=== PATIENT | female | born 1980 | race Caucasian/White ===

== ENCOUNTER 2019-02-24 10:38 | Emergency (ER) | payer BC ==
--- OUTSIDE RECORDS SUMMARY | 2019-02-24 11:05 | XMS REPORT | Clinical Summary ---
:1980 Author Organization [facility] Address [address] [place] [id number] Care Team Providers Name Role Phone Radha Montana MD Primary Care Provider Allergies No Known Allergies Medications Medication Sig Dispensed Refills Start Date End Date Status fluconazole (DIFLUCAN) Take by mouth 0 Active 100 MG tablet daily. Active Problems Problem Noted Date Irritable bowel syndrome with diarrhea 01/26/2017 Fecal incontinence 01/26/2017 Fecal urgency 01/26/2017 Family History Medical History Relation Name Comments Diabetes Father Hypertension Father Diabetes Mother Heart disease Mother Hypertension Mother Asthma Sister Heart disease Sister Relation Name Status Comments Father Mother Sister Social History Tobacco Use Types Packs/Day Years Used Date Never Smoker Alcohol Use Drinks/Week oz/Week Comments No Sex Assigned at Date Recorded Not on file Job Start Date Occupation Industry Not on file Not on file Not on file Travel History Travel Start Travel End No recent travel history available. 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
[2019-02-24 11:27] LABS: Absolute Lymphocytes (CBC) 2.2 K/uL (0.7-4.9); Basophils % 0.3 % (0-1.3); Hematocrit 40.4 % (36.0-45.0); Lymphocytes % 32.2 % (15.3-44.8); MPV 9.2 fL (7.6-11.3); RBC Red Blood Cell Count 4.77 M/uL (3.86-4.86)
[2019-02-24 11:36] LABS: Protime INR 1.03
[2019-02-24 11:49] LABS: ALT/SGPT 32 U/L (12-78); AST/SGOT 16 U/L (15-37); Albumin 3.7 g/dL (3.4-5.0); Alkaline Phosphatase 88 U/L (45-117); BUN Blood Urea Nitrogen 11 mg/dL (7-18); Bicarbonate 26 mmol/L (21-32); Bilirubin Direct < 0.1 mg/dL (0-0.2); Bilirubin Total 0.3 mg/dL (0.2-1.0); Glucose Level 77 mg/dL (74-106); Magnesium 2.3 mg/dL (1.8-2.4); NT PRO-BNP 174 pg/mL (<125); Potassium 3.8 mmol/L (3.5-5.1); Protein, Total 7.7 g/dL (6.4-8.2); Sodium Level 141 mmol/L (136-145); Troponin (Emerg Dept Use Only) < 0.02 ng/mL (0.0-0.045)
[2019-02-24] MEDS ORDERED: ASPIRIN 81 MG CHEWABLE TABLET ONE (11:50)
--- NOTE | 2019-02-24 12:51 | RAD REPORT ---
EXAM DESCRIPTION: Rita Single View02/24/2019 12:41 pm CLINICAL HISTORY: Chest pain COMPARISON: none FINDINGS: The lungs appear clear of acute infiltrate. The heart is normal size IMPRESSION: No acute abnormalities displayed
--- NOTE | 2019-02-24 13:11 | EDPHYS ---
Physician Documentation [facility] Name: Edwina Vasquez Age: 38 yrs Sex: Female : 1980 Arrival Date: 02/24/2019 Time: 10:40 Bed 4 Private MD: DURAN Physician Stefano Thurston HPI: 02/24 11:29 This 38 yrs old Female presents to ER via Ambulatory with complaints of Chest jesus Pain, Irregular Pulse. 11:29 The patient or guardian reports chest pain that is located primarily in the substernal jesus area, anterior chest wall, bilaterally. The pain does not radiate. Associated signs and symptoms: The patient has no apparent associated signs or symptoms. The chest pain is described as sharp. Modifying factors: The symptoms are alleviated by nothing. the symptoms are aggravated by nothing. Severity of pain: At its worst the pain was very mild in the emergency department the pain has resolved and did so just prior to arrival. The patient has experienced similar episodes in the past, a few times. 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 - Social history:: Smoking status: Patient/guardian denies using tobacco. - Ebola Screening: : Patient negative for fever greater than or equal to 101.5 degrees Fahrenheit, and additional compatible Ebola Virus Disease symptoms Patient denies exposure to infectious person Patient denies travel to an Ebola-affected area in the 21 days before illness onset No symptoms or risks identified at this time. - Family history:: not pertinent. ROS: 11:29 Constitutional: Negative for fever, chills, and weight loss, Eyes: Negative for injury, jesus pain, redness, and discharge, ENT: Negative for injury, pain, and discharge, Neck: Negative for injury, pain, and swelling, Respiratory: Negative for shortness of breath, cough, wheezing, and pleuritic chest pain, Abdomen/GI: Negative for abdominal pain, nausea, vomiting, diarrhea, and constipation, Back: Negative for injury and pain, : Negative for injury, bleeding, discharge, and swelling, MS/Extremity: Negative for injury and deformity, Skin: Negative for injury, rash, and discoloration, Neuro: Negative for headache, weakness, numbness, tingling, and seizure, Psych: Negative for depression, anxiety, suicide ideation, homicidal ideation, and hallucinations, Allergy/Immunology: Negative for hives, rash, and allergies, Endocrine: Negative for neck swelling, polydipsia, polyuria, polyphagia, and marked weight changes, Hematologic/Lymphatic: Negative for swollen nodes, abnormal bleeding, and unusual bruising. 11:29 Cardiovascular: Positive for chest pain, palpitations. Exam: 11:29 Constitutional: This is a well developed, well nourished patient who is awake, alert, jesus and in no acute distress. Head/Face: Normocephalic, atraumatic. Eyes: Pupils equal round and reactive to light, extra-ocular motions intact. Lids and lashes normal. Conjunctiva and sclera are non-icteric and not injected. Cornea within normal limits. Periorbital areas with no swelling, redness, or edema. ENT: Nares patent. No nasal discharge, no septal abnormalities noted. Tympanic membranes are normal and external auditory canals are clear. Oropharynx with no redness, swelling, or masses, exudates, or evidence of obstruction, uvula midline. Mucous membranes moist. Neck: Trachea midline, no thyromegaly or masses palpated, and no cervical lymphadenopathy. Supple, full range of motion without nuchal rigidity, or vertebral point tenderness. No Meningismus. Chest/axilla: Normal chest wall appearance and motion. Nontender with no deformity. No lesions are appreciated. Cardiovascular: Regular rate and rhythm with a normal S1 and S2. No gallops, murmurs, or rubs. Normal PMI, no JVD. No pulse deficits. Respiratory: Lungs have equal breath sounds bilaterally, clear to auscultation and percussion. No rales, rhonchi or wheezes noted. No increased work of breathing, no retractions or nasal flaring. Abdomen/GI: Soft, non-tender, with normal bowel sounds. No distension or tympany. No guarding or rebound. No evidence of tenderness throughout. Back: No spinal tenderness. No costovertebral tenderness. Full range of motion. Female : Normal external genitalia. Skin: Warm, dry with normal turgor. Normal color with no rashes, no lesions, and no evidence of cellulitis. MS/ Extremity: Pulses equal, no cyanosis. Neurovascular intact. Full, normal range of motion. Neuro: Awake and alert, GCS 15, oriented to person, place, time, and situation. Cranial nerves II-XII grossly intact. Motor strength 5/5 in all extremities. Sensory grossly intact. Cerebellar exam normal. Normal gait. Psych: Awake, alert, with orientation to person, place and time. Behavior, mood, and affect are within normal limits. Vital Signs: 10:50 Pulse 60; Resp 16 S; Pulse Ox 98% on R/A; Weight 113.4 kg; Height 5 ft. 3 in. (160.02 iw cm); Pain 7/10; 10:50 BP 126 / 80; jl7 12:20 BP 116 / 82; Pulse 57; Resp 14 S; Pulse Ox 98% on R/A; jl7 13:30 BP 112 / 58; Pulse 57; Resp 16 S; Pulse Ox 95% on R/A; jl7 10:50 Body Mass Index 44.29 (113.40 kg, 160.02 cm) iw MDM: 10:43 Patient medically screened. [facility] 11:31 Data reviewed: vital signs, nurses notes, lab test result(s), EKG, radiologic studies, jesus plain films. 02/24 11:11 Order name: Basic Metabolic Panel [facility] 02/24 11:11 Order name: CBC with Diff [facility] 02/24 11:11 Order name: LFT's [facility] 02/24 11:11 Order name: Magnesium [facility] 02/24 11:11 Order name: NT PRO-BNP [facility] 02/24 11:11 Order name: PT-INR [facility] 02/24 11:11 Order name: Troponin (emerg Dept Use Only) [facility] 02/24 11:29 Order name: D-Dimer [facility] 02/24 11:31 Order name: CBC with Automated Diff; Complete Time: 13:08 [facility] 02/24 11:42 Order name: Protime (+INR); Complete Time: 13:08 [facility] 02/24 11:49 Order name: D-Dimer; Complete Time: 13:08 [facility] 02/24 11:50 Order name: Basic Metabolic Panel; Complete Time: 13:08 [facility] 02/24 11:50 Order name: Liver (Hepatic) Function; Complete Time: 13:08 [facility] 02/24 11:50 Order name: Troponin (Emerg Dept Use Only); Complete Time: 13:08 [facility] 02/24 11:11 Order name: XRAY Chest (1 view) [facility] 02/24 11:11 Order name: EKG; Complete Time: 11:13 [facility] 02/24 11:11 Order name: Cardiac monitoring; Complete Time: 11: [facility] 02/24 11:11 Order name: EKG - Nurse/Tech; Complete Time: 11: [facility] 02/24 11:11 Order name: IV Saline Lock; Complete Time: 11: [facility] 02/24 11:11 Order name: Labs collected and sent; Complete Time: : [facility] 02/24 11:11 Order name: O2 Per Protocol; Complete Time: : [facility] 02/24 11:11 Order name: O2 Sat Monitoring; Complete Time: 11: [facility] 02/24 11:50 Order name: NT PRO-BNP; Complete Time: 13: [facility] 02/24 11:50 Order name: Magnesium; Complete Time: 13: [facility] 02/24 13:05 Order name: RAD; Complete Time: 13: [facility] 02/24 13:08 Order name: Troponin (emerg Dept Use Only): 115pm jesus Administered Medications: 12:18 Drug: Aspirin Chewable Tablet 162 mg Route: PO; [facility] 12:30 Follow up: Response: No adverse reaction [facility] Disposition: 02/24/19 13:11 Discharged to Home. Impression: Chest pain, unspecified, Palpitations. - Condition is Stable. - Discharge Instructions: Nonspecific Chest Pain, Palpitations, Nonspecific Chest Pain, [id number], Aspirin and Your Heart, Palpitations, [id number]. - Medication Reconciliation Form, Thank You Letter, Antibiotic Education, Prescription Opioid Use form. - Follow up: Private Physician; When: 2 - 3 days; Reason: Recheck today's complaints, Continuance of care, Re-evaluation by your physician. Follow up: Rizwan Keene MD; When: 2 - 3 days; Reason: Recheck today's complaints, Re-evaluation by your physician. - Problem is new. - Symptoms have improved. Signatures: Dispatcher [employer] Stefano Mullen MD MD cha Williams, Irene, RN Karie Nicholson RN RN jl7 Corrections: (The following items were deleted from the chart) 14:08 13:11 02/24/2019 13:11 Discharged to Home. Impression: Chest pain, unspecified; jl7 Palpitations. Condition is Stable. Forms are Medication Reconciliation Form, Thank You Letter, Antibiotic Education, Prescription Opioid Use. Follow up: Private Physician; When: 2 - 3 days; Reason: Recheck today's complaints, Continuance of care, Re-evaluation by your physician. Follow up: Rizwan Keene; When: 2 - 3 days; Reason: Recheck today's complaints, Re-evaluation by your physician. Problem is new. Symptoms have improved. jesus
--- NOTE | 2019-02-24 13:11 | ER ---
Nurse's Notes [facility] Name: Edwina Vasquez Age: 38 yrs Sex: Female : 1980 Arrival Date: 02/24/2019 Time: 10:40 Bed 4 Private MD: Diagnosis: Chest pain, unspecified;Palpitations Presentation: 02/24 10:48 Presenting complaint: Patient states: was sent from urgent care, c/o left sided chest iw pain, dry cough, SOB, palpitations, intermittent X 2 days. Transition of care: patient was not received from another setting of care. Onset of symptoms was February 22, 2019. Risk Assessment: Do you want to hurt yourself or someone else? Patient reports no desire to harm self or others. Initial Sepsis Screen: Does the patient meet any 2 criteria? No. Patient's initial sepsis screen is negative. Does the patient have a suspected source of infection? No. Patient's initial sepsis screen is negative. Care prior to arrival: None. 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 - Social history:: Smoking status: Patient/guardian denies using tobacco. - Ebola Screening: : Patient negative for fever greater than or equal to 101.5 degrees Fahrenheit, and additional compatible Ebola Virus Disease symptoms Patient denies exposure to infectious person Patient denies travel to an Ebola-affected area in the 21 days before illness onset No symptoms or risks identified at this time. - Family history:: not pertinent. Screenin:55 Abuse screen: Denies threats or abuse. Denies injuries from another. Nutritional jl7 screening: No deficits noted. Tuberculosis screening: No symptoms or risk factors identified. Fall Risk IV access (20 points). Total Souza Fall Scale indicates No Risk (0-24 pts). Assessment: 10:55 General: Appears in no apparent distress. uncomfortable, Behavior is calm, cooperative, jl7 appropriate for age. Pain: Complains of pain in anterior aspect of left upper chest Pain does not radiate. Pain currently is 7 out of 10 on a pain scale. Quality of pain is described as sharp, Pain began 2-3 days ago. Is intermittent. Neuro: Level of Consciousness is awake, alert, obeys commands, Oriented to person, place, time, situation. Cardiovascular: Heart tones S1 S2 present Patient's skin is warm and dry. Respiratory: Airway is patent Respiratory effort is even, unlabored, Respiratory pattern is regular, symmetrical, Breath sounds are clear bilaterally. Derm: Skin is pink, warm \T\ dry. 12:20 Reassessment: Patient appears in no apparent distress at this time. No changes from jl7 previously documented assessment. Patient and/or family updated on plan of care and expected duration. Pain level reassessed. Patient is alert, oriented x 3, equal unlabored respirations, skin warm/dry/pink. 13:28 Reassessment: D/C ON HOLD FOR F/U TROPONIN RESULTS. bp 13:30 Reassessment: Patient appears in no apparent distress at this time. No changes from jl7 previously documented assessment. Patient and/or family updated on plan of care and expected duration. Pain level reassessed. Patient is alert, oriented x 3, equal unlabored respirations, skin warm/dry/pink. Vital Signs: 10:50 Pulse 60; Resp 16 S; Pulse Ox 98% on R/A; Weight 113.4 kg; Height 5 ft. 3 in. (160.02 iw cm); Pain 7/10; 10:50 BP 126 / 80; jl7 12:20 BP 116 / 82; Pulse 57; Resp 14 S; Pulse Ox 98% on R/A; jl7 13:30 BP 112 / 58; Pulse 57; Resp 16 S; Pulse Ox 95% on R/A; jl7 10:50 Body Mass Index 44.29 (113.40 kg, 160.02 cm) iw ED Course: 10:40 Patient arrived in ED. as 10:42 Karie Singh RN is Primary Nurse. jl7 10:43 Stefano Thurston MD is Attending Physician. jesus 10:50 Triage completed. iw 10:55 Patient has correct armband on for positive identification. cardiac monitor on. Pulse jl7 ox on. NIBP on. 10:55 Initial lab(s) drawn, by me, sent to lab. Inserted saline lock: 20 gauge in right jl7 forearm, using aseptic technique. Blood collected. Patient maintains SpO2 saturation greater than 95% on room air. 12:20 Arm band placed on right wrist. [facility] 12:39 X-ray completed. Portable x-ray completed in exam room. Patient tolerated procedure jf well. 13:10 Rizwan Keene MD is Referral Physician. [facility] 14:08 No provider procedures requiring assistance completed. IV discontinued, intact, jl7 bleeding controlled, No redness/swelling at site. Pressure dressing applied. Administered Medications: 12:18 Drug: Aspirin Chewable Tablet 162 mg Route: PO; 7 12:30 Follow up: Response: No adverse reaction [facility] Outcome: 13:11 Discharge ordered by . [facility] 14:08 Discharged to home ambulatory. [facility] 14:08 Condition: stable 14:08 Discharge instructions given to patient, Instructed on discharge instructions, follow up and referral plans. Demonstrated understanding of instructions, follow-up care. 14:08 Patient left the ED. [facility] Signatures: Stefano Thurston MD MD cha Martinez, Amelia as Williams, Irene, NATHALY ANDERSEN Karie Singh RN RN 7 Massimo Singh, NATHALY RN Ryan Beaulieu
--- NOTE | 2019-02-24 13:31 | EKG ---
Test Date: 2019-02-24 Test Time: 10:46:33 X Ray Developer: DEE MEASUREMENT RESULTS: Intervals: Rate: 56 MN: 130 QRSD: 84 QT: 388 QTc: 374 [place]: P: 64 MN: 130 QRS: 59 T: 68 INTERPRETIVE STATEMENTS: Sinus bradycardia Low voltage QRS Borderline ECG No previous ECG available for comparison Electronically Signed On 02-24-19 13:30:05 CDT by Ronnie Logan
== END 2019-02-24 14:08 | disposition home or self-care (01) ==
LOC: ER 10:38
DX: R00.2 Palpitations (principal)
CPT/HCPCS: 36415; 71045; 80048; 80076; 83735; 83880; 84484; 85025; 85379; 85610; 93005; 99285

== ENCOUNTER 2019-08-05 11:42 | Emergency (ER) | payer BC ==
--- OUTSIDE RECORDS SUMMARY | 2019-08-05 11:44 | XMS REPORT | Summary of Care ---
:1980 Author Organization [facility] - [facility] Address [address] [place] [address] Care Team Providers Name Role Phone Pcp, Patient Does Not Have A Primary Care Provider Reason for Referral (Routine) Status Reason Specialty Diagnoses / Referred By Referred To Procedures Contact Contact New Request Cardiology Diagnoses Palpitations Kostas Palacios MD Procedures Cardiac Monitoring 24 hours 146 [facility] [address] [place] [address] Reason for Visit Reason Comments Follow-up Hospital Follow up Encounter Details Date Type Department Care Team Description 03/08/2019 Office Visit [facility] Kostas Palacios MD Palpitations (Primary Dx); Cardiology- [address] Morbid obesity with body mass index of 40.0-49.9; 146 [facility] Snores; [facility], [address] Chest [place], [place] [address] [phone] Allergies No Known Allergiesdocumented as of this encounter (statuses as of 03/08/2019) Medications Medication Sig Dispensed Refills Start Date End Date Status ondansetron (ZOFRAN Take 1 tablet 12 tablet 0 07/30/2016 Discontinued ODT) 4 mg by mouth every 9 disintegrating 8 (eight) tablet hours as needed for Nausea and Vomiting (N/V). documented as of this encounter (statuses as of 03/08/2019) Active Problems Problem Noted Date Morbid obesity with body mass index of 40.0-49.9 07/30/2016 Morbid obesity with body mass index of 50 or higher 07/30/2016 Sleep disorder breathing 01/24/2016 Palpitations 01/24/2016 Atypical chest pain 01/24/2016 Numbness 10/21/2015 documented as of this encounter (statuses as of 03/08/2019) Social History Tobacco Use Types Packs/Day Years Used Date Never Smoker Smokeless Tobacco: Never Used Alcohol Use Drinks/Week oz/Week Comments No Sex Assigned at Date Recorded Not on file Job Start Date Occupation Industry Not on file Not on file Not on file Travel History Travel Start Travel End No recent travel history available. documented as of this encounter Last Filed Vital Signs Vital Sign Reading Time Taken Comments Blood Pressure 110/70 03/08/2019 10:16 AM manual CDT Pulse 62 03/08/2019 10:16 AM CDT Temperature - - Respiratory Rate 20 03/08/2019 10:16 AM CDT Oxygen Saturation 98% 03/08/2019 10:16 AM CDT Inhaled Oxygen Concentration - - Weight 117.1 kg (258 lb 1.6 oz) 03/08/2019 10:16 AM CDT Height 160 cm (5' 3") 03/08/2019 10:16 AM CDT Body Mass Index 45.72 03/08/2019 10:16 AM CDT documented in this encounter Progress Notes Kotsas Palacios MD - 03/08/2019 10:00 AM CDT [facility] Cardiology Consult Note CHIEF COMPLAINT: Chief Complaint Patient presents with Follow-up Hospital Follow up History of Present Illness: Edwina Vasquez is a 38 years old female presented to the office for evaluation of chest discomfort and palpitations. In the past she had a stress test and ECHO which were unremarkable. Chest pain is about the same, central or left sided sharp pain or ache, lasting seconds or minutes, with SOB, non exertional. Palpation since last week has been daily with skipped beats, making her to take deep breath, lastingsecs, more during the day, associated with lightheadedness. She was in [facility] ER. BNP 174. Snores. Borderline sleep study in 2016. Gained 38 lbs in 3 yrs. Feeling tired. Previous Cardiac Studies: She states she has had an echocardiogram, an exercise treadmill stress test and a Holter monitor andwas reported to be within acceptable normal limits at least 2 years ago. Currently not on any medications. Not allergic to any medications. No history of any ongoing tobaccoabuse or alcohol abuse. No significant premature CAD noted. No significant surgical history noted SOCIAL HISTORY Social History Socioeconomic History Marital status: Single Spouse name: Not on file Number of children: Not on file Years of education: Not on file Highest education level: Not on file Occupational History Not on file Social Needs Financial resource strain: Not on file Food insecurity: Worry: Not on file Inability: Not on file Transportation needs: Medical: Not on file Non-medical: Not on file Tobacco Use Smoking status: Never Smoker Smokeless tobacco: Never Used Substance and Sexual Activity Alcohol use: No Drug use: No Sexual activity: Not on file Lifestyle Physical activity: Days per week: Not on file Minutes per session: Not on file Stress: Not on file Relationships Social connections: Talks on phone: Not on file Gets together: Not on file Attends faith service: Not on file Active member of club or organization: Not on file Attends meetings of clubs or organizations: Not on file Relationship status: Not on file Intimate partner violence: Fear of current or ex partner: Not on file Emotionally abused: Not on file Physically abused: Not on file Forced sexual activity: Not on file Other Topics Concern Not on file Social History Narrative Not on file ALLERGIES No Known Allergies MEDICATIONS Patient's Medications START taking these medications No medications on file CONTINUE taking these medications which have NOT CHANGED No medications on file START taking Modified Medications as Prescribed No medications on file STOP taking these medications ONDANSETRON (ZOFRAN ODT) 4 MG DISINTEGRATING TABLET Take 1 tablet by mouth every 8 (eight) hoursas needed for Nausea and Vomiting (N/V). There are no exam notes on file for this visit. I have reviewed the nursing notes obtained by my nurse and concur as detailed above. REVIEW OF SYSTEMS: Comprehensive 10-system review was conducted and were negative except for what' s noted in the HPI. The following systems were reviewed: Constitutional, cardiovascular, respiratory, gastrointestinal, genitourinary, musculoskeletal, neurologic, psychiatric, endocrinological, and hematological. PHYSICAL EXAMINATION: Vitals: 03/08/19 1016 BP: 110/70 BP Location: Left arm Patient Position: Sitting BP CUFF SIZE: Adult Large Pulse: 62 Resp: 20 SpO2: 98% Weight: 258 lb 1.6 oz (117.1 kg) Height: 5' 3" (1.6 m) General: no apparent distress, obese HEENT: normocephalic atraumatic Neck: supple, no lymphadenopathy, no bruits, no JVD Lungs: clear to auscultation bilaterally. No wheezes or rhonchi. No increased work of breathing. Cardio: Regular rate and rhythm, S1&S2 normal, no murmurs, rubs or gallops Abdomen: soft; non-tender; non-distended; normoactive bowel sounds. : not examined Rectal: not examined Extremities: no clubbing, cyanosis, or edema. Skin: no rashes, no visible lesions. Neuro: no gross focal deficits LABS - Reviewed pertinent labs as below: CBC BMP PT/INR WBC x10^3 (/CMM) Date Value 11/12/2003 7.1 WBC (10*3/L) Date Value 10/21/2015 9.03 NA (mmol/L) Date Value 10/21/2015 140 No results found for: PT PLT x10^3 (/CMM) Date Value 11/12/2003 252 PLT (10*3/L) Date Value 10/21/2015 247 K (mmol/L) Date Value 10/21/2015 3.7 INR (no units) Date Value 10/21/2015 0.9 HGB Date Value 10/21/2015 12.4 g/dL 11/12/2003 13.2 G/DL BUN (mg/dL) Date Value 10/21/2015 15 HCT (%) Date Value 10/21/2015 37.8 11/12/2003 39.8 CREATININE (mg/dL) Date Value 10/21/2015 0.80 LIPID PROFILE GLUCOSE (mg/dL) Date Value 10/21/2015 91 CHOL (mg/dL) Date Value 10/21/2015 201 (H) TSH LDL CHOL (mg/dL) Date Value 10/21/2015 117 TSH (mIU/L) Date Value 10/21/2015 3.43 CARDIAC ENZYMES HDL (mg/dL) Date Value 10/21/2015 47 (L) CK (U/L) Date Value 10/21/2015 57 TRIG (mg/dL) Date Value 10/21/2015 184 (H) LFTs No results found for: CKMB No results found for: AST TROPONIN I (ng/mL) Date Value 07/16/2017 <0.012 No results found for: ALT No results found for: BNP Cardiac Studies: IMAGING - I personally reviewed, pertinent results as below: EKG: Sinus rhythm with no significant ST-T changes noted. ASSESSMENT/PLAN 1. Palpitations Cardiac Monitoring 24 hours CANCELED: Cardiac Monitoring 48 hours 2. Morbid obesity with body mass index of 40.0-49.9 3. Snores 4. Chest pain, unspecified type Palpitations--seems to be premature beats. Will get 24-hour Holter to assess arrhythmias. Avoid caffeine. Chest pain--chronic. Atypical. Previous normal stress test and ECHO. Snoring and obesity--previous sleep study borderline LAKESHA but she has gained 38 lbs. If Holter showedhigh burden of arrhythmias, will repeat sleep study. Kostas Palacios MD, FACC, FACP, RADHA Guest Advisor, Division of Cardiology [facility] documented in this encounter Plan of Treatment Date Type Specialty Care Team Description 03/14/2019 Nurse Visit Cardiology Visit, Adc Nurse Name Type Priority Associated Diagnoses Order Schedule Cardiac Monitoring HEART STATION Routine Palpitations 1 Occurrences 24 hours starting 03/08/2019 until 05/08/2019 Health Maintenance Due Date Last Done Comments DTaP,Tdap,and Td Vaccines (1 1999 - Tdap) PAP SMEAR 06/26/2008 06/26/2005, 11/12/2003 INFLUENZA VACCINE (#1) 2019 PNEUMOCOCCAL 0-64 YEARS Aged Out No longer eligible based COMBINED SERIES on patient's age to complete this topic documented as of this encounter Results Not on filedocumented in this encounter Visit Diagnoses Diagnosis Palpitations - Primary Morbid obesity with body mass index of 40.0-49.9 Snores Other dyspnea and respiratory abnormality Chest pain, unspecified type documented in this encounter Insurance Payer Benefit Plan Subscriber ID Effective Dates Phone Address Type / Group [facility] [id number] 2017-Fernando [phone] [address] PPO/POS [place] - OUT OF t 87 [id number] [place] [address] [phone] (Work) documented as of this encounter
--- OUTSIDE RECORDS SUMMARY | 2019-08-05 11:44 | XMS REPORT | Encounter Summary ---
:1980 Author Care Team Providers Name Role Phone Griffin Sam MD Primary Care Provider [phone] Angela Rosales Latrine Cleaner [phone] Reason for Visit Follow Up Visit Instructions 1. Serous otitis media tympanogram 2. Otitis externa 3. Otalgia Discussion Note: None recorded.Patient educational handouts: No information available. Plan of Care Patient Instructions Patient discharged with the following per Dr. Rosales Patient is to avoid any water or shampoo into the ears while showering or swimming Use Ciprodex ear drops qid for 1 week Follow up in 2-3 months to recheck the ears If any other problems patient is to call my office Patient verbalized understanding the instructions given along with my office staff Reminders Provider Appointments Follow up Angela Rosales, 06/28/2019 10:30AM Lab None recorded. Referral None recorded. Procedures None recorded. Surgeries None recorded. Imaging Tympanogram In-House Results 04/25/2019 Medications Name Start Date Ciprodex 0.3 %-0.1 % ear drops,suspension Instill 5 drops twice a day by otic route as directed for 14 days. ciprofloxacin 500 mg tablet Take 1 tablet twice a day by oral route with meals for 14 days. metoprolol succinate ER 50 mg tablet,extended release 24 hr Medications Administered None recorded. Vitals Height Weight BMI Blood Pressure 5 ft 3 in 204.6 lbs 36.2 kg/m2 123/82 mm[Hg] Results Lab Results Date Name Specimen Result Interpretation Description Value Range Status Address 04/25/2019 Tympanogram Right Type B In-House Curve Results: For Flat Internal Use Only Left Type C In-House Peak is Results: For on Left Internal Use Only 04/21/2019 Tympanogram Right Type C In-House Peak is Results: For on Left Internal Use Only Allergies Code Code System Name Reaction Severity Status Onset NKDA Problems Name Status Onset Date Source Infection of Ear Active Encounter Otalgia Active Encounter Hearing Loss Active Encounter Allergic Rhinitis Active Encounter Perichondritis Active Encounter Procedures Date Name Performed by [facility] Arthroscopy/surgery Information not available Colonoscopy with Biopsy Information not available Removal of Gallbladder Information not available 04/21/2019 Tympanogram In-House Results For Internal Use Only [id number] 04/25/2019 Tympanogram In-House Results For Internal Use Only [id number] Vaccine List None recorded. Social History Tobacco Smoking Status Never Smoker Past Encounters 04/25/2019 Serous Otitis Media; Otitis Externa; Otalgia Angela Rosales MD: [address] [facility], [address], [place] [address], Ph. 04/21/2019 Perichondritis of External Ear; Otitis Externa; Otalgia Angela Rosales MD: [address] [facility], [address], [place] [address], Ph. History of Present Illness Review of Systems: ROS as noted in the HPI Review of Systems ENT ROS Reported By: Patient Constitutional: Constitutional: no constitutional symptoms Eyes: Eyes: no eye symptoms ENMT: ENMT: ear pain, ear discharge, hearing loss, runny nose Physical Exam ENT Exam [facility] Focus-No Stethoscope Reported By: Patient Ears: Right External auditory canal: erythema, edematous. Left External auditory canal: erythema, discharge, edematous. Right Tympanic membrane: erythematous, retracted, dull. Left Tympanic membrane: retracted, dull, mobility decreased
--- OUTSIDE RECORDS SUMMARY | 2019-08-05 11:44 | XMS REPORT | Summary of Care ---
:1980 Author Organization [facility] - Health Address [address] [place] [address] Care Team Providers Name Role Phone Pcp, Patient Does Not Have A Primary Care Provider Encounter Details Date Type Department Care Team Description 07/05/2019 Orders Only [facility] Doctor Unassigned, No 301 [facility] [place] [address] [address] [place] [address] Allergies No Known Allergiesdocumented as of this encounter (statuses as of 07/05/2019) Medications Medication Sig Dispensed Refills Start Date End Date Status metoprolol succinate XL Take 1 tablet by 30 tablet 3 04/06/2019 Active 50 mg 24 hr tablet mouth daily. flecainide 50 mg Take 1 tablet by 60 tablet 1 06/07/2019 Active tabletIndications: PVC mouth 2 (two) (premature ventricular times daily. contraction) documented as of this encounter (statuses as of 07/05/2019) Active Problems Problem Noted Date Morbid obesity with body mass index of 40.0-49.9 07/30/2016 Morbid obesity with body mass index of 50 or higher 07/30/2016 Sleep disorder breathing 01/24/2016 Palpitations 01/24/2016 Atypical chest pain 01/24/2016 Numbness 10/21/2015 documented as of this encounter (statuses as of 07/05/2019) Immunizations Name Administration Dates Next Due Influenza Virus Vaccine 04/21/2018 Influenza Virus Vaccine Quad IM 3+ YRS 03/21/2019 documented as of this encounter Social History Tobacco Use Types Packs/Day Years Used Date Never Smoker Smokeless Tobacco: Never Used Alcohol Use Drinks/Week oz/Week Comments No Sex Assigned at Date Recorded Not on file Job Start Date Occupation Industry Not on file Not on file Not on file Travel History Travel Start Travel End No recent travel history available. documented as of this encounter Last Filed Vital Signs Not on filedocumented in this encounter Plan of Treatment Date Type Specialty Care Team Description 07/12/2019 Office Visit Cardiology Kostas Palacios MD [address] [facility] [place] [address] [phone] 10/04/2019 Office Visit Pulmonary Disease Slim Perez MD [address] [place] [address] [address] [place] [address] [phone] Health Maintenance Due Date Last Done Comments PAP SMEAR 06/21/2020 06/21/2017, 06/26/2005, 11/12/2003 DTaP,Tdap,and Td Vaccines (1 07/05/2020 Postponed from 1991 - Tdap) (Refused) INFLUENZA VACCINE Completed 03/21/2019, 04/21/2018 PNEUMOCOCCAL 0-64 YEARS Aged Out No longer eligible based COMBINED SERIES on patient's age to complete this topic documented as of this encounter Procedures Procedure Name Priority Date/Time Associated Diagnosis Comments DME/SUPPLY JUSTIFICATION Routine 07/05/2019 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 [id number]-[place]ern[place] [phone] [address] PPO/POS [place] - OUT OF t 87 [id number] [place] [address] documented as of this encounter
--- OUTSIDE RECORDS SUMMARY | 2019-08-05 11:44 | XMS REPORT | Summary of Care ---
:1980 Author Organization [facility] - [facility] Address [address] [place] [address] Care Team Providers Name Role Phone Pcp, Patient Does Not Have A Primary Care Provider Reason for Referral (Routine) Status Reason Specialty Diagnoses / Referred By Referred To Procedures Contact Contact New Request Cardiology Diagnoses Palpitations Kostas Palacios MD Procedures Cardiac Monitoring 24 hours 146 [facility] [address] [place] [address] Reason for Visit Reason Comments Follow-up Hospital Follow up Encounter Details Date Type Department Care Team Description 03/08/2019 Office Visit [facility] Kostas Palacios MD Palpitations (Primary Dx); Cardiology- [address] Morbid obesity with body mass index of 40.0-49.9; 146 [facility] Snores; [facility], [address] Chest [place], [place] [address] [phone] Allergies No Known Allergiesdocumented as of this [...] CDT documented in this encounter Progress Notes Kostas Palacios MD - 03/08/2019 10:00 AM CDT [facility] Cardiology Consult Note CHIEF COMPLAINT: Chief Complaint [...] day, associated with lightheadedness. She was in [facility] ER. BNP 174. Snores. Borderline sleep study [...] file Gets together: Not on file Attends hindu service: Not on file Active member of [...] study. Kostas Palacios MD, FACC, FACP, RADHA Paper Cone Machine Tender, Division of Cardiology [facility] documented in this encounter Plan of Treatment [...] Effective Dates Phone Address Type / Group [facility] [id number] 2017-Fernando [phone] [address] PPO/POS [place] - OUT OF t 87 [id number] [place] [address] [phone] (Work) documented as of this encounter
--- OUTSIDE RECORDS SUMMARY | 2019-08-05 11:44 | XMS REPORT ---
:1980 [facility] Address [address] [place] [address] Dr. Colbert[address] [place] [address] Care Team Providers Name Role Phone Unavailable Unavailable Unavailable Problems This patient has no known problems. Allergies, Adverse Reactions, Alerts This patient has no known allergies or adverse reactions. Medications This patient has no known medications.
--- OUTSIDE RECORDS SUMMARY | 2019-08-05 11:44 | XMS REPORT | Summary of Care ---
:1980 Author Organization [facility] Address [address] [place] [address] Care Team Providers Name Role Phone Pcp, Patient Does Not Have A Primary Care Provider Reason for Visit Reason Comments Talk To Nurse Encounter Details Date Type Department Care Team Description 02/24/2019 Telephone [facility] Cardiology- Kostas Palacios MD Talk To Nurse [place] 146 [facility] 146 [facility], [address] [place] [address] [place] [address] Allergies No Known Allergiesdocumented as of this encounter (statuses as of 02/27/2019) Medications Medication Sig Dispensed Refills Start Date End Date Status ondansetron (ZOFRAN Take 1 tablet by 12 tablet 0 07/30/2016 Active ODT) 4 mg mouth every 8 disintegrating tablet (eight) hours as needed for Nausea and Vomiting (N/V). documented as of this encounter (statuses as of 02/27/2019) Active Problems Problem Noted Date Morbid obesity with body mass index of 40.0-49.9 07/30/2016 Morbid obesity with body mass index of 50 or higher 07/30/2016 Sleep disorder breathing 01/24/2016 Palpitations 01/24/2016 Atypical chest pain 01/24/2016 Numbness 10/21/2015 documented as of this encounter (statuses as of 02/27/2019) Social History Tobacco Use Types Packs/Day Years [...] Treatment Date Type Specialty Care Team Description 03/10/2019 Office Visit Cardiology Kostas Palacios MD [address] [place] [address] [place] [address] Health Maintenance Due Date Last Done Comments DTaP,Tdap,and Td Vaccines (1 1999 - Tdap) PAP SMEAR 06/26/2008 06/26/2005, 11/12/2003 INFLUENZA VACCINE (#1) 2019 PNEUMOCOCCAL 0-64 YEARS Aged Out No longer eligible based COMBINED SERIES on patient's age to complete this topic documented as of this encounter Results Not on filedocumented in this encounter Insurance Payer Benefit Plan / Group Subscriber ID Effective Dates Phone Address Type AETNA AETNA O [id number] 2017-Present HMO documented as of this encounter
--- OUTSIDE RECORDS SUMMARY | 2019-08-05 11:44 | XMS REPORT | Encounter Summary ---
:1980 Author Care Team Providers Name Role Phone Griffin Sam MD Primary Care Provider [phone] Angela Rosales Overlocker [phone] Reason for Visit Follow Up Visit Instructions 1. Perichondritis of external ear Cipro 500 mg tablet 2. Otitis externa Ciprodex 0.3 %-0.1 % ear drops,suspension 3. Otalgia tympanogram Discussion Note: None recorded.Patient educational handouts: No information available. Plan of Care Patient Instructions Patient discharged with the following per Dr. Rosales Patient is to avoid any water or shampoo into the ears while showering or swimming Patient is to remove the popewick in 3 days from left ear Use Ciprodex ear drops qid for 1 week Follow up in 2-3 weeks to recheck the left ear If any other problems patient is to call my office Patient verbalized understanding the instructions given along with my office staff Reminders Provider Appointments Follow up Angela Rosales, 04/25/2019 3:00PM Lab None recorded. Referral None recorded. Procedures None recorded. Surgeries None recorded. Imaging Tympanogram In-House Results 04/21/2019 Medications Name Start Date Cipro 500 mg tablet Take 1 tablet twice a day by oral route with meals for 14 days. Ciprodex 0.3 %-0.1 % ear drops,suspension Instill 5 drops twice a day by otic route as directed for 14 days. metoprolol succinate ER 50 mg tablet,extended release 24 hr Medications Administered None recorded. Vitals Height Weight BMI Blood Pressure 5 ft 3 in 261.6 lbs 46.3 kg/m2 136/85 mm[Hg] Results Lab Results Date Name Specimen Result Interpretation Description Value Range Status Address 04/21/2019 Tympanogram Right Type C In-House Peak is Results: For on Left Internal Use Only Allergies Code Code System Name Reaction Severity Status Onset NKDA Problems Name Status Onset Date Source Infection of Ear Active Encounter Otalgia Active Encounter Hearing Loss Active Encounter Allergic Rhinitis Active Encounter Perichondritis Active Encounter Procedures Date Name Performed by Elbow Arthroscopy/surgery Information not available Colonoscopy with Biopsy Information not available Removal of Gallbladder Information not available 04/21/2019 Tympanogram In-House Results For Internal Use Only [address] Vaccine List None recorded. Social History Tobacco Smoking Status Never Smoker Past Encounters 04/21/2019 Perichondritis of External Ear; Otitis Externa; Otalgia Angela Rosales MD: [address] [facility], [address], [place] [address], Ph. History of Present Illness None recorded. Review of Systems ENT ROS Reported By: Patient Constitutional: Constitutional: no constitutional symptoms Eyes: Eyes: no eye symptoms ENMT: ENMT: ear pain, ear discharge, hearing loss, runny nose Physical Exam ENT Exam Connie Focus-No Stethoscope Reported By: Patient Constitutional: General Appearance: obese. 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 Facial strength: normal strength, normal symmetry, no synkinesis, no facial tic. Sinuses: no tenderness. Salivary glands: no tenderness of the parotid glands, no parotid masses, no tenderness of the submandibular glands, no submandibular masses. Inspection of the TMJ: symmetric opening, no popping with motion. Palpation of the TMJ: non-tender, no crepitus Eyes: Pupils: EOM intact, PERRLA, conjunctiva non-injected Ears: Right External auditory canal: erythema, edematous; total occlusion secondary to right ear perichondritis. Left External auditory canal: erythema, purulent discharge, discharge, edematous; left ear total occlusion secondary to severe perichondritis Nose: Nasal Skin: no lesions, no lacerations, no scars. Nasal Dorsum: symmetric with no visible or palpable deformities. Nasal tip: normal symmetric nasal tip, normal nasal valves. Nasal Mucosa: normal, pink and moist. Septum: not markedly deformed. Turbinates: normal size and confrontation. Polyps: none Oral Cavity/Mouth: Lips, teeth, gums: normal lips, normal gums, normal dentition. Oral Mucosa: normal, moist, no lesions. Palate: normal hard palate, normal soft palate. Tongue: normal tongue, no lesions, no edema. Tonsils: normal tonsils, no lesions. Posterior pharynx: normal. Hypopharynx: normal hypopharynx, normal tongue base, normal pyriform sinus. Larynx: normal epiglottis, normal false vocal cords, normal true vocal cords, normal glottic mobility. Nasopharynx: normal, normal adenoids, normal eustachian tubes, choanae patent Neck: Neck: symmetrical, trachea midline. Thyroid: symmetric, no enlargement, no tenderness, no nodules
--- OUTSIDE RECORDS SUMMARY | 2019-08-05 11:44 | XMS REPORT ---
:1980 Author Organization eClinicalWorks Care Team Providers Name Role Phone Jack Hall Provider Role Unavailable Allergies No Known Allergies Problems Problem Type Condition Code Onset Dates Condition Status Problem Acute otitis externa of both ears, H60.503 Active unspecified type Medications No Known Medications Results No Known Results Summary Purpose eClinicalWorks Submission
--- OUTSIDE RECORDS SUMMARY | 2019-08-05 11:44 | XMS REPORT | Summary of Care ---
:1980 Author Organization [facility] - Health Address [address] [place] [address] Care Team Providers Name Role Phone Pcp, Patient Does Not Have A Primary Care Provider Encounter Details Date Type Department Care Team Description 03/08/2019 Orders Only [facility] Doctor Unassigned, No [address] [facility] [place] [address] [address] [place] [address] Allergies No Known Allergiesdocumented as of this encounter (statuses as of 03/10/2019) Medications No known medicationsdocumented as of this encounter (statuses as of 03/10/2019) Active Problems Problem Noted Date Morbid obesity with body mass index of 40.0-49.9 07/30/2016 Morbid obesity with body mass index of 50 or higher 07/30/2016 Sleep disorder breathing 01/24/2016 Palpitations 01/24/2016 Atypical chest pain 01/24/2016 Numbness 10/21/2015 documented as of this encounter (statuses as of 03/10/2019) Social History Tobacco Use Types Packs/Day Years [...] 03/14/2019 Nurse Visit Cardiology Visit, Adc Nurse Health Maintenance Due Date Last Done Comments DTaP,Tdap,and Td Vaccines (1 1999 - Tdap) PAP SMEAR 06/26/2008 06/26/2005, 11/12/2003 INFLUENZA VACCINE (#1) 2019 PNEUMOCOCCAL 0-64 YEARS Aged Out No longer eligible based COMBINED SERIES on patient's age to complete this topic documented as of this encounter Procedures Procedure Name Priority Date/Time Associated Diagnosis Comments AUTHORIZATION TO RELEASE Routine 03/08/2019 12:01 AM PHI TO [facility] CDT documented in this encounter Results Not on filedocumented in this encounter Insurance Payer Benefit Plan Subscriber ID Effective Dates Phone Address Type / Group AETNA AETNA O [id number] 2017-[place] BCBS OF [facility] [id number] 2017-[place] [phone] [address] PPO/POS [place] - OUT OF t 87 [id number] [place] [address] documented as of this encounter
--- OUTSIDE RECORDS SUMMARY | 2019-08-05 11:44 | XMS REPORT ---
:1980 Author Organization eClinicalWorks Care Team Providers Name Role Phone Jack Hall Provider Role Unavailable Allergies, Adverse Reactions, Alerts Substance Reaction Event Type N.K.D.A. Info Not Available Non Drug Allergy Problems Problem Type Condition Code Onset Dates Condition Status Assessment Left leg pain M79.605 Active Problem Acute otitis externa of both ears, H60.503 Active unspecified type Assessment Mass of left thigh R22.42 Active Medications Medication Code Code Instructions Start End Status Dosage System Date Date Flecainide ND 80781866372 50 MG Orally Jul 20, Active as directed Acetate 2019 Metoprolol [facility] 10207977681 25 MG Oral Active (Prior Succinate ER Auth#:[id number]) Medrol [facility] 83350208143 4 MG Orally as December 29, Active as directed directed 2017 Ciprodex ND 78308277017 0.3-0.1 % Otic December 29, Active 4 drops Twice a day 2017 into affected ear Amoxicillin ND 15900452593 500 MG Orally Active 1 tablet every 8 hrs Metoprolol ND 20494393595 50 MG Orally Jul 20, Active 1 tablet Succinate ER Once a day 2019 Results No Known Results Summary Purpose eClinicalWorks Submission
--- OUTSIDE RECORDS SUMMARY | 2019-08-05 11:45 | XMS REPORT | Summary of Care ---
:1980 Author Organization [facility] - [facility] Address [address] [place] [address] Care Team Providers Name Role Phone Pcp, Patient Does Not Have A Primary Care Provider Reason for Referral (Routine) Status Reason Specialty Diagnoses / Referred By Referred To Procedures Contact Contact New Request Cardiology Diagnoses PVC (premature ventricular contraction) Kostas Palacios MD Procedures CONSULT CARDIAC EP/[facility] [address] [place] [address] [address] [place] [address] Reason for Visit Reason Comments Follow-up 1mo Encounter Details Date Type Department Care Team Description 07/12/[address] [facility] Kostas Palacios MD PVC (premature ventricular contraction) (Primary Dx); Cardiology- [address] Morbid obesity with body mass index of 40.0-49.9 [address] [facility], [address] [place] [address] [phone] Allergies No Known Allergiesdocumented as of this encounter (statuses as of 07/12/2019) Medications Medication Sig Dispensed Refills Start Date End Date Status metoprolol succinate XL Take 1 tablet by 30 tablet 3 04/06/2019 Active 50 mg 24 hr tablet mouth daily. flecainide 50 mg Take 1 tablet by 60 tablet 1 06/07/2019 Active tabletIndications: PVC mouth 2 (two) (premature ventricular times daily. 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 Pulse 59 07/12/2019 10:37 AM LUMBER KILN OPERATOR Temperature - - Respiratory Rate 19 07/12/2019 10:37 AM LUMBER KILN OPERATOR Oxygen Saturation 97% 07/12/2019 10:37 AM LUMBER KILN OPERATOR Inhaled Oxygen Concentration - - Weight 118.4 kg (261 lb 1.6 oz) 07/12/2019 10:37 AM LUMBER KILN OPERATOR Height 160 cm (5' 3") 07/12/2019 10:37 AM LUMBER KILN OPERATOR Body Mass Index 46.25 07/12/2019 10:37 AM LUMBER KILN OPERATOR documented in this encounter Progress Notes Kostas Palacios MD - 07/12/2019 10:40 AM CST [facility] Cardiology Consult Note CHIEF COMPLAINT: PVCs Chief Complaint Patient presents with Follow-up 1mo History of Present Illness: Edwina Vasquez is a 39 years old female presented to the office for follow up of palpitations. In the past she had a stress test and ECHO which were unremarkable. Palpation has been daily with skipped beats, making her to take deep breath, lasting secs, more during the day, associated with lightheadedness. She was in [facility] ER. BNP 174. Snores. Borderline sleep study in 2016. Gained 38 lbs in 3 yrs. Feeling tired. Holter showed 24% PVCs. We started Toprol XL. Not helping yet. Then we added flecainide. She got LH from it although she still takes it. Less palpitations to some degree. Chest pain lasting secs. Previous Cardiac Studies: She states she has [...] HISTORY Social History Socioeconomic History Marital status: Spouse name: Not on file Number of [...] file Gets together: Not on file Attends christian service: Not on file Active member of [...] taking these medications which have NOT CHANGED FLECAINIDE 50 MG TABLET Take 1 tablet by mouth 2 (two) times daily. METOPROLOL SUCCINATE XL 50 MG 24 HR TABLET Take 1 tablet by mouth daily. START taking Modified Medications as Prescribed No medications on file STOP taking these medications No medications on file There are no exam notes on file for this visit. I have reviewed the nursing notes obtained by my nurse and concur as detailed above. REVIEW OF SYSTEMS: Comprehensive 10-system review was conducted and were negative except for what' s noted in the HPI. The following systems were reviewed: Constitutional, cardiovascular, respiratory, gastrointestinal, genitourinary, musculoskeletal, neurologic, psychiatric, endocrinological, and hematological. PHYSICAL EXAMINATION: Vitals: 07/12/19 1037 BP: 122/85 BP Location: Left arm Patient Position: Sitting BP CUFF SIZE: Adult Large Pulse: 59 Resp: 19 SpO2: 97% Weight: 261 lb 1.6 oz (118.4 kg) Height: 5' 3" (1.6 m) General: [...] rhythm with no significant ST-T changes noted. [place] EKG--sinus bradycardia ASSESSMENT/PLAN 1. PVC (premature ventricular contraction) CONSULT CARDIAC EP/[facility]M [facility] 2. 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 Not responding to Toprol XL. Side effect from Flecainide 50 mg BID although with mild improvement. Discussed EP referral for possible ablation. Will refer. Avoid stimulants. LAKESHA--following sleep medicine. RTC 3 months Kostas Palacios MD, FACC, FACP, RADHA Advanced Solutions Architect, Division of Cardiology [facility] documented in this encounter Plan of Treatment Date Type Specialty Care Team Description 09/14/2019 Office Visit Cardiology Lanre Boston MD [address] [place] [address] [phone] 10/04/2019 Office Visit Pulmonary Disease Slim Perez MD [address] [place] [address] [address] [place] [address] 10/11/2019 Office Visit Cardiology Kostas Palacios MD [address] [place] [address] [address] [place] [address] Health Maintenance Due Date Last Done Comments PAP SMEAR 06/21/2020 06/21/2017, 06/26/2005, 11/12/2003 DTaP,Tdap,and Td Vaccines (1 07/05/2020 Postponed from 1991 - Tdap) (Refused) INFLUENZA VACCINE Completed 03/21/2019, 04/21/2018 PNEUMOCOCCAL 0-64 YEARS Aged Out No longer eligible based COMBINED SERIES on patient's age to complete this topic documented as of this encounter Results Not on filedocumented in this encounter Visit Diagnoses Diagnosis PVC (premature ventricular contraction) - Primary Other premature beats Morbid obesity with body mass index of 40.0-49.9 documented in this encounter Insurance Payer Benefit Plan Subscriber ID Effective Dates Phone Address Type / Group [facility] [id number] 2017-[place] [phone] [address] PPO/POS [place] - OUT OF t 87 [id number] [place] [address] [phone] (Work) documented as of this encounter
--- OUTSIDE RECORDS SUMMARY | 2019-08-05 11:45 | XMS REPORT | Summary of Care ---
:1980 Author Organization [facility] - [facility] Address [address] [place] [address] Care Team Providers Name Role Phone Pcp, Patient Does Not Have A Primary Care Provider Reason for Referral (Routine) Status Reason Specialty Diagnoses / Referred By Referred To Procedures Contact Contact New Request Cardiology Diagnoses PVC (premature ventricular contraction) Kostas Palacios MD Procedures CONSULT CARDIAC EP/[facility]M [facility] [address] [place] [address] [address] [place] [address] Reason for Visit Reason Comments Follow-up 1mo Encounter Details Date Type Department Care Team Description 07/12/2019 Office Visit [facility] Kostas Palacios MD PVC (premature ventricular contraction) (Primary Dx); Cardiology- [address] Morbid obesity with body mass index of 40.0-49.9 [address] [facility], [address] [place] [address] [phone] Allergies No Known Allergiesdocumented as of this [...] Comments Blood Pressure 122/85 07/12/2019 10:37 AM TENT 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 She was in [facility] ER. BNP 174. Snores. Borderline sleep [...] file Gets together: Not on file Attends mosque service: Not on file Active member of [...] months Kostas Palacios MD, FACC, FACP, RADHA Manager Massage Department, Division of Cardiology [facility] documented in this encounter Plan of Treatment Date Type Specialty Care Team Description 09/14/2019 Office Visit Cardiology Lanre Boston MD [address] [place] [address] [phone] 10/04/2019 Office Visit Pulmonary Disease Slim Perez MD [address] [place] [address] [address] [place] [address] 10/11/2019 Office Visit Cardiology Kostas Palacios MD [address] [place] [address] [address] [place] [address] Health Maintenance Due Date Last [...] Effective Dates Phone Address Type / Group [facility] [id number] 2017-[place] [phone] [address] PPO/POS [place] - OUT OF t 87 [id number] [place] [address] [phone] (Work) documented as of this encounter
--- OUTSIDE RECORDS SUMMARY | 2019-08-05 11:45 | XMS REPORT | Summary of Care ---
:1980 Author Organization [facility] Address [address] [place] [address] Care Team Providers Name Role Phone Pcp, Patient Does Not Have A Primary Care Provider Reason for Visit Reason Comments Talk To Nurse Encounter Details Date Type Department Care Team Description 07/25/2019 Telephone [facility] Cardiology- Kostas Palacios MD Talk To Nurse [place] [address] [facility] [address] [facility], [address] [place] [address] [place] [address] Allergies No Known Allergiesdocumented as of this encounter (statuses as of 07/26/2019) Medications Medication Sig Dispensed Refills Start Date End Date Status flecainide 50 mg Take 1 tablet 60 tablet 1 06/07/2019 Active tabletIndications: by mouth 2 PVC (premature (two) times ventricular daily. contraction) metoprolol Take 2 tablets 30 tablet 3 07/26/2019 Active succinate XL 50 mg by mouth 24 hr tablet daily. metoprolol Take 1 tablet 30 tablet 3 04/06/2019 07/26/2019 Discontinued succinate XL 50 mg by mouth 24 hr tablet daily. documented as of this encounter (statuses as of 07/26/2019) Active Problems Problem Noted Date Morbid obesity with body mass index of 40.0-49.9 07/30/2016 Morbid obesity with body mass index of 50 or higher 07/30/2016 Sleep disorder breathing 01/24/2016 Palpitations 01/24/2016 Atypical chest pain 01/24/2016 Numbness 10/21/2015 documented as of this encounter (statuses as of 07/26/2019) Immunizations Name Administration Dates Next Due Influenza [...] 09/14/2019 Office Visit Cardiology Lanre Boston MD [address] [place] [phone] 10/11/2019 Office Visit Cardiology Kostas Palacios MD [address] [place] [address] [address] [place] [address] 10/11/2019 Office Visit Pulmonary Disease Slim Perez MD [address] [place] [address] [address] [place] [address] [phone] Health Maintenance Due Date Last Done Comments [...] Effective Dates Phone Address Type / Group BCBS [facility] [id number] 2017-[place] [phone] [address] PPO/POS [place] - OUT OF t 87 [id number] [place] [address] documented as of this encounter
[2019-08-05] MEDS ORDERED: DIPHENHYDRAMINE 50 MG/ML VIAL ONE (12:17)
[2019-08-05] MEDS ORDERED: METHYLPREDNISOLONE 125 MG INJ ONE (12:17)
--- NOTE | 2019-08-05 13:28 | ER ---
Nurse's Notes [facility] Name: Edwina Vasquez Age: 39 yrs Sex: Female : 1980 Arrival Date: 08/05/2019 Time: 11:43 Bed 7 Private MD: Diagnosis: Acute allergic reaction Presentation: 08/05 11:46 Presenting complaint: Patient states: Used a cosmetic face mask, experiencing redness sg and burning to face at this time. Transition of care: patient was not received from another setting of care. Onset of symptoms was August 05, 2019. Risk Assessment: Do you want to hurt yourself or someone else? Patient reports no desire to harm self or others. Initial Sepsis Screen: Does the patient meet any 2 criteria? No. Patient's initial sepsis screen is negative. Does the patient have a suspected source of infection? No. Patient's initial sepsis screen is negative. Care prior to arrival: None. 11:46 Method Of Arrival: Ambulatory sg 11:46 Acuity: EDWIN 4 sg Triage Assessment: 11:46 General: Appears in no apparent distress. well groomed, well developed, well nourished, sg Behavior is calm, cooperative, appropriate for age. Pain: Complains of pain in face Quality of pain is described as burning. EENT: Nares are clear bilaterally Oral mucosa is moist. Throat is clear. Neuro: Level of Consciousness is awake, alert, obeys commands, Oriented to person, place, time. Cardiovascular: Capillary refill is brisk in bilateral fingers Patient's skin is warm and dry. Chest pain is denied. Respiratory: Airway is patent Respiratory effort is even, unlabored, Respiratory pattern is regular, symmetrical. GI: No signs and/or symptoms were reported involving the gastrointestinal system. : No signs and/or symptoms were reported regarding the genitourinary system. Derm: Skin is pink, warm \\T\\ dry. Rash noted that is red, on face. Musculoskeletal: Circulation, motion, and sensation intact. Range of motion: intact in all extremities. Historical: - Allergies: 11:47 No Known Allergies; sg - PMHx: 11:47 mitral valve prolapse; sg - PSHx: 11:47 Cholecystectomy; Tubal ligation; sg - Immunization history:: Adult Immunizations up to date. - Coronavirus screen:: The patient has NOT traveled to [place] in the past 14 days. The patient has NOT had contact with known/suspected case of Coronavirus?. - Social history:: Smoking status: Patient denies any tobacco usage or history of. - Ebola Screening: : Patient negative for fever greater than or equal to 101.5 degrees Fahrenheit, and additional compatible Ebola Virus Disease symptoms Patient denies exposure to infectious person Patient denies travel to an Ebola-affected area in the 21 days before illness onset No symptoms or risks identified at this time. Screenin:15 Abuse screen: Denies threats or abuse. Nutritional screening: No deficits noted. em Tuberculosis screening: No symptoms or risk factors identified. Fall Risk None identified. Assessment: 12:10 General: Appears in no apparent distress. comfortable, Behavior is calm, cooperative, em appropriate for age, Denies fever. Pain: Complains of pain in face Pain currently is 3 out of 10 on a pain scale. Quality of pain is described as burning, Pain began 1 hour ago. Neuro: Level of Consciousness is awake, alert, obeys commands, Oriented to person, place, time, situation, Appropriate for age. Cardiovascular: Capillary refill < 3 seconds Patient's skin is warm and dry. Respiratory: Airway is patent Respiratory effort is even, unlabored, Respiratory pattern is regular, symmetrical, Denies shortness of breath. Derm: Skin is intact, is healthy with good turgor, Skin is pink, warm \\T\\ dry. Wound noted face redness noted around face, no blistering noted. Musculoskeletal: Capillary refill < 3 seconds, Range of motion: intact in all extremities. 13:19 Reassessment: Pt states "I think I'm better. My face doesn't feel like it's burning jl7 anymore." ERP notified. Vital Signs: 12:00 BP 126 / 80; Pulse 67; Resp 18; Temp 97.7; Pulse Ox 99% on R/A; sg 13:15 BP 129 / 80; Pulse 58; Resp 16 S; Pulse Ox 97% on R/A; jl7 ED Course: 11:43 Patient arrived in ED. mr 11:45 Pee Palomo PA is PHCP. jr8 11:45 Stefano Thurston MD is Attending Physician. jr8 11:46 Triage completed. sg 11:46 Arm band placed on. sg 11:52 Farrukh Vicente, RN is Primary Nurse. em 12:15 Patient has correct armband on for positive identification. Bed in low position. Call em light in reach. Pulse ox on. NIBP on. 12:16 Wound care: was soaked in normal saline solution, to gauze applied to face, pt reports sg feeling better. 12:20 Inserted saline lock: 22 gauge in right antecubital area, using aseptic technique. em 13:30 No provider procedures requiring assistance completed. IV discontinued, intact, ss bleeding controlled, No redness/swelling at site. Pressure dressing applied. Administered Medications: 12:21 Drug: Benadryl 25 mg Route: IVP; Site: right antecubital; em 13:28 Follow up: Response: No adverse reaction; Marked relief of symptoms em 12:23 Drug: SOLU-Medrol 125 mg Route: IVP; Site: right antecubital; em 13:28 Follow up: Response: No adverse reaction; Marked relief of symptoms em Outcome: 13:21 Discharge ordered by MD. marti 13:30 Discharged to home ambulatory, with family. ss 13:30 Condition: good 13:30 Discharge instructions given to patient, Instructed on discharge instructions, follow up and referral plans. safety practices, Demonstrated understanding of instructions, follow-up care, medications, Prescriptions given X 1. 13:31 Patient left the ED. ss Signatures: Demarcus Eisenberg, RN NATHLAY leiva NewtonLolis Farrukh Vicente, RN Georgina Blood RN RN ss Pee Palomo PA PA jr8 Leal, Jahala, RN RN jl7
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
[2019-08-05 13:56] VITALS: TEMP 97.7
[2019-08-05 13:58] VITALS: BP 129/80; O2SAT 97
== END 2019-08-05 13:31 | disposition home or self-care (01) ==
LOC: ER 11:42
DX: T20.50XA Corrosion of first degree of head, face, and neck, unspecified site, initial encounter (principal); T32.0 Corrosions involving less than 10% of body surface; T78.40XA Allergy, unspecified, initial encounter; Y93.E8 Activity, other personal hygiene
CPT/HCPCS: 96375; 96374; 99284; J1200; J2930

== ENCOUNTER 2020-09-02 08:07 | Emergency (ER) | payer BC ==
--- OUTSIDE RECORDS SUMMARY | 2020-09-02 08:10 | XMS REPORT | Continuity of Care Document ---
:1980 Author Organization [facility] t Address [address] [place] [address] Care Team Providers Name Role Phone GALO Attending Clinician Unavailable HARPREET Attending Clinician Unavailable Darvin GARSIA Attending Clinician AHRPREET Admitting Clinician Unavailable Problems Condition Condition Condition Status Onset Resolution Last Treating Co mments Source Name Details Category Date Date Treatment Clinician Date Infection Infection Problem Active [facility] Otalgia Otalgia Problem Active [facility] Hearing Hearing Problem Active [facility] loss Loss [facility] Allergic Allergic Problem Active [facility] rhinitis [facility]initis [facility] Perichondr Perichondr Problem Active [facility] it[facility] itis [facility] Allergies, Adverse Reactions, Alerts This patient has no known allergies or adverse reactions. Social History Smoking Status Start Date Stop Date Source Never Smoker [facility] Medications Ordered Filled Start Stop Current Ordering Indication Dosage Frequency Signature Comments Components Source Medication Medication Date Date Medication? Clinician (SIG) Name Name Azithbianca Reinosoithellenyci 2019-0 2020- No [place] [address] [facility] 02-20 [facility]00 first day, [facility] 00 :00 then 1 l tablet Outpati daily for ent 4 days Clinics Flecainide Flecainide 2019-0 Yes [place] [facility] Acetate Acetate 1-30 [place] directed [place] - 00:00: Mem 00 l [facility] Metoprolol Metoprolol 0 Yes [place] [address] [facility] Succinate Succinate 1-30 [facility] - ER ER 00:00: 00 l [facility] Ciprodex Ciprodex No Ciprodex [facility] 0.3 %-0.1 % 0.3 %-0.1 % 0.3 %-0.1 da ear ear % ear Medical drops,suspe drops,suspe drops,susp Group nsion nsion ension Instill 5 Instill 5 Instill 5 drops twice drops twice drops a day by a day by twice a otic route otic route day by as directed as directed otic route for 14 for 14 as days. days. directed for 14 days. ciprofloxac ciprofloxac No ciprofloxa [place] in 500 mg in 500 mg kinga 500 mg da tablet Take tablet Take tablet Medical 1 tablet 1 tablet Take 1 Group twice a day twice a day tablet by oral by oral twice a route with route with day by meals for meals for oral route 14 days. 14 days. with meals for 14 days. metoprolol metoprolol No metoprolol [facility] succinate succinate succinate da ER 50 mg ER 50 mg ER 50 mg Med ical tablet,exte tablet,exte tablet,ext Group nded nded ended release 24 release 24 release 24 hr hr hr Lisinopril Lisinopril Yes [place] [address] [facility] Pantoprazol Pantoprazol Yes [place] [address] [facility] [facility] Sodium e Sodium [facility] Immunizations Ordered Filled Immunization Date Status Comments Sourc e Immunization Name Name Salvador Franco 2020-02-[address] [facility] 00:[facility]00 [facility] Afluria Afluria 2020-02-[address] [facility] [facility] Vital Signs Vital Name Observation Time Observation Value Comments Source BP Diastolic 2019-04-25 00:00:00 82 mm[Hg] [facility] Height 2019-04-25 00:00:00 63 [in_i] [facility] BMI (Body Mass 2019-04-25 00:00:00 36.2 kg/m2 [facility] BP Systolic 2019-04-25 00:00:00 123 mm[Hg] [facility] Body Weight 2019-04-25 00:00:00 204.6 [lb_av] [facility] BP Diastolic 2019-04-21 00:00:00 85 mm[Hg] [facility] Height 2019-04-21 00:00:00 63 [in_i] [facility] BMI (Body Mass 2019-04-21 00:00:00 46.3 kg/m2 [facility] BP Systolic 2019-04-21 00:00:00 136 mm[Hg] [facility] Body Weight 2019-04-21 00:00:00 261.6 [lb_av] [facility] Procedures Procedure Date / Time Performing Clinician Source Performed TYMPANOMETRY 2019-04-25 00:00:00 [facility] TYMPANOMETRY 2019-04-21 00:00:00 [facility] Elbow [facility] Colonoscopy with Biopsy [facility] Removal of Gallbladder [facility] Plan of Care Planned Activity Planned Date Details Comments Source Instructions [facility] Encounters Start End Encounter Admission Attending Care Care Encounter Source Date/Time Date/Time Type Type Clinicians Facility Department ID 2020-08-28 2020-08-28 Outpatient [facility] [id number] 2020-08-28 2020-08-28 Outpatient [facility] [id number] [facility] 2020-07-17 2020-07-17 Outpatient [facility] [id number] [place] 00:00:00 00:00:[address] 2020-02-21 2020-02-21 [facility] [id number] [facility] 15:24:00 15:24:00 [employer] [place] [employer] [facility] l Medicine Outpati ent Clinics 2020-02-21 2020-02-21 [facility] [id number] 10:00:00 10:00:[address] [place] [facility] Medicine [facility] ent Clinics 2020-02-21 2020-02-21 [facility] [id number] 08:37:00 08:37:[address] [place] [facility] ent [facility] 2019-11-30 2019-12-01 Outpatient [facility] [id number] [place] [address] 00:00:00 00:00:[address] [place] 2019-11-30 2019-11-30 Telephone [facility] [id number] 00:00:00 00:00:00 [facility] [id number] Clear [id number] [place] [address] [id number] Medical [address] 2019-07-20 2019-07-20 [facility] [id number] 16:13:00 16:13:00 [facility] Clinics 2019-07-20 2019-07-20 [facility] [id number] 14:50:00 14:50:00 [facility] ent Clinics 2019-04-25 2019-04-25 Angela [facility] [place] - [id number] [facility] 00:00:00 00:00:00 MD Connie: [address], [facility] [id number] , Ph. 2019-04-21 2019-04-21 Angela ESCOB[place] - [id number] [facility] 00:00:00 00:00:00 MD Connie: [address], [facility] [phone] , Ph. Results Test Description Test Time Test Comments Results Result Comments Source tympanogram 2019-04-25 15:27:54 Test Item Value Reference Range Interpretation Comme nts Right (test code = Right) Type B Curve Flat Left (test code = Left) Type C Peak is on Left [facility]2019-11-01 10:43:07 Test Item Value Reference Range Interpretation Comments Right (test code = Type C Peak is on Left Right) [facility]2019-11-01 10:43:07 Test Item Value Reference Range Interpretation Comments Right (test code = Type C Peak is on Left Right) [facility]
[2020-09-02] MEDS ORDERED: ASPIRIN EC 81 MG TAB PO ONE (08:45)
[2020-09-02] MEDS ORDERED: ASPIRIN 81 MG CHEWABLE TABLET ONE (08:47)
[2020-09-02 08:49] LABS: Urine Blood NEGATIVE (NEG); Urine Glucose NEGATIVE (NEG); Urine Protein NEGATIVE (NEG); Urine Specific Gravity 1.025 (1.005-1.030)
[2020-09-02 08:59] LABS: Absolute Lymphocytes (CBC) 3.3 K/uL (0.7-4.9); Basophils % 0.5 % (0-1.3); Hematocrit 38.5 % (36.0-45.0); Lymphocytes % 38.9 % (15.3-44.8); MPV 8.8 fL (7.6-11.3); Protime INR 0.97
--- NOTE | 2020-09-02 09:31 | RAD REPORT ---
EXAM DESCRIPTION: RAD - Chest Single View - 09/02/2020 8:53 am CLINICAL HISTORY: CHEST PAIN COMPARISON: February 2019 TECHNIQUE: AP portable chest image was obtained 09/02/2020 8:53 am . FINDINGS: Lungs are clear. Heart and vasculature are normal. No measurable pleural effusion and no p neumothorax. No acute bony abnormality seen. No acute aortic findings suspected. IMPRESSION: No acute cardiopulmonary process. No significant change from comparison study.
[2020-09-02 09:33] LABS: ALT/SGPT 23 U/L (12-78); AST/SGOT 11 U/L (15-37); Albumin 3.3 g/dL (3.4-5.0); Alkaline Phosphatase 75 U/L (45-117); BUN Blood Urea Nitrogen 12 mg/dL (7-18); Bicarbonate 26 mmol/L (21-32); Bilirubin Direct < 0.1 mg/dL (0-0.2); Bilirubin Total 0.3 mg/dL (0.2-1.0); Glucose Level 90 mg/dL (74-106); Lipase 67 U/L (73-393); Magnesium 2.3 mg/dL (1.8-2.4); NT PRO-BNP 64 pg/mL (<125); Potassium 4.2 mmol/L (3.5-5.1); Sodium Level 141 mmol/L (136-145); Troponin (Emerg Dept Use Only) < 0.02 ng/mL (0.0-0.045)
--- NOTE | 2020-09-02 10:33 | EDPHYS ---
Physician Documentation [facility] Name: Edwina Vasquez Age: 40 yrs Sex: Female : 1980 Arrival Date: 09/02/2020 Time: 08:09 Bed 7 Private MD: [facility] ED Physician Stefano Thurston HPI: 09/02 10:27 This 40 yrs old Female presents to ER via Ambulatory with complaints of Chest jesus Pain. 10:27 The patient or guardian reports chest pain that is located primarily in the anterior jesus chest wall. Onset: just prior to arrival, this morning. The pain does not radiate. Associated signs and symptoms: The patient has no apparent associated signs or symptoms. The chest pain is described as aching. Duration: The patient or guardian reports multiple episodes, with no pattern. Modifying factors: The symptoms are alleviated by nothing. the symptoms are aggravated by nothing. Severity of pain: At its worst the pain was mild in the emergency department the pain is unchanged. The patient has not experienced similar symptoms in the past. VP HUMAN RESOURCES: 09:09 LMP N/A - control method jl7 Historical: - Allergies: 08:24 No Known Allergies; iw - Home Meds: 08:24 amiodarone 200 mg Oral tab 1 tab [Active]; Protonix 40 mg Oral TbEC 1 tab once daily iw [Active]; lisinopril 10 mg Oral tab 1 tab once daily [Active]; metoprolol tartrate 75 mg Oral tab 1 tab 2 times per day [Active]; Lialda 1.2 gram oral TbEC 4 tabs once daily [Active]; - PMHx: 08:24 mitral valve prolapse; frequent PVCs; ulcerative colitis; iw - PSHx: 08:24 Cholecystectomy; Tubal ligation; cardiac ablation; iw - Immunization history:: Adult Immunizations up to date, Client reports receiving the 1st dose of the Covid vaccine, August 17, 2020. - Social history:: Smoking status: Patient denies any tobacco usage or history of. - Family history:: not pertinent. ROS: 10:27 Constitutional: Negative for fever, chills, and weight loss, Eyes: Negative for injury, jesus pain, redness, and discharge, ENT: Negative for injury, pain, and discharge, Neck: Negative for injury, pain, and swelling, Respiratory: Negative for shortness of breath, cough, wheezing, and pleuritic chest pain, Abdomen/GI: Negative for abdominal pain, nausea, vomiting, diarrhea, and constipation, Back: Negative for injury and pain, : Negative for injury, bleeding, discharge, and swelling, MS/Extremity: Negative for injury and deformity, Skin: Negative for injury, rash, and discoloration, Neuro: Negative for headache, weakness, numbness, tingling, and seizure, Psych: Negative for depression, anxiety, suicide ideation, homicidal ideation, and hallucinations, Allergy/Immunology: Negative for hives, rash, and allergies, Endocrine: Negative for neck swelling, polydipsia, polyuria, polyphagia, and marked weight changes, Hematologic/Lymphatic: Negative for swollen nodes, abnormal bleeding, and unusual bruising. 10:27 Cardiovascular: Positive for chest pain, of the chest. Exam: 10:27 Constitutional: This is a well developed, well nourished patient who is awake, alert, jesus and in no acute distress. Head/Face: Normocephalic, atraumatic. Eyes: Pupils equal round and reactive to light, extra-ocular motions intact. Lids and lashes normal. Conjunctiva and sclera are non-icteric and not injected. Cornea within normal limits. Periorbital areas with no swelling, redness, or edema. ENT: Nares patent. No nasal discharge, no septal abnormalities noted. Tympanic membranes are normal and external auditory canals are clear. Oropharynx with no redness, swelling, or masses, exudates, or evidence of obstruction, uvula midline. Mucous membranes moist. Neck: Trachea midline, no thyromegaly or masses palpated, and no cervical lymphadenopathy. Supple, full range of motion without nuchal rigidity, or vertebral point tenderness. No Meningismus. Chest/axilla: Normal chest wall appearance and motion. Nontender with no deformity. No lesions are appreciated. Cardiovascular: Regular rate and rhythm with a normal S1 and S2. No gallops, murmurs, or rubs. Normal PMI, no JVD. No pulse deficits. Respiratory: Lungs have equal breath sounds bilaterally, clear to auscultation and percussion. No rales, rhonchi or wheezes noted. No increased work of breathing, no retractions or nasal flaring. Abdomen/GI: Soft, non-tender, with normal bowel sounds. No distension or tympany. No guarding or rebound. No evidence of tenderness throughout. Back: No spinal tenderness. No costovertebral tenderness. Full range of motion. Skin: Warm, dry with normal turgor. Normal color with no rashes, no lesions, and no evidence of cellulitis. MS/ Extremity: Pulses equal, no cyanosis. Neurovascular intact. Full, normal range of motion. Neuro: Awake and alert, GCS 15, oriented to person, place, time, and situation. Cranial nerves II-XII grossly intact. Motor strength 5/5 in all extremities. Sensory grossly intact. Cerebellar exam normal. Normal gait. Psych: Awake, alert, with orientation to person, place and time. Behavior, mood, and affect are within normal limits. 10:27 Musculoskeletal/extremity: Extremities: all appear grossly normal, with no appreciated pain with palpation, DVT Exam: No signs of deep vein thrombosis. no pain, no swelling, no tenderness, negative Homans' sign noted on exam, no appreciated bluish discoloration, no erythema, no increased warmth. Vital Signs: 08:18 BP 117 / 82; Pulse 55; Resp 18 S; Pulse Ox 98% on R/A; Weight 113.4 kg; Height 5 ft. 3 iw in. (160.02 cm); 08:52 BP 103 / 67; Pulse 59; Resp 15; Temp 97.8(TE); Pulse Ox 95% on R/A; Pain 0/10; jl7 10:09 BP 105 / 68; Pulse 53; Resp 17; Pulse Ox 97% ; jl7 08:18 Body Mass Index 44.29 (113.40 kg, 160.02 cm) iw MDM: 08:12 Patient medically screened. jesus 10:30 Differential diagnosis: abnormal EKG, anxiety, coronary artery disease chest wall pain, jesus cholecystitis, Cholelithiasis costochondritis, esophagitis, hiatal hernia, pancreatitis, peptic ulcer disease, pulmonary embolus, stable angina, unstable angina. HEART Score: History: Slightly Suspicious (0), ECG: Normal (0), Age: < or = 45 years (0), Risk Factors: 1 or 2 risk factors (1), [Obesity] Troponin: < or = 1 x Normal Limit (0). The patient was given aspirin in the Emergency Department. The patient's deep vein thrombosis risk score was calculated as follows: Total Score: 0. This patient was found to be at low risk for a deep vein thrombosis by using the Well's assessment criteria. The patient's pulmonary embolism risk score was calculated as follows: Total Score: 0-2 points. This patient was found to be at low risk for a pulmonary embolism by using the Well's assessment criteria. GARETH Risk Score: TOTAL SCORE = 0. Data reviewed: vital signs, nurses notes, lab test result(s), EKG, radiologic studies, doppler, plain films. Data interpreted: monitor car operator: rate is 53 beats/min, rhythm is regular, Pulse oximetry: on room air is 53 %. Test interpretation: by ED physician or midlevel provider: ECG, plain radiologic studies. 09/02 08:13 Order name: Basic Metabolic Panel; Complete Time: 10:26 jesus 09/02 08:13 Order name: CBC with Diff; Complete Time: 09:46 jesus 09/02 08:13 Order name: LFT's; Complete Time: 10: jesus 09/02 08:13 Order name: Magnesium; Complete Time: 10: jesus 09/02 08:13 Order name: NT PRO-BNP; Complete Time: 10:26 jesus 09/02 08:13 Order name: PT-INR; Complete Time: 09:46 jesus 09/02 08:13 Order name: Troponin (emerg Dept Use Only); Complete Time: 10:26 jesus 09/02 08:13 Order name: Lipase; Complete Time: 10:26 jesus 09/02 08:13 Order name: D-Dimer; Complete Time: 09:46 jesus 09/02 08:28 Order name: TSH jesus 09/02 08:39 Order name: Urine Dipstick--Ancillary (enter results); Complete Time: 09:46 bd 09/02 08:39 Order name: Urine --Ancillary (enter results); Complete Time: 09:46 bd 09/02 08:51 Order name: Thyroid Stimulating Hormone; Complete Time: 10:26 EDMS 09/02 08:13 Order name: XRAY Chest (1 view); Complete Time: 09:46 jesus 09/02 08:13 Order name: EKG; Complete Time: 08:14 jesus 09/02 08:13 Order name: Cardiac monitoring; Complete Time: 08:47 jesus 09/02 08:13 Order name: EKG - Nurse/Tech; Complete Time: 08:47 [facility] 09/02 08:13 Order name: IV Saline Lock; Complete Time: 08:47 [facility] 09/02 08:13 Order name: Labs collected and sent; Complete Time: 08:47 [facility] 09/02 08:13 Order name: O2 Per Protocol; Complete Time: 08:47 [facility] 09/02 08:13 Order name: O2 Sat Monitoring; Complete Time: 08:47 [facility] 09/02 08:13 Order name: Urine Dipstick-Ancillary (obtain specimen); Complete Time: 08:38 [facility] 09/02 08:13 Order name: Urine Test (obtain specimen); Complete Time: 08:38 [facility] 09/02 09:36 Order name: T4 Free; Complete Time: 10:26 EDMS Administered Medications: 08:38 Drug: Aspirin Chewable Tablet 324 mg Route: PO; ph 09:00 Follow up: Response: No adverse reaction jl7 Disposition: 09/02/20 10:32 Discharged to Home. Impression: Palpitations. - Condition is Stable. - Discharge Instructions: Palpitations, Aspirin and Your Heart, Palpitations, [id number]. - Medication Reconciliation Form, Thank You Letter, Antibiotic Education, Prescription Opioid Use form. - Follow up: Kolton Pierre DO; When: 2 - 3 days; Reason: Recheck today's complaints, Continuance of care, Re-evaluation by your physician. Follow up: Rizwan Keene MD; When: 2 - 3 days; Reason: Recheck today's complaints, Re-evaluation by your physician. - Problem is new. - Symptoms have improved. Signatures: Dispatcher [employer] EDGA Stefano Thurston MD MD cha Williams, Irene, RN Jalyn Roa RN RN Karie Carmichael RN RN jl7 Corrections: (The following items were deleted from the chart) 08:51 08:29 Thyroid Stimulating Hormone ordered. [facility] EDGA 10:59 10:32 09/02/2020 10:32 Discharged to Home. Impression: Palpitations. Condition is jl7 Stable. Forms are Medication Reconciliation Form, Thank You Letter, Antibiotic Education, Prescription Opioid Use. Follow up: Kolton Pierre; When: 2 - 3 days; Reason: Recheck today's complaints, Continuance of care, Re-evaluation by your physician. Follow up: Rizwan Keene; When: 2 - 3 days; Reason: Recheck today's complaints, Re-evaluation by your physician. Problem is new. Symptoms have improved. jesus
--- NOTE | 2020-09-02 10:33 | ER ---
Nurse's Notes [facility] Name: Edwina Vasquez Age: 40 yrs Sex: Female : 1980 Arrival Date: 09/02/2020 Time: 08:09 Bed 7 Private MD: Kolton Pierre Diagnosis: Palpitations Presentation: 09/02 08:18 Chief complaint: Patient states: dry cough, congestion, fever X 1 week, was COVID iw negative on Wed, finished Z-pack yesterday, no fever X 2 days, this morning she woke up feeling like her heart was skipping beats, has hx of frequent PVCs , previous ablation. Coronavirus screen: Client presents with at least one sign or symptom that may indicate coronavirus-19. Standard/surgical mask placed on the client. Provider contacted for isolation considerations. Ebola Screen: Patient negative for fever greater than or equal to 101.5 degrees Fahrenheit, and additional compatible Ebola Virus Disease symptoms Patient denies exposure to infectious person. Patient denies travel to an Ebola-affected area in the 21 days before illness onset. No symptoms or risks identified at this time. Initial Sepsis Screen: Does the patient have a suspected source of infection?. Initial Sepsis Screen: Does the patient meet any 2 criteria? No. Patient's initial sepsis screen is negative. Risk Assessment: Do you want to hurt yourself or someone else? Patient reports no desire to harm self or others. Onset of symptoms was August 26, 2020. 08:18 Method Of Arrival: Ambulatory iw 08:18 Acuity: EDWIN 3 iw SCIENTIFIC TECHNICAL WRITER: 09:09 LMP N/A - control method jl7 Historical: - Allergies: 08:24 No Known Allergies; iw - Home Meds: 08:24 amiodarone 200 mg Oral tab 1 tab [Active]; Protonix 40 mg Oral TbEC 1 tab once daily iw [Active]; lisinopril 10 mg Oral tab 1 tab once daily [Active]; metoprolol tartrate 75 mg Oral tab 1 tab 2 times per day [Active]; Lialda 1.2 gram oral TbEC 4 tabs once daily [Active]; - PMHx: 08:24 mitral valve prolapse; frequent PVCs; ulcerative colitis; iw - PSHx: 08:24 Cholecystectomy; Tubal ligation; cardiac ablation; iw - Immunization history:: Adult Immunizations up to date, Client reports receiving the 1st dose of the Covid vaccine, August 17, 2020. - Social history:: Smoking status: Patient denies any tobacco usage or history of. - Family history:: not pertinent. Screenin:52 Abuse screen: Denies threats or abuse. Denies injuries from another. Nutritional jl7 screening: No deficits noted. Tuberculosis screening: No symptoms or risk factors identified. Fall Risk IV access (20 points). Total Souza Fall Scale indicates No Risk (0-24 pts). Assessment: 08:30 General: Appears in no apparent distress. uncomfortable, Behavior is calm, cooperative, jl7 appropriate for age. Pain: Complains of pain in chest Pain does not radiate. Pain currently is 0 out of 10 on a pain scale. at worst was 7 out of 10 on a pain scale. Quality of pain is described as sharp, Pain began 2-3 days ago. Is intermittent. Neuro: Level of Consciousness is awake, alert, obeys commands, Oriented to person, place, time, situation. Cardiovascular: Heart tones S1 S2 present Patient's skin is warm and dry. Rhythm is regular. Respiratory: Airway is patent Respiratory effort is even, unlabored, Respiratory pattern is regular, symmetrical, Breath sounds are clear bilaterally. GI: No signs and/or symptoms were reported involving the gastrointestinal system. Derm: Skin is pink, warm \T\ dry. 09:30 Reassessment: Patient appears in no apparent distress at this time. No changes from jl7 previously documented assessment. Patient and/or family updated on plan of care and expected duration. Pain level reassessed. Patient is alert, oriented x 3, equal unlabored respirations, skin warm/dry/pink. 10:30 Reassessment: ERD at bedside discussing results and POC. jl7 Vital Signs: 08:18 BP 117 / 82; Pulse 55; Resp 18 S; Pulse Ox 98% on R/A; Weight 113.4 kg; Height 5 ft. 3 iw in. (160.02 cm); 08:52 BP 103 / 67; Pulse 59; Resp 15; Temp 97.8(TE); Pulse Ox 95% on R/A; Pain 0/10; jl7 10:09 BP 105 / 68; Pulse 53; Resp 17; Pulse Ox 97% ; jl7 08:18 Body Mass Index 44.29 (113.40 kg, 160.02 cm) ED Course: 08:09 Patient arrived in ED. am2 08:10 Kolton Pierre DO is Private Physician. am2 08:12 Stefano Thurston MD is Attending Physician. jesus 08:17 Karie Singh, RN is Primary Nurse. jl7 08:22 Triage completed. iw 08:24 Arm band placed on. iw 08:52 Patient has correct armband on for positive identification. Placed in gown. Bed in low jl7 position. Call light in reach. Side rails up X 1. case monitor on. Pulse ox on. NIBP on. 08:52 Initial lab(s) drawn, by id, sent to lab. Urine collected: clean catch specimen, clear, jl7 EKG done, by ED staff, reviewed by Stefano Thurston MD. Inserted saline lock: 20 gauge in right forearm, using aseptic technique. Blood collected. Patient maintains SpO2 saturation greater than 95% on room air. 08:53 XRAY Chest (1 view) In Process Unspecified. EDMS 10:31 Kolton Pierre DO is Referral Physician. jesus 10:32 Rizwan Keene MD is Referral Physician. jesus 10:58 No provider procedures requiring assistance completed. IV discontinued, intact, jl7 bleeding controlled, No redness/swelling at site. Pressure dressing applied. Administered Medications: 08:38 Drug: Aspirin Chewable Tablet 324 mg Route: PO; ph 09:00 Follow up: Response: No adverse reaction jl7 Outcome: 10:32 Discharge ordered by MD. jesus 10:58 Discharged to home ambulatory. jl7 10:58 Condition: stable 10:58 Discharge instructions given to patient, Instructed on discharge instructions, follow up and referral plans. Demonstrated understanding of instructions, follow-up care. 10:59 Patient left the ED. jl7 Signatures: Dispatcher [employer] EDMS Stefano Thurston MD MD cha Williams, Irene, RN RN Jalyn Downing RN RN Karie Singh RN RN jl7 Aurora Boo am2 Corrections: (The following items were deleted from the chart) 08:52 08:30 BP 103 / 67; Pulse 59bpm; Resp 15bpm; Pulse Ox 95% RA; Temp 97.8F Temporal; Pain jl7 0/10; jl7
== END 2020-09-02 10:59 | disposition home or self-care (01) ==
LOC: ER 08:07
DX: R00.2 Palpitations (principal); I34.1 Nonrheumatic mitral (valve) prolapse
CPT/HCPCS: 36415; 71045; 80048; 80076; 81003; 81025; 83690; 83735; 83880; 84439; 84443; 84484; 85025; 85379; 85610; 93005; 99285

== ENCOUNTER 2021-02-08 14:27 | Emergency (ER) | payer BC, OTHER ==
[2021-02-08] MEDS ORDERED: HYDROCODONE/APAP 5/325 MG TAB ONE (15:38)
--- NOTE | 2021-02-08 16:48 | RAD REPORT ---
EXAM DESCRIPTION: RAD - Wrist Right 3 View - 02/08/2021 3:48 pm CLINICAL HISTORY: Right wrist pain status post injury FINDINGS: No fracture or dislocation is seen. If the patient continues to have symptoms to suggest a n occult fracture then a followup plain film series in 7 days would be recommended.
--- NOTE | 2021-02-08 16:50 | RAD REPORT ---
EXAM DESCRIPTION: RAD - Hand Right 3 View - 02/08/2021 3:48 pm CLINICAL HISTORY: Right hand pain status post injury FINDINGS: No fracture or dislocation is seen.
--- NOTE | 2021-02-08 16:55 | ER ---
Nurse's Notes [facility] Name: Edwina Vasquez Age: 40 yrs Sex: Female : 1980 Arrival Date: 02/08/2021 Time: 14:28 Bed DX1 Private MD: Diagnosis: Contusion of right hand;Contusion of right wrist;Abrasion of right wrist Presentation: 02/08 14:42 Chief complaint: Patient states: was moving a couch, her right wrist and hand got iw caught between the concrete and couch, has swelling to right wrist and hand. 14:43 Coronavirus screen: At this time, the client does not indicate any symptoms associated iw with coronavirus-19. Ebola Screen: Patient negative for fever greater than or equal to 101.5 degrees Fahrenheit, and additional compatible Ebola Virus Disease symptoms Patient denies exposure to infectious person. Patient denies travel to an Ebola-affected area in the 21 days before illness onset. No symptoms or risks identified at this time. Initial Sepsis Screen: Does the patient meet any 2 criteria? No. Patient's initial sepsis screen is negative. Does the patient have a suspected source of infection? No. Patient's initial sepsis screen is negative. Risk Assessment: Do you want to hurt yourself or someone else? Patient reports no desire to harm self or others. Onset of symptoms was February 08, 2021. 14:43 Method Of Arrival: Ambulatory iw 14:43 Acuity: EDWIN 4 iw Historical: - Allergies: 14:44 No Known Allergies; iw - Home Meds: 14:44 amiodarone 200 mg Oral tab 1 tab [Active]; lisinopril 10 mg Oral tab 1 tab once daily iw [Active]; metoprolol tartrate 75 mg Oral tab 1 tab 2 times per day [Active]; Protonix 40 mg Oral TbEC 1 tab once daily [Active]; rosuvastatin oral once daily [Active]; - PMHx: 14:44 frequent PVCs; mitral valve prolapse; ulcerative colitis; iw - Social history:: Smoking status: . Vital Signs: 15:13 BP 113 / 68; Pulse 89; Resp 16; Pulse Ox 98% on R/A; iw ED Course: 14:28 Patient arrived in ED. as 14:44 Triage completed. iw 14:46 Tremaine Arias NP is PHCP. pm1 14:46 Stefano Thurston MD is Attending Physician. pm1 14:46 Arm band placed on. iw 15:13 Nicolette Martinez, RN is Primary Nurse. iw 15:48 Wrist Right 3 View XRAY In Process Unspecified. EDMS 15:48 Hand Right 3 View XRAY In Process Unspecified. EDMS 17:22 Orthoglass splint: Volar splint applied on right arm. em1 Administered Medications: 15:17 Drug: HYDROcodone-acetaminophen 5 mg-325 mg 1 tabs Route: PO; iw Outcome: 16:54 Discharge ordered by . pm1 17:29 Patient left the ED. iw Signatures: Dispatcher [employer] Sadie Higgins as Nicolette Martinez, NATHALY ANDERSEN Magdiel Cruz em Tremaine Arias NP TECHNICIAN SUPPORT ENGINEER pm1
--- NOTE | 2021-02-08 16:55 | EDPHYS ---
Physician Documentation [facility] Name: Edwina Vasquez Age: 40 yrs Sex: Female : 1980 Arrival Date: 02/08/2021 Time: 14:28 Bed DX1 Private MD: DURAN Physician Stefano Thurston HPI: 02/08 15:31 This 40 yrs old Female presents to ER via Ambulatory with complaints of Right pm1 Hand Injury and Right Wrist Injury. 15:31 The patient or guardian reports pain. The complaints affect the right wrist and right pm1 hand. Context: The problem was sustained at home, resulted from a crush injury, by furniture or furniture accessory. Onset: The symptoms/episode began/occurred today. Modifying factors: The symptoms are alleviated by holding still, the symptoms are aggravated by movement, dependent position. Associated signs and symptoms: Pertinent negatives: cyanosis distally, decreased sensation distally, numbness distally, tingling distally. Severity of symptoms: in the emergency department the symptoms are unchanged. The patient has not experienced similar symptoms in the past. Patient was moving furniture, a couch, and as she was moving it her right hand and right wrist was crushed between the brick wall and a couch by the other lumber mover. Historical: - Allergies: 14:44 No Known Allergies; iw - Home Meds: 14:44 amiodarone 200 mg Oral tab 1 tab [Active]; lisinopril 10 mg Oral tab 1 tab once daily iw [Active]; metoprolol tartrate 75 mg Oral tab 1 tab 2 times per day [Active]; Protonix 40 mg Oral TbEC 1 tab once daily [Active]; rosuvastatin oral once daily [Active]; - PMHx: 14:44 frequent PVCs; mitral valve prolapse; ulcerative colitis; iw - Social history:: Smoking status: . ROS: 15:31 Constitutional: Negative for fever, chills, and weight loss, Cardiovascular: Negative pm1 for chest pain, palpitations, and edema, Respiratory: Negative for shortness of breath, cough, wheezing, and pleuritic chest pain. 15:31 MS/extremity: Positive for pain, swelling, tenderness, of the right hand and right wrist, Negative for deformity. 15:31 Skin: Positive for abrasion(s), of the right wrist. 15:31 All other systems are negative. Exam: 15:31 Constitutional: This is a well developed, well nourished patient who is awake, alert, pm1 and in no acute distress. Head/Face: Normocephalic, atraumatic. 15:31 Cardiovascular: Exam negative for acute changes, Rate: normal, Rhythm: regular, Pulses: no pulse deficits are appreciated. 15:31 Respiratory: Exam negative for acute changes, respiratory distress, shortness of breath. 15:31 Musculoskeletal/extremity: Extremities: grossly normal except: noted in the right wrist: Tenderness contusion and abrasion to medial dorsal aspect, noted in the dorsum of right hand second and third distal metacarpal area: contusion, tenderness, no evidence of decreased ROM, deformity, the right hand Sensation intact. 15:31 Skin: Appearance: normal except for affected area, injury, abrasion(s), small abrasion noted, of the right wrist dorsal aspect. 15:31 Neuro: Orientation: is normal, Mentation: is normal, Motor: is normal, moves all fours. Vital Signs: 15:13 BP 113 / 68; Pulse 89; Resp 16; Pulse Ox 98% on R/A; iw MDM: 14:47 Patient medically screened. [facility] 15:36 Data reviewed: vital signs. Data interpreted: Pulse oximetry: on room air is 98 %. pm1 Interpretation: normal. 16:53 Counseling: I had a detailed discussion with the patient and/or guardian regarding: the pm1 historical points, exam findings, and any diagnostic results supporting the discharge/admit diagnosis, radiology results, the need for outpatient follow up, a hand specialist, a orthopedic surgeon, to return to the emergency department if symptoms worsen or persist or if there are any questions or concerns that arise at home. 02/08 14:48 Order name: Wrist Right 3 View XRAY; Complete Time: 16:52 02/08 14:48 Order name: Hand Right 3 View XRAY; Complete Time: 16:52 02/08 16:56 Order name: Volar Wrist Splint; Complete Time: 17:22 pm1 Administered Medications: 15:17 Drug: HYDROcodone-acetaminophen 5 mg-325 mg 1 tabs Route: PO; iw Disposition: 02/09 09:21 Co-signature as Attending Physician, Stefano Thurston MD I agree with the assessment and jesus plan of care. Disposition Summary: 02/08/21 16:54 Discharge Ordered Location: Home pm1 Problem: new pm1 Symptoms: have improved pm1 Condition: Stable pm1 Diagnosis - Contusion of right hand pm1 - Contusion of right wrist pm1 - Abrasion of right wrist pm1 Followup: pm1 - With: Emergency Department - When: As needed - Reason: Worsening of condition Followup: pm1 - With: Private Physician - When: 2 - 3 days - Reason: Recheck today's complaints, Continuance of care, Re-evaluation by your physician Discharge Instructions: - Discharge Summary Sheet pm1 - Contusion pm1 - Hand Contusion pm1 - Wrist Pain, Adult pm1 - Wrist Splint, Adult pm1 Forms: - Medication Reconciliation Form pm1 - Thank You Letter pm1 - Antibiotic Education pm1 - Prescription Opioid Use pm1 Signatures: Dispatcher [employer] Stefano Mullen MD MD cha Williams, Irene, Tremaine Yoo RN, NP ACCOUNTING GENERALIST pm1
== END 2021-02-08 17:29 | disposition home or self-care (01) ==
LOC: ER 14:27
DX: S60.811A Abrasion of right wrist, initial encounter (principal); S60.221A Contusion of right hand, initial encounter; W23.0XXA Caught, crushed, jammed, or pinched between moving objects, initial encounter; Y92.009 Unspecified place in unspecified non-institutional (private) residence as the place of occurrence of the external cause
CPT/HCPCS: 99283

== ENCOUNTER 2021-07-25 06:13 | Emergency (ER) | payer OTHER, SELFPAY ==
--- OUTSIDE RECORDS SUMMARY | 2021-07-25 06:18 | XMS REPORT | Continuity of Care Document ---
:1980 Author Organization [facility] t Address [address] [place] [address] Care Team Providers Name Role Phone FORTINO WOLFE Primary Care Physician Unavailable Nathaly Pierre Attending Clinician Unavailable CHINO MIGUEL Attending Clinician Unavailable FREDIS CARROLL Attending Clinician Unavailable Nathaly GARZA Attending Clinician Unavailable GALO Attending Clinician Unavailable Raju_P Attending Clinician Unavailable HARPREET Attending Clinician Unavailable MD KEISHA MULLINS Attending Clinician Unavailable Missy GARSIA Attending Clinician George HAGER Attending Clinician Unavailable Giselle Navarro MD Attending Clinician [phone] Anesthesia-Heydi, Lab Attending Clinician Unavailable Outpt-Heydi, Lab Attending Clinician Unavailable MISSY Attending Clinician Unavailable Only, Test Attending Clinician Unavailable Philip GARSIA Attending Clinician Pob, Lab Main Attending Clinician Unavailable Doctor Unassigned, Name Attending Clinician Unavailable George PEREZ Attending Clinician Unavailable George PEREZ Attending Clinician Unavailable George Perez MD Attending Clinician CHINO MIGUEL Admitting Clinician Unavailable Raju_P Admitting Clinician Unavailable HARPREET Admitting Clinician Unavailable MD KEISHA MULLINS Admitting Clinician Unavailable HAGER, T Admitting Clinician Unavailable Giselle Navarro MD Admitting Clinician Payers Payer Name Policy Type Policy Number Effective Date Expiration Date Shlomo SOLER SELECT US [id number] 2021 ACCESS 00:00:00 BCBS PPO POS EPO [id number] 2021 CHOICE 00:00:00 [place] [id number] 2017 OUT OF STATE 00:00:00 [place] [id number] 2017 [place] 00:00:00 Problems Condition Condition Condition Status Onset Resolution Last Treating Co mments Source Name Details Category Date Date Treatment Clinician Date Chest pain Chest pain Disease Active U nivers 6-01 ity of 00:00: Medical Branch 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[place] ventricula [place] Medical contractio contractio Br anch n) n) Morbid Morbid Disease Active Univers obesity obesity 2-09 ity of with body with body [place] mass index mass index 00 Me dical of 50 or of 50 or Branch higher higher Sleep Sleep Disease Active Univers disorder disorder 8-05 ity of breathing breathing [place] Palpitatio Palpitatio Disease Active U nivers ns ns 8-05 ity of 00:00: [place] 00 Medical Branch Atypical Atypical Disease Active Unive rs chest pain chest pain 8-05 it y of 00:00: Medical Branch Sleep Sleep Disease Active Univers disorder disorder 8-05 ity of breathing breathing 00:00: [place] [facility] Numbness Numbness Disease Active Unive rs 5-02 ity of 00:00: [place] 00 Medical Branch Infection Infection Problem Active [place] [facility] Otalgia Otalgia Problem Active [facility] Hearing Hearing Problem Active [place] [facility] Allergic Allergic Problem Active [facility] rhinitis [facility] Perichondr Perichondr Problem Active M [facility] itis [facility] Allergies, Adverse Reactions, Alerts Allergy Allergy Status Severity Reaction(s) Onset Inactive Treating Comm ents Source Name Type Date Date Clinician NO KNOWN Allergy Active [facility] ALLERGIE S NO KNOWN Drug Active Univers ALLERGIE Class ity of S [facility] Social History Social Habit Start Date Stop Date Quantity Comments Source Sex Assigned At [facility] [place] [facility] Exposure to Not sure [facility] SARS-CoV-2 (event) Medica l Branch Alcohol intake 2019-08-17 2019-08-17 [facility] 00:00:00 00:00:00 Medical [place] Smoking Status Start Date Stop Date Source Never smoker [facility] Medications Ordered Filled Start Stop Current Ordering Indication Dosage Frequency Signature Comments Components Source Medication Medication Date Date Medication? Clinician (SIG) Name Name Azithromyci Azithromyci 2020-0 2020- No [place] [address] [facility] first day, [facility] a 00 :00 then 1 l tablet Outpati daily for ent 4 days Clinics metoprolol 2020-0 Yes [id number] 75mg Take 1.5 Univers succinate 6-02 tablets by ity of XL 50 mg 24 00:00: mouth [place] hr tablet 00 daily. Medical Branch cyclobenzap 2020-0 Yes [id number] 5mg Take 1 Univers rine 5 mg 6-02 tablet by ity o f tablet 00:00: mouth 3 [place] 00 (three) Medical times [place] daily. metoprolol 2020-0 Yes [id number] 75mg Take 1.5 Univers succinate 6-02 tablets by ity of XL 50 mg 24 00:00: mouth [place] hr tablet 00 daily. Medical Branch cyclobenzap 2020-0 Yes [id number] 5mg Take 1 Univers rine 5 mg 6-02 tablet by ity o f tablet 00:00: mouth 3 [place] 00 (three) Medical times [place] daily. metoprolol 2020-0 Yes 50mg 50 mg, Unive rs succinate 11-15 Oral, ity of XL (TOPROL 14:00: DAILY, [place] XL) tablet 00 First dose Med ical 50 mg on [place] Branch 11/16/19 at 0900, Until Discontinu ed, Routine magnesium 2020-0 2020- No 800mg 800 mg, Uni vers oxide 11-15-28 Oral, ity of (MAG-OX 02:45: 02:09 ONCE, 1 [place] 400) tablet 00 :00 dose, Wed Med ical 800 mg 11/15/19 at Branch 2145, Routine KCL 2020-0 2020- No 20meq 20 mEq, Univers (KLOR-CON 11-15-28 Oral, ity of M20) tablet 02:45: 02:09 [place]CE[place] 1 [place] 20 mEq 00 :00 dose, [facility] 11/15/19 at Branch 2145, Routine metoprolol 2020-0 Yes [id number] 50mg Take 1 U nivers succinate -28 tablet by ity o f XL 50 mg 24 00:00: mouth [place] hr tablet 00 daily. [facility] Branch acetaminoph 2020-0 Yes 650mg 650 mg, Un leo en 11-14 Oral, ity of (TYLENOL) 23:22: Q6HPRN, [place] tablet 650 [address] [facility] 11/15/19 at 1822, Until Discontinu ed, Routine, Pain (scale 1-3) flecainide 2020-0 Yes [id number] 50mg Take 1 U nivers 50 mg 5-26 tablet by ity of tablet 00:00: mouth 2 [place] (two) Medical times Branch daily. flecainide 2020-0 Yes [id number] 50mg Take 1 U nivers 50 mg 5-26 tablet by ity of tablet 00:00: mouth 2 [place] 00 (two) Medical times Branch daily. flecainide 2020-0 Yes [id number] 50mg Take 1 U nivers 50 mg 5-26 tablet by ity of tablet 00:00: mouth 2 [place] 00 (two) Medical times Branch daily. metoprolol 2020-0 Yes 100mg Take 2 Univ ers succinate 5-13 tablets by ity of XL 50 mg 24 00:00: mouth [place] hr tablet 00 daily. [facility] Branch metoprolol 2020-0 Yes 100mg Take 2 Univ ers succinate 5-13 tablets by ity of XL 50 mg 24 00:00: mouth [place] hr tablet 00 daily. [facility] Branch metoprolol 2020-0 Yes 100mg Take 2 Univ ers succinate 5-13 tablets by ity of XL 50 mg 24 00:00: mouth [place] hr tablet 00 daily. [facility] Branch metoprolol 2020-0 Yes 100mg Take 2 Univ ers succinate 5-13 tablets by ity of XL 50 mg 24 00:00: mouth [place] hr tablet 00 daily. [facility] Branch metoprolol 2020-0 Yes 100mg Take 2 Univ ers succinate 5-13 tablets by ity of XL 50 mg 24 00:00: mouth [place] hr tablet 00 daily. Medical Branch metoprolol 2020-0 Yes 100mg Take 2 Univ ers succinate 5-13 tablets by ity of XL 50 mg 24 00:00: mouth [place] hr tablet 00 daily. Medical Branch metoprolol 2020-0 Yes 100mg Take 2 Univ ers succinate 5-13 tablets by ity of XL 50 mg 24 00:00: mouth [place] hr tablet 00 daily. Medical Branch metoprolol 2020-0 Yes 100mg Take 2 Univ ers succinate 5-13 tablets by ity of XL 50 mg 24 00:00: mouth [place] hr tablet 00 daily. Medical Branch flecainide 2020-0 Yes [id number] 50mg Take 1 U nivers 50 mg 3-27 tablet by ity of tablet 00:00: mouth [place] (two) Medical times Branch daily. flecainide 2020-0 Yes [id number] 50mg Take 1 U nivers 50 mg 3-27 tablet by ity of tablet 00:00: mouth [address] [place] [address] (two) Medical times Branch daily. flecainide 2020-0 Yes [id number] 50mg Take 1 U nivers 50 mg 3-27 tablet by ity of tablet 00:00: mouth [place] (two) Medical times Branch daily. flecainide 2020-0 Yes [id number] 50mg Take 1 U nivers 50 mg 3-27 tablet by ity of tablet 00:00: mouth 2 [place] (two) Medical times Branch daily. flecainide 2020-0 Yes [id number] 50mg Take 1 U nivers 50 mg 3-27 tablet by ity of tablet 00:00: mouth [address] [place] [address] (two) Medical times Branch daily. flecainide 2020-0 Yes [id number] 50mg Take 1 U nivers 50 mg 3-27 tablet by ity of tablet 00:00: mouth 2 [place] (two) Medical times Branch daily. flecainide 2020-0 2020- No [id number] 50mg Take 1 Univers 50 mg 3-27 05-26 tablet by ity of tablet 00:00: 00:00 mouth 2 [place] 00 :00 (two) Medical times Branch daily. flecainide 2020-0 2020- No [id number] 50mg Take 1 Univers 50 mg 3-27 05-26 tablet by ity of tablet 00:00: 00:00 mouth 2 [place] 00 :00 (two) Medical times Branch daily. flecainide 2020-0 Yes [id number] 50mg Take 1 U nivers 50 mg 3-06 tablet by ity of tablet 00:00: mouth 2 [place] 00 (two) Medical times Branch daily. flecainide 2020-0 Yes [id number] 50mg Take 1 U nivers 50 mg 3-06 tablet by ity of tablet 00:00: mouth 2 [place] 00 (two) Medical times Branch daily. flecainide 2020-0 Yes [id number] 50mg Take 1 U nivers 50 mg 3-06 tablet by ity of tablet 00:00: mouth 2 [place] 00 (two) Medical times Branch daily. flecainide 2020-0 Yes [id number] 50mg Take 1 U nivers 50 mg 3-06 tablet by ity of tablet 00:00: mouth 2 [place] 00 (two) Medical times Branch daily. flecainide 2020-0 2020- No [id number] 50mg Take 1 Univers 50 mg 3-06 03-27 tablet by ity of tablet 00:00: 00:00 mouth 2 [place] 00 :00 (two) Medical times Branch daily. flecainide 2020-0 2020- No [id number] 50mg Take 1 Univers 50 mg 3-06 03-27 tablet by ity of tablet 00:00: 00:00 mouth 2 [place] 00 :00 (two) Medical times Branch daily. flecainide 2020-0 2020- No [id number] 50mg Take 1 Univers 50 mg 3-06 03-27 tablet by ity of tablet 00:00: 00:00 mouth 2 [place] 00 :00 (two) Medical times Branch daily. metoprolol 2020-0 Yes 100mg Take 2 Univ ers succinate 2-05 tablets by ity of XL 50 mg 24 00:00: mouth [place] hr tablet 00 daily. Medical Branch metoprolol 2020-0 Yes 100mg Take 2 Univ ers succinate 2-05 tablets by ity of XL 50 mg 24 00:00: mouth [place] hr tablet 00 daily. Medical Branch metoprolol 2020-0 Yes 100mg Take 2 Univ ers succinate 2-05 tablets by ity of XL 50 mg 24 00:00: mouth [place] hr tablet 00 daily. Medical Branch metoprolol 2020-0 Yes 100mg Take 2 Univ ers succinate 2-05 tablets by ity of XL 50 mg 24 00:00: mouth [place] hr tablet 00 daily. Medical Branch metoprolol 2020-0 Yes 100mg Take 2 Univ ers succinate 2-05 tablets by ity of XL 50 mg 24 00:00: mouth [place] hr tablet 00 daily. Medical Branch metoprolol 2020-0 Yes 100mg Take 2 Univ ers succinate 2-05 tablets by ity of XL 50 mg 24 00:00: mouth [place] hr tablet 00 daily. Medical Branch metoprolol 2020-0 Yes 100mg Take 2 Univ ers succinate 2-05 tablets by ity of XL 50 mg 24 00:00: mouth [place] hr tablet 00 daily. Medical Branch metoprolol 2020-0 Yes 100mg Take 2 Univ ers succinate 2-05 tablets by ity of XL 50 mg 24 00:00: mouth [place] hr tablet 00 daily. Medical Branch metoprolol 2020-0 Yes 100mg Take 2 Univ ers succinate 2-05 tablets by ity of XL 50 mg 24 00:00: mouth [place] hr tablet 00 daily. Medical Branch metoprolol 2020-0 Yes 100mg Take 2 Univ ers succinate 2-05 tablets by ity of XL 50 mg 24 00:00: mouth [place] hr tablet 00 daily. Medical Branch metoprolol 2020-0 Yes 100mg Take 2 Univ ers succinate 2-05 tablets by ity of XL 50 mg 24 00:00: mouth [place] hr tablet 00 daily. Medical Branch metoprolol 2020-0 Yes 100mg Take 2 Univ ers succinate 2-05 tablets by ity of XL 50 mg 24 00:00: mouth [place] hr tablet 00 daily. Medical Branch metoprolol 2020-0 Yes 100mg Take 2 Univ ers succinate 2-05 tablets by ity of XL 50 mg 24 00:00: mouth [place] hr tablet 00 daily. Medical Branch metoprolol 2020-0 2020- No 100mg Take 2 Uni vers succinate 2-05 05-13 tablets by ity of XL 50 mg 24 00:00: 00:00 [place] hr tablet 00 :00 daily. Medical Branch metoprolol 2020-0 2020- No 100mg Take 2 Uni vers succinate 2-05 05-13 tablets by ity of XL 50 mg 24 00:00: 00:00 [place] hr tablet 00 :00 daily. Medical Branch Flecainide Flecainide 2020-0 Yes [place] [facility] Acetate Acetate 1-30 [facility] argelia Reardon s - 00:00: [facility] Metoprolol Metoprolol 2020-0 Yes [place] [address] Succinate Succinate 1-30 [place] - ER ER 00:00: [facility] flecainide 2018-06 Yes [id number] 50mg Take 1 U nivers 50 mg 2-18 tablet by ity of tablet 00:00: mouth 2 [place] (two) Medical times Branch daily. flecainide 2018-06 Yes [id number] 50mg Take 1 U nivers 50 mg 2-18 tablet by ity of tablet 00:00: mouth 2 [place] 00 (two) Medical times Branch daily. flecainide 2018-06 Yes [id number] 50mg Take 1 U nivers 50 mg 2-18 tablet by ity of tablet 00:00: mouth 2 [place] (two) Medical times Branch daily. flecainide 2018-06 Yes [id number] 50mg Take 1 U nivers 50 mg 2-18 tablet by ity of tablet 00:00: mouth 2 [place] (two) Medical times Branch daily. flecainide 2018-06 Yes [id number] 50mg Take 1 U nivers 50 mg 2-18 tablet by ity of tablet 00:00: mouth 2 [place] 00 (two) Medical times Branch daily. flecainide 2018-06 Yes [id number] 50mg Take 1 U nivers 50 mg 2-18 tablet by ity of tablet 00:00: mouth 2 [place] 00 (two) Medical times Branch daily. flecainide 2018-06 Yes [id number] 50mg Take 1 U nivers 50 mg 2-18 tablet by ity of tablet 00:00: mouth 2 [place] 00 (two) Medical times Branch daily. flecainide 2018-06 Yes [id number] 50mg Take 1 U nivers 50 mg 2-18 tablet by ity of tablet 00:00: mouth 2 [place] 00 (two) Medical times Branch daily. flecainide 2018-06 2020- No [id number] 50mg Take 1 Univers 50 mg 2-18 03-06 tablet by ity of tablet 00:00: 00:00 mouth 2 [place] 00 :00 (two) Medical times Branch daily. flecainide 2018-06 2020- No [id number] 50mg Take 1 Univers 50 mg 2-18 03-06 tablet by ity of tablet 00:00: 00:00 mouth 2 [place] 00 :00 (two) Medical times Branch daily. metoprolol 2018-06 Yes 50mg Take 1 Unive rs succinate 0-17 tablet by ity o f XL 50 mg 24 00:00: mouth [place] hr tablet 00 daily. Medical Branch metoprolol 2018-06 Yes 50mg Take 1 Unive rs succinate 0-17 tablet by ity o f XL 50 mg 24 00:00: mouth [place] hr tablet 00 daily. Medical Branch metoprolol 2018-06 Yes 50mg Take 1 Unive rs succinate 0-17 tablet by ity o f XL 50 mg 24 00:00: mouth [place] hr tablet 00 daily. Medical Branch metoprolol 2018-06 2020- No 50mg Take 1 Univ ers succinate 0-17 02-05 tablet by ity of XL 50 mg 24 00:00: 00:00 [place] hr tablet 00 :00 daily. Medical Branch ondansetron Yes 4mg Take 1 Univ ers (ZOFRAN 2-09 tablet by ity of ODT) 4 mg 00:00: mouth [place] disintegrat 00 every 8 Medic al ing tablet (eight) Branch hours as needed for Nausea and Vomiting (N/V). ondansetron 2018- No 4mg Take 1 Uni vers (ZOFRAN 2-09 09-18 tablet by ity of ODT) 4 mg 00:00: 00:00 mouth [place] disintegrat 00 :00 every 8 Medic al ing tablet (eight) Branch hours as needed for Nausea and Vomiting (N/V). ondansetron 2018- No 4mg Take 1 Uni vers (ZOFRAN 2-09 09-18 tablet by ity of ODT) 4 mg 00:00: 00:00 mouth [place] disintegrat 00 :00 every 8 Medic al ing tablet (eight) Branch hours as needed for Nausea and Vomiting (N/V). Lisinopril Lisinopril Yes [place] [address] [facility] Pantoprazol Pantoprazol Yes [place] [address] [facility] Sodium e Sodium Pierre kes - [facility] No known No Univers medications [facility] Ciprodex Ciprodex No Ciprodex [place] 0.3 [...] release 24 release 24 hr hr hr Immunizations Ordered Filled Immunization Date Status Comments Sour e Immunization Name Name Salvador [facility] 2020-02-[address] [facility] - 00:[facility]:00 [facility] 2020-02-[address] [facility] - 00:00:00 [facility] 2020-02-[address] [facility] - 00:00:00 [facility] Influenza Virus 2019-03-21 Completed Universit y of Vaccine Quad IM 3+ 00:00:00 [facility] Influenza Virus 2019-03-21 Completed Universit y of Vaccine Quad IM 3+ 00:00:00 [facility] Influenza Virus 2019-03-21 Completed Universit y of Vaccine Quad IM 3+ 00:00:00 [facility] Influenza Virus 2019-03-21 Completed Universit y of Vaccine Quad IM 3+ 00:00:00 [facility] Influenza Virus 2019-03-21 Completed Universit y of Vaccine Quad IM 3+ 00:00:00 [facility] Influenza Virus 2019-03-21 Completed Universit y of Vaccine Quad IM 3+ 00:00:00 [facility] Influenza Virus 2019-03-21 Completed Universit y of Vaccine Quad IM 3+ 00:00:00 [facility] Influenza Virus 2019-03-21 Completed Universit y of Vaccine Quad IM 3+ 00:00:00 [facility] Influenza Virus 2019-03-21 Completed Universit y of Vaccine Quad IM 3+ 00:00:00 [facility] Influenza Virus 2019-03-21 Completed Universit y of Vaccine Quad IM 3+ 00:00:00 [facility] Influenza Virus 2019-03-21 Completed Universit y of Vaccine Quad IM 3+ 00:00:00 [facility] Influenza Virus 2019-03-21 Completed Universit y of Vaccine Quad IM 3+ 00:00:00 [facility] Influenza Virus 2019-03-21 Completed Universit y of Vaccine Quad IM 3+ 00:00:00 [facility] Influenza Virus 2019-03-21 Completed Universit y of Vaccine Quad IM 3+ 00:00:00 [facility] Influenza Virus 2019-03-21 Completed Universit y of Vaccine Quad IM 3+ 00:00:00 [facility] Influenza Virus 2019-03-21 Completed Universit y of Vaccine Quad IM 3+ 00:00:00 [facility] Influenza Virus 2019-03-21 Completed Universit y of Vaccine Quad IM 3+ 00:00:00 [facility] Influenza Virus 2019-03-21 Completed Universit y of Vaccine Quad IM 3+ 00:00:00 [facility] Influenza Virus 2019-03-21 Completed Universit y of Vaccine Quad IM 3+ 00:00:00 [facility] Influenza Virus 2019-03-21 Completed Universit y of Vaccine Quad IM 3+ 00:00:00 [facility] Influenza Virus 2019-03-21 Completed Universit y of Vaccine Quad IM 3+ 00:00:00 [facility] Influenza Virus 2019-03-21 Completed Universit y of Vaccine Quad IM 3+ 00:00:00 [facility] Influenza Virus 2019-03-21 Completed Universit y of Vaccine Quad IM 3+ 00:00:00 [facility] Influenza Virus 2019-03-21 Completed Universit y of Vaccine Quad IM 3+ 00:00:00 [facility] Influenza Virus 2019-03-21 Completed Universit y of Vaccine Quad IM 3+ 00:00:00 [facility] Influenza Virus 2019-03-21 Completed Universit y of Vaccine Quad IM 3+ 00:00:00 [facility] Influenza Virus 2019-03-21 Completed Universit y of Vaccine Quad IM 3+ 00:00:00 [facility] Influenza Virus 2018-04-21 Completed Universit y of Vaccine 00:00:00 [facility] Influenza Virus 2018-04-21 Completed Universit y of Vaccine 00:00:00 [facility] Influenza Virus 2018-04-21 Completed Universit y of Vaccine 00:00:00 [facility] Influenza Virus 2018-04-21 Completed Universit y of Vaccine 00:00:00 [facility] Influenza Virus 2018-04-21 Completed Universit y of Vaccine 00:00:00 [facility] Influenza Virus 2018-04-21 Completed Universit y of Vaccine 00:00:00 [facility] Influenza Virus 2018-04-21 Completed Universit y of Vaccine 00:00:00 [facility] Influenza Virus 2018-04-21 Completed Universit y of Vaccine 00:00:00 [facility] Influenza Virus 2018-04-21 Completed Universit y of Vaccine 00:00:00 [facility] Influenza Virus 2018-04-21 Completed Universit y of Vaccine 00:00:00 [facility] Influenza Virus 2018-04-21 Completed Universit y of Vaccine 00:00:00 [facility] Influenza Virus 2018-04-21 Completed Universit y of Vaccine 00:00:00 [facility] Influenza Virus 2018-04-21 Completed Universit y of Vaccine 00:00:00 [facility] Influenza Virus 2018-04-21 Completed Universit y of Vaccine 00:00:00 [facility] Influenza Virus 2018-04-21 Completed Universit y of Vaccine 00:00:00 [facility] Influenza Virus 2018-04-21 Completed Universit y of Vaccine 00:00:00 [facility] Influenza Virus 2018-04-21 Completed Universit y of Vaccine 00:00:00 [facility] Influenza Virus 2018-04-21 Completed Universit y of Vaccine 00:00:00 [facility] Influenza Virus 2018-04-21 Completed Universit y of Vaccine 00:00:00 [facility] Influenza Virus 2018-04-21 Completed Universit y of Vaccine 00:00:00 [facility] Influenza Virus 2018-04-21 Completed Universit y of Vaccine 00:00:00 [facility] Influenza Virus 2018-04-21 Completed Universit y of Vaccine 00:00:00 [facility] Influenza Virus 2018-04-21 Completed Universit y of Vaccine 00:00:00 [facility] Influenza Virus 2018-04-21 Completed Universit y of Vaccine 00:00:00 [facility] Influenza Virus 2018-04-21 Completed Universit y of Vaccine 00:00:00 [facility] Influenza Virus 2018-04-21 Completed Universit y of Vaccine 00:00:00 [facility] Influenza Virus 2018-04-21 Completed Universit y of Vaccine 00:00:00 [facility] Vital Signs Vital Name Observation Time Observation Value Comments Source HEIGHT 2021-07-23 10:59:00 160 cm WEIGHT 2021-07-23 10:59:00 105.688 kg HEIGHT 2021-07-04 00:00:00 160 cm WEIGHT 2021-07-04 00:00:00 102.967 kg HEIGHT 2021-07-03 18:54:00 160 cm WEIGHT 2021-07-03 18:54:00 102.967 kg HEIGHT 2021-07-04 00:00:00 160 cm WEIGHT 2021-07-04 00:00:00 102.967 kg HEIGHT 2021-07-03 18:54:00 160 cm WEIGHT 2021-07-03 18:54:00 102.967 kg HEIGHT 2021-06-16 09:26:00 160 cm WEIGHT 2021-06-16 09:26:00 111.63 kg HEIGHT 2021-06-09 14:22:00 160 cm WEIGHT 2021-06-09 14:22:00 113.853 kg HEIGHT 2021-06-09 14:22:00 160 cm WEIGHT 2021-06-09 14:22:00 113.853 kg HEIGHT 2021-06-04 09:13:00 160 cm WEIGHT 2021-06-04 09:13:00 115.214 kg HEIGHT 2021-05-26 12:26:00 160 cm WEIGHT 2021-05-26 12:26:00 117.935 kg HEIGHT 2021-05-13 16:23:00 160 cm WEIGHT 2021-05-13 16:23:00 117.935 kg HEIGHT 2021-05-13 16:23:00 160 cm WEIGHT 2021-05-13 16:23:00 117.935 kg HEIGHT 2021-01-22 09:36:00 160 cm WEIGHT 2021-01-22 09:36:00 117.663 kg Systolic blood 2019-11-16 16:10:00 120 mm[Hg] Univer sity of pressure [facility] Diastolic blood 2019-11-16 16:10:00 83 mm[Hg] Unive rsity of pressure [place] [facility] [place] Heart rate 2019-11-16 16:10:00 59 /min Universi ty of [facility] Body temperature 2019-11-16 16:10:00 36.5 [place] Univ ersity of [facility] Oxygen saturation in 2019-11-16 16:10:00 96 /min University Arterial blood by [facility] Pulse oximetry Branch Respiratory rate 2019-11-16 10:03:00 17 /min Univ ersity of [facility] Body weight 2019-11-16 05:32:00 120.838 kg Universi ty of [place] [facility] BMI 2019-11-16 05:32:00 47.19 kg/m2 Universi ty of [facility] Body height 2019-11-16 01:51:00 160 cm Universi ty of [facility] BMI 2019-08-17 16:26:00 46.69 kg/m2 Universi ty of [facility] Branch Systolic blood 2019-08-17 16:26:00 139 mm[Hg] Univer sity of pressure [facility] Branch Diastolic blood 2019-08-17 16:26:00 88 mm[Hg] Unive rsity of pressure [place] [facility] [place] [facility] rate 2019-08-17 16:26:00 64 /min [facility] Body temperature 2019-08-17 16:26:00 36.56 Lorene [facility] Respiratory rate 2019-08-17 16:26:00 16 /min Univ [facility] Body height 2019-08-17 16:26:00 160 cm [facility] [place] [facility] [place] Body weight 2019-08-17 16:26:00 119.568 kg [facility] Systolic blood 2019-07-12 16:37:00 122 mm[Hg] Univer sity of pressure [facility] Diastolic blood 2019-07-12 16:37:00 85 mm[Hg] Unive rsity of pressure [facility] Heart rate 2019-07-12 16:37:00 59 /min [facility] Respiratory rate 2019-07-12 16:37:00 19 /min Univ [facility] Body height 2019-07-12 16:37:00 160 cm [facility] [place] [facility] Body weight 2019-07-12 16:37:00 118.434 kg [facility] [place] [facility] BMI 2019-07-12 16:37:00 46.25 kg/m2 [facility] saturation in 2019-07-12 16:37:00 97 /min University of Arterial blood by [facility] Pulse oximetry Branch BP Diastolic 2019-04-25 00:00:00 82 mm[Hg] [facility] Height 2019-04-25 00:00:00 63 [in_i] [facility] BMI (Body Mass 2019-04-25 00:00:00 36.2 kg/m2 [facility] c engineer Medical Index) Group BP Systolic 2019-04-25 00:00:00 123 mm[Hg] [facility] Body Weight 2019-04-25 00:00:00 204.6 [lb_av] [facility] BP Diastolic 2019-04-21 00:00:00 85 mm[Hg] [facility] Height 2019-04-21 00:00:00 63 [in_i] [facility] BMI (Body Mass 2019-04-21 00:00:00 46.3 kg/m2 [facility] c engineer Medical Index) Group BP Systolic 2019-04-21 00:00:00 136 mm[Hg] [facility] Body Weight 2019-04-21 00:00:00 261.6 [lb_av] [facility] Systolic blood 2019-03-08 15:16:00 110 mm[Hg] manual Univer sity of pressure [facility] Diastolic blood 2019-03-08 15:16:00 70 mm[Hg] manual Unive rsity of pressure [facility] Heart rate 2019-03-08 15:16:00 62 /min Universi [facility] Respiratory rate 2019-03-08 15:16:00 20 /min Univ [facility] Body height 2019-03-08 15:16:00 160 cm [facility] Body weight 2019-03-08 15:16:00 117.073 kg [facility] BMI 2019-03-08 15:16:00 45.72 kg/m2 [facility] Oxygen saturation in 2019-03-08 15:16:00 98 /min University of Arterial blood by [facility] Pulse oximetry Branch Procedures Procedure Date / Time Performing Clinician Source Performed MAGNESIUM 2019-11-16 01:16:00 Shahana Salomon [facility] BASIC METABOLIC PANEL 2019-11-16 01:16:00 Shahana Salomon [facility] (NA, K, CL, CO2, Medical Branch GLUCOSE, BUN, CREATININE, CA) CBC WITH DIFFERENTIAL 2019-11-16 01:16:00 Shahana Salomon [facility] EKG-12 LEAD 2019-11-15 12:56:01 [facility] COVID-19 (PCR MOLECULAR 2019-11-14 19:34:00 [facility] TESTING) Medical Branch ASSIGNMENT OF BENEFITS 2019-11-03 17:47:45 Doctor Unassigned, No [facility] DME/SUPPLY JUSTIFICATION 2019-07-05 06:01:00 Doctor Unassigned, No [facility] TYMPANOMETRY 2019-04-25 00:00:00 [facility] TYMPANOMETRY 2019-04-21 00:00:00 [facility] AUTHORIZATION TO RELEASE 2019-03-08 05:01:00 Doctor Unassigned, No [facility] PHI TO [facility] Colonoscopy with Biopsy [facility] Removal of Gallbladder [facility] Plan of Care Planned Activity Planned Date Details Comments Source Instructions [facility] Encounters Start End Encounter Admission Attending Care Care Encounter Source Date/Time Date/Time Type Type Clinicians Facility Department ID 2021-07-16 Outpatient Pierre, [facility] 12:47:04 [place] [id number] [facility] 2021-07-16 Outpatient Pierre, [facility] 12:38:22 [place] [id number] [facility] 2021-07-16 Outpatient Pierre, [facility] 11:54:57 [place] [id number] [facility] 2021-07-16 Outpatient Pierre, [facility] 11:42:41 [place] [id number] [facility] 2021-07-16 Outpatient [facility] [id number] 11:04:35 [id number] [facility] 2021-07-30 2021-07-30 Outpatient FADNER, [facility] [id number] 00:00:00 00:00:00 [facility] 2021-07-23 2021-07-23 Outpatient FADNER, [facility] [id number] 11:35:11 11:35:25 [facility] 2021-07-03 2021-07-04 Outpatient ER FADNER, [facility] Emergency [id number] SLS 18:56:00 14:20:00 ALNA 2021-06-27 2021-06-27 [facility] [id number] [facility] 2021-06-25 2021-06-25 [facility] [id number] [facility] 2021-06-25 2021-06-25 [facility] [id number] [facility] 2021-06-18 2021-06-18 Outpatient ILANER, [facility] [id number] 00:00:00 00:00:00 [facility] 2021-06-16 2021-06-16 Outpatient FADNER, [facility] [id number] 09:39:31 09:50:37 [facility] 2021-06-10 2021-06-12 In[facility] [id number] [facility] 06:27:00 10:18:00 ALNA 2021-06-04 2021-06-04 Outpatient EL [facility]SL [facility] [id number] [facility] 08:54:00 23:59:00 2021-06-04 2021-06-04 Outpatient [facility] [id number] 08:08:35 10:24:36 [facility] 2021-05-26 2021-05-26 [facility] [id number] 11:56:43 13:55:54 [facility] 2021-05-23 2021-05-23 Outpatient EL MYRIAM, [facility] Surgery [id number] [facility] 07:43:00 12:34:00 ALNA 2021-03-26 2021-03-26 Outpatient [facility] [id number] [facility] 2021-01-22 2021-01-22 Outpatient [facility] [id number] 00:00:00 00:00:00 [facility] 2020-09-13 2020-09-13 Outpatient R [facility] [id number] Univers 13:20:00 13:20:00 [facility] 2020-09-10 2020-09-10 Outpatient [facility] [id number] [facility]00 [facility] 2020-09-08 2020-09-08 Outpatient R [facility] [id number] Univers 13:20:00 13:20:00 [facility] 2020-09-04 2020-09-04 Outpatient R GREG [facility] [id number] Univers 09:40:00 09:40:00 NOLBERTO [id number] [facility] 2020-09-04 2020-09-04 [facility] [id number] Univers 09:40:00 09:40:00 NOLBERTO [facility] 2020-09-04 2020-09-04 Outpatient PAPITO ROSENTHAL [facility] [id number] [place] 00:00:00 00:00:[address] 2020-08-28 2020-08-28 Outpatient STLMLC [facility] [id number] [facility]00 [facility] 2020-08-28 2020-08-28 Outpatient STLMLC [facility] [id number] [facility]00 [facility] 2020-08-14 2020-08-14 Outpatient [facility] [id number] Univers 09:20:00 09:20:00 [id number] [facility] 2020-08-14 2020-08-14 Outpatient R GREG [facility] [id number] Univers 09:20:00 09:20:00 NOLBERTO [facility] 2020-07-17 2020-07-17 Outpatient PAPITO ROSENTHAL [facility] [id number] [place] 00:00:00 00:00:[id number] 2020-05-08 2020-05-08 Outpatient Raju_P [facility] [id number] [place] 02:20:00 02:20:00 [id number] [facility] 2020-02-21 2020-02-21 [facility] [id number] 15:24:00 15:24:00 t [place] [facility] - Drive [facility] Medicine Outpati ent Clinics 2020-02-21 2020-02-21 [facility] [id number] 10:00:00 10:00:00 t [place] [facility] [employer] [facility] - Drive [facility] l Medicine Outpati ent Clinics 2020-02-21 2020-02-21 [facility] [id number] 08:37:00 08:37:00 t Natalbany Zhui Xin s - Drive [facility] l Medicine Outpati ent Clinics 2019-12-11 2019-12-11 Outpatient R [facility] [id number] [facility] 08:00:00 08:00:00 [id number] [facility] 2019-12-11 2019-12-11 Outpatient R [facility] [id number] Univers 08:00:00 08:00:00 [facility] 2019-11-30 2019-12-01 [facility] [id number] [place] 00:00:00 00:00:[address] 2019-11-30 2019-11-30 [facility]phone [facility] [id number] Univers 00:00:00 00:00:00 [facility] [id number] it y [id number] [id number] [address] Office [facility] 2019-11-30 2019-11-30 Telephone Missy [facility] [id number] 00:00:00 00:00:00 [facility] [id number] Clear 4.2.7.2.686 [place] [id number] [address] 2019-11-20 2019-11-21 Outpatient X [facility]TE [facility] [id number] Univers 13:14:58 18:39:00 ity of [facility] 2019-11-15 2019-11-16 [facility] Satish Navarro [id number] Univers 13:25:00 14:09:00 Encounter Anesthesia-Heydi, Ep Lab [place] 350.1 .13.10 ity of Outpt-Heydi, Ep Lab [facility] 4.2.7.2.686 [place] [id number] [address] 2019-11-15 2019-11-15 Outpatient [facility] [id number] Univers 08:00:00 08:00:00 [id number] ity of [facility] 2019-11-15 2019-11-15 [facility] [id number] Univers 08:00:00 08:00:00 LANRE ity of [facility] 2019-11-14 2019-11-14 Laboratory Only, Adc Test [facility] 1.2.840. 114 [id number] Univers 14:31:36 14:46:36 Only Lanre [place] 350.1.13.10 ity of Peter 4.2.7.2.686 Benvaldemar s esskennedy [phone] Oh dical [facility] 353 [facility] 2019-11-14 2019-11-14 Outpatient R [facility] [id number] Univers 14:45:00 14:45:00 [id number] ity of [facility] 2019-11-14 2019-11-14 [facility] [id number] Univers 14:45:00 14:45:00 LANRE ity of [facility] 2019-11-14 2019-11-14 Refever Palacios [facility] 1.2.840.114 [id number] Univers 00:00:00 00:00:00 Kostas Adrian [id number] ity of [place] Profess[place] [phone] Oh dical nal 059 [facility] 2019-11-10 2019-11-10 Telephone Perla [place] [id number] Univers 00:00:00 00:00:00 Lanre Evangelista 350.1.13.10 it y of Hospital 4.2.7.2.686 Ben as [id number] [address] 2019-11-09 2019-11-09 Telephone [facility] [id number] Univers 00:00:00 00:00:00 Lanre HEALTH 350.1.13.10 it y of [id number] [place] [phone] [facility] Primary & [address] [place] [address] Specialty Care 2019-11-03 2019-11-03 Outpatient R [facility] [id number] Univers 13:15:00 13:15:00 [id number] ity of [facility] 2019-11-03 2019-11-03 Outpatient [facility] [id number] Univers 13:15:00 13:15:00 LANRE ity of [facility] 2019-11-03 2019-11-03 Junior Software Engineer Hanna Andrea Lab Main [facility] 1.2.8 40.114 [id number] Univers 12:49:54 13:04:54 Visit Missy Lanrerosio Adrian 350.1.13.10 ity of [place] [phone] Oh dical nal 353 [facility] 2019-11-03 2019-11-03 Orders Doctor SIMA 1.2.840.114 [id number] Univers 00:00:00 00:00:00 Only Unassigned, EVANGELISTA 350.1.13.10 ity of [place] [facility] 4.2.7.2.686 Ben as [phone] [address] 2019-11-01 2019-11-01 Refill [facility] 1.2.840.114 [id number] Univers 00:00:00 00:00:00 Haydensamirzan [place] 350.1.13.10 ity of [place] [phone] [place] [id number] [facility] 2019-10-11 2019-10-11 Outpatient R SLIM PEREZ [facility] [id number] Univers 10:00:00 10:00:00 SLIM PEREZ 2003 [id number] ity [facility] 2019-09-13 2019-09-27 Telemedici [facility] 1.2.840.114 [id number] Univers 08:18:10 14:56:59 ne Visit Slim Adrian 350.1.13.10 ity of [place] 4[place]2.[place].2.[place] [phone] [facility] 085 [facility] 2019-09-15 2019-09-15 Refever [facility] 1.2.840.114 [id number] Univers 00:00:00 00:00:00 Kostas Adrian 350.1.13.10 ity of [place] 4[place].7.2.[place] [phone] [address] 2019-09-13 2019-09-13 Outpatient R SLIM PEREZ [facility] [id number] Univers 09:30:00 09:30:00 SLIM PEREZ 2002 [id number] ity [facility] 2019-09-13 2019-09-13 Outpatient R SLIM PEREZ [facility] [id number] Univers 09:30:00 09:30:00 [facility] 2019-09-01 2019-09-01 Patient Missy [facility] [id number] Univers 00:00:00 00:00:00 Secure Msg Lanre Y HEALTH 350.1.13.10 ity of [facility] 4.2.7.2.686 [place] [phone] [place] 695819 [place] 2019-08-29 2019-08-29 Telephone SIMA [place] 1.2.469.732 [id number] Univers 00:00:00 00:00:00 Lanre EVANGELISTA 350.1.13.10 it y of HOSPITAL 4.2.7.2.686 Ben as [phone] [facility] 008 [place] 2019-08-29 2019-08-29 Telephone Perla [place] [id number] Univers 00:00:00 00:00:00 Lanre [place] 350.1.13.10 it y of Hospital 4.2.7.2.686 Ben as [phone] [address] 2019-08-21 2019-08-21 Chantelle Palacios [facility] 1.2.840.114 [id number] Univers 00:00:00 00:00:00 Kostas Adrian 350.1.13.10 ity [facility] 4.2.7.2.[place] [phone] [address] 2019-08-21 2019-08-21 Telephone Missy, [facility] 1.2.840.114 [id number] Univers 00:00:00 00:00:00 Lanre Y HEALTH 350.1.13.10 i ty of CLINICS 4[place]2.7.2.[place] [phone] [address] 2019-08-17 2019-08-17 Office Missy [facility] [id number] Univers 09:39:10 11:57:35 Visit Lanre Y HEALTH 350.1.13.10 i ty of CLINICS 4[place]2.7.2.[place] [phone] [address] 2019-08-17 2019-08-17 Outpatient R MISSY [facility] [id number] Univers 10:00:00 10:00:00 LANRE [id number] ity [facility] 2019-08-17 2019-08-17 Outpatient R MISSY [facility] [id number] Univers 10:00:00 10:00:00 [facility] 2019-08-16 2019-08-16 Telephone Missy, UNIVERS[facility] 1.2.840.114 [id number] Univers 00:00:00 00:00:00 Lanre Y HEALTH 350.1.13.10 i ty of CLINICS 4.2.7.2.[place] [phone] [facility] 059 [place] 2019-07-25 2019-07-25 Telephone [facility] [id number] Univers 00:00:00 00:00:00 Kostas [place] 350.1.13.10 ity of [place] 4.2.7.2.[place] [phone] Oh dical nal 059 [facility] 2019-07-20 2019-07-20 [facility] [id number] 16:13:00 16:13:00 t [facility] ent Clinics 2019-07-20 2019-07-20 Out[facility] [id number] 14:50:00 14:50:00 t [facility] ent Clinics 2019-07-15 2019-07-15 Outpatient Connie_Thu VALDEZ [facility] [id number] [place] 10:34:00 10:34:00 0125 Medical Group 2019-07-12 2019-07-12 Office [facility] 1.2.840.114 [id number] Univers 10:21:41 11:40:58 Visit Haydensamirzan Nguyễn 350.1.13.10 ity of [place] 4.2.7.2.[place] [phone] Oh dical nal 9 [facility] 2019-07-05 2019-07-05 Orders Doctor SIMA 1.2.840.114 [id number] Univers 00:00:00 00:00:00 Only Unassigned, EVANGELISTA 350.1.13.10 ity of [place] [facility] 4.2.7.2.686 Ben as [phone] [facility] 009 Branch 2019-04-25 2019-04-25 Angela VALDEZ [place] - [id number] [place] 00:00:00 00:00:00 MD Connie: [address] Group Josiane, [place] [address], [place], [place] [address] , Ph. 2019-04-21 2019-04-21 Angela [place]DEZ [place] - [id number] [place] 00:00:00 00:00:00 MD Connie: [address] Josiane, [place] [address], [place], [place] [address] , Ph. 2019-03-08 2019-03-08 Office [facility] 1.2.840.114 [id number] Univers 09:49:22 10:49:31 Visit Kostas Adrian 350.1.13.10 ity of [place] 4.2.7.2.[place] [phone] [place] 478939 [facility] 2019-03-08 2019-03-08 Orders Doctor SIMA 1.2.840.114 [id number] Univers 00:00:00 00:00:00 Only Unassigned, EVANGELISTA 350.1.13.10 [facility] 4.2.7.2.686 Ben as [phone] [place] [address] Branch 2019-02-24 2019-02-24 Telephone [facility] [id number] Univers 00:00:00 00:00:00 Haydensamirzan Nguyễn 350.1.13.10 ity of [place] 4.2.7.2.[place] [phone] [place] 478939 [facility] Results Test Description Test Time Test Comments Results Result Sour e Comments FL, UGI, WITHOUT 2021-07-04 Reason for KUB 10:43:00 exam:->vomiting s/p [facility] : 1980 Sex: F *FINAL REPORT Water-soluble upper GI series History provided: Recent gastric sleeve procedure. Vomiting. The patient could only tolerate 20 cc of water-soluble contrast. This passed in an unobstructed fashion through normal caliber esophagus into postop stomach and then into nondilated duodenum. No signs of leak or obstruction. IMPRESSION: Satisfactory postop appearance. Fluoroscopy time: 0.6 minutes Number of exposures performed: 5 Radiation dose (Ka,r): 40 mGy Signed: Valentin [place] Verified Date/Time: 07/04/2021 10:43:23 Reading Location: [facility] Radiology Reading Room -COV2/INFLUENZA/RSV RT-PCR 2021-07-03 21:05:37 Test Item Value Reference Range Interpretation Comme nts SARS-COV2/RT-PCR (test code = Positive Negative AA The SARS-CoV-2 target nucleic [id number]) acids are detec ester in this specimen. The presence SARS-CoV-2 nucl eic acids cannot rule out co-inf ections or disease caused by other viral or bacterial pa thogens. As with any molecular t est, mutations within the targ et regions of the Xpert Xpres s SARS-CoV-2 test could affe ct primer and/or probe binding r esulting in failure to dete ct the presence of virus or the virus being detected less p redictably. False negative results may occur if virus is present at levels below th e analytical limit of detect ion. This SARS CoV-2 test is a rapid, real-time RT-PC R test intended for the qualita tive detection of nucleic acid from SARS-CoV-2 in a nasopharyn geal swab specimen collec ester from individuals rigoberto pected of COVID-19 by the ir healthcare provider. Resul ts from the Xpert Xpress SA RS-CoV-2 test should be corre lated with the clinical histor y, epidemiological data, and other data available to the clinician evaluating the patient. Viral nucleic acid ma y persist in vivo, independe nt of virus viability. Dete ction of analyte target(s) does not imply that the correspondi ng virus(es) are infectious or a re the causative agents for clin ical symptoms. INFLUENZA A RT-PCR (test code = Negative Negative The Flu A target nucleic acids [id number]) are not detecte d in this specimen. INFLUENZA B RT-PCR (test code = Negative Negative The Flu B target nucleic acids 3890334) are not detecte d in this specimen. RSV RT-PCR (test code = 6350334) Negative Negative The RSV target nucleic acids are not detecte d in this specimen. The presence of SARS-CoV-2/FLU/RSV viral nucleic acids cannot rule out co- infections or disease caused by other viral or bacterial pathogens. As with any molecular test, mutations within the target regions of the Xpert Xpress SARS-CoV-2/Flu/RSV test could affect primer and/or probe binding resulting in failure to detect the presence of virus or the virus being detected less predictably. False negative results may occur if the virus is present at levels below the analytical limit of detection in this specimen.This Xpert Xpress SARS-CoV-2/Flu/RSV test is a rapid, real-time RT-PCR test intended for the qualitative detection of nucleic acid from Xpert Xpress SARS-CoV-2/Flu/RSV in a nasopharyngeal swab specimen collected from individuals suspected of Xpert Xpress SARS-CoV-2/Flu/RSV by their healthcare provider. Results from tomas Xpert Xpress SARS-CoV-2/Flu/RSV test should be correlated with the clinical history, epidemiological data, and other data available to the clinician evaluating the patient. Viral nucleic acid may persist in vivo, independent of virus viability. Detection of analyte target(s) does not imply that the corresponding virus(es) are infectious or are the causative agents for clinical symptoms.This test has not been Food and Drug Administration (FDA) cleared or approved and reyez s been authorized by FDA under an Emergency Use Authorization (EUA). This EUA will be effective until the declaration that circumstances exist justifying the authorization of the emergency use of in vitro diagnostic tests for detection and/or diagnosis of COVID-19 is terminated under Section 564(b)(2) of the Act or the EUA is revoked under Section 564(g) of the Act.Fact Sheet for Healthcare Providers :https://www.[employer]/Documents/Xpert%20Xpress%20SARS%20CoV-2/Fact%20Sheets/3 02-3902%56WRDQ-HWE-4%20HEALTHCARE%20PROVIDERS%20FACT%20SHEET.pdfFact Sheet for Healthcare Patients:https://www.[employer] /Documents/Xpert%20Xpress%20SARS%20Cov-2/Fact%20Sheets/302-3801%78NLLK-ENQ-5%20P ATIENT%20FACT%20SHEET.pdfCOMPREHENSIVE METABOLIC [id number] 20:46:58 Test Item Value Reference Range Interpretation Comments TOTAL PROTEIN 6.3 gm/dL 6.0-8.5 (BEAKER) (test code = 770) ALBUMIN (BEAKER) 3.6 g/dL 3.5-5.0 (test code = 1145) ALKALINE PHOSPHATASE 67 U/L 30-115 (BEAKER) (test code = 346) BILIRUBIN TOTAL 0.3 mg/dL 0.1-1.2 (BEAKER) (test code = 377) SODIUM (BEAKER) (test 141 meq/L 135-148 code = 381) POTASSIUM (BEAKER) 3.1 meq/L 3.6-5.5 L (test code = 379) CHLORIDE (BEAKER) 106 meq/L 98-106 (test code = 382) CO2 (BEAKER) (test 19 meq/L 20-29 L code = 355) BLOOD UREA NITROGEN 11 mg/dL 10-26 (BEAKER) (test code = 354) CREATININE (BEAKER) 0.86 mg/dL 0.50-1.20 (test code = 358) GLUCOSE RANDOM 81 mg/dL 70-110 (BEAKER) (test code = 652) CALCIUM (BEAKER) 8.4 mg/dL 8.5-10.5 L (test code = 697) AST (SGOT) (BEAKER) 20 U/L 5-40 (test code = 353) ALT (SGPT) (BEAKER) 31 U/L 5-50 (test code = 347) EGFR (BEAKER) (test 73 mL/min/1.73 ESTIMA ESTER GFR IS code = 1092) sq m NOT ACCURATE CREATININE CLEARANCE IN PREDICTING GLOMERULAR FILTRATION RATE . ESTIMATED GFR I S NOT APPLICABLE FOR DIALYSIS PATIEN TS. Shirt Presser ID - [id number] ID - [id number] ID - [id number] ID - [id number] ID - [id number] ID - [id number] ID - [id number] ID - [id number] ID - [id number] ID - [id number] ID - [id number] ID - [id number] ID - [id number] ID - [id number] ID - [id number] ID - [id number] 2021-07-03 20:46:52 Test Item Value Reference Range Interpretation Comments LIPASE (BEAKER) (test code = 749) 12 U/L 6-51 Shirt Presser ID - [id number] ID - [id number] ID - [id number] ID - [id number], SERUM, [id number] 20:46:52 Test Item Value Reference Range Interpretation Comments TEST SERUM (BEAKER) (test Negative code = 584) CBC W/PLT COUNT & AUTO [id number] 20:26:45 Test Item Value Reference Range Interpretation Comments WHITE BLOOD CELL COUNT (BEAKER) 5.1 K/ L 4.0-10.0 (test code = 775) RED BLOOD CELL COUNT (BEAKER) 4.64 M/ L 4.00-5.00 (test code = 761) HEMOGLOBIN (BEAKER) (test code = 13.1 GM/DL 12.0-15.5 410) HEMATOCRIT (BEAKER) (test code = 40.1 % 36.0-46.0 411) MEAN CORPUSCULAR VOLUME (BEAKER) 86.4 fL 82.0-99.0 (test code = 753) MEAN CORPUSCULAR HEMOGLOBIN 28.2 pg 27.0-33.0 (BEAKER) (test code = 751) MEAN CORPUSCULAR HEMOGLOBIN CONC 32.7 GM/DL 32.0-36.0 (BEAKER) (test code = 752) RED CELL DISTRIBUTION WIDTH 13.1 % 12.0-15.0 (BEAKER) (test code = 412) PLATELET COUNT (BEAKER) (test 180 K/CU MM 150-430 code = 756) MEAN PLATELET VOLUME (BEAKER) 11.1 fL 6.0-11.5 (test code = 754) NUCLEATED RED BLOOD CELLS 0 /100 WBC 0-0 (BEAKER) (test code = 413) NEUTROPHILS RELATIVE PERCENT 48 % (BEAKER) (test code = 429) LYMPHOCYTES RELATIVE PERCENT 38 % (BEAKER) (test code = 430) MONOCYTES RELATIVE PERCENT 12 % (BEAKER) (test code = 431) EOSINOPHILS RELATIVE PERCENT 1 % (BEAKER) (test code = 432) BASOPHILS RELATIVE PERCENT 0 % (BEAKER) (test code = 437) NEUTROPHILS ABSOLUTE COUNT 2.45 K/ L 1.80-8.00 (BEAKER) (test code = 670) LYMPHOCYTES ABSOLUTE COUNT 1.90 K/ L 1.48-4.50 (BEAKER) (test code = 414) MONOCYTES ABSOLUTE COUNT (BEAKER) 0.63 K/ L 0.00-1.30 (test code = 415) EOSINOPHILS ABSOLUTE COUNT 0.07 K/ L 0.00-0.50 (BEAKER) (test code = 416) BASOPHILS ABSOLUTE COUNT (BEAKER) 0.01 K/ L 0.00-0.20 (test code = 417) IMMATURE GRANULOCYTES-RELATIVE 0 % 0-0 PERCENT (BEAKER) (test code = 2801) TISSUE [id number] 09:27:40Surgical Pathology Report Case: [id number] Authorizing Provider: Isidro Miguel MD Collected: 06/10/2021 10:17 AM Ordering Location: [facility] Received: 06/10/2021 11:01 AM SERVICES Pathologist: Mark Sawyer MD Specimen: Stomach, PARTIAL GASTRECTOMY. STOMACH, PARTIAL GASTRECTOMY: - MULTIPLE GASTRIC HYPERPLASTIC POLYPS. - BACKGROUND OF CHRONIC INACTIVE GASTRITIS. - NO HELICOBACTER PYLORI ORGANISMS IDENTIFIED. - SURGICAL MARGIN IS VIABLE. Signing Pathologist Direct Phone Line: [phone] signed by Mark Sawyer MD on 06/11/2021 at9:27 AMJK/[id number] obesity Stomach The specimen received in formalin in a container labeled with the patient's name and designated "stomach" consists of a partial gastrectomy specimen that measures 17 x 4 x 2 cm. There is an intact staple line across one aspect of the specimen. The serosa shows numerous hemorrhagic areas. No defects are identified. No masses on the surface are identified. The stomach is opened to reveal slightly congested mucosa with normal rugal folds. Multiple small polyps are present. No other mass lesions are identified. [employer] Lieutenant sections are submitted in cassettes A1-A3. A1 is home office representative sections of the mucosa. A2 is the mucosal polyps. A3 is home office representative sections of the resection margin. JK/ew Performed The interpretation of this case included the useof immunohistochemistry or special stains.Control Slides Examined: In-house known positive controlswere evaluated along with the test tissue. These control slides run alongside of the patients sample show appropriate staining. Internal positive and negative controls when available are evaluated Immunohistochemistry technical testing was performed at [facility], Pathology Laboratory where it was developed and its performance characteristics were determined. It has not been cleared or approved by the U.S. Food and Drug Administration. The FDA has determined that such clearance or approval is not necessary. The test is used for clinical purposes. It should not be regarded as investigational or for research. This laboratory is certified under the Clinical Laboratory Improvement Amendments of 1988 (CLIA-88) as qualified to perform high complexity clinical laboratory testing.A1. Cristela Kan: Negative for Helicobacter pylori organisms. [facility], Department of Pathology, [address] [place] [address], [facility], Department of Pathology, [address] [place] [address], [facility], [facility] of [facility], [address] [place] [address], GECDO METABOLIC [id number] 05:51:33 Test Item Value Reference Range Interpretation Comments SODIUM (BEAKER) 139 meq/L 135-148 (test code = 381) POTASSIUM (BEAKER) 4.1 meq/L 3.6-5.5 (test code = 379) CHLORIDE (BEAKER) 109 meq/L 98-106 H (test code = 382) CO2 (BEAKER) (test 17 meq/L 20-29 L code = 355) BLOOD UREA NITROGEN 8 mg/dL 10-26 L (BEAKER) (test code = 354) CREATININE (BEAKER) 0.64 mg/dL 0.50-1.20 (test code = 358) GLUCOSE RANDOM 78 mg/dL 70-110 (BEAKER) (test code = 652) CALCIUM (BEAKER) 7.9 mg/dL 8.5-10.5 L (test code = 697) EGFR (BEAKER) (test 102 mL/min/1.73 ESTIM ATED GFR IS code = 1092) sq m NOT ACCURATE CREATININE CLEARANCE IN PREDICTING GLOMERULAR FILTRATION RATE . ESTIMATED GFR I S NOT APPLICABLE FOR DIALYSIS PATIEN TS. Shirt Presser ID - DSENSONOperator ID - DSENSONOperator ID - DSENSONOperator ID - DSENSONOperator ID - DSENSONOperator ID - DSENSONOperator ID - DSENSONOperator ID - DSENSONOperator ID - DSENSONOperator ID - DSENSONOperator ID - DSENSONOperator ID - DSENSONOperator ID - DSENSONCBC W/PLT COUNT & AUTO [id number] 05:30:54 Test Item Value Reference Range Interpretation Comments WHITE BLOOD CELL COUNT (BEAKER) 9.6 K/ L 4.0-10.0 (test code = 775) RED BLOOD CELL COUNT (BEAKER) 4.04 M/ L 4.00-5.00 (test code = 761) HEMOGLOBIN (BEAKER) (test code = 11.8 GM/DL 12.0-15.5 L 410) HEMATOCRIT (BEAKER) (test code = 35.8 % 36.0-46.0 L 411) MEAN CORPUSCULAR VOLUME (BEAKER) 88.6 fL 82.0-99.0 (test code = 753) MEAN CORPUSCULAR HEMOGLOBIN 29.2 pg 27.0-33.0 (BEAKER) (test code = 751) MEAN CORPUSCULAR HEMOGLOBIN CONC 33.0 GM/DL 32.0-36.0 (BEAKER) (test code = 752) RED CELL DISTRIBUTION WIDTH 12.8 % 12.0-15.0 (BEAKER) (test code = 412) PLATELET COUNT (BEAKER) (test 236 K/CU MM 150-430 code = 756) MEAN PLATELET VOLUME (BEAKER) 11.6 fL 6.0-11.5 H (test code = 754) NUCLEATED RED BLOOD CELLS 0 /100 WBC 0-0 (BEAKER) (test code = 413) NEUTROPHILS RELATIVE PERCENT 76 % (BEAKER) (test code = 429) LYMPHOCYTES RELATIVE PERCENT 17 % (BEAKER) (test code = 430) MONOCYTES RELATIVE PERCENT 7 % (BEAKER) (test code = 431) EOSINOPHILS RELATIVE PERCENT 0 % (BEAKER) (test code = 432) BASOPHILS RELATIVE PERCENT 0 % (BEAKER) (test code = 437) NEUTROPHILS ABSOLUTE COUNT 7.30 K/ L 1.80-8.00 (BEAKER) (test code = 670) LYMPHOCYTES ABSOLUTE COUNT 1.65 K/ L 1.48-4.50 (BEAKER) (test code = 414) MONOCYTES ABSOLUTE COUNT (BEAKER) 0.66 K/ L 0.00-1.30 (test code = 415) EOSINOPHILS ABSOLUTE COUNT 0.00 K/ L 0.00-0.50 (BEAKER) (test code = 416) BASOPHILS ABSOLUTE COUNT (BEAKER) 0.01 K/ L 0.00-0.20 (test code = 417) IMMATURE GRANULOCYTES-RELATIVE 0 % 0-0 PERCENT (BEAKER) (test code = 2801) POCT-GLUCOSE [id number] 05:17:50 Test Item Value Reference Range Interpretation Comments POC-GLUCOSE METER 88 mg/dL 70-110 : TESTED A T [facility] 1317 (BEAKER) (test code = [address], 1538) [facility] 77 478: Shirt Presser/Techni tobin ID = [id number] for Susan Feldman SCREEN, [id number] 07:09:43 Test Item Value Reference Range Interpretation Comments TEST URINE (BEAKER) (test Negative code = 583) VITAMIN [id number] 10:34:08 Test Item Value Reference Range Interpretation Comments VITAMIN B12 (BEAKER) (test code = 326 pg/mL 211-441 774) Shirt Presser ID - NEIDAECOMPREHENSIVE METABOLIC [id number] 09:39:25 Test Item Value Reference Range Interpretation Comments TOTAL PROTEIN 7.0 gm/dL 6.0-8.5 (BEAKER) (test code = 770) ALBUMIN (BEAKER) 4.2 g/dL 3.5-5.0 (test code = 1145) ALKALINE PHOSPHATASE 69 U/L 30-115 (BEAKER) (test code = 346) BILIRUBIN TOTAL 0.4 mg/dL 0.1-1.2 (BEAKER) (test code = 377) SODIUM (BEAKER) (test 139 meq/L 135-148 code = 381) POTASSIUM (BEAKER) 3.9 meq/L 3.6-5.5 (test code = 379) CHLORIDE (BEAKER) 103 meq/L 98-106 (test code = 382) CO2 (BEAKER) (test 26 meq/L 20-29 code = 355) BLOOD UREA NITROGEN 15 mg/dL 10-26 (BEAKER) (test code = 354) CREATININE (BEAKER) 0.84 mg/dL 0.50-1.20 (test code = 358) GLUCOSE RANDOM 82 mg/dL 70-110 (BEAKER) (test code = 652) CALCIUM (BEAKER) 8.9 mg/dL 8.5-10.5 (test code = 697) AST (SGOT) (BEAKER) 14 U/L 5-40 (test code = 353) ALT (SGPT) (BEAKER) 17 U/L 5-50 (test code = 347) EGFR (BEAKER) (test 75 mL/min/1.73 ESTIMA ESTER GFR IS code = 1092) sq m NOT ACCURATE CREATININE CLEARANCE IN PREDICTING GLOMERULAR FILTRATION RATE . ESTIMATED GFR I S NOT APPLICABLE FOR DIALYSIS PATIEN TS. Shirt Presser ID - [id number] ID - [id number] ID - [id number] ID - [id number] ID - [id number] ID - [id number] ID - SZSI51Aagtinte ID - KSEB57Ogcmyaez ID - [id number] ID - [id number] ID - [id number] ID - [id number] ID - [id number] ID - [id number] ID - [id number] ID - [id number] ID - [id number] ID - [id number] ID - [id number] HEMOGLOBIN [id number] 09:38:26 Test Item Value Reference Range Interpretation Comments HEMOGLOBIN A1C (BEAKER) (test code = 5.1 % 4.3-6.1 368) Shirt Presser ID - [id number] W/PLT COUNT & AUTO [id number] 09:13:56 Test Item Value Reference Range Interpretation Comments WHITE BLOOD CELL COUNT (BEAKER) 6.5 K/ L 4.0-10.0 (test code = 775) RED BLOOD CELL COUNT (BEAKER) 4.72 M/ L 4.00-5.00 (test code = 761) HEMOGLOBIN (BEAKER) (test code = 13.8 GM/DL 12.0-15.5 410) HEMATOCRIT (BEAKER) (test code = 41.4 % 36.0-46.0 411) MEAN CORPUSCULAR VOLUME (BEAKER) 87.7 fL 82.0-99.0 (test code = 753) MEAN CORPUSCULAR HEMOGLOBIN 29.2 pg 27.0-33.0 (BEAKER) (test code = 751) MEAN CORPUSCULAR HEMOGLOBIN CONC 33.3 GM/DL 32.0-36.0 (BEAKER) (test code = 752) RED CELL DISTRIBUTION WIDTH 12.4 % 12.0-15.0 (BEAKER) (test code = 412) PLATELET COUNT (BEAKER) (test 272 K/CU MM 150-430 code = 756) MEAN PLATELET VOLUME (BEAKER) 10.1 fL 6.0-11.5 (test code = 754) NUCLEATED RED BLOOD CELLS 0 /100 WBC 0-0 (BEAKER) (test code = 413) NEUTROPHILS RELATIVE PERCENT 58 % (BEAKER) (test code = 429) LYMPHOCYTES RELATIVE PERCENT 35 % (BEAKER) (test code = 430) MONOCYTES RELATIVE PERCENT 6 % (BEAKER) (test code = 431) EOSINOPHILS RELATIVE PERCENT 1 % (BEAKER) (test code = 432) BASOPHILS RELATIVE PERCENT 0 % (BEAKER) (test code = 437) NEUTROPHILS ABSOLUTE COUNT 3.79 K/ L 1.80-8.00 (BEAKER) (test code = 670) LYMPHOCYTES ABSOLUTE COUNT 2.27 K/ L 1.48-4.50 (BEAKER) (test code = 414) MONOCYTES ABSOLUTE COUNT (BEAKER) 0.39 K/ L 0.00-1.30 (test code = 415) EOSINOPHILS ABSOLUTE COUNT 0.05 K/ L 0.00-0.50 (BEAKER) (test code = 416) BASOPHILS ABSOLUTE COUNT (BEAKER) 0.01 K/ L 0.00-0.20 (test code = 417) IMMATURE GRANULOCYTES-RELATIVE 0 % 0-0 PERCENT (BEAKER) (test code = 2801) TISSUE [id number] 11:38:34Surgical Pathology Report Case: [id number] Authorizing Provider: Isidro Miguel MD Collected: 05/23/2021 11:41 AM Ordering Location: [facility] Received: 05/23/2021 12:01 PM Pathologist: Sade Muhammad MD Specimen: Po lyp, Gastric, cold snare STOMACH, POLYP, BIOPSY: - FUNDIC GLAND POLYP - NO INTESTINAL METAPLASIA, DYSPLASIA OR MALIGNANCY SEEN - NEGATIVEFOR H. PYLORI ORGANISMS Signing Pathologist Direct Phone Line: [phone] signed by Sade Muhammad MD on 05/27/2021 at 11:38 [id number]; [id number], [id number] refluxdiseaseGastric polypThe specimen received in formalin in a container labeled with the patient's nameand designated "gastric polyp" consists of three fragments of carroll soft tissue with the largest fragment measuring 0.3 cm in greatest dimension. The specimen is entirely submitted in cassette A1. JK/plP erformed The interpretation of this case included the use of immunohistochemistry or special stains.Warthin-starry: Equivocal for Helicobacter pylori organisms. Helicobacter pylori IHC: NegativeControl Slides Examined: In-house known positive controls were evaluated along with the test tissue. These control slides run alongside of the patients sample show appropriate staining. Internal positive and negative controls when available are evaluated Immunohistochemistry technical testing was performed at [facility], Pathology Laboratory where it was developed and its performance characteristics were determined. It has not been cleared or approved by the U.S. Food and Drug Administration. The FDA has determined that such clearance or approval is not necessary. The test is used for clinical purposes. It should not be regarded as investigational or for research. This laboratory is certified under the Clinical Laboratory Improvement Amendments of 1988 (CLIA- 88) as qualified toperform high complexity clinical laboratory testing.[facility], Department of Pathology, [address] [place] [address], [facility], Department of Pathology, [address] [place] [address], [facility], [facility] of [facility], [address] [place] [address], VMZJI METABOLIC PANEL 2021-05-23 09:49:36 Test Item Value Reference Range Interpretation Comments SODIUM (BEAKER) 138 meq/L 135-148 (test code = 381) POTASSIUM (BEAKER) 4.7 meq/L 3.6-5.5 Specimen slightly (test code = 379) hemolyzed CHLORIDE (BEAKER) 106 meq/L 98-106 (test code = 382) CO2 (BEAKER) (test 21 meq/L 20-29 code = 355) BLOOD UREA NITROGEN 16 mg/dL 10-26 (BEAKER) (test code = 354) CREATININE (BEAKER) 0.79 mg/dL 0.50-1.20 Specimen slightly (test code = 358) hemolyzed GLUCOSE RANDOM 80 mg/dL 70-110 (BEAKER) (test code = 652) CALCIUM (BEAKER) 8.8 mg/dL 8.5-10.5 (test code = 697) EGFR (BEAKER) (test 80 mL/min/1.73 ESTIMA ESTER GFR IS code = 1092) sq m NOT ACCURATE CREATININE CLEARANCE IN PREDICTING GLOMERULAR FILTRATION RATE . ESTIMATED GFR I S NOT APPLICABLE FOR DIALYSIS PATIEN TS. Shirt Presser ID - [id number] ID - [id number] ID - [id number] ID - [id number] ID - [id number] ID - [id number] ID - [id number] ID - [id number] ID - [id number] ID - [id number] ID - [id number] ID - [id number] W/PLT COUNT & AUTO [id number] 09:33:40 Test Item Value Reference Range Interpretation Comments WHITE BLOOD CELL COUNT (BEAKER) 7.0 K/ L 4.0-10.0 (test code = 775) RED BLOOD CELL COUNT (BEAKER) 4.83 M/ L 4.00-5.00 (test code = 761) HEMOGLOBIN (BEAKER) (test code = 13.7 GM/DL 12.0-15.5 410) HEMATOCRIT (BEAKER) (test code = 42.4 % 36.0-46.0 411) MEAN CORPUSCULAR VOLUME (BEAKER) 87.8 fL 82.0-99.0 (test code = 753) MEAN CORPUSCULAR HEMOGLOBIN 28.4 pg 27.0-33.0 (BEAKER) (test code = 751) MEAN CORPUSCULAR HEMOGLOBIN CONC 32.3 GM/DL 32.0-36.0 (BEAKER) (test code = 752) RED CELL DISTRIBUTION WIDTH 12.9 % 12.0-15.0 (BEAKER) (test code = 412) PLATELET COUNT (BEAKER) (test 236 K/CU MM 150-430 code = 756) MEAN PLATELET VOLUME (BEAKER) 10.3 fL 6.0-11.5 (test code = 754) NUCLEATED RED BLOOD CELLS 0 /100 WBC 0-0 (BEAKER) (test code = 413) NEUTROPHILS RELATIVE PERCENT 59 % (BEAKER) (test code = 429) LYMPHOCYTES RELATIVE PERCENT 35 % (BEAKER) (test code = 430) MONOCYTES RELATIVE PERCENT 5 % (BEAKER) (test code = 431) EOSINOPHILS RELATIVE PERCENT 1 % (BEAKER) (test code = 432) BASOPHILS RELATIVE PERCENT 0 % (BEAKER) (test code = 437) NEUTROPHILS ABSOLUTE COUNT 4.13 K/ L 1.80-8.00 (BEAKER) (test code = 670) LYMPHOCYTES ABSOLUTE COUNT 2.45 K/ L 1.48-4.50 (BEAKER) (test code = 414) MONOCYTES ABSOLUTE COUNT (BEAKER) 0.35 K/ L 0.00-1.30 (test code = 415) EOSINOPHILS ABSOLUTE COUNT 0.08 K/ L 0.00-0.50 (BEAKER) (test code = 416) BASOPHILS ABSOLUTE COUNT (BEAKER) 0.01 K/ L 0.00-0.20 (test code = 417) IMMATURE GRANULOCYTES-RELATIVE 0 % 0-0 PERCENT (BEAKER) (test code = 2801) SCREEN, [id number] 09:19:26 Test Item Value Reference Range Interpretation Comments TEST URINE (BEAKER) (test Negative code = 583) SARS coronavirus 2 RNA [Presence] in Respiratory specimen by HAJA with probe [id number] 21:49:49 Test Item Value Reference Range Interpretation Comments SARS coronavirus 2 RNA Not detected Not-Detected [Presence] in Respiratory specimen by HAJA with probe detection (test code = 48154-6) BASIC METABOLIC PANEL (NA, K, CL, CO2, GLUCOSE, BUN, CREATININE, CA)2019-11-16 01:41:00 Test Item Value Reference Range Interpretation Comments NA (test code = 140 mmol/L 135-145 0670324897) K (test code = 3.8 mmol/L 3.5-5 9489238531) CL (test code = 108 mmol/L 98-108 2419560593) CO2 TOTAL (test code = 28 mmol/L 23-31 9177802143) AGAP (test code = 2-16 1358403539) BUN (test code = 13 mg/dL 7-23 7740598231) GLUCOSE (test code = 92 mg/dL 70-110 6939733986) CREATININE (test code = 0.59 mg/dL 0.5-1.04 2814979223) CALCIUM (test code = 8.5 mg/dL 8.6-10.6 L 0671402529) eGFR Calculation mL/min/1.73m2 (Non-) (test code = 0297806313) eGFR Calculation mL/min/1.73m2 () (test code = 3768511424) MATTIE (test code = MATTIE) Association of Glomerular Filtration Rate (GFR) and Staging of Kidney Disease* + --+ --+ ------+| GFR (mL/min/1.73 m2) ?| With Kidney Damage ?| ?Without Kidney Damage+ --------+ --------+ +| ?>90 ?| ?Stage one ?| ? Normal ?+ ---+ ---+ -------+| ?60-89 ?| ?Stage two ?| ? Decreased GFR ? + --+ --+ ------+| ?30-59 ?| ?Stage three ?| ? Stage three ? + --+ --+ ------+| ?15-29 ?| ?Stage four ? | ? Stage four ?+ ---+ ---+ -------+| ?<15 (or dialysis) ? ?| ?Stage five ? | ? Stage five ?+ ---+ ---+ -------+ *Each stage assumes the associated GFR level has been in effect for at least three months. ?Stages 1 to 5, with or without kidney disease, indicate chronic kidney disease. Notes: Determination of stages one and two (with eGFR >59mL/min/1.73 m2) requires estimation of kidney damage for at least three months as defined by structural or functional abnormalities of the kidney, manifested by either:Pathological abnormalities or Markers of kidney damage (including abnormalities in the composition of the blood or urine or abnormalities in imaging tests). Lab Interpretation Abnormal (test code = 46978-5) [facility]:41:00 Test Item Value Reference Range Interpretation Comments MAGNESIUM (test code = 4680196799) 1.9 mg/dL 1.7-2.4 Lab Interpretation (test code = Normal 50115-5) [facility] WITH [id number] 01:32:00 Test Item Value Reference Range Interpretation Comments WBC (test code = See_Comment [Automated 9790-2) message] The sy stem which generated this result transmitted reference range : 4.30 - 11.10 10*3/?L. The reference range was not used to interpret this result as normal/abnormal . RBC (test code = See_Comment [Automated 549-8) message] The sy stem which generated this result transmitted reference range : 3.93 - 5.25 10*6/?L. The reference range was not used to interpret this result as normal/abnormal . HGB (test code = 11.4 g/dL 11.6-15 L 718-7) HCT (test code = 35.2 % 35.7-45.2 L 4544-3) MCV (test code = 86.5 fL 80.6-95.5 787-2) MCH (test code = 28.0 pg 25.9-32.8 785-6) MCHC (test code = 32.4 g/dL 31.6-35.1 786-4) RDW-SD (test code = 39.9 fL 39-49.9 63552-2) RDW-CV (test code = 12.7 % 12-15.5 788-0) PLT (test code = See_Comment [Automated 657-3) message] The sy stem which generated this result transmitted reference range : 166 - 358 10*3/ ?L. The reference r gladis was not used to interpret this result as normal/abnormal . MPV (test code = 10.1 fL 9.5-12.9 40006-3) NRBC/100 WBC (test See_Comment [Automat ed code = 7759532519) message] The system which generated this result transmitted reference range : 0.0 - 10.0 /100 WBCs. The refer ence range was not u sed to interpret th is result as normal/abnormal . NRBC x10^3 (test code <0.01 See_Comment [Auto mated = 7240570096) message] The s ystem which generated this result transmitted reference range : 10*3/?L. The reference range was not used to interpret this result as normal/abnormal . GRAN MAT (NEUT) % 62.3 % (test code = 770-8) IMM GRAN % (test code 0.30 % = 1698998205) LYMPH % (test code = 30.9 % 736-9) MONO % (test code = 5.4 % 5905-5) EOS % (test code = 0.9 % 713-8) BASO % (test code = 0.2 % 706-2) GRAN MAT x10^3(ANC) 6.40 10*3/uL 1.88-7.09 (test code = 0585687306) IMM GRAN x10^3 (test 0.03 10*3/uL 0-0.06 code = 3163145797) LYMPH x10^3 (test code 3.18 10*3/uL 1.32-3.29 = 731-0) MONO x10^3 (test code 0.56 10*3/uL 0.33-0.92 = 742-7) EOS x10^3 (test code = 0.09 10*3/uL 0.03-0.39 711-2) BASO x10^3 (test code <0.03 0.01-0.07 = 704-7) Lab Interpretation Abnormal (test code = 72963-1) [facility])2019-11-14 21:13:00 Test Item Value Reference Range Interpretation Comments SARS-CoV-2 Rapid ID NOW Not Detected Not Detected (test code = 73753-6) MATTIE (test code = MATTIE) ID NOW COVID-19 Assay is an isothermal nucleic acid amplification test intended for the qualitative detection of nucleic acid from SARS-CoV-2 viral RNA in nasopharyngeal (ASSOCIATE PROFESSOR OF AUTOMATION) specimens. It is used under Emergency Use Authorization (EUA) by FDA. The limit of detection (LOD) of the assay is 125 Genome Equivalents/mL. A positive result is indicative of the presence of SARS-CoV-2 RNA. ?Clinical correlation with patient history and other diagnostic information is necessary to determine patient infection status. A negative (Not Detected) result does not preclude SARS-CoV-2 infection. In patients with clinical symptoms and other tests that are consistent with SARS-CoV-2 infection, negative results should be treated as presumptive negative and a new specimen should be tested with alternative PCR molecular test. Invalid: Please collect a new specimen for repeat patient testing if clinically indicated. Lab Interpretation Normal (test code = 34647-5) [facility]2019-11-05 15:27:54 Test Item Value Reference Range Interpretation Comments Right (test code = Type B Curve Flat Right) Left (test code = Left) Type C Peak is on Left [facility]2019-11-01 10:43:07 Test Item Value Reference Range Interpretation Comments Right (test code = Type C Peak is on Left Right) [facility]2019-11-01 10:43:07 Test Item Value Reference Range Interpretation Comments Right (test code = Type C Peak is on Left Right) [facility]
[2021-07-25 06:44] LABS: Hematocrit 37.1 % (36.0-45.0)
[2021-07-25] MEDS ORDERED: NA CHLORIDE 0.9% 1,000 ML ONE ×2 (06:47→08:23)
[2021-07-25] MEDS ORDERED: MORPHINE 4 MG/ML SYR ONE ×2 (06:47→07:15)
[2021-07-25] MEDS ORDERED: ONDANSETRON 4 MG/2 ML VIAL ONE (06:47)
[2021-07-25 07:09] LABS: Absolute Lymphocytes (CBC) 1.6 K/uL (0.7-4.9); Lymphocytes % 36.1 % (15.3-44.8); MPV 8.8 fL (7.6-11.3); RBC Red Blood Cell Count 4.23 M/uL (3.86-4.86)
[2021-07-25 07:24] LABS: Albumin 3.1 g/dL (3.4-5.0); Bilirubin Direct 0.1 mg/dL (0-0.2); Bilirubin Total 0.4 mg/dL (0.2-1.0); Potassium 3.5 mmol/L (3.5-5.1); Protein, Total 6.3 g/dL (6.4-8.2)
[2021-07-25 07:31] LABS: Urine Blood 2+ (Negative); Urine Glucose Negative (Negative); Urine Protein Negative (Negative); Urine Specific Gravity 1.025 (1.005-1.030)
[2021-07-25 07:56] LABS: Urine Specific Gravity/Preg 1.025 (1.005-1.030)
--- NOTE | 2021-07-25 08:08 | RAD REPORT ---
EXAM DESCRIPTION: CTAbdomen Pelvis W Contrast - 07/25/2021 7:54 am CLINICAL HISTORY: ABD PAIN COMPARISON: No comparisons TECHNIQUE: CT of the abdomen and pelvis was performed. All CT scans are performed using dose optimization technique as appropriate and may include automated exposure control or mA/KV adjustment according to patient size. FINDINGS: Lower chest: No acute abnormality. Liver: Too small to characterize liver lesions which are likely benign. Biliary: Cholecystectomy. Stomach: Partial gastrectomy. Duodenum: No significant focal abnormality. Pancreas: No significant abnormality. Spleen: No significant abnormality. Adrenal: No suspicious lesions. Kidney/ureter: Mild right-sided hydroureteronephrosis. Punctate 1-2 mm stone present in the right dis reynaldo ureter. Left renal sinus cysts. No renal calculi. Retroperitoneum: No retroperitoneal adenopathy. Vascular: No aneurysm. Bowel: No significant focal abnormality. Peritoneum: No ascites or free air. Bladder: Grossly unremarkable. Reproductive: No adnexal masses. Bones: No acute fracture. Other: n/a IMPRESSION: Mild right-sided hydroureteronephrosis secondary to a 1-2 mm stone in the right distal u reter.
[2021-07-25 08:15] LABS: Urine Bacteria >50 /HPF (<20); Urine Mucus LIGHT /HPF (NONE SEEN); Urine RBC <5 /HPF (NONE SEEN)
[2021-07-25] MEDS ORDERED: CIPROFLOXACIN HCL 500 MG TAB ONE (08:22)
[2021-07-25] MEDS ORDERED: TAMSULOSIN 0.4 MG SR CAP ONE (08:22)
[2021-07-25] MEDS ORDERED: KETOROLAC 30 MG/ML INJ ONE (08:23)
--- NOTE | 2021-07-25 08:57 | EDPHYS ---
Physician Documentation [facility] Name: Edwina Vasquez Age: 41 yrs Sex: Female : 1980 Arrival Date: 07/25/2021 Time: 06:15 Bed 19 Private MD: ED Physician Brooke Pierre HPI: 07/25 06:35 This 41 yrs old Unknown Female presents to ER via EMS with complaints of Abdominal Pain.pm1 06:35 The patient presents with abdominal pain right lower quadrant, and right flank. Onset: pm1 The symptoms/episode began/occurred this morning. Associated signs and symptoms: Pertinent positives: nausea, Pertinent negatives: chest pain, diarrhea, dysuria, fever, shortness of breath, vomiting. The symptoms are described as sharp. Modifying factors: The symptoms are alleviated by some relief with left side lying position. the symptoms are aggravated by movement. Severity of pain: in the emergency department the pain is unchanged patient given fentanyl in route by EMS without any relief. The patient has not experienced similar symptoms in the past. The patient has not recently seen a physician. 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 ll3 Historical: - Allergies: 06:21 No Known Allergies; ll3 - Home Meds: 06:21 amiodarone 200 mg Oral tab 1 tab [Active]; Protonix 40 mg Oral TbEC 1 tab once daily ll3 [Active]; 06:58 Lialda 1.2 gram Oral TbEC 4 tabs once daily [Active]; lisinopril 10 mg Oral tab 1 tab al4 once daily [Active]; metoprolol tartrate 75 mg Oral tab 1 tab 2 times per day [Active]; rosuvastatin Oral once daily [Active]; - PMHx: 06:21 ulcerative colitis; mitral valve prolapse; ll3 06:58 frequent PVCs; al4 - PSHx: 06:21 Ligation of fallopian tube; Cholecystectomy; Gastric sleeve; ll3 - Immunization history:: Client reports receiving the 2nd dose of the Covid vaccine. - Social history:: Smoking status: Patient denies any tobacco usage or history of. ROS: 06:35 Constitutional: Negative for fever, chills, and weight loss, Cardiovascular: Negative pm1 for chest pain, palpitations, and edema, Respiratory: Negative for shortness of breath, cough, wheezing, and pleuritic chest pain. 06:35 : Negative for injury, bleeding, discharge, and swelling, MS/Extremity: Negative for injury and deformity, Skin: Negative for injury, rash, and discoloration, Neuro: Negative for headache, weakness, numbness, tingling, and seizure. 06:35 Abdomen/GI: Positive for abdominal pain, nausea, of the right lower quadrant, Negative for vomiting, diarrhea, constipation. 06:35 Back: Positive for flank pain, on the right. 06:35 All other systems are negative. Exam: 06:35 Head/Face: Normocephalic, atraumatic. pm1 06:35 Back: No spinal tenderness. No costovertebral tenderness. Full range of motion. Skin: Warm, dry with normal turgor. Normal color with no rashes, no lesions, and no evidence of cellulitis. MS/ Extremity: Pulses equal, no cyanosis. Neurovascular intact. Full, normal range of motion. 06:35 Constitutional: The patient appears in no acute distress, alert, awake, non-diaphoretic, non-toxic, well developed, well hydrated, well groomed, well nourished, uncomfortable. 06:35 Cardiovascular: Exam negative for acute changes, Rate: normal, Rhythm: regular, Pulses: no pulse deficits are appreciated. 06:35 Respiratory: Exam negative for acute changes, respiratory distress, shortness of breath. 06:35 Abdomen/GI: Inspection: obese Palpation: soft, in all quadrants, moderate abdominal tenderness, in the right lower quadrant. 06:35 Neuro: Exam negative for acute changes, Orientation: is normal, Mentation: is normal, Motor: is normal, moves all fours. Vital Signs: 06:17 BP 125 / 67; Pulse 69; Resp 19; Temp 98.1(TE); Pulse Ox 100% on R/A; Weight 105.69 kg ll3 (R); Height 5 ft. 3 in. (160.02 cm) (R); Pain 10/10; 07:00 BP 133 / 63; Pulse 67; Resp 18 S; Pulse Ox 100% on R/A; al4 08:00 BP 133 / 73; Pulse 55; Resp 20; Pulse Ox 98% on R/A; reyez 06:17 Body Mass Index 41.27 (105.69 kg, 160.02 cm) ll3 MDM: 06:24 Patient medically screened. pm1 07:06 Data reviewed: vital signs. Data interpreted: Pulse oximetry: on room air is 100 %. pm1 Interpretation: normal. 08:19 Counseling: I had a detailed discussion with the patient and/or guardian regarding: the pm1 historical points, exam findings, and any diagnostic results supporting the discharge/admit diagnosis, lab results, radiology results, the need for outpatient follow up, a urologist, to return to the emergency department if symptoms worsen or persist or if there are any questions or concerns that arise at home. 09:18 ED course: PMPaware reviewed. pm1 04 06:25 Order name: Basic Metabolic Panel; Complete Time: 07:40 pm1 07/25 06:25 Order name: CBC with Diff; Complete Time: 07:40 pm1 07/25 06:25 Order name: Hepatic Function; Complete Time: 07:40 pm1 07/25 06:25 Order name: Lipase; Complete Time: 07:40 pm1 07/25 06:35 Order name: Urine Microscopic Only; Complete Time: 08:18 pm1 07/25 06:35 Order name: CT Abd/Pelvis - IV Contrast Only; Complete Time: 08:14 pm1 07/25 07:31 Order name: Urine Dipstick-Ancillary; Complete Time: 07:40 EDMS 07/25 07:47 Order name: Urine --Ancillary (enter results); Complete Time: 08:01 eb 07/25 06:25 Order name: IV Saline Lock; Complete Time: 07:02 pm1 07/25 06:25 Order name: Labs collected and sent; Complete Time: 06:37 pm1 07/25 06:25 Order name: Urine Dipstick-Ancillary (obtain specimen); Complete Time: 09:07 pm1 07/25 06:25 Order name: Urine Test (obtain specimen); Complete Time: 09:07 pm1 07/25 06:30 Order name: EKG; Complete Time: 06:30 pm1 07/25 06:30 Order name: EKG - Nurse/Tech; Complete Time: 06:30 pm1 07/25 06:47 Order name: Labs - recollect needed: recollect blood hemolyzed; Complete Time: 06:56 eb Administered Medications: 06:52 Drug: Zofran (Ondansetron) 4 mg Route: IVP; Site: left antecubital; al4 07:15 Follow up: Response: No adverse reaction reyez 06:52 Drug: NS 0.9% 1000 ml Route: IV; Rate: 1000 ml; Site: left antecubital; al4 07:00 Drug: morphine 4 mg Route: IVP; Site: right antecubital; al4 07:15 Follow up: Response: Pain is unchanged, physician notified reyez 07:15 Drug: morphine 4 mg Route: IVP; Site: right antecubital; reyez 07:32 Follow up: Response: Pain is decreased reyez 08:34 Drug: Flomax (tamsulosin) 0.4 mg Route: PO; reyez 08:34 Drug: Ketorolac 30 mg Route: IVP; Site: right antecubital; reyez 08:34 Follow up: Response: No adverse reaction reyez 08:35 Drug: NS 0.9% 1000 ml Route: IV; Rate: 1000 ml; Site: right antecubital; reyez 08:35 Drug: Cipro (ciprofloxacin) 500 mg Route: PO; Disposition Summary: 07/25/21 08:57 Discharge Ordered Location: Home pm1 Problem: new pm1 Symptoms: have improved pm1 Condition: Stable pm1 Diagnosis - Calculus of ureter pm1 Followup: pm1 - With: Emergency Department - When: As needed - Reason: Worsening of condition Followup: pm1 - With: Private Physician - When: 2 - 3 days - Reason: Recheck today's complaints, Continuance of care, Re-evaluation by your physician Discharge Instructions: - Discharge Summary Sheet pm1 - Kidney Stones pm1 - Dietary Guidelines to Help Prevent Kidney Stones pm1 Forms: - Medication Reconciliation Form pm1 - Thank You Letter pm1 - Antibiotic Education pm1 - Prescription Opioid Use pm1 - Work release form eb Prescriptions: - Flomax 0.4 mg Oral capsule - take 1 capsule by ORAL route once daily for 7 days 1/2 hour following the same pm1 meal each day; 7 capsule; Refills: 0, Product Selection Permitted - Cipro 500 mg Oral Tablet - take 1 tablet by ORAL route every 12 hours for 7 days; 14 tablet; Refills: 0, pm1 Product Selection Permitted - ondansetron 4 mg Oral tablet,disintegrating - place 1 tablet by TRANSLINGUAL route every 8 hours As needed; 15 tablet; pm1 Refills: 0, Product Selection Permitted - Tylenol-Codeine #3 300 mg-30 mg Oral - take 2 tablet by ORAL route every 6 hours As needed; 20 tablet; Refills: 0, pm1 Product Selection Permitted Addendum: 07/26/2021 16:10 Co-signature as Attending Physician, Brooke Pierre MD I agree with the assessment and s p3 plan of care. Signatures: Dispatcher [employer] EDSD Tremaine Arias, FLAT BED OPERATOR FLAT BED OPERATOR pm1 Earlene Adhikari Setul, MD MD sp3 Chantal Cuevas, RN RN 3 Jose Martin Ramirez4 Mendy Boo RN RN reyez Corrections: (The following items were deleted from the chart) 07/25 06:37 06:30 Troponin High Sensitivity+[id number].LAB.BRZ ordered. [facility]
--- NOTE | 2021-07-25 08:57 | ER ---
Nurse's Notes [facility] Name: Edwina Vasquez Age: 41 yrs Sex: Female : 1980 Arrival Date: 07/25/2021 Time: 06:15 Bed 19 Private MD: Diagnosis: Calculus of ureter Presentation: 07/25 06:17 Chief complaint: Patient states: Woke up at 4:30 this morning and had sharp abdominal ll3 pain. Coronavirus screen: Vaccine status: Patient reports receiving the 2nd dose of the covid vaccine. At this time, the client does not indicate any symptoms associated with coronavirus-19. Ebola Screen: No symptoms or risks identified at this time. Initial Sepsis Screen: Does the patient meet any 2 criteria? No. Patient's initial sepsis screen is negative. Does the patient have a suspected source of infection? No. Patient's initial sepsis screen is negative. Risk Assessment: Do you want to hurt yourself or someone else? Patient reports no desire to harm self or others. Onset of symptoms was July 25, 2021 at 04:30. Transition of care: patient was not received from another setting of care. 06:17 Method Of Arrival: EMS: [facility] ll3 06:17 Acuity: EDWIN 3 ll3 06:21 Care prior to arrival: Medication(s) given: Fentanyl 100 mcg. ll3 06:57 Chief complaint: Patient states: abdominal pain. al4 Triage Assessment: 06:21 General: Appears in no apparent distress. uncomfortable, Behavior is cooperative, ll3 agitated, crying. 06:21 Pain: Complains of pain in right lower quadrant Pain radiates to right low back Pain ll3 currently is 10 out of 10 on a pain scale. Pain began 2 hours ago. Is intermittent, Noted to be crying, grimacing, guarding, moaning. Neuro: Level of Consciousness is awake, alert, obeys commands, Oriented to person, place, time, situation. Cardiovascular: Patient's skin is warm and dry. Respiratory: Respiratory effort is even, unlabored, Respiratory pattern is regular, symmetrical. GI: Abdomen is round non-distended, Reports lower abdominal pain, nausea, vomiting. Derm: Skin is pink, warm \T\ dry. 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 ll3 Historical: - Allergies: 06:21 No Known Allergies; ll3 - Home Meds: 06:21 amiodarone 200 mg Oral tab 1 tab [Active]; Protonix 40 mg Oral TbEC 1 tab once daily ll3 [Active]; 06:58 Lialda 1.2 gram Oral TbEC 4 tabs once daily [Active]; lisinopril 10 mg Oral tab 1 tab al4 once daily [Active]; metoprolol tartrate 75 mg Oral tab 1 tab 2 times per day [Active]; rosuvastatin Oral once daily [Active]; - PMHx: 06:21 ulcerative colitis; mitral valve prolapse; ll3 06:58 frequent PVCs; al4 - PSHx: 06:21 Ligation of fallopian tube; Cholecystectomy; Gastric sleeve; ll3 - Immunization history:: Client reports receiving the 2nd dose of the Covid vaccine. - Social history:: Smoking status: Patient denies any tobacco usage or history of. Screenin:29 Abuse screen: Denies threats or abuse. Nutritional screening: No deficits noted. ll3 Tuberculosis screening: No symptoms or risk factors identified. Fall Risk IV access (20 points). Gait- Normal/Bed Rest/Wheelchair (0 pts) Mental Status- Oriented to own ability (0 pts). Total Souza Fall Scale indicates No Risk (0-24 pts). Assessment: 06:40 General: Appears in no apparent distress. uncomfortable, Behavior is cooperative, al4 moaning loudly. Pain: Complains of pain in right low back and right lower quadrant Pain currently is 10 out of 10 on a pain scale. Neuro: Level of Consciousness is awake, alert, obeys commands, Oriented to person, place, time, situation. Cardiovascular: Capillary refill < 3 seconds Patient's skin is warm and dry. Respiratory: Airway is patent Respiratory effort is even, unlabored, Respiratory pattern is regular, symmetrical. GI: Reports nausea, vomiting. : No signs and/or symptoms were reported regarding the genitourinary system. EENT: No signs and/or symptoms were reported regarding the EENT system. Derm: No signs and/or symptoms reported regarding the dermatologic system. Musculoskeletal: Range of motion: intact in all extremities. 06:53 Reassessment: patient wheeled to restroom with assistance. al4 07:01 Reassessment: Patient awake and alert. Moaning because patient states she is in pain. al4 Labs drawn and sent. Pain medication given. at bedside. Vital Signs: 06:17 BP 125 / 67; Pulse 69; Resp 19; Temp 98.1(TE); Pulse Ox 100% on R/A; Weight 105.69 kg ll3 (R); Height 5 ft. 3 in. (160.02 cm) (R); Pain 10/10; 07:00 BP 133 / 63; Pulse 67; Resp 18 S; Pulse Ox 100% on R/A; al4 08:00 BP 133 / 73; Pulse 55; Resp 20; Pulse Ox 98% on R/A; reyez 06:17 Body Mass Index 41.27 (105.69 kg, 160.02 cm) ll3 ED Course: 06:15 Patient arrived in ED. al4 06:20 Triage completed. ll3 06:21 Arm band placed on Patient placed in an exam room, on a stretcher, on laboratory monitor, ll3 on pulse oximetry. EKG completed in triage. Results shown to MD. 06:24 Tremaine Arias NP is PHCP. pm1 06:24 Brooke Pierre MD is Attending Physician. pm1 06:29 Patient has correct armband on for positive identification. Placed in gown. Bed in low ll3 position. Call light in reach. Side rails up X 1. Adult w/ patient. 06:41 Maintain EMS IV. Dressing intact. Good blood return noted. Site clean \T\ dry. Gauge \T\ al 4 site: 20G Right AC. 06:42 Jose Martin Ramirez is Primary Nurse. al4 06:58 No provider procedures requiring assistance completed. al4 07:53 CT Abd/Pelvis - IV Contrast Only In Process Unspecified. EDMS 09:03 Primary Nurse role handed off by Jose Martin Ramirez eb 10:44 IV discontinued, intact. reyez Administered Medications: 06:52 Drug: Zofran (Ondansetron) 4 mg Route: IVP; Site: left antecubital; al4 07:15 Follow up: Response: No adverse reaction reyez 06:52 Drug: NS 0.9% 1000 ml Route: IV; Rate: 1000 ml; Site: left antecubital; al4 07:00 Drug: morphine 4 mg Route: IVP; Site: right antecubital; al4 07:15 Follow up: Response: Pain is unchanged, physician notified reyez 07:15 Drug: morphine 4 mg Route: IVP; Site: right antecubital; reyez 07:32 Follow up: Response: Pain is decreased reyez 08:34 Drug: Flomax (tamsulosin) 0.4 mg Route: PO; reyez 08:34 Drug: Ketorolac 30 mg Route: IVP; Site: right antecubital; reyez 08:34 Follow up: Response: No adverse reaction reyez 08:35 Drug: NS 0.9% 1000 ml Route: IV; Rate: 1000 ml; Site: right antecubital; reyez 08:35 Drug: Cipro (ciprofloxacin) 500 mg Route: PO; Outcome: 08:57 Discharge ordered by MD. pm1 10:44 Discharged to home 10:44 Condition: good 10:44 Discharge instructions given to patient, Prescriptions given X 1. 10:44 Patient left the ED. eryez Signatures: Dispatcher [employer] EDMS Tremaine Arias NP DIRECTOR [facility] pm1 Earlene Adhikari [place], RN RN 3 Jose Martin Ramirez ne4 Mendy Boo RN RN Corrections: (The following items were deleted from the chart) 06:24 06:17 Care prior to arrival: None. [email or web address] ll3
[2021-07-25 10:50] VITALS: TEMP 98.1
[2021-07-25 10:52] VITALS: BP 133/73; O2SAT 98
--- NOTE | 2021-07-25 14:39 | EKG ---
Test Date: 2021-07-25 Test Time: 06:23:48 Scrape Gatherer: ERIK MEASUREMENT RESULTS: Intervals: Rate: 67 NM: 146 QRSD: 80 QT: 416 QTc: 439 [place]: P: 52 NM: 146 QRS: 30 T: 30 INTERPRETIVE STATEMENTS: Normal sinus rhythm Low voltage QRS Cannot rule out Anterior infarct, age undetermined Abnormal ECG Compared to ECG 09/02/2020 07:44:41 Sinus bradycardia no longer present Myocardial infarct finding still present Electronically Signed On 07-25-21 14:39:22 AUTOMOBILE LIGHTS ASSEMBLER by Rizwan Keene
== END 2021-07-25 10:44 | disposition home or self-care (01) ==
LOC: ER 06:13
DX: N20.1 Calculus of ureter (principal); I34.1 Nonrheumatic mitral (valve) prolapse
CPT/HCPCS: 36415; 74177; 80048; 80076; 81003; 81015; 81025; 83690; 85025; 93005; 99284; J2405; J7030; Q9967

== ENCOUNTER 2022-07-23 13:18 | Emergency (ER) | payer BC, OTHER ==
--- OUTSIDE RECORDS SUMMARY | 2022-07-23 13:24 | XMS REPORT | Continuity of Care Document ---
:1980 Author Organization [facility] t Address [address] [place] [address] Dr. [address]. [address] [place] [address] Care Team Providers Name Role Phone JOANNA WOLFE DURANCLAUDIA Primary Care Physician Unavailable Kolton Pierre Attending Clinician Unavailable SUZY MIGUEL Attending Clinician Unavailable Suzy Miguel MD Attending Clinician [phone] Yaa Guevara MA Attending Clinician Unavailable CARMEN CARROLL Attending Clinician Unavailable NOLBERTO GARZA Attending Clinician Unavailable PAPITO ROSENTHAL Attending Clinician Unavailable Sussy Attending Clinician Unavailable NAMITA MULLINS Attending Clinician Unavailable MD NAMITA MULLINS Attending Clinician Unavail able Missy GARSIA, Lanre Attending Clinician LISSETTE HAGER Attending Clinician Unavailable Satish Navarro MD Attending Clinician Anesthesia-Heydi, Ep Lab Attending Clinician Unavailable Outpt-Heydi, Ep Lab Attending Clinician Unavailable LANRE LOUIS Attending Clinician Unavailable Only, Adc Test Attending Clinician Unavailable Philip GARSIA, Kostas Attending Clinician Pob, Adc Lab Main Attending Clinician Unavailable Doctor Unassigned, [place] Attending Clinician Unavailable Slim Felder MD Attending Clinician SLIM FELDER Attending Clinician Unavailable SLIM FELDER Attending Clinician Unavailable SUZY MIGUEL Admitting Clinician Unavailable Raju_P Admitting Clinician Unavailable NAMITA MULLINS Admitting Clinician Unavailable MD NAMITA MULLINS Admitting Clinician Unavail able LISSETTE HAGER Admitting Clinician Unavailable Melanie GARSIA, Satish Enciso Admitting Clinician Payers Payer Name Policy Type Policy Number Effective Date Expiration Date S ource Blue Cross 6 [id number] 2020 [facility] it Blue Shield of 00:00:[address] - [facility] BCBS OS [id number] 2021 POS/PPO/EPO 00:00:00 AETNA SELECT [id number] 2021 US ACCESS 00:00:00 [facility] [id number] 2017 - OUT OF STATE 00:00:00 [place] [id number] 2017 [facility] (PPO) 00:00:00 Problems Condition Condition Condition Status Onset Resolution Last Treating Co mments Source Name Details Category Date Date Treatment Clinician Date Intractabl Intractabl Disease Active C [facility] e nausea e nausea 1-13 [facility] and 00:[facility]: Medical vomiting vomiting 00 Center Morbid Morbid Disease Active 2020-[address] [facility] obesity obesity 2-21 [facility] 00:[facility]: Medical 00 Center Chest pain Chest pain Disease Active M ethodi 6 st 00:00: Hospita 00 l Chest pain Chest pain Disease Active U nivers 11-19 ity of 00:00: [place] [address] Medical Branch Irritable Irritable Disease Active Met hodi bowel bowel 808 st syndrome syndrome 00:00: Hospit a with with 00 l diarrhea diarrhea Fecal Fecal Disease Active Methodi incontinen incontinen 01-26 ce ce 00:00: Hospita 00 l Fecal Fecal Disease Active Methodi urgency urgency 01-26 00:00: Hospita 00 l Morbid Morbid Disease Active Univers obesity obesity 2-09 [place] index 00 Me dical of 50 or of 50 or Branch higher higher Sleep Sleep Disease Active Univers disorder disorder 01-23 [place] of breathing [place] Palpitatio Palpitatio Disease Active U nivers ns ns 01-23 ity of 00:00: [place] [address] Medical Branch Atypical Atypical Disease Active Unive rs chest pain chest pain 01-23 it y of 00:00: [place] [facility] Branch Sleep Sleep Disease Active Univers disorder disorder 01-23 ity of breathing breathing 00:00: a s Medical Branch Numbness Numbness Disease Active Unive rs 5-02 ity of 00:00: [place] [facility] [id number] Liver Problem Common lesion [facility] [id number] Calculus Problem Commo n of kidney [facility] [id number] Ureterolit Problem Com mon hiasis [facility] [id number] Right Problem Common flank pain [facility] [id number] H/[place] [address] gastric [facility] sleeve [facility] [id number] Acute Problem Common otitis Spirit externa of - [facility] [id number] Allergic Problem Commo n rhinitis, Spirit unspecifie - [facility] d [facility] seasonalit [facility] y, Medical unspecifie Center d trigger [id number] Hypertensi Problem Com mon on, Spirit essential [facility] [id number] PVC Problem Common (premature Spirit ventricula - [facility] r [facility]) [facility] [id number] Irritable Problem Comm on bowel Spirit syndrome - [facility] with both St constipati [facility] on and Medical diarrhea Center [id number] Cardiac Problem Commo n arrhythmia Spirit , - CHI unspecifie St d cardiac [facility] arrhythmia [facility] [id number] GERD Problem Common without Spirit esophagiti - [facility] s [facility] [id number] Mixed Problem Common hyperlipid Spirit emia - [facility] Infection Infection Problem Active [place] [facility] Otalgia Otalgia Problem Active [facility] Hearing Hearing Problem Active [place] [facility] Perichondr Perichondr Problem Active M atagor itis itis [facility] Allergies, Adverse Reactions, Alerts Allergy Allergy Status Severity Reaction(s) Onset Inactive Treating Comm ents Source Name Type Date Date Clinician NO KNOWN Drug Active Univers ALLERGIE Class ity of S [facility] NO KNOWN Allergy Active SLSL ALLERGIE S Family History Family Member Diagnosis Comments Start Date Stop Date Source Natural father Diabetes [facility] Natural father Hypertension [facility] Natural mother Diabetes [facility] Natural mother Heart disease [facility] Natural mother Hypertension [facility] Natural sister Asthma [facility] Natural sister Heart disease [facility] Social History Social Habit Start Date Stop Date Quantity Comments Source History of [facility] - Tobacco Use [facility] Exposure to Not sure University of SARS-CoV-2 [facility] (event) Branch History SDOH [facility] Alcohol Std Medical Cente r Drinks History SDOH [facility] Alcohol Binge Medical Dick ter History SDOH [facility] Alcohol Comment Medical C enter Alcohol intake 2022-02-16 2022-02-[address] [facility] 00:00:00 00:00:00 non-drinker Medical Cente r (finding) History SDOH 2021-05-13 2021-05-[address] [facility] Alcohol Frequency 00:00:00 00:00:00 [facility] Center Tobacco use and 2021-01-22 2021-01-[address] [facility] kes exposure 00:00:00 00:00:00 [facility] Center Sex Assigned At [address] [facility] 00:00:00 00:00:00 [facility] Center Smoking Status Start Date Stop Date Source Never Smoker [facility] - [facility] Medications Ordered Filled Start Stop Current Ordering Indication Dosage Frequency Signature Comments Components Source Medication Medication Date Date Medication? Clinician (SIG) Name Name Levsin Levsin 2021- No 1{table Levsin 0.125 MG 0.125 MG 03-05 t_as_ne 0.125 MG 00:00: 00:00 eded} 00 :00 Levsin Levsin 2021-0 2- No 1{table Levsin 0.125 MG 0.125 MG 03-05 t_as_ne 0.125 MG 00:00: 00:00 eded} 00 :00 metoprolol Yes 25mg QD Take [address] tartrate 75 8-30 by mouth Luke s mg Tab 09:11: nightly . Medica l 26 Center ciprofloxac Yes 500mg Q.5D Take [address] in HCl 8-30 mg by [facility] (CIPRO) 500 09:11: mouth 2 Med ical MG tablet 26 (two) Center times daily. multivitami Yes 1{capsu QD Take [address] n capsule 8-30 le} capsule by Luke s 09:11: mouth Medical 26 daily. Center CALCIUM Yes Take by [facility] CITRATE 8-30 mouth. [facility] ORAL 09:11: Medical [place] ergocalcife Yes [id number] Q7D Take [facility] rol 8-30 50,000 [facility] (Vitamin 09:11: Units by Medic al D2) 1,250 26 mouth once Cent er mcg (50,000 a week. unit) capsule ferrous Yes Take by [facility] sulfate 8-30 mouth. [facility] (IRON ORAL) 09:11: Medica l [place] cyanocobala Yes 1000ug QD Take 1,[address] min 8-30 mcg by [facility] (vitamin 09:11: mouth Medical B-12) 1000 26 daily. Center MCG tablet BIOTIN ORAL Yes Take by [facility] 8-30 mouth. [facility] 09:11: Medical 26 Center promethazin Yes 25mg Take [address] e 8-29 by mouth [facility] (PHENERGAN) 10:53: every 8 Med ical 25 MG 54 (eight) Center tablet hours as needed for Nausea. tamsulosin Yes .4mg QD Take 0.[address] (FLOMAX) 8-29 mg by [facility]ukes 0.4 mg Cap 10:53: mouth Medica l 24 hr 54 daily. Center capsule metoclopram Yes TAKE [address] [place] HCl 3-22 TABLET BY [facility] (REGLAN) 10 00:00: MOUTH 3 Med ical MG tablet 00 TIMES Center DAILY WITH MEALS. metoclopram 2021- No 10mg Take [address] [facility] HCl 2-02 03-22 tablet (10 [facility] (REGLAN) 10 00:00: 00:00 mg total) Medical MG tablet 00 :00 by mouth 3 Cent er (three) times daily with meals. prochlorper 2021- No 5mg Take [address] azine 2-02 03-04 tablet (5 [facility] (Compazine) 00:00: 23:59 mg total) Medical 5 MG tablet 00 :00 by mouth Cent er every 6 (six) hours as needed for Nausea for up to 30 days. pantoprazol 2020-06 Yes 40mg QD Take [address] e 2-24 tablet (40 [facility] (PROTONIX) 00:00: mg total) Me dical 40 MG 00 by mouth Center tablet daily. amiodarone Yes 200mg QD Take [address] (PACERONE) 7-19 mg by [facility]ukes 200 MG 00:00: mouth Medical tablet 00 daily. Center lisinopriL Yes 10mg QD Take [address] (PRINIVIL,Z 7-19 by mouth Luke s ESTRIL) 10 00:00: daily. Medic al MG tablet 00 Center fluconazole Yes QD Take by Met hodi (DIFLUCAN) 1-[address] 100 MG 18:17: daily. Hospita tablet 41 l Azithromyci Azithromyci 2019- No [place] 2 tablets Common n n 02-20-07 [place] on the Spirit 00:00: 00:00 first day, - [facility] 00 :[address] tablet [facility] daily for Medical 4 days Center cyclobenzap Yes 5mg QD Take 5 mg M ethodi rine 6-[address] (FLEXERIL) 13:20: nightly. Hos celsa 5 mg tablet 38 l metoprolol 2019-0 Yes [id number] 75mg Take 1.5 Univers succinate 6-02 tablets by osvaldo of XL 50 mg 24 00:00: mouth [place] hr tablet 00 daily. Medical Branch cyclobenzap 2019-0 Yes [id number] 5mg Take 1 Univers rine 5 mg 6-02 tablet by ity o f tablet 00:00: mouth 3 00 (three) Medical times Branch daily. metoprolol 2020-0 Yes [id number] 75mg Take 1.5 Univers succinate 6-02 tablets by ity of XL 50 mg 24 00:00: mouth [place] hr tablet 00 daily. [facility] Branch cyclobenzap 2019-0 Yes [id number] 5mg Take 1 Univers rine 5 mg 6-02 tablet by ity o f tablet 00:00: mouth 3 00 (three) Medical times Branch daily. metoprolol 2019-0 Yes 50mg 50 mg, Unive rs succinate - Oral, ity of XL (TOPROL 14:00: DAILY, [place] XL) tablet 00 First dose Med ical 50 mg on [place] Branch 11/16/19 at 0900, Until Discontinu ed, Routine magnesium 2019-0 2020- No 800mg 800 mg, Uni vers oxide 11-15- Oral, ity of (MAG-OX 02:45: 02:09 ONCE, 1 [place] 400) tablet 00 :00 dose, Wed Med ical 800 mg 11/15/19 at Branch 2145, Routine KCL 2019-0 2020- No 20meq 20 mEq, Univers (KLOR-CON 11-15 Oral, ity of M20) tablet 02:45: 02:09 [place]CE[place] 1 [place] 20 mEq 00 :00 dose, [facility] Medical 11/15/19 at Branch 2145, Routine metoprolol 2020-0 Yes [id number] 50mg Take 1 U nivers succinate - tablet by ity o f XL 50 mg 24 00:00: mouth [place] hr tablet 00 daily. [facility] Branch acetaminoph 0 Yes 650mg 650 mg, Un leo en 11-14 Oral, ity of (TYLENOL) 23:22: Q6HPRN, [place] tablet 650 35 Starting Medic al mg [facility] 11/15/19 at 1822, Until Discontinu ed, Routine, Pain (scale 1-3) flecainide 2019-0 Yes [id number] 50mg Take 1 U nivers 50 mg 5-26 tablet by ity of tablet 00:00: mouth 2 00 (two) Medical times Branch daily. flecainide 2019-0 Yes [id number] 50mg Take 1 U nivers 50 mg 5-26 tablet by ity of tablet 00:00: mouth 2 [place] 00 (two) Medical times Branch daily. flecainide 2020-0 Yes [id number] 50mg Take 1 U nivers 50 mg [...] 00 daily. Medical Branch flecainide 2020-0 Yes [id number] 50mg Take 1 U nivers 50 mg 3-27 tablet by ity of tablet 00:00: mouth 2 [place] 00 (two) Medical times Branch daily. flecainide 2020-0 Yes [id number] 50mg Take 1 U nivers 50 mg 3-27 tablet by ity of tablet 00:00: mouth 2 [place] 00 (two) Medical times Branch daily. flecainide 2020-0 Yes [id number] 50mg Take 1 U nivers 50 mg 3-27 tablet by ity of tablet 00:00: mouth 2 [place] 00 (two) Medical times Branch daily. flecainide 2020-0 Yes [id number] 50mg Take 1 U nivers 50 mg 3-27 tablet by ity of tablet 00:00: mouth 2 [place] 00 (two) Medical times Branch daily. flecainide 2020-0 Yes [id number] 50mg Take 1 U nivers 50 mg 3-27 tablet by ity of tablet 00:00: mouth 2 [place] 00 (two) Medical times Branch daily. flecainide 2020-0 Yes [id number] 50mg Take 1 U nivers 50 mg 3-27 tablet by ity of tablet 00:00: mouth 2 [place] 00 (two) Medical times Branch daily. flecainide 2020-0 2020- No [id number] 50mg Take 1 Univers 50 mg 3-27 05-26 tablet by ity of tablet 00:00: 00:00 mouth 2 [place] 00 :00 (two) Medical times Branch daily. flecainide 2020-0 2020- No [id number] 50mg Take 1 Univers 50 mg 3-27 05-26 tablet by ity of tablet 00:00: 00:[address] [place] [address] 00 :00 (two) Medical times Branch daily. flecainide 2020-0 Yes [id number] 50mg Take 1 U nivers 50 mg 3-06 tablet by ity of tablet 00:00: mouth [address] [place] [address] 00 (two) Medical times Branch daily. flecainide 2020-0 Yes [id number] 50mg Take 1 U nivers 50 mg 3-06 tablet by ity of tablet 00:00: mouth [address] [place] [address] 00 (two) Medical times Branch daily. flecainide 2020-0 Yes [id number] 50mg Take 1 U nivers 50 mg 3-06 tablet by ity of tablet 00:00: mouth [address] [place] [address] 00 (two) Medical times Branch daily. flecainide 2020-0 Yes [id number] 50mg Take 1 U nivers 50 mg 3-06 tablet by ity of tablet 00:00: mouth 2 [place] 00 (two) Medical times Branch daily. flecainide 2020-0 2020- No [id number] 50mg Take 1 Univers 50 mg 3-06 03-27 tablet by ity of tablet 00:00: 00:00 mouth 2 [place] 00 :00 (two) Medical times Branch daily. flecainide 2020-0 2020- No [id number] 50mg Take 1 Univers 50 mg 309-14 tablet by ity of tablet 00:00: 00:00 mouth 2 [place] 00 :00 (two) Medical times Branch daily. flecainide 2020-0 2020- No [id number] 50mg Take 1 Univers 50 mg 3-09-14 tablet by ity of tablet 00:00: 00:00 mouth 2 [place] 00 :00 (two) Medical times Branch daily. [...] Branch Flecainide Flecainide 2020-0 Yes [place] as Common Acetate Acetate 1-30 Iperre directed Spir it 00:00: - [facility] 00 [facility] Metoprolol Metoprolol 2019-0 Yes [place] 1 tablet Common Succinate Succinate 1-30 [place] Spir it ER ER 00:00: - [facility] 00 [facility] Flecainide Flecainide 2019-0 No Flecainide Acetate 50 Acetate 50 1-30 Acetate 50 MG MG 00:00: MG 00 Metoprolol Metoprolol 2019-0 No 1{table QD Metoprolol Succinate Succinate 1-30 t} Succinate ER 50 MG ER 50 MG 00:00: ER 50 MG 00 Metoprolol Metoprolol 2020-0 No 1{table QD Metoprolol Succinate Succinate 1-30 t} Succinate ER 50 MG ER 50 MG 00:00: ER 50 MG 00 Flecainide Flecainide 2020-0 No Flecainide Acetate 50 Acetate 50 1-30 Acetate 50 MG MG 00:00: MG 00 Flecainide Flecainide 2020-0 No Flecainide Acetate 50 Acetate 50 1-30 Acetate 50 MG MG 00:00: MG 00 Metoprolol Metoprolol 2020-0 No 1{table QD Metoprolol Succinate Succinate 1-30 t} Succinate ER 50 MG ER 50 MG 00:00: ER 50 MG 00 Flecainide Flecainide 2020-0 No Flecainide Acetate 50 Acetate 50 1-30 Acetate 50 MG MG 00:00: MG 00 Metoprolol Metoprolol 0 No 1{table QD Metoprolol Succinate Succinate 1-30 t} Succinate ER 50 MG ER 50 MG 00:00: ER 50 MG 00 Flecainide Flecainide No Flecainide Acetate 50 Acetate 50 1-30 Acetate 50 MG MG 00:00: MG 00 Metoprolol Metoprolol No 1{table QD Metoprolol Succinate Succinate 1-30 t} Succinate ER 50 MG ER 50 MG 00:00: ER 50 MG 00 flecainide 2018-06 Yes [id number] 50mg Take 1 U nivers 50 mg 2-18 tablet by ity of tablet 00:00: mouth (two) Medical times Branch daily. flecainide 2018-06 Yes [id number] 50mg Take 1 U nivers 50 mg 2-18 tablet by ity of tablet 00:00: mouth (two) Medical times Branch daily. flecainide 2018-06 Yes [id number] 50mg Take 1 U nivers 50 mg 2-18 tablet by ity of tablet 00:00: mouth (two) Medical times Branch daily. flecainide 2018-06 Yes [id number] 50mg Take 1 U nivers 50 mg 2-18 tablet by ity of tablet 00:00: mouth (two) Medical times Branch daily. flecainide 2018-06 Yes [id number] 50mg Take 1 U nivers 50 mg 2-18 tablet by ity of tablet 00:00: mouth (two) Medical times Branch daily. flecainide 2018-06 Yes [id number] 50mg Take 1 U nivers 50 mg 2-18 tablet by ity of tablet 00:00: mouth 2 (two) Medical times Branch daily. flecainide 2018-06 Yes [id number] 50mg Take 1 U nivers 50 mg 2-18 tablet by ity of tablet 00:00: mouth 2 (two) Medical times Branch daily. flecainide 2018-06 Yes [id number] 50mg Take 1 U nivers 50 mg 2-18 tablet by ity of tablet 00:00: mouth 2 (two) Medical times Branch daily. flecainide 2018-06- No [id number] 50mg Take 1 Univers 50 mg 2-18 03-06 tablet by ity of tablet 00:00: 00:00 mouth 2 [place] 00 :00 (two) Medical times Branch daily. flecainide 2018-06- No [id number] 50mg Take 1 Univers 50 mg 2-18 03-06 tablet by ity of tablet 00:00: 00:00 mouth 2 [place] 00 :00 (two) Medical times Branch daily. [...] hr tablet 00 daily. Medical Branch metoprolol 2018-06- No 50mg Take 1 Univ ers succinate [...] 4mg Take 1 Uni vers (ZOFRAN 2-09 -18 tablet by ity of ODT) 4 mg 00:00: 00:00 mouth [place] disintegrat 00 :00 every 8 Medic al ing tablet (eight) Branch hours as needed for Nausea and Vomiting (N/V). ondansetron 2018- No 4mg Take 1 Uni vers (ZOFRAN 2-09 -18 tablet by ity of ODT) 4 mg 00:00: 00:00 mouth [place] disintegrat 00 :00 every 8 Medic al ing tablet (eight) Branch hours as needed for Nausea and Vomiting (N/V). Lisinopril Lisinopril Yes [place] 1 tablet Common [place] [facility] Pantoprazol Pantoprazol Yes [place] 1 tablet Common e Sodium e Sodium [facility] Spirit [facility] Metoprolol Metoprolol No 1{table BID Metoprolol Tartrate 75 Tartrate 75 t_with_ Tartrate MG MG food} 75 MG Hyoscyamine Hyoscyamine No Hyoscyamin Sulfate Sulfate e Sulfate Lialda 1.2 Lialda 1.2 No 2{table QD Lialda 1.2 GM GM ts} GM Lisinopril Lisinopril No 1{table QD Lisinopril 10 MG 10 MG t} 10 MG Crestor Crestor No Crestor Protonix 40 Protonix 40 No 1{table QD Protonix MG MG t} 40 MG Omeprazole Omeprazole No Omeprazole Amiodarone Amiodarone No Amiodarone HCl HCl HCl Lisinopril Lisinopril No 1{table QD Lisinopril 10 MG 10 MG t} 10 MG Pantoprazol Pantoprazol No 1{table QD Pantoprazo e Sodium 40 e Sodium 40 t} le Sodium MG MG 40 MG Metoprolol Metoprolol No 1{table BID Metoprolol Tartrate 75 Tartrate 75 t_with_ Tartrate MG MG food} 75 MG Hyoscyamine Hyoscyamine No Hyoscyamin Sulfate Sulfate e Sulfate Lialda 1.2 Lialda 1.2 No 2{table QD Lialda 1.2 GM GM ts} GM Lisinopril Lisinopril No 1{table QD Lisinopril 10 MG 10 MG t} 10 MG Crestor Crestor No Crestor Amiodarone Amiodarone No Amiodarone HCl HCl HCl Protonix 40 Protonix 40 No 1{table QD Protonix MG MG t} 40 MG Metoprolol Metoprolol No 1{table BID Metoprolol Tartrate 75 Tartrate 75 t_with_ Tartrate MG MG food} 75 MG Amiodarone Amiodarone No Amiodarone HCl HCl HCl Protonix 40 Protonix 40 No 1{table QD Protonix MG MG t} 40 MG Metoprolol Metoprolol No 1{table BID Metoprolol Tartrate 75 Tartrate 75 t_with_ Tartrate MG MG food} 75 MG Metoprolol Metoprolol No 1{table BID Metoprolol Tartrate 75 Tartrate 75 t_with_ Tartrate MG MG food} 75 MG Protonix 40 Protonix 40 No 1{table QD Protonix MG MG t} 40 MG Amiodarone Amiodarone No Amiodarone HCl HCl HCl Metoprolol Metoprolol No 1{table BID Metoprolol Tartrate 75 Tartrate 75 t_with_ Tartrate MG MG food} 75 MG Protonix 40 Protonix 40 No 1{table QD Protonix MG MG t} 40 MG Amiodarone Amiodarone No Amiodarone HCl HCl HCl Metoprolol Metoprolol No 1{table BID Metoprolol Tartrate 75 Tartrate 75 t_with_ Tartrate MG MG food} 75 MG Protonix 40 Protonix 40 No 1{table QD Protonix MG MG t} 40 MG Amiodarone Amiodarone No Amiodarone HCl HCl HCl Metoprolol Metoprolol No 1{table BID Metoprolol Tartrate 75 Tartrate 75 t_with_ Tartrate MG MG food} 75 MG Protonix 40 Protonix 40 No 1{table QD Protonix MG MG t} 40 MG Amiodarone Amiodarone No Amiodarone HCl HCl HCl Metoprolol Metoprolol No 1{table BID Metoprolol Tartrate 75 Tartrate 75 t_with_ Tartrate MG MG food} 75 MG Amiodarone Amiodarone No Amiodarone HCl HCl HCl Protonix 40 Protonix 40 No 1{table QD Protonix MG MG t} 40 MG Metoprolol Metoprolol No 1{table BID Metoprolol Tartrate 75 Tartrate 75 t_with_ Tartrate MG MG food} 75 MG Amiodarone Amiodarone No Amiodarone HCl HCl HCl Protonix 40 Protonix 40 No 1{table QD Protonix MG MG t} 40 MG Metoprolol Metoprolol No 1{table BID Metoprolol Tartrate 75 Tartrate 75 t_with_ Tartrate MG MG food} 75 MG Amiodarone Amiodarone No Amiodarone HCl HCl HCl Protonix 40 Protonix 40 No 1{table QD Protonix MG MG t} 40 MG Crestor Crestor No Crestor Hyoscyamine Hyoscyamine No Hyoscyamin Sulfate Sulfate e Sulfate Omeprazole Omeprazole No Omeprazole Metoprolol Metoprolol No 1{table BID Metoprolol Tartrate 75 Tartrate 75 t_with_ Tartrate MG MG food} 75 MG Protonix 40 Protonix 40 No 1{table QD Protonix MG MG t} 40 MG Lisinopril Lisinopril No 1{table QD Lisinopril 10 MG 10 MG t} 10 MG Lialda 1.2 Lialda 1.2 No 2{table QD Lialda 1.2 GM GM ts} GM Amiodarone Amiodarone No Amiodarone HCl HCl HCl Pantoprazol Pantoprazol No 1{table QD Pantoprazo e Sodium 40 e Sodium 40 t} le Sodium MG MG 40 MG Lisinopril Lisinopril No 1{table QD Lisinopril 10 MG 10 MG t} 10 MG Protonix 40 Protonix 40 No 1{table QD Protonix MG MG t} 40 MG Omeprazole Omeprazole No Omeprazole Amiodarone Amiodarone No Amiodarone HCl HCl HCl Lisinopril Lisinopril No 1{table QD Lisinopril 10 MG 10 MG t} 10 MG Pantoprazol Pantoprazol No 1{table QD Pantoprazo e Sodium 40 e Sodium 40 t} le Sodium MG MG 40 MG Metoprolol Metoprolol No 1{table BID Metoprolol Tartrate 75 Tartrate 75 t_with_ Tartrate MG MG food} 75 MG Hyoscyamine Hyoscyamine No Hyoscyamin Sulfate Sulfate e Sulfate Lialda 1.2 Lialda 1.2 No 2{table QD Lialda 1.2 GM GM ts} GM Lisinopril Lisinopril No 1{table QD Lisinopril 10 MG 10 MG t} 10 MG Crestor Crestor No Crestor Protonix 40 Protonix 40 No 1{table QD Protonix MG MG t} 40 MG Omeprazole Omeprazole No Omeprazole Amiodarone Amiodarone No Amiodarone HCl HCl HCl Lisinopril Lisinopril No 1{table QD Lisinopril 10 MG 10 MG t} 10 MG Pantoprazol Pantoprazol No 1{table QD Pantoprazo e Sodium 40 e Sodium 40 t} le Sodium MG MG 40 MG Metoprolol Metoprolol No 1{table BID Metoprolol Tartrate 75 Tartrate 75 t_with_ Tartrate MG MG food} 75 MG Hyoscyamine Hyoscyamine No Hyoscyamin Sulfate Sulfate e Sulfate Lialda 1.2 Lialda 1.2 No 2{table QD Lialda 1.2 GM GM ts} GM Lisinopril Lisinopril No 1{table QD Lisinopril 10 MG 10 MG t} 10 MG Crestor Crestor No Crestor Protonix 40 Protonix 40 No 1{table QD Protonix MG MG t} 40 MG Omeprazole Omeprazole No Omeprazole Amiodarone Amiodarone No Amiodarone HCl HCl HCl Lisinopril Lisinopril No 1{table QD Lisinopril 10 MG 10 MG t} 10 MG Pantoprazol Pantoprazol No 1{table QD Pantoprazo e Sodium 40 e Sodium 40 t} le Sodium MG MG 40 MG Ciprodex Ciprodex No Ciprodex Mat agor 0.3 [...] release 24 release 24 hr hr hr No known No Univers medications ity of [facility] Immunizations Ordered Filled Immunization Date Status Comments Sourc e Immunization Name Name Salvador Franco 2020-02-21 Completed [facility] - 15:37:00 [facility] Salvador [facility] 2020-02-21 Completed [facility] - 15:37:00 [facility] Salvador [facility] 2020-02-21 Completed [facility] - 15[facility]37:00 [facility] [facility] Afluria Afluria 2020-02-21 Completed [facility]00 [facility] Afluria Afluria 2020-02-21 Completed [facility] 15:37:00 [facility] Afluria Afluria 2020-02-21 Completed [facility] 15:37:00 [facility] Afluria Afluria 2020-02-21 Completed [facility] 15:37:00 [facility] Afluria Afluria 2020-02-21 Completed [facility] 15:37:00 [facility] Afluria Afluria 2020-02-21 Completed [facility] 15:37:00 [facility] Afluria Afluria 2020-02-21 Completed [facility] 15:37:00 [facility] Afluria Afluria 2020-02-21 Completed [facility] 15:37:00 [facility] Afluria Afluria 2020-02-21 Completed [facility] 15:37:00 [facility] Afluria Afluria 2020-02-21 Completed [facility] 15:37:00 [facility] Afluria Afluria 2020-02-21 Completed [facility] 15:37:00 [facility] Afluria Afluria 2020-02-21 Completed [facility] 00:00:00 [facility] Afluria Afluria 2020-02-21 Completed [facility] 00:[facility]:00 [facility] Afluria Afluria 2020-02-21 Completed [facility] 00:[facility]:00 [facility] Influenza Virus 2019-03-21 Completed [facility] IM 3+ 00:00:00 [facility] Influenza Virus 2019-03-21 Completed [facility]it y of Vaccine [facility] IM 3+ 00:00:00 [facility] Influenza Virus 2019-03-21 Completed [facility] of Vaccine [facility] IM 3+ 00:00:00 [facility] Influenza Virus 2019-03-21 Completed [facility]it y of Vaccine [facility] IM 3+ 00:00:00 [facility] Influenza Virus 2019-03-21 Completed [facility]it y of Vaccine [facility] IM 3+ 00:00:00 [facility] Influenza Virus 2019-03-21 Completed [facility] y of Vaccine [facility] IM 3+ 00:00:00 [facility] Influenza Virus 2019-03-21 Completed [facility] y of Vaccine [facility] IM 3+ 00:00:00 [facility] Influenza Virus 2019-03-21 Completed [facility] y of Vaccine Quad IM 3+ 00:00:00 [facility] Influenza Virus 2019-03-21 Completed [facility] y of Vaccine [facility] IM 3+ 00:00:00 [facility] Influenza Virus 2019-03-21 Completed [facility]it y of Vaccine [facility] IM 3+ 00:00:00 [facility] Influenza Virus 2019-03-21 Completed [facility]it y of Vaccine [facility] IM 3+ 00:00:00 [facility] Influenza Virus 2019-03-21 Completed [facility]it y of Vaccine Quad IM 3+ 00:00:00 [facility] Influenza Virus 2019-03-21 Completed [facility] y of Vaccine [facility] IM 3+ 00:00:00 [facility] Influenza Virus 2019-03-21 Completed [facility]it y of Vaccine [facility] IM 3+ 00:00:00 [facility] Influenza Virus 2019-03-21 Completed [facility] y of Vaccine [facility] IM 3+ 00:00:00 [facility] Influenza Virus 2019-03-21 Completed [facility] y of Vaccine [facility] IM 3+ 00:00:00 [facility] Influenza Virus 2019-03-21 Completed [facility] y of Vaccine [facility] IM 3+ 00:00:00 [facility] Influenza Virus 2019-03-21 Completed [facility] y of Vaccine [facility] IM 3+ 00:00:00 [facility] Influenza Virus 2019-03-21 Completed [facility] y of Vaccine Quad IM 3+ 00:00:00 [facility] Influenza Virus 2019-03-21 Completed [facility] y of Vaccine [facility] IM 3+ 00:00:00 [facility] Influenza Virus 2019-03-21 Completed [facility] of Vaccine [facility] IM 3+ 00:00:00 [facility] Influenza Virus 2019-03-21 Completed [facility]it y of Vaccine Quad IM 3+ 00:00:00 [facility] Influenza Virus 2019-03-21 Completed [facility] y of Vaccine Quad IM 3+ 00:00:00 [facility] Influenza Virus 2019-03-21 Completed [facility] y of Vaccine Quad IM 3+ 00:00:00 [facility] Influenza Virus 2019-03-21 Completed [facility] y of Vaccine Quad IM 3+ 00:00:00 [facility] Influenza Virus 2019-03-21 Completed [facility] y of Vaccine Quad IM 3+ 00:00:00 [facility] Influenza Virus 2019-03-21 Completed [facility] y of Vaccine [facility] IM 3+ 00:00:00 [facility] Influenza Virus 2018-04-21 Completed [facility]it y of Vaccine 00:00:00 [facility] Influenza Virus 2018-04-21 Completed Universit y of Vaccine 00:00:00 [facility] Influenza Virus 2018-04-21 Completed Universit y of Vaccine 00:00:00 [facility] Influenza Virus 2018-04-21 Completed [facility]it y of Vaccine 00:00:00 [facility] Influenza Virus 2018-04-21 Completed [facility]it y of Vaccine 00:00:00 [facility] Influenza Virus 2018-04-21 Completed [facility]it y of Vaccine 00:00:00 [facility] Influenza Virus 2018-04-21 Completed [facility]it y of Vaccine 00:00:00 [facility] Influenza Virus 2018-04-21 Completed [facility]it y of Vaccine 00:00:00 [facility] Influenza Virus 2018-04-21 Completed [facility] y of Vaccine 00:00:00 [facility] Influenza Virus 2018-04-21 Completed [facility]it y of Vaccine 00:00:00 [facility] Influenza Virus 2018-04-21 Completed [facility]it y of Vaccine 00:00:00 [facility] Influenza Virus 2018-04-21 Completed [facility]it y of Vaccine 00:00:00 [facility] Influenza Virus 2018-04-21 Completed [facility]it y of Vaccine 00:00:00 [facility] Influenza Virus 2018-04-21 Completed [facility]it y of Vaccine 00:00:00 [facility] Influenza Virus 2018-04-21 Completed [facility]it y of Vaccine 00:00:00 [facility] Influenza Virus 2018-04-21 Completed [facility]it y of Vaccine 00:00:00 [facility] Influenza Virus 2018-04-21 Completed [facility]it y of Vaccine 00:00:00 [facility] Influenza Virus 2018-04-21 Completed [facility] y of Vaccine 00:00:00 [facility] Influenza Virus 2018-04-21 Completed [facility]it y of Vaccine 00:00:00 [facility] Influenza Virus 2018-04-21 Completed [facility]it y of Vaccine 00:00:00 [facility] Influenza Virus 2018-04-21 Completed [facility] y of Vaccine 00:00:00 [facility] Influenza Virus 2018-04-21 Completed [facility]it y of Vaccine 00:00:00 [facility] Influenza Virus 2018-04-21 Completed [facility]it y of Vaccine 00:00:00 [facility] Influenza Virus 2018-04-21 Completed [facility]it y of Vaccine 00:00:00 [facility] Influenza Virus 2018-04-21 Completed [facility]it y of Vaccine 00:00:00 [facility] Influenza Virus 2018-04-21 Completed [facility]it y of Vaccine 00:00:00 [facility] Influenza Virus 2018-04-21 Completed [facility]it y of Vaccine 00:00:00 [facility] Vital Signs Vital Name Observation Time Observation Value Comments Source height 2022-03-05 10:00:00 63 [in_i] [facility] weight 2022-03-05 10:00:00 200 [lb_av] [facility] bmi 2022-03-05 10:00:00 35.42 kg/m2 [facility] HEIGHT 2022-02-16 10:49:00 160 cm WEIGHT 2022-02-16 10:49:00 92.08 kg HEIGHT 2022-02-16 10:49:00 160 cm WEIGHT 2022-02-16 10:49:00 92.08 kg height 2021-12-26 13:00:00 63 [in_i] [facility] weight 2021-12-26 13:00:00 207 [lb_av] [facility] temperature 2021-12-26 13:00:00 97.8 [degF] [facility] bmi 2021-12-26 13:00:00 36.66 kg/m2 [facility] oximetry 2021-12-26 13:00:00 99 % [facility] respiratory rate 2021-12-26 13:00:00 16 /min [facility] blood pressure 2021-12-26 13:00:00 142 mm[Hg] [facility] - systolic [facility] blood pressure 2021-12-26 13:00:00 73 mm[Hg] [facility] - diastolic [facility] HEIGHT 2021-12-17 12:07:00 160 cm WEIGHT 2021-12-17 12:07:00 92.534 kg HEIGHT 2021-12-17 12:07:00 160 cm WEIGHT 2021-12-17 12:07:00 92.534 kg height 2021-08-27 15:50:00 63 [in_i] [facility] weight 2021-08-27 15:50:00 224.5 [lb_av] [facility] temperature 2021-08-27 15:50:00 97.0 [degF] [facility] bmi 2021-08-27 15:50:00 39.76 kg/m2 [facility] oximetry 2021-08-27 15:50:00 98 % [facility] respiratory rate 2021-08-27 15:50:00 18 /min Comm on [facility] blood pressure 2021-08-27 15:50:00 125 mm[Hg] [facility] - systolic [facility] blood pressure 2021-08-27 15:50:00 77 mm[Hg] [facility] - diastolic [facility] HEIGHT 2021-07-30 09:20:00 160 cm WEIGHT 2021-07-30 09:20:00 106.731 kg HEIGHT 2021-07-30 09:20:00 160 cm WEIGHT 2021-07-30 09:20:00 106.731 kg HEIGHT 2021-07-23 10:59:00 160 cm WEIGHT 2021-07-23 10:59:00 105.688 kg HEIGHT 2021-07-23 10:59:00 160 cm WEIGHT 2021-07-23 [...] 16:10:00 120 mm[Hg] Univer sity of pressure [facility] Diastolic blood 2019-11-16 16:10:00 83 mm[Hg] Unive rsity of [facility] Heart rate 2019-11-16 16:10:00 59 /min [facility] Body temperature 2019-11-16 16:10:00 36.5 [facility] Oxygen saturation in 2019-11-16 16:10:00 96 /min [facility] Arterial blood by [facility] Pulse oximetry Branch Respiratory rate 2019-11-16 10:03:00 17 /min [facility] weight 2019-11-16 05:32:00 120.838 kg [facility] BMI 2019-11-16 05:32:00 47.19 kg/m2 [facility] Body height 2019-11-16 01:51:00 160 cm [facility] BMI 2019-08-17 16:26:00 46.69 kg/m2 Universi ty of [facility] Systolic blood 2019-08-17 16:26:00 139 mm[Hg] Univer sity of pressure [facility] Diastolic blood 2019-08-17 16:26:00 88 mm[Hg] Unive rsity of pressure [facility] Heart rate 2019-08-17 16:26:00 64 /min Universi ty of [facility] Body temperature 2019-08-17 16:26:00 36.56 Lorene Univ ersity of [facility] Respiratory rate 2019-08-17 16:26:00 16 /min Univ ersity of [facility] Body height 2019-08-17 16:26:00 160 cm Universi ty of [facility] Body weight 2019-08-17 16:26:00 119.568 kg Universi ty of [facility] Systolic blood 2019-07-12 16:37:00 122 mm[Hg] Univer sity of pressure [facility] Diastolic blood 2019-07-12 16:37:00 85 mm[Hg] Unive rsity of pressure [facility] Heart rate 2019-07-12 16:37:00 59 /min Universi ty of [facility] Respiratory rate 2019-07-12 16:37:00 19 /min Univ ersity of [facility] Body height 2019-07-12 16:37:00 160 cm Universi ty of [facility] Body weight 2019-07-12 16:37:00 118.434 kg Universi ty of [facility] BMI 2019-07-12 16:37:00 46.25 kg/m2 Universi ty [facility] Oxygen saturation in 2019-07-12 16:37:00 97 /min [facility] Arterial blood by [facility] Pulse oximetry Branch BP Diastolic 2019-04-25 00:00:00 82 mm[Hg] [facility] Height 2019-04-25 00:00:00 63 [in_i] [facility] BMI (Body Mass 2019-04-25 00:00:00 36.2 kg/m2 [facility] BP Systolic 2019-04-25 00:00:00 123 mm[Hg] [facility] Body Weight 2019-04-25 00:00:00 204.6 [lb_av] [facility] BP Diastolic 2019-04-21 00:00:00 85 mm[Hg] [facility] Height 2019-04-21 00:00:00 63 [in_i] [facility] BMI (Body Mass 2019-04-21 00:00:00 46.3 kg/m2 [facility] BP Systolic 2019-04-21 00:00:00 136 mm[Hg] [facility] Body Weight 2019-04-21 00:00:00 261.6 [lb_av] [facility] Systolic blood 2019-03-08 15:16:00 110 mm[Hg] manual Univer sity of pressure [facility] Diastolic blood 2019-03-08 15:16:00 70 mm[Hg] manual Unive rsity of pressure [facility] Heart rate 2019-03-08 15:16:00 62 /min [facility] Respiratory rate 2019-03-08 15:16:00 20 /min [facility] Body height 2019-03-08 15:16:00 160 cm [facility] Body weight 2019-03-08 15:16:00 117.073 kg [facility] BMI 2019-03-08 15:16:00 45.72 kg/m2 [facility] Oxygen saturation in 2019-03-08 15:16:00 98 /min [facility] blood by [facility] Pulse oximetry Branch Body height 2022-02-16 10:49:00 160 cm [facility] Body weight 2022-02-16 10:49:00 92.08 kg [facility] BMI 2022-02-16 10:49:00 35.96 kg/m2 [facility] Systolic blood 2021-07-30 09:20:00 136 mm[Hg] [facility] Diastolic blood 2021-07-30 09:20:00 79 mm[Hg] [facility] S [facility] Heart rate 2021-07-30 09:20:00 60 /min [facility] Body temperature 2021-07-30 09:20:00 36.22 Lorene [facility] Procedures Procedure Date / Time Performing Clinician Source Performed MAGNESIUM 2019-11-16 01:16:00 Shahana Salomon [facility] BASIC METABOLIC PANEL 2019-11-16 01:16:00 Shahana Salomon [facility] (NA, K, CL, CO2, Medical Branch GLUCOSE, BUN, CREATININE, CA) CBC WITH DIFFERENTIAL 2019-11-16 01:16:00 Shahana Salomon [facility] EKG-12 LEAD 2019-11-15 12:56:01 [facility] COVID-19 (PCR MOLECULAR 2019-11-14 19:34:00 [facility] TESTING) Medical Branch ASSIGNMENT OF BENEFITS 2019-11-03 17:47:45 Doctor Unassigned, No [facility] DME/SUPPLY JUSTIFICATION 2019-07-05 06:01:00 Doctor Unassigned, No [facility] TYMPANOMETRY 2019-04-25 00:00:00 [facility] TYMPANOMETRY 2019-04-21 00:00:00 [facility] AUTHORIZATION TO RELEASE 2019-03-08 05:01:00 Doctor Unassigned, No [facility] PHI TO [facility] Elbow [facility] Colonoscopy with Biopsy [facility] Removal of Gallbladder [facility] Plan of Care Planned Activity Planned Date Details Comments Source Future Scheduled Test 2023-09-[address] [facility] 00:[facility]:00 (procedure) [code = [facility] 86070689] Future Scheduled Test 2023-02-16 [address]ess[address] [facility] Screening (12+) [code = Tobacco Cessation Counseling and Screening (12+)] Future Scheduled Test 2022-06-29 Hepatitis C Method ist [facility] 07:58:16 screening (procedure) [code = 186181019] Future Scheduled Test 2022-06-29 Screening for Metho [facility] 07:58:16 malignant neoplasm of cervix (procedure) [code = 619717236] Future Scheduled Test 2022-06-29 [facility] 07:58:16 SCREENING [code = BREAST CANCER SCREENING] Future Scheduled Test 2022-06-29 COVID-19 VACCINE (2 [facility] 07:58:16 - Pfizer series) [code = COVID-19 VACCINE (2 - Pfizer series)] Future Scheduled Test 2022-06-29 INFLUENZA VACCINE [facility] 07:58:16 [code = INFLUENZA VACCINE] Future Scheduled Test 2022-06-[address] [facility] 00:00:00 SCREENING (12+) Medical Cent er [code = DEPRESSION SCREENING (12+)] Future Scheduled Test 2022-02-[address] [facility] 00:00:00 (#1) [code = [facility] Center INFLUENZA VACCINE (#1)] Future Scheduled Test 2021-02-13 COVID-19 VACCINE ([address] [facility] 00:00:00 - Booster for [facility] Pfizer series) [code = COVID-19 VACCINE (3 - Booster for Pfizer series)] Future Scheduled Test 2001 [facility] malignant neoplasm Medical C enter of cervix (procedure) [code = 912147559] Future Scheduled Test 1999 DTAP/TDAP/TD [facility] 00:00:00 VACCINES (1 - Tdap) [facility] [code = DTAP/TDAP/TD VACCINES (1 - Tdap)] Future Scheduled Test [address] [facility] 00:00:00 SCREENING [code = Medical Ce nter HEPATITIS C SCREENING] Instructions [facility] Encounters Start End Encounter Admission Attending Care Care Encounter Source Date/Time Date/Time Type Type Clinicians Facility Department ID 2022-04-28 Outpatient Pierre, [facility] [id number] Common 13:51:01 [place] [facility] 2022-01-01 Outpatient Pierre, [facility] [id number] Common 11:31:01 [place] 2021-12-31 Outpatient Pierre, [facility] [id number] Common 16:29:01 [facility] 2021-12-26 Outpatient Pierre, [facility] [id number] Common 11:59:00 [facility] 2021-08-06 Outpatient Pierre, [facility] [id number] Common 15:42:01 [place] [facility] 2021-07-16 Outpatient Pierre, [facility] [id number] Common 12:47:04 [place] [address] [facility] 2021-07-16 Outpatient Pierre, [facility] [id number] Common 12:38:22 [place] [address] [facility] 2021-07-16 Outpatient Pierre, [facility] [id number] Common 11:54:57 [place] [address] [facility] 2021-07-16 Outpatient Pierre, [facility] [id number] Common 11:42:41 [place] [address] [facility] 2021-07-16 [facility] [id number] Common 11:04:35 [id number] [facility] 2022-04-28 2022-04-28 (TEL) [facility] [id number] Co mmon 00:00:00 00:00:00 [facility] 2022-03-05 2022-03-05 (TEL) STLC STLC [id number] Co mmon 00:00:00 00:00:00 [facility] 2022-03-05 2022-03-05 [facility] [id number] Co mmon 00:00:00 00:00:00 VISIT EST Spir it PT LEVEL 3 [facility] 2022-02-16 2022-02-[address] [facility] [id number] 10:56:43 11:25:10 [facility] 2022-02-16 2022-02-16 Audio - Myriam [facility] [id number] 10:45:00 11:25:10 [facility] 2022-01-15 2022-01-15 (TEL) [facility] [id number] Co mmon 00:00:00 00:00:00 [facility] 2022-01-12 2022-01-12 (TEL) [facility] [id number] Co mmon 00:00:00 00:00:00 [facility] 2022-01-05 2022-01-05 (TEL) [facility]C [facility] [id number] Co mmon 00:00:00 00:00:00 [facility] 2021-12-26 2021-12-26 [facility] [id number] Co mmon 00:00:00 00:00:00 VISIT NEW Spir it PT LEVEL 2 - [facility] 2021-12-17 2021-12-[address] [facility] [id number] 11:53:27 12:23:31 [facility] 2021-12-17 2021-12-17 Audio - Myriam [facility] [id number] 11:00:00 12:23:31 [facility] 2021-12-16 2021-12-16 Telephone [place], [facility] [id number] 00:00:00 00:00:00 [facility] 2021-10-29 2021-10-[address] [facility] [id number] 00:00:00 00:00:00 [facility] 2021-08-30 2021-08-30 Refill Myriam, [facility] [id number] 00:00:00 00:00:00 [facility] 2021-08-27 2021-08-27 PREV [facility] [id number] Common 00:00:00 00:00:00 EST AGE [facility] 40-64 - [facility] 2021-08-27 2021-08-27 (TEL) [facility] [id number] Co mmon 00:00:00 00:00:00 [facility] 2021-07-30 2021-07-30 Office Myriam, [facility] [id number] 09:00:00 10:05:05 Visit [facility] 2021-07-30 2021-07-30 Outpatient FADNER, [facility] [id number] 08:48:38 10:05:05 [facility] 2021-07-30 2021-07-30 (TEL) STLC STLC [id number] Co mmon 00:00:00 00:00:00 [facility] 2021-07-23 2021-07-23 Audio - Caminer, [facility] [id number] 11:45:00 11:45:00 [facility] 2021-07-23 2021-07-23 Outpatient FADNER, [facility] [id number] 11:35:11 11:35:25 [facility] 2021-07-03 2021-07-04 Outpatient ER FADNER, [facility] Emergency [id number] SLS 18:56:00 14:20:00 [place] 2021-06-27 2021-06-27 [facility]TEL) [facility] [id number] Co mmon 00:00:00 00:00:00 [facility] 2021-06-25 2021-06-25 (TEL) [facility] [id number] Co mmon 00:00:00 00:00:00 [facility] 2021-06-25 2021-06-25 [facility] [id number] Co mmon 00:00:00 00:00:00 VISIT [facility] LEVEL 1 [facility] 2021-06-18 2021-06-18 Outpatient FADNER, [facility] [id number] 00:00:00 00:00:00 [facility] 2021-06-16 2021-06-16 Outpatient FADNER, [facility] [id number] 09:39:31 09:50:37 [facility] 2021-06-10 2021-06-12 Inpatient EL CAMINER, [facility] Surgery [id number] [facility] 06:27:00 10:18:00 [place] 2021-06-04 2021-06-04 Outpatient EL [facility] [id number] [facility] 08:54:00 23:59:00 2021-06-04 2021-06-04 Outpatient [facility] [id number] 08:08:35 10:24:36 [facility] 2021-05-26 2021-05-26 Outpatient FADNER, [facility] [id number] 11:56:43 13:55:54 [facility] 2021-05-23 2021-05-23 Outpatient EL FADNER, [facility] [id number] [facility] 07:43:00 12:34:00 [place] 2021-03-26 2021-03-26 (TEL) STLMLC ST[facility] [id number] Co mmon 00:00:00 00:00:00 [facility] 2021-01-22 2021-01-22 Outpatient CAMINER, [facility] [id number] 00:00:00 00:00:00 [facility] 2020-09-13 2020-09-13 Outpatient R [facility] [id number] Univers 13:20:00 13:20:00 [facility] 2020-09-10 2020-09-10 Outpatient STLMLC [facility] [id number] Common 00:00:00 00:00:00 [facility] 2020-09-08 2020-09-08 Outpatient R [facility] [id number] Univers 13:20:00 13:20:00 [facility] 2020-09-04 2020-09-04 Outpatient R GREG, [facility] [id number] Univers 09:40:00 09:40:00 [place] [facility] 2020-09-04 2020-09-04 Outpatient PAPITO ROSENTHAL [facility] [id number] [place] 00:00:00 00:00:[address] 2020-08-28 2020-08-28 Outpatient STLMLC [facility] [id number] Common 00:00:00 00:00:00 [facility] 2020-08-28 2020-08-28 Outpatient STLMLC ST[facility] [id number] Common 00:00:00 00:00:00 [facility] 2020-08-14 2020-08-14 Outpatient R GREG [facility] [id number] Univers 09:20:00 09:20:00 [facility]-07-[facility] 2020-07-17 Outpatient PAPITO ROSENTHAL [facility] [id number] [place] 00:00:00 00:00:[address] 2020-05-08 2020-05-08 Outpatient Raju_P [facility] [id number] [place] 02:20:00 02:20:00 1118 [facility] 2020-02-21 2020-02-21 [facility] [id number] Common 15:24:00 15:24:[address] [facility] 2020-02-21 2020-02-21 [facility] [id number] Common 10:00:00 10:00:[address] [facility] 2020-02-21 2020-02-21 [facility] [id number] Common 08:37:00 08:37:[address] [facility] 2019-12-11 2019-12-11 Outpatient R [facility] [id number] Univers 08:00:00 08:00:00 [facility] 2019-11-30 2019-12-01 [facility]patient [facility] [id number] [address] [place] 00:00:00 00:00:00 [address] 2019-11-30 2019-11-30 Telephone [facility]ly [facility] [id number] 00:00:00 00:00:00 [facility] 350.1.13.10 Clear 4.2.7.2.686 [place] [phone] Medical 059 Office Building 2019-11-30 2019-11-30 Telephone Formerly [facility] [id number] [facility] 00:00:00 00:00:00 [facility] 350.1.13.10 it y [place] [id number] [facility] 059 [employer] Office [facility] 2019-11-20 2019-11-21 Outpatient X LISSETTE HAGER [facility] [id number] Univers 13:14:58 18:39:00 ity of [facility] 2019-11-15 2019-11-16 [facility] Satish Navarro Fernie Duncan 1.2.840.114 [id number] Univers 13:25:00 14:09:00 Encounter Anesthesia-Heydi, Ep Lab [place] 350.1 .13.10 ity of Outpt-Heydi, Ep Lab [facility] 4.2.7.2.686 [place] [phone] [address] 2019-11-15 2019-11-15 Outpatient R MISSY [facility] [id number] Univers 08:00:00 08:00:00 LANRE ity of [facility] 2019-11-14 2019-11-14 Laboratory Only, Adc Test [facility] 1.2.840. 114 [id number] Univers 14:31:36 14:46:36 Only Lanre Louis 350.1.13.10 ity of [place].2.[place] [phone] Tn dical nal 353 [facility] 2019-11-14 2019-11-14 Outpatient R MISSY [facility] [id number] Univers 14:45:00 14:45:00 LANRE ity of [facility] 2019-11-14 2019-11-14 Chantelle Palacios [facility] 1.2.840.114 [id number] Univers 00:00:00 00:00:00 Kostas Adrian 350.1.13.10 ity of [place] 4.2.7.2.[place] [phone] Tn dical nal 059 [facility] 2019-11-10 2019-11-10 Telephone Perla Louis 1.2.073.986 [id number] Univers 00:00:00 00:00:00 Lanre Evangelista 350.1.13.10 it y of Hospital 4.2.7.2.686 [place] as [phone] [facility] 039 [employer] 2019-11-09 2019-11-09 Telephone Missy [facility] 1.2.161.195 [id number] Univers 00:00:00 00:00:00 Lanre HEALTH 350.1.13.10 it y of [place] 4.2.7.2.686 [place] [phone] [facility] Primary & 059 [facility] 2019-11-03 2019-11-03 Outpatient R MISSY [facility] [id number] Univers 13:15:00 13:15:00 LANRE ity of [facility] 2019-11-03 2019-11-03 Pipeliner Emre, Adc Lab Main [facility] 1.2.8 40.114 [id number] Univers 12:49:54 13:04:54 Visit Lanre Louis Nguyễn 350.1.13.10 ity of [place] 4.2.7.2.[place] [phone] [facility] 353 [facility] 2019-11-03 2019-11-03 Orders Doctor SIMA 1.2.840.114 [id number] Univers 00:00:00 00:00:00 Only Unassigned, EVANGELISTA 350.1.13.10 ity of [place] [facility] 4.2.7.2.686 Ben as [phone] [facility] 009 Branch 2019-11-01 2019-11-01 [facility] 1.2.840.114 [id number] Univers 00:00:00 00:00:00 Kostas Adrian 350.1.13.10 ity of [place] 4.2.7.2.[place] [phone] [facility] 059 [facility] 2019-09-13 2019-09-27 [facility]ici [facility] 1.2.840.114 [id number] Univers 08:18:10 14:56:59 ne Visit Slim Adrian 350.1.13.10 ity of [place] 4.2.7.2.[place] [phone] [facility] 085 [facility] 2019-09-15 2019-09-15 Refill Philip [facility] 1.2.840.114 [id number] Univers 00:00:00 00:00:00 Kostas Adrian 350.1.13.10 ity of [place] 4.2.7.2.[place] [phone] [address] 2019-09-13 2019-09-13 Outpatient R SLIM FELDER [facility] [id number] Univers 09:30:00 09:30:00 SLIM FELDER ity [facility] 2019-09-01 2019-09-01 Patient JACKI Louis 1.2.588.085 [id number] Univers 00:00:00 00:00:00 Secure Msg Lanre Y HEALTH 350.1.13.10 ity of CLINICS 4.2.[place].2.[place] [id number] [address] 2019-08-29 2019-08-29 Telephone Emiliakeanu SIMA 1.2.739.042 [id number] Univers 00:00:00 00:00:00 Lanre EVANGELISTA 350.1.13.10 it y of HOSPITAL 4.2.7.2.686 [place] [phone] [address] 2019-08-29 2019-08-29 Telephone Perla Louis 1.2.306.256 [id number] Univers 00:00:00 00:00:00 Lanre [place] 350.1.13.10 it y of Hospital 4.2.7.2.686 [place] as [phone] [address] 2019-08-21 2019-08-21 [facility] 1.2.840.114 [id number] Univers 00:00:00 00:00:00 Kostas [place] 350.1.13.10 ity of [place] 4.2.7.2.[place] [phone] [address] 2019-08-21 2019-08-21 Telephone Missy [facility] 1.2.840.114 [id number] Univers 00:00:00 00:00:00 Lanre Y HEALTH 350.1.13.10 i ty of CLINICS [place].2.7.2.[place] [phone] [address] 2019-08-17 2019-08-17 Office ANA LAURA Louis 1.2.960.752 [id number] Univers 09:39:10 11:57:35 Visit Lanre Y HEALTH 350.1.13.10 i ty of CLINICS 4.2.[place].2.[place] [phone] [address] 2019-08-17 2019-08-17 Outpatient R MISSY [facility] [id number] Univers 10:00:00 10:00:00 LANRE ity of [facility] 2019-08-16 2019-08-16 Telephone ANA LAURA Louis 1.2.840.114 [id number] Univers 00:00:00 00:00:00 Lanre Y HEALTH 350.1.13.10 i ty of CLINICS 4[place]2.[place].2.[place] [phone] [address] 2019-07-25 2019-07-25 [facility]phone [facility] 1.2.521.320 [id number] [facility] 00:00:00 00:00:00 [facility] 350.1.13.10 ity of [place] 4.2.7.2.[place] [phone] Tn dicnv nal [address] [place] [address] 2019-07-20 2019-07-20 Outpatient [facility] [id number] Common 16:13:00 16:13:00 t [facility] 2019-07-20 2019-07-20 [facility]patient [facility] [id number] Common 14:50:00 14:50:00 t [facility] 2019-07-15 2019-07-15 Outpatient Raju_P [facility] [id number] [place] 10:34:00 10:34:00 0125 Medical Group 2019-07-12 2019-07-12 Office [facility] 1.2.840.114 [id number] Univers 10:21:41 11:40:58 Visit Smoothzan [place] 350.1.13.10 ity of [place] 4.2.7.2.[place] [phone] Me dical nal [address] [place] [address] 2019-07-05 2019-07-05 Orders Doctor SIMA 1.2.840.114 [id number] Univers 00:00:00 00:00:00 Only Unassigned, EVANGELISTA 350.1.13.10 ity of [place] [facility]PITAL 4.2.7.2.686 Ben as [phone] [address] 2019-04-25 2019-04-25 [facility] [place] - [id number] [place] 00:00:00 00:00:00 MD Connie: [address], [facility], [facility] [address] , Ph. 2019-04-21 2019-04-21 [facility] [place] - [id number] [place] 00:00:00 00:00:00 MD Connie: [address], [facility] [address] , Ph. 2019-03-08 2019-03-08 Office [facility] 1.2.840.114 [id number] [facility] 09:49:22 10:49:31 Visit Kostas Adrian 350.1.13.10 ity of [place] 4.2.7.2.[place] [phone] [address] 2019-03-08 2019-03-08 Orders Doctor SIMA 1.2.840.114 [id number] Univers 00:00:00 00:00:00 Only Unassigned, EVANGELISTA 350.1.13.10 ity of [place] [facility] 4.2.7.2.686 [place] [phone] [address] 2019-02-24 2019-02-24 Telephone [facility] 1.2.616.465 [id number] 0006 Univers 00:00:00 00:00:00 Smoothzan Nguyễn 350.1.13.10 ity of [place] 4.2.7.2.[place] [phone] Me dical nal 059 Branch Building Results Test Description Test Time Test Comments Results Result Comments Source FL, UGI, WITHOUT 2021-07-04 Reason for KUB 10:43:00 exam:->vomiting s/p gastric sleeve [facility] 1980 Sex: F FINAL REPORT Water-soluble upper GI series History provided: [...] [place] Verified Date/Time: 07/04/2021 10:43:23 Reading Location: [facility] Radiology Reading Room -COV2/INFLUENZA/RSV RT-PCR 2021-07-03 21:05:37 Test Item Value Reference Range Interpretation Comme nts SARS-COV2/RT-PCR (test code = Positive Negative AA The SARS-CoV-2 target nucleic 1089721) acids are detec ester in this specimen. The p resence SARS-CoV-2 nucl eic acids cannot rule out [...] Negative The Flu A target nucleic acids 6867223) are not detecte d in this specimen. INFLUENZA B RT-PCR (test code = Negative Negative The Flu B target nucleic acids 3021371) are not detecte d in this specimen. RSV RT-PCR (test code = 5870436) Negative Negative The RSV target nucleic acids [...] below the analytical limit of detection in thisspecimen.This Xpert Xpress SARS-CoV-2/Flu/RSV test is a rapid, real-time RT-PCR test intended for the qualitative detection of nucleic acid from Xpert Xpress SARS-CoV-2/Flu/RSV in a nasopharyngeal swabspecimen collected from individuals suspected of Xpert Xpress SARS-CoV-2/Flu/RSV by their healthcareprovider. Results from [facility] Xpert Xpress SARS-CoV-2/Flu/RSV test should be correlated with the clinical history, epidemiological data, and other data available to the clinician evaluating the patient. Viral nucleic acid may persist in vivo, independent of virus viability. Detection of analyte target(s)does not imply that the corresponding virus(es) are infectious or are the causative agents for clinical symptoms.This test has not been Food and Drug Administration (FDA) cleared or approved and has been authorized by FDA under an Emergency Use Authorization (EUA). This EUA will be effective until thedeclaration that circumstances exist justifying the authorization of the emergency use of in vitro diagnostic tests for detection and/or diagnosis of COVID-19 is terminated under Section 564(b)(2) of the Act or the EUA is revoked under Section 564(g) of the Act.Fact Sheet for Healthcare Providers:https ://www.[employer]/Documents/Xpert%20Xpress%20SARS%20CoV-2/Fact%20Sheets/302-390 2%24JVAS-KKU-2%20HEALTHCARE%20PROVIDERS%20FACT%20SHEET.pdfFact Sheet for Healthcare Patients:https://www.[employer]/Docum ents/Xpert%20Xpress%20SARS%20Cov-2/Fact%20Sheets/302-3801%73ZSTV-DPF-1%20PATIENT %20FACT%20SHEET.pdfCOMPREHENSIVE METABOLIC [id number] 20:46:58 Test Item Value Reference Range Interpretation [...] S NOT APPLICABLE FOR DIALYSIS PATIEN TS. Mailroom Clerk ID - [id number] ID - [id number] ID - [id number] ID - [id number] ID - [id number] ID - [id number] ID - [id number] ID - [id number] ID - [id number] ID - [id number] ID - [id number] ID - [id number] ID - [id number] ID - [id number] ID - [id number] ID - [id number] 2021-07-03 20:46:52 Test Item Value Reference Range Interpretation Comments LIPASE (BEAKER) (test code = 749) 12 U/L 6-51 Mailroom Clerk ID - [id number] ID - [id number] ID - [id number] ID - [id number], SERUM, [id number] 20:46:52 Test Item Value Reference Range Interpretation Comments TEST SERUM (BEAKER) (test Negative code = 584) CBC W/PLT COUNT & AUTO [id number] 20:26:45 Test Item Value Reference Range Interpretation [...] PERCENT (BEAKER) (test code = 2801) TISSUE [id number] 09:27:40Surgical Pathology Report Case: [id number] Authorizing Provider: Suzy Miguel MD Collected: 06/10/2021 10:17 AM Ordering Location: [facility] Received: 06/10/2021 11:01 AM SERVICES Pa thologist: Mark Sawyer MD Specimen: Stomach, PARTIAL GASTRECTOMY. STOMACH, PARTIAL GASTRECTOMY: - MULTIPLE GASTRIC HYPERPLASTIC POLYPS. - BACKGROUND OF CHRONIC INACTIVE GASTRITIS. - NO HELICOBACTER PYLORI ORGANISMS IDENTIFIED. - SURGICAL MARGIN IS VIABLE. Signing Pathologist Direct Phone Line: [phone] signed by Mark Sawyer MD on 06/11/2021 at 9:27 AM/[id number] obesity Stomach The specimen received in formalin in a container labeled with the patient's name and designated "stomach" consists of a partial gastrectomy specimen that measures 17 x 4 x 2 cm.There is an intact staple line across one aspect of the specimen. The serosa shows numerous hemorrhagic areas. No defects are identified. No masses on the surface are identified. The stomach is opened to reveal slightly congested mucosa with normal rugal folds. Multiple small polyps are present. No other mass lesions are identified. Shotblast Operator sections are submitted in cassettes A1-A3. A1 is direct sales representative sections of the mucosa. A2 is the mucosal polyps. A3 is direct sales representative sections of the resection margin. JK/evie Performed The interpretation of this case included the use of immunohistochemistry or special stains.Control Slides Examined: In-house known positive controls were evaluated along with the test tissue. These control slides run alongside of the patients sample show appropriate staining. Internal positive and negative controls when available are evaluated Immunohistochemistry technical testing was performed at [facility], Pathology Laboratory where it was developed and its performance characteristics were determined. It has not been cleared or approved by theU.S. Food and Drug Administration. The FDA has determined that such clearance or approval is not necessary. The test is used for clinical purposes. It should not be regarded as investigational or for research. This laboratory is certified under the Clinical Laboratory Improvement Amendments of 1988 (CLIA-88) as qualified to perform high complexity clinical laboratory testing.A1. Cristela Kan: Negative for Helicobacter pylori organisms. [facility], Department of Pathology, [facility] [place] [address], Fxexy[facility], Department of Pathology, [address] [place] [address], Ts. [facility], Department of Pathology, [address] [facility] [place] [address], ZBEWP METABOLIC PANEL 2021-06-11 05:51:33 Test Item Value Reference Range Interpretation [...] S NOT APPLICABLE FOR DIALYSIS PATIEN TS. Mailroom Clerk ID - DSENSONOperator ID - DSENSONOperator ID - DSENSONOperator ID - DSENSONOperator ID - DSENSONOperator ID - DSENSONOperator ID - DSENSONOperator ID - DSENSONOperator ID - DSENSONOperator ID - DSENSONOperator ID - DSENSONOperator ID - DSENSONOperator ID - DSENSONCBC W/PLT COUNT & AUTO [id number] 05:30:54 Test Item Value Reference Range Interpretation [...] PERCENT (BEAKER) (test code = 2801) POCT-GLUCOSE [id number] 05:17:50 Test Item Value Reference Range Interpretation Comments POC-GLUCOSE METER 88 mg/dL 70-110 : TESTED A T [facility] 1317 (BEAKER) (test code = [address] 1538) [facility] 77 478: Mailroom Clerk/Techni tobin ID = [id number] for Susan Feldman SCREEN, [id number] 07:09:43 Test Item Value Reference Range Interpretation Comments TEST URINE (BEAKER) (test Negative code = 583) VITAMIN [id number] 10:34:08 Test Item Value Reference Range Interpretation Comments VITAMIN B12 (BEAKER) (test code = 326 pg/mL 211-911 774) Mailroom Clerk ID - ANNANGELITOECOMPREHENSIVE METABOLIC [id number] 09:39:25 Test Item Value Reference Range Interpretation [...] S NOT APPLICABLE FOR DIALYSIS PATIEN TS. Mailroom Clerk ID - [id number] ID - [id number] ID - [id number] ID - [id number] ID - [id number] ID - EVXQ43Yemdvocm ID - [id number] ID - [id number] ID - NPIM76Laztgpzv ID - PKRF92Ltgokffv ID - WIQD55Fdvlmdqz ID - CUGH94Xrrgekio ID - BRGM14Opgimvuf ID - [id number] ID - [id number] ID - [id number] ID - [id number] ID - [id number] ID - [id number] HEMOGLOBIN [id number] 09:38:26 Test Item Value Reference Range Interpretation Comments HEMOGLOBIN A1C (BEAKER) (test code = 5.1 % 4.3-6.1 368) Mailroom Clerk ID - [id number] W/PLT COUNT & AUTO [id number] 09:13:56 Test Item Value Reference Range Interpretation [...] PERCENT (BEAKER) (test code = 2801) TISSUE [id number] 11:38:34Surgical Pathology Report Case: [id number] Authorizing Provider: Suzy Miguel MD Collected: 05/23/2021 11:41 AM Ordering Location: [facility] Received: 05/23/2021 12:01 PM Patho logist: Sade Muhammad MD Specimen: Polyp, Gastric, cold snare STOMACH, POLYP, BIOPSY: -FUNDIC GLAND POLYP - NO INTESTINAL METAPLASIA, DYSPLASIA OR MALIGNANCY SEEN - NEGATIVE FOR H. PYLORIORGANISMS Signing Pathologist Direct Phone Line: [phone] signed by Sade Muhammad MD on 05/27/2021 at 11:38 [id number]; [id number], 29414Qewlvtoctfigwmxg reflux diseaseGastric polypThe specimen received in formalin in a container labeled with the patient's name and designated "gastric polyp" consists of three fragments of carroll soft tissue with the largest fragment measuring 0.3 cmin greatest dimension. The specimen is entirely submitted in cassette A1. JK/plPerformed The interpretation of this case included the use of immunohistochemistry or special stains.Warthin-starry: Equivocal for Helicobacter pylori organisms. Helicobacter pylori IHC: NegativeControl Slides Examined: In-house known positive controls were evaluated along with the test tissue. These control slides run alongside of the patients sample show appropriate staining. Internal positive and negative controls whenavailable are evaluated Immunohistochemistry technical testing was performed at [facility], Pathology Laboratory where it was developed [...] qualified to perform high complexity clinical laboratory testing.[facility], Department of Pathology, [address] [place] [address], X[facility], Department of Pathology, [address] [place] [address], [facility], [address] [place] [address], BKGJA METABOLIC [id number] 09:49:36 Test Item Value Reference Range Interpretation [...] S NOT APPLICABLE FOR DIALYSIS PATIEN TS. Mailroom Clerk ID - [id number] ID - [id number] ID - [id number] ID - [id number] ID - [id number] ID - [id number] ID - [id number] ID - [id number] ID - [id number] ID - [id number] ID - [id number] ID - [id number] W/PLT COUNT & AUTO [id number] 09:33:40 Test Item Value Reference Range Interpretation [...] PERCENT (BEAKER) (test code = 2801) SCREEN, [id number] 09:19:26 Test Item Value Reference Range Interpretation Comments TEST URINE (BEAKER) (test Negative code = 583) SARS coronavirus 2 RNA [Presence] in Respiratory specimen by HAJA with probe [id number] 21:49:49 Test Item Value Reference Range Interpretation Comments SARS coronavirus 2 RNA Not detected Not-Detected [Presence] in Respiratory specimen by HAJA with probe detection (test code = 89645-7) [facility] METABOLIC PANEL (NA, K, CL, CO2, GLUCOSE, BUN, CREATININE, CA)2019-11-16 01:41:00 Test Item Value Reference Range Interpretation Comments NA (test code = 140 mmol/L 135-145 8395793167) K (test code = 3.8 mmol/L 3.5-5 6892644788) CL (test code = 108 mmol/L 98-108 8034167542) CO2 TOTAL (test code = 28 mmol/L 23-31 8042803017) AGAP (test code = 2-16 5597696098) BUN (test code = 13 mg/dL 7-23 7016195966) GLUCOSE (test code = 92 mg/dL 70-110 7656318412) CREATININE (test code = 0.59 mg/dL 0.5-1.04 7311275311) CALCIUM (test code = 8.5 mg/dL 8.6-10.6 L 0263078092) eGFR Calculation mL/min/1.73m2 (Non-) (test code = 2793821010) eGFR Calculation mL/min/1.73m2 () (test code = 7258584302) MATTIE (test code = MATTIE) Association of [...] tests). Lab Interpretation Abnormal (test code = 86214-9) [facility] [place] [facility]2020-[facility]-28 01:41:00 Test Item Value Reference Range Interpretation Comments MAGNESIUM (test code = 3311328402) 1.9 mg/dL 1.7-2.4 Lab Interpretation (test code = Normal 27274-5) [facility] WITH [id number] 01:32:00 Test Item Value Reference Range Interpretation Comments WBC (test code = See_Comment [Automated 1298-2) message] The sy stem which generated this result transmitted reference range : 4.30 - 11.10 10*3/?L. The reference range was not used to interpret this result as normal/abnormal . RBC (test code = See_Comment [Automated 751-0) message] The sy stem which generated this [...] RDW-SD (test code = 39.9 fL 39-49.9 58280-5) RDW-CV (test code = 12.7 % 12-15.5 788-0) PLT (test code = See_Comment [Automated 777-3) message] The sy stem which generated this result transmitted reference range : 166 - 358 10*3/ ?L. The reference r gladis was not used to interpret this result as normal/abnormal . MPV (test code = 10.1 fL 9.5-12.9 02495-5) NRBC/100 WBC (test See_Comment [Automat ed code = 5559076157) message] The system which generated this result transmitted reference range : 0.0 - 10.0 /100 WBCs. The refer ence range was not u sed to interpret th is result as normal/abnormal . NRBC x10^3 (test code <0.01 See_Comment [Auto mated = 0846863348) message] The s ystem which generated this result transmitted reference range : 10*3/?L. The reference range was not used to interpret this result as normal/abnormal . GRAN MAT (NEUT) % 62.3 % (test code = 770-8) IMM GRAN % (test code 0.30 % = 2602302642) LYMPH % (test code = 30.9 % 736-9) MONO % (test code = 5.4 % 5905-5) EOS % (test code = 0.9 % 713-8) BASO % (test code = 0.2 % 706-2) GRAN MAT x10^3(ANC) 6.40 10*3/uL 1.88-7.09 (test code = 0281154977) IMM GRAN x10^3 (test 0.03 10*3/uL 0-0.06 code = 3447112289) LYMPH x10^3 (test code 3.18 10*3/uL 1.32-3.29 = 731-0) MONO x10^3 (test code 0.56 10*3/uL 0.33-0.92 = 742-7) EOS x10^3 (test code = 0.09 10*3/uL 0.03-0.39 711-2) BASO x10^3 (test code <0.03 0.01-0.07 = 704-7) Lab Interpretation Abnormal (test code = 21055-5) [facility] (PCR MOLECULAR TESTING)2019-11-14 21:13:00 Test Item Value Reference Range Interpretation Comments SARS-CoV-2 Rapid ID NOW Not Detected Not Detected (test code = 48517-7) MATTIE (test code = MATTIE) ID NOW COVID-19 Assay is an isothermal nucleic acid amplification test intended for the qualitative detection of nucleic acid from SARS-CoV-2 viral RNA in nasopharyngeal (FUEL ISLAND ATTENDANT) specimens. It is used under Emergency Use [...] indicated. Lab Interpretation Normal (test code = 84469-4) [facility]2019-11-05 15:27:54 Test Item Value Reference Range Interpretation Comments Right (test code = Type B Curve Flat Right) Left (test code = Left) Type C Peak is on Left [facility]2019-11-01 10:43:07 Test Item Value Reference Range Interpretation Comments Right (test code = Type C Peak is on Left Right) [facility]2019-11-01 10:43:07 Test Item Value Reference Range Interpretation Comments Right (test code = Type C Peak is on Left Right) [facility]
[2022-07-23 14:22] LABS: Absolute Lymphocytes (CBC) 2.5 K/uL (0.7-4.9); Hematocrit 37.8 % (36.0-45.0); Lymphocytes % 30.5 % (15.3-44.8); MCV 88.5 fL (80-100); MPV 8.5 fL (7.6-11.3); RBC Red Blood Cell Count 4.27 M/uL (3.86-4.86)
--- NOTE | 2022-07-23 14:35 | RAD REPORT ---
EXAM DESCRIPTION: RAD - Chest Single View - 07/23/2022 2:25 pm CLINICAL HISTORY: CHEST PAIN Chest pain. COMPARISON: Abdomen 1 View (KUB) dated 12/25/2021; Chest Single View dated 09/02/2020; Chest Single Vie w dated 02/24/2019 FINDINGS: Portable technique limits examination quality. The lungs are grossly clear. The heart is normal in size. No displaced fractures. IMPRESSION: No acute intrathoracic process suspected.
[2022-07-23 14:37] LABS: Magnesium 1.9 mg/dL (1.6-2.4); Potassium 3.5 mmol/L (3.5-5.1); Troponin High Sensitivity 3.5 pg/mL (<58.9)
--- NOTE | 2022-07-23 14:38 | EDPHYS ---
Physician Documentation [facility] Name: Edwina Vasquez Age: 42 yrs Sex: Female : 1980 Arrival Date: 07/23/2022 Time: 13:23 Bed 16 Private MD: ED Physician Shaka Barry HPI: 07/23 14:21 This 42 yrs old Female presents to ER via EMS with complaints of Chest pain and ms3 dizziness. 14:21 42-year-old female with past medical history of PVCs, mitral valve prolapse, ulcerative ms3 colitis presents for 10/10 chest pain and dizziness. Patient states she has a history of chest pain and PVCs. Patient states her chest pain began yesterday. EMS administered 324 mg of aspirin, 4 mg Zofran, 150 mL normal saline. Patient rates her pain a 4/10 on arrival to the emergency department. Patient states her palpitations have stopped. Patient denies alleviating or inciting factors.. HOSPICE CLINICAL MANAGER: 13:33 LMP 07/15/2022 mb9 Historical: - Allergies: 13:30 No Known Allergies; mb9 - Home Meds: 13:34 sotalol 80 mg Oral tab [Active]; mb9 - PMHx: 13:30 frequent PVCs; mitral valve prolapse; ulcerative colitis; mb9 - PSHx: 13:30 Cholecystectomy; gastric sleeve; Ligation of fallopian tube; Ablation; mb9 - Immunization history:: Adult Immunizations up to date. - Social history:: Smoking status: Patient denies any tobacco usage or history of. ROS: 14:21 Constitutional: Negative for fever, and chills. Neck: Negative for injury, pain, and ms3 swelling, Respiratory: Negative for shortness of breath, cough, wheezing, and pleuritic chest pain, Abdomen/GI: Negative for abdominal pain, nausea, vomiting, diarrhea, and constipation, MS/Extremity: Negative for injury and deformity, Skin: Negative for injury, rash, and discoloration. 14:21 Cardiovascular: Positive for chest pain. 14:21 Neuro: Positive for dizziness. Exam: 14:21 Constitutional: This is a well developed, well nourished patient who is awake, alert, ms3 and in no acute distress. Head/Face: Normocephalic, atraumatic. Neck: Trachea midline, no cervical lymphadenopathy. Supple, full range of motion without nuchal rigidity, or vertebral point tenderness. No Meningismus. Chest/axilla: Normal chest wall appearance and motion. Nontender with no deformity. Cardiovascular: Regular rate and rhythm with a normal S1 and S2. No gallops, murmurs, or rubs. Normal PMI, no JVD. No pulse deficits. Respiratory: Lungs have equal breath sounds bilaterally, clear to auscultation and percussion. No rales, rhonchi or wheezes noted. No increased work of breathing, no retractions or nasal flaring. Abdomen/GI: Soft, non-tender, with normal bowel sounds. No distension or tympany. No guarding or rebound. No evidence of tenderness throughout. Skin: Warm, dry with normal turgor. Normal color with no rashes, no lesions, and no evidence of cellulitis. MS/ Extremity: Pulses equal, no cyanosis. Neurovascular intact. Full, normal range of motion. 14:21 ECG was reviewed by the Attending Physician. Vital Signs: 13:28 BP 117 / 72; Pulse 79; Resp 13; Temp 98.2; Pulse Ox 100% ; Weight 89.36 kg; Height 5 mb9 ft. 3 in. (160.02 cm); Pain 10/10; 13:45 BP 118 / 71; Pulse 76; Resp 16; Pulse Ox 99% on R/A; eh3 13:28 Body Mass Index 34.90 (89.36 kg, 160.02 cm) mb9 MDM: 13:24 Patient medically screened. pm1 14:37 Differential diagnosis: abnormal EKG, acute myocardial infarction, pulmonary embolus. ms3 HEART Score: History: Slightly Suspicious (0), ECG: Normal (0), Age: < or = 45 years (0), Risk Factors: No Risk Factors Known (0), Troponin: < or = 1 x Normal Limit (0), Total Score = 0. The patient was not given aspirin in the Emergency Department. Administered by EMS. Data reviewed: vital signs, nurses notes, lab test result(s), EKG, radiologic studies, and as a result, I will discharge patient. Consideration of Admission/Observation Escalation of care including admission/observation considered. Patient heart score equals 0. 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 Independent interpretation of the following test(s) in the Emergency Department EKG: See my EKG interpretation above night monitor: rate is 74 beats/min, Rhythm is normal sinus rhythm, regular, with no ectopy, Interpretation: normal rate, normal rhythm. Historians other than the Patient: EMS: [facility]. Counseling: I had a detailed discussion with the patient and/or guardian regarding: the historical points, exam findings, and any diagnostic results supporting the discharge/admit diagnosis, lab results, radiology results, the need for outpatient follow up, to return to the emergency department if symptoms worsen or persist or if there are any questions or concerns that arise at home. ED course: Discussed labs, chest x-ray, EKG with patient. 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 Patient to follow-up with her laborer drying department in 1 to 2 days. Patient understands and agrees with plan. All questions were answered. Return precautions given to include worsening chest pain, shortness of breath, syncope, or any other concerns.. 07/23 13:58 Order name: Basic Metabolic Panel; Complete Time: 14:44 ms3 07/23 13:58 Order name: CBC with Diff; Complete Time: 14:34 ms3 07/23 13:58 Order name: D-Dimer; Complete Time: 14:34 ms3 07/23 13:58 Order name: Magnesium; Complete Time: 14:44 ms3 07/23 13:58 Order name: Troponin HS; Complete Time: 14:44 ms3 07/23 13:58 Order name: XRAY Chest (1 view); Complete Time: 14:44 ms3 07/23 13:58 Order name: EKG; Complete Time: 13:59 ms3 07/23 13:58 Order name: Cardiac monitoring; Complete Time: 14:13 ms3 07/23 13:58 Order name: EKG - Nurse/Tech; Complete Time: 14:13 ms3 07/23 13:58 Order name: IV Saline Lock; Complete Time: 14:13 ms3 07/23 13:58 Order name: Labs collected and sent; Complete Time: 14:13 ms3 07/23 13:58 Order name: O2 Per Protocol; Complete Time: 14:13 ms3 07/23 13:58 Order name: O2 Sat Monitoring; Complete Time: 14:13 ms3 EC:21 Rate is 63 beats/min. Rhythm is regular. QRS [place] is Normal. SD interval is normal. QRS ms3 interval is normal. Clinical impression: Normal ECG. Interpreted by me. Reviewed by me. Administered Medications: No medications were administered Disposition Summary: 07/23/22 14:37 Discharge Ordered Location: Home ms3 Condition: Stable ms3 Diagnosis - Chest pain, unspecified ms3 - Dizziness ms3 Followup: ms3 - With: Private Physician - When: 2 - 3 days - Reason: Recheck today's complaints Discharge Instructions: - Discharge Summary Sheet ms3 - Nonspecific Chest Pain, Adult ms3 Forms: - Medication Reconciliation Form ms3 - Thank You Letter ms3 - Antibiotic Education ms3 - Prescription Opioid Use ms3 Signatures: Dispatcher [employer] EDMS Tremaine Arias, BIRTH CERTIFICATE CLERK BIRTH CERTIFICATE CLERK pm1 Shaka Barry, DO ms3 Lolis Arroyo RN RN mb9 Corrections: (The following items were deleted from the chart) 13:32 13:30 Home Meds: amiodarone 200 mg Oral tab 1 tab; mb9 mb9 13:32 13:30 Home Meds: rosuvastatin Oral once daily; mb9 mb9
--- NOTE | 2022-07-23 14:38 | ER ---
Nurse's Notes [facility] Name: Edwina Vasquez Age: 42 yrs Sex: Female : 1980 Arrival Date: 07/23/2022 Time: 13:23 Bed 16 Private MD: Diagnosis: Chest pain, unspecified;Dizziness Presentation: 07/23 13:28 Chief complaint: EMS states: "pt started having severe chest pain this morning with mb9 near syncope. Pt states she is dizzy and has N/V." EMS gave 324 mg of Aspirin and 100 cc of fluids. Coronavirus screen: Vaccine status: Patient reports receiving the 2nd dose of the covid vaccine. Ebola Screen: No symptoms or risks identified at this time. Initial Sepsis Screen: Does the patient meet any 2 criteria? No. Patient's initial sepsis screen is negative. Does the patient have a suspected source of infection? No. Patient's initial sepsis screen is negative. Risk Assessment: Do you want to hurt yourself or someone else? Patient reports no desire to harm self or others. Onset of symptoms was July 23, 2022. 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 - Social history:: Smoking status: Patient denies any tobacco usage or history of. Screenin:32 [facility] ED Fall Risk Assessment (Adult) History of falling in the last 3 months, mb9 including since admission Yes- physiologic fall (2 pts) Confusion or Disorientation No (0 pts) Intoxicated or Sedated No (0 pts) Impaired Gait No (0 pts) Mobility Assist Device Used No (0 pt) Altered Elimination No (0 pt) Score/Fall Risk Level 0 - 2 = Low Risk Oriented to surroundings, Maintained a safe environment, Educated pt \\T\\ family on fall prevention, incl call for assistance when getting out of bed. Abuse screen: Denies threats or abuse. Nutritional screening: No deficits noted. Tuberculosis screening: No symptoms or risk factors identified. Assessment: 13:45 General: Appears in no apparent distress. uncomfortable, Behavior is cooperative, eh3 appropriate for age, anxious. Pain: Complains of pain in chest. Neuro: Level of Consciousness is awake, alert, obeys commands, Oriented to person, place, time, situation. Cardiovascular: Capillary refill < 3 seconds Patient's skin is warm and dry. Respiratory: Airway is patent Respiratory effort is even, unlabored, Respiratory pattern is regular, symmetrical. GI: Abdomen is round non-distended. Derm: Skin is pink, warm \\T\\ dry. Musculoskeletal: Circulation, motion, and sensation intact. Range of motion: intact in all extremities. 14:09 Reassessment: Patient appears in no apparent distress at this time. chest pain and then db syncopal episode. was at work eating when suddenly collapsed. witnessed by coworker. in no distress now. complains of chest pain. 14:45 Reassessment: PT states that she wants to leave now as her radio adjuster suggest that ss she comes to [facility]. Vital Signs: 13:28 BP 117 / 72; Pulse 79; Resp 13; Temp 98.2; Pulse Ox 100% ; Weight 89.36 kg; Height 5 mb9 ft. 3 in. (160.02 cm); Pain 10/10; 13:45 BP 118 / 71; Pulse 76; Resp 16; Pulse Ox 99% on R/A; eh3 13:28 Body Mass Index 34.90 (89.36 kg, 160.02 cm) mb9 Vitals: 13:45 Cardiac Rhythm Assessment Sinus rhythm. eh3 ED Course: 13:23 Patient arrived in ED. as 13:24 Tremaine Arias NP is PHCP. pm1 13:24 Shaka Barry DO is Attending Physician. pm1 13:30 Triage completed. mb9 13:30 Arm band placed on. mb9 13:32 Placed in gown. Bed in low position. Call light in reach. Side rails up X 1. Client mb9 placed on continuous cardiac and pulse oximetry monitoring. NIBP monitoring applied. monitoring tech on. 13:32 Maintain EMS IV. Dressing intact. Good blood return noted. Site clean \\T\\ dry. Gauge \\T\\ mb 9 site: 20 gauge in right AC. 13:53 Henrietta Downing, RN is Primary Nurse. 3 14:05 Initial lab(s) drawn, by me, sent to lab. db 14:27 XRAY Chest (1 view) In Process Unspecified. EDMS 14:44 No provider procedures requiring assistance completed. IV discontinued, intact, ss bleeding controlled, No redness/swelling at site. Pressure dressing applied. Administered Medications: No medications were administered Medication: 13:33 VIS not applicable for this client. mb9 Outcome: 14:37 Discharge ordered by MD. ms3 14:44 Discharged to home ambulatory. ss 14:44 Condition: good 14:44 Discharge instructions given to patient, Instructed on discharge instructions, follow up and referral plans. Demonstrated understanding of instructions, follow-up care. 14:45 Patient left the ED. ss Signatures: Dispatcher [employer] EDMS Sadie Cruz Shelby, RN RN Tremaine Arias, OVERHAULER OVERHAULER pm1 Shaka Barry, DO ms3 Henrietta Downing, RN RN 3 Charlee Vitale, RN RN Lolis Arroyo, RN RN mb9 Corrections: (The following items were deleted from the chart) 13:32 13:30 Home Meds: amiodarone 200 mg Oral tab 1 tab; mb9 mb9 13:32 13:30 Home Meds: rosuvastatin Oral once daily; mb9 mb9
[2022-07-23 15:04] VITALS: TEMP 98.2
[2022-07-23 15:05] VITALS: BP 118/71; O2SAT 99
== END 2022-07-23 14:45 | disposition home or self-care (01) ==
LOC: ER 13:18
DX: R07.89 Other chest pain (principal); R42 Dizziness and giddiness; I34.1 Nonrheumatic mitral (valve) prolapse
CPT/HCPCS: 36415; 71045; 80048; 83735; 84484; 85025; 85379; 93005; 99284

== ENCOUNTER 2022-10-27 07:26 | Emergency (ER) | payer BC, OTHER ==
--- OUTSIDE RECORDS SUMMARY | 2022-10-27 07:32 | XMS REPORT | Continuity of Care Document ---
:1980 Author Organization [facility] t Address [address] [place] [address] Care Team Providers Name Role Phone JOANNA WOLFE Primary Care Physician Unavailable Kolton Pierre Attending Clinician Unavailable SUZY MIGUEL Attending Clinician Unavailable Myriam GARSIA, Suzy Garcia Attending Clinician [phone] Yaa Guevara MA Attending Clinician Unavailable Radha GARSIA, Patrick Restrepo Attending Clinician Juanis GARSIA, Prasanth Mancilla Attending Clinician [phone] Todd Brandon MD Attending Clinician Jessica Steiner MD Attending Clinician CARMEN CARROLL Attending Clinician Unavailable NOLBERTO GARZA Attending Clinician Unavailable Raju_P Attending Clinician Unavailable NAMITA MULLINS Attending Clinician Unavailable MD NAMITA MULLINS Attending Clinician Unavail able Lanre Louis MD Attending Clinician LISSETTE HAGER Attending Clinician Unavailable Satish Navarro MD Attending Clinician Anesthesia-Heydi, Ep Lab Attending Clinician Unavailable Outpt-Heydi, Ep Lab Attending Clinician Unavailable LANRE LOUIS Attending Clinician Unavailable Only, Adc Test Attending Clinician Unavailable Kostas Palacios MD Attending Clinician Pob, Adc Lab Main Attending Clinician Unavailable Doctor Unassigned, [place] Attending Clinician Unavailable Slim Perez MD Attending Clinician SLIM PEREZ Attending Clinician Unavailable SLIM PEREZ Attending Clinician Unavailable TODD BRANDON Admitting Clinician Unavailable SUZY MIGUEL Admitting Clinician Unavailable Rajfercho_Thu Admitting Clinician Unavailable NAMITA MULLINS Admitting Clinician Unavailable MD NAMITA MULLINS Admitting Clinician Unavail able LISSETTE HAGER Admitting Clinician Unavailable Satish Navarro MD Admitting Clinician Payers Payer Name Policy Type Policy Number Effective Date Expiration Date S ruben BC OS [id number] 2021 POS/PPO/EPO 00:00:00 [employer] 6 [id number] 2020 Common [facility]ir [facility] of 00:00:00 - [facility] AETNA SELECT [id number] 2021 [place] ACCESS 00:00:00 [place] [id number] 2017 - OUT OF STATE 00:00:00 [place] [id number] 2017 OF [place] (PPO) 00:00:00 Problems Condition Condition Condition Status Onset Resolution Last Treating Co mments Source Name Details Category Date Date Treatment Clinician Date Chest Chest Disease Active Methodi pain, pain, 2-02 st unspecifie unspecifie 00:00: Ho spita d type d type 00 l Intractabl Intractabl Disease Active C [facility] e nausea e nausea 1-13 [facility] and 00:[facility]: Medical vomiting vomiting 00 Center Morbid Morbid Disease Recurre 2020-[address] obesity obesity nce 2- [facility] 00:[facility]: Medical 00 Center Chest pain Chest pain Disease Active M ethodi 11-29 st 00:00: Hospita 00 l Chest pain Chest pain Disease Active U nivers 6-01 ity of 00:00: [place] [facility] Irritable Irritable Disease Active Met hodi bowel bowel 01-26 syndrome syndrome 00:00: Hospit a with with 00 l diarrhea diarrhea Fecal Fecal Disease Active Methodi incontinen incontinen 01-26 ce ce 00:00: Hospita 00 l Fecal Fecal Disease Active Methodi urgency urgency 01-26 00:00: Hospita 00 l Morbid Morbid Disease Active Univers obesity obesity 209 [place] of [place] index 00 Me dical of 50 or of 50 or Branch higher higher Sleep Sleep Disease Active Univers disorder disorder 8-05 [place] of breathing breathing [place] Palpitatio Palpitatio Disease Active U nivers ns ns 8-05 ity of 00:00: Medical Branch Atypical Atypical Disease Active Unive [...] M atagor itis [facility] [id number] Liver Problem Common lesion [facility] [id number] Calculus Problem Commo n of kidney [facility] [id number] Ureterolit Problem Com mon hiasis [facility] - [facility] [id number] Right Problem Common flank pain [facility] - [facility] [id number] H/[place] [address] gastric Spirit sleeve - [facility] [id number] Acute Problem Common otitis Spirit externa of - [facility] both ears, St unspecifie [facility] d type [facility] [id number] Allergic Problem Commo n rhinitis, Spirit unspecifie - [facility] d [facility] seasonalit [facility] y, Medical unspecifie Center d trigger [id number] Hypertensi Problem Com mon on, Spirit essential - [facility] [id number] PVC Problem Common (premature Spirit ventricula - [facility]I r St contractio [facility] n) Medical Center [id number] Irritable Problem Comm on bowel Spirit syndrome - [facility] with both St constipati [facility] on and Medical diarrhea Center [id number] Cardiac Problem Commo n arrhythmia Spirit , - [facility] unspecifie St d cardiac [facility] arrhythmia Medica l type Center [id number] GERD Problem Common without Spirit esophagiti - [facility] s [facility] [id number] Mixed Problem Common hyperlipid Spirit emia - [facility] Allergies, Adverse Reactions, Alerts Allergy Allergy Status Severity Reaction(s) Onset Inactive Treating Comm ents Source Name Type Date Date Clinician NO KNOWN Drug Active Univers ALLERGIE Class ity of S [facility] NO KNOWN Allergy Active [facility] ALLERGIE S Family History Family Member Diagnosis Comments Start Date Stop Date Source Natural mother Hypertension [facility] mother Diabetes [facility] Natural mother Heart disease [facility] Natural sister Asthma [facility] Natural sister Heart disease [facility] father Diabetes [facility] Natural father Hypertension [facility] Social History Social Habit Start Date Stop Date Quantity Comments Source Gender identity 2022-02-04 Identifies as Method ist 11:25:33 female gender Hospital (finding) Sexual orientation 2022-02-04 Heterosexual Meth odist 11:25:33 (finding) Hospital History of Tobacco [facility] - Use [facility] History SDOH [facility] Alcohol Comment Medical C enter Exposure to Not sure University of SARS-CoV-2 (event) [facility] History SDOH [facility] Alcohol Std Drinks Medica Center History SDOH [facility] Alcohol Binge Medical Dick ter Alcohol intake 2022-07-23 2022-07-23 Lifetime Mu-Ism 00:00:00 00:00:00 non-drinker Hospital (finding) History of Social 2022-07-23 2022-07-[address] function 00:00:00 00:00:00 Hospital History SDOH 2021-05-13 2021-05-[address] [facility] Alcohol Frequency 00:00:00 00:00:00 Medical Center Tobacco use and 2021-01-22 2021-01-[address] Smok[address] [facility] exposure 00:00:00 00:00:00 non-user Medical Center Sex Assigned At [birth year] [facility] ben 00:00:00 00:00:00 Medical Center Smoking Status Start Date Stop Date Source Never smoked tobacco [facility] Medications Ordered Filled Start Stop Current Ordering Indication Dosage Frequency Signature Comments Components Source Medication Medication Date Date Medication? Clinician (SIG) Name Name dexlansopra No Gastroesoph 30mg QD Take [address] zole 07-3112 ageal capsule [facility] (Dexilant) 00:00: 23:59 reflux (30 mg Me dical 30 mg 00 :00 disease total) by Center delayed with mouth release esophagitis daily for capsule , 30 days. unspecified whether hemorrhage dexlansopra 2022- No 30mg QD Take [address] zole 07-28 capsule [facility] (Dexilant) 00:00: 00:00 (30 mg Medi gibson 30 mg 00 :00 total) by Center delayed mouth release daily for capsule 30 days. sotaloL Yes 40mg Q.5D Take 0.5 Method i (BETAPACE) -[address] 80 MG 21:50: (40 mg Hospita tablet 04 total) by l mouth 2 (two) times a day. fluconazole 2022- No QD Take by In thodi (DIFLUCAN) 07-[address] 100 MG 22:13: 00:00 daily. Hospita tablet 37 :00 l cyclobenzap 2022- No 5mg QD Take 5 mg Methodi rine 07-[address] (FLEXERIL) 18:19: 00:00 nightly. Ho spita 5 mg tablet 23 :00 l Levsin Levsin 2021- No 1{table Levsin 0.125 MG 0.125 MG 03-05 t_as_ne 0.125 MG 00:00: 00:00 eded} 00 :00 Levsin Levsin 202- No 1{table Levsin 0.125 MG 0.125 MG 03-05 t_as_ne 0.125 MG 00:00: 00:00 eded} 00 :00 multivitami 2021-0 Yes 1{capsu QD Take [address] n capsule 8-30 le} capsule by Luke s 09:11: mouth Medical 26 daily. [place] CALCIUM Yes Take by [facility] CITRATE 8-30 mouth. [facility] ORAL 09:11: Medical [address] [place] [address] ergocalcife Yes [id number] Q7D Take [facility] rol 8-30 50,000 [facility] (Vitamin 09:11: Units by Medic al D2) 1,250 26 mouth once Cent er mcg (50,000 a week. unit) capsule ferrous Yes Take by [facility] sulfate 8-30 mouth. [facility] (IRON ORAL) 09:11: Medica l 26 [place] cyanocobala Yes 1000ug QD Take 1,[address] min 8-30 mcg by [facility]ukes (vitamin 09:11: mouth Medical B-12) 1000 26 daily. [place] MCG tablet BIOTIN ORAL Yes Take by [facility] 8-30 mouth. [facility]ukes 09:11: Medical [address] [place] [address] metoprolol Yes 25mg QD Take [address] tartrate 75 8-30 by mouth Luke s mg Tab 09:11: nightly . Medica [address] ciprofloxac Yes 500mg Q.5D Take [address] in HCl 8-30 mg by [facility] (CIPRO) 500 09:11: mouth 2 Med ical MG tablet 26 (two) Center times daily. metoprolol Yes 25mg QD Take [address] tartrate 75 8-30 by mouth Luke s mg Tab 09:11: nightly . Medica [address] ciprofloxac 0 Yes 500mg Q.5D Take [address] in HCl 8-30 mg by [facility] (CIPRO) 500 09:11: mouth 2 Med ical MG tablet 26 (two) Center times daily. multivitami 2021-0 Yes 1{capsu QD Take [address] n capsule 8-30 le} capsule by Luke s 09:11: mouth Medical 26 daily. Center CALCIUM 0 Yes Take by [facility] CITRATE 8-30 mouth. [facility] ORAL 09:11: Medical [address] [place] [address] ergocalcife Yes [id number] Q7D Take [facility] rol 8-30 50,000 [facility] (Vitamin 09:11: Units by Medic al D2) 1,250 26 mouth once Cent er mcg (50,000 a week. unit) capsule ferrous Yes Take by [facility] sulfate 8-30 mouth. [facility] (IRON ORAL) 09:11: Medica l 26 Center cyanocobala Yes 1000ug QD Take 1,[address] min 8-30 mcg by [facility]ukes (vitamin 09:11: mouth Medical B-12) 1000 26 daily. Center MCG tablet BIOTIN ORAL Yes Take by [facility] 8-30 mouth. [facility]ukes 09:11: [address] promethazin 0 Yes 25mg Take [address] e 8-29 by mouth [facility] (PHENERGAN) 10:53: every 8 Med ical 25 MG 54 (eight) Center tablet hours as needed for Nausea. tamsulosin 0 Yes .4mg QD Take 0.[address] (FLOMAX) 8-29 mg by [facility]ukes 0.4 mg Cap 10:53: mouth Medica l 24 hr 54 daily. Center capsule promethazin 2021-0 Yes 25mg Take [address] e 8-29 by mouth [facility] (PHENERGAN) 10:53: every 8 Med ical 25 MG 54 (eight) Center tablet hours as needed for Nausea. tamsulosin 2021-0 Yes .4mg QD Take 0.[address] (FLOMAX) 8-29 mg by [facility]ukes 0.4 mg Cap 10:53: mouth Medica l 24 hr 54 daily. Center capsule metoclopram 0 Yes TAKE [address] [facility] HCl 3-22 TABLET BY [facility]ukes (REGLAN) 10 00:00: MOUTH 3 Med ical MG tablet 00 TIMES Center DAILY WITH MEALS. metoclopram 2021-0 Yes TAKE [address] [facility] [facility] HCl [...] MG 00 by mouth Center tablet daily. pantoprazol 2020-06 Yes 40mg QD Take [address] e 2-24 tablet (40 [facility] (PROTONIX) 00:00: mg total) Me dical 40 MG 00 by mouth Center tablet daily. amiodarone Yes 200mg QD Take [address] (PACERONE) 7-19 mg by [facility]ukes 200 MG 00:00: mouth Medical tablet 00 daily. [place] lisinopriL Yes 10mg QD Take [address] (PRINIVIL,Z 7-19 by mouth Luke s ESTRIL) 10 00:00: daily. Medic al MG tablet 00 Center amiodarone Yes 200mg QD Take [address] (PACERONE) 7-19 mg by [facility] 200 MG 00:00: mouth Medical tablet 00 daily. Center lisinopriL Yes 10mg QD Take [address] (PRINIVIL,Z 7-19 by mouth Luke s ESTRIL) 10 00:00: daily. Medic al MG tablet 00 [place] fluconazole Yes QD Take by Met hodi (DIFLUCAN) 1-[address] 100 MG 18:17: daily. Hospita tablet 41 l Azithromyci Azithromyci 2019- No [place] 2 tablets Common n n 02-20 [place] on the Spirit 00:00: 00:00 first day, - [facility]I 00 :[address] [facility] daily for Medical 4 days Center cyclobenzap 2020-0 Yes 5mg QD Take 5 mg M ethodi rine 6-[address] (FLEXERIL) 13:20: nightly. Hos celsa 5 mg tablet 38 l metoprolol 2020-0 Yes [id number] 75mg Take 1.5 Univers succinate 6-02 tablets by ity of XL 50 mg 24 00:00: mouth [place] hr tablet 00 daily. Medical Branch cyclobenzap 2020-0 Yes [id number] 5mg Take 1 Univers rine 5 mg 6-02 tablet by ity o f tablet 00:00: mouth 3 [place] 00 (three) Medical times Branch daily. metoprolol 2020-0 Yes [id number] 75mg Take 1.5 Univers succinate 6-02 tablets by ity of XL 50 mg 24 00:00: mouth [place] hr tablet 00 daily. [facility] Branch cyclobenzap 2020-0 Yes [id number] 5mg Take 1 Univers rine 5 mg 6-02 tablet by ity o f tablet 00:00: mouth 3 [place] 00 (three) Medical times Branch daily. metoprolol 2020-0 Yes 50mg 50 mg, Unive rs succinate - Oral, ity of XL (TOPROL 14:00: DAILY, [place] XL) tablet 00 First dose Med ical 50 mg on [facility] Branch 11/16/19 at 0900, Until Discontinu ed, Routine magnesium 2020-0 2020- No 800mg 800 mg, Uni vers oxide 11-15- Oral, ity of (MAG-OX 02:45: 02:09 ONCE, 1 [place] 400) tablet 00 :00 dose, Wed Med ical 800 mg 11/15/19 at Branch 2145, Routine KCL 2020-0 2020- No 20meq 20 mEq, Univers (KLOR-CON 11-15- Oral, ity of M20) tablet 02:45: 02:09 [place]CE[place] 1 [place] 20 mEq 00 :00 dose, Wed Medical 11/15/19 at Branch 2145, Routine metoprolol 2020-0 Yes [id number] 50mg Take 1 U nivers succinate 5-28 tablet by ity o f XL 50 mg 24 00:00: mouth [place] hr tablet 00 daily. [facility] Branch acetaminoph 2020-0 Yes 650mg 650 mg, Un leo en 11-14 Oral, ity of (TYLENOL) 23:22: Q6HPRN, [place] tablet 650 35 Starting Medic al mg [facility] Branch 11/15/19 at 1822, Until Discontinu ed, Routine, Pain (scale 1-3) flecainide 2020-0 Yes [id number] 50mg Take 1 U nivers 50 mg 5-26 tablet by ity of tablet 00:00: mouth 2 [place] 00 (two) Medical times Branch daily. flecainide 2020-0 Yes [id number] 50mg Take 1 U nivers 50 mg 5-26 tablet by ity of tablet 00:00: mouth 2 [place] 00 (two) Medical times Branch daily. flecainide 2020-0 Yes [id number] 50mg Take 1 U nivers 50 mg 5-26 tablet by ity of tablet 00:00: mouth 2 [place] (two) Medical times Branch daily. metoprolol 2020-0 Yes 100mg Take 2 Univ ers succinate 5-13 tablets by ity of XL 50 mg 24 00:00: mouth [place] hr tablet 00 daily. [facility] Branch metoprolol 2020-0 Yes 100mg Take 2 Univ ers succinate 5-13 tablets by ity of XL 50 mg 24 00:00: mouth [place] hr tablet 00 daily. [facility] Branch metoprolol 2020-0 Yes 100mg Take 2 Univ ers succinate 5-13 tablets by ity of XL 50 mg 24 00:00: mouth [place] hr tablet 00 daily. [facility] Branch metoprolol 2020-0 Yes 100mg Take 2 Univ ers succinate 5-13 tablets by ity of XL 50 mg 24 00:00: mouth [place] hr tablet 00 daily. [facility] Branch metoprolol 2020-0 Yes 100mg Take 2 Univ ers succinate 5-13 tablets by ity of XL 50 mg 24 00:00: mouth [place] hr tablet 00 daily. [facility] Branch metoprolol 2020-0 Yes 100mg Take 2 Univ ers succinate 5-13 tablets by ity of XL 50 mg 24 00:00: mouth [place] hr tablet 00 daily. [facility] Branch metoprolol 2020-0 Yes 100mg Take 2 Univ ers succinate 5-13 tablets by ity of XL 50 mg 24 00:00: mouth [place] hr tablet 00 daily. [facility] Branch metoprolol 2020-0 Yes 100mg Take 2 Univ ers succinate 5-13 tablets by ity of XL 50 mg 24 00:00: mouth [place] hr tablet 00 daily. Medical Branch flecainide 2020-0 Yes [id number] 50mg Take 1 U nivers 50 mg 3-27 tablet by ity of tablet 00:00: mouth [address] [place] [address] 00 (two) Medical times Branch daily. flecainide 2020-0 Yes [id number] 50mg Take 1 U nivers 50 mg 3-27 tablet by ity of tablet 00:00: mouth [address] [place] [address] 00 (two) Medical times Branch daily. flecainide 2020-0 Yes [id number] 50mg Take 1 U nivers 50 mg 3-27 tablet by ity of tablet 00:00: mouth [address] [place] [address] 00 (two) Medical times Branch daily. flecainide 2020-0 Yes [id number] 50mg Take 1 U nivers 50 mg 3-27 tablet by ity of tablet 00:00: [address] 00 (two) Medical times Branch daily. flecainide 2020-0 Yes [id number] 50mg Take 1 U nivers 50 mg 3-27 tablet by ity of tablet 00:00: [address] 00 (two) Medical times Branch daily. flecainide 2020-0 Yes [id number] 50mg Take 1 U nivers 50 mg 3-27 tablet by ity of tablet 00:00: mouth [address] [place] [address] 00 (two) Medical times Branch daily. flecainide 2020-0 2020- No [id number] 50mg Take 1 Univers 50 mg 3-27 05-26 tablet by ity of tablet 00:00: 00:00 mouth 2 [place] 00 :00 (two) Medical times Branch daily. flecainide 2020-0 2020- No [id number] 50mg Take 1 Univers 50 mg 3-27 05-26 tablet by ity of tablet 00:00: 00:00 mouth 2 [place] 00 :00 (two) Medical times Branch daily. flecainide 2020-0 Yes [id number] 50mg Take 1 U nivers 50 mg 3-06 tablet by ity of tablet 00:00: mouth [address] [place] [address] 00 (two) Medical times Branch daily. flecainide 2020-0 Yes [id number] 50mg Take 1 U nivers 50 mg 3-06 tablet by ity of tablet 00:00: mouth [address] [place] [address] 00 (two) Medical times Branch daily. flecainide 2020-0 Yes [id number] 50mg Take 1 U nivers 50 mg 3-06 tablet by ity of tablet 00:00: mouth 2 [place] 00 (two) Medical times Branch daily. flecainide 2020-0 Yes [id number] 50mg Take 1 U nivers 50 mg 3-06 tablet by ity of tablet 00:00: mouth 2 [place] 00 (two) Medical times Branch daily. flecainide 2020-0 2020- No [id number] 50mg Take 1 Univers 50 mg 3-11 21-27 tablet by ity of tablet 00:00: 00:00 mouth 2 [place] 00 :00 (two) Medical times Branch daily. flecainide 2020-0 2020- No [id number] 50mg Take 1 Univers 50 mg 3-06 -27 tablet by ity of tablet 00:00: 00:00 mouth 2 [place] 00 :00 (two) Medical times Branch daily. flecainide 2020-0 2020- No [id number] 50mg Take 1 Univers 50 mg 3-11 21- tablet by ity of tablet 00:00: 00:00 [...] Yes [place] as Common Acetate Acetate 1-30 [place] directed Spir it 00:00: - [facility] Metoprolol Metoprolol 2020-0 Yes [place] 1 tablet Common Succinate Succinate 1-30 [place] Spir it ER ER 00:00: - [facility] 00 [facility] Flecainide Flecainide 2020-0 No Flecainide Acetate 50 [...] 00:00: ER 50 MG 00 Flecainide Flecainide 2019-0 No Flecainide Acetate 50 Acetate 50 1-30 Acetate 50 MG MG 00:00: MG 00 Flecainide Flecainide 2019-0 No Flecainide Acetate 50 Acetate 50 1-30 Acetate 50 MG MG 00:00: MG 00 Metoprolol Metoprolol 2019-0 No 1{table QD Metoprolol Succinate Succinate 1-30 t} Succinate ER 50 MG ER 50 MG 00:00: ER 50 MG 00 Flecainide Flecainide 0 No Flecainide Acetate 50 Acetate 50 1-30 Acetate 50 MG MG 00:00: MG 00 Metoprolol Metoprolol 2019-0 No 1{table QD Metoprolol Succinate Succinate 1-30 t} Succinate ER 50 MG ER 50 MG 00:00: ER 50 MG 00 Flecainide Flecainide 0 No Flecainide Acetate 50 Acetate 50 1-30 Acetate 50 MG MG 00:00: MG 00 Metoprolol Metoprolol 2019-0 No 1{table QD Metoprolol Succinate Succinate 1-30 t} Succinate ER 50 MG ER 50 MG 00:00: ER 50 MG 00 flecainide 2018-06 Yes [id number] 50mg Take 1 U nivers 50 mg 2-18 tablet by ity of tablet 00:00: mouth 2 (two) Medical times Branch daily. flecainide 2018-06 Yes [id number] 50mg Take 1 U nivers 50 mg 2-18 tablet by ity of tablet 00:00: mouth 2 (two) Medical times Branch daily. flecainide 2018-06 Yes [id number] 50mg Take 1 U nivers 50 mg 2-18 tablet by ity of tablet 00:00: mouth 2 (two) Medical times Branch daily. flecainide 2018-06 Yes [id number] 50mg Take 1 U nivers 50 mg 2-18 tablet by ity of tablet 00:00: mouth 2 (two) Medical times Branch daily. flecainide 2018-06 Yes [id number] 50mg Take 1 U nivers 50 mg 2-18 tablet by ity of tablet 00:00: mouth 2 (two) Medical times Branch daily. flecainide 2018-06 Yes [id number] 50mg Take 1 U nivers 50 mg 2-18 tablet by ity of tablet 00:00: mouth 2 [place] 00 (two) Medical times Branch daily. flecainide 2018-06 Yes [id number] 50mg Take 1 U nivers 50 mg 2-18 tablet by ity of tablet 00:00: mouth 2 [place] 00 (two) Medical times Branch daily. flecainide 2018-06 Yes [id number] 50mg Take 1 U nivers 50 mg 2-18 tablet by ity of tablet 00:00: mouth 2 [place] 00 (two) Medical times Branch daily. flecainide 2018-06- No [id number] 50mg Take 1 Univers 50 mg 2-18 03-06 tablet by ity of tablet 00:00: 00:00 mouth 2 [place] 00 :00 (two) Medical times Branch daily. flecainide 2018-06- No [id number] 50mg Take 1 Univers 50 mg 2-18 [...] needed for Nausea and Vomiting (N/V). ondansetron 2019- No 4mg Take 1 Uni vers (ZOFRAN 2-09 09-18 tablet by ity of ODT) 4 mg 00:00: 00:00 mouth [place] disintegrat 00 :00 every 8 Medic al ing tablet (eight) Branch hours as needed for Nausea and Vomiting (N/V). ondansetron 2019- No 4mg Take 1 Uni vers (ZOFRAN 07-30 tablet by ity of ODT) 4 mg 00:00: 00:00 mouth [place] disintegrat 00 :00 every 8 Medic al ing tablet (eight) Branch hours as needed for Nausea and Vomiting (N/V). Lisinopril Lisinopril Yes [place] 1 tablet Common [facility] Pantoprazol Pantoprazol Yes [place] 1 tablet Common e Sodium e Sodium [facility] Metoprolol Metoprolol No 1{table BID Metoprolol Tartrate [...] No known No Univers medications ity of [facility] Immunizations Ordered Filled Immunization Date Status Comments Sour e Immunization Name Name Salvador Afluria 2020-02-21 Completed [facility] - 15:37:00 [facility] Afluria Afluria 2020-02-21 Completed [facility] - 15:37:00 [facility] Afluria Afluria 2020-02-21 Completed [facility] - 15:37:00 [facility] Afluria Afluria 2020-02-21 Completed [facility] - 15:37:00 [facility] Afluria Afluria 2020-02-21 Completed [facility] - 15:37:00 [facility] Afluria Afluria 2020-02-21 Completed [facility] - 15:37:00 [facility] Afluria Afluria 2020-02-21 Completed [facility] - 15:37:00 [facility] Afluria Afluria 2020-02-21 Completed [facility] - 15:37:00 [facility] Afluria Afluria 2020-02-21 Completed [facility] - 15:37:00 [facility] Afluria Afluria 2020-02-21 Completed [facility] - 15:37:00 [facility] Afluria Afluria 2020-02-21 Completed [facility] - 15:37:00 [facility] Afluria Afluria 2020-02-21 Completed [facility] - 15:37:00 [facility] Afluria Afluria 2020-02-21 Completed [facility] - 15:37:00 [facility] Afluria Afluria 2020-02-21 Completed [facility] - 15:37:00 [facility] Afluria Afluria 2020-02-21 Completed [facility] - 00:00:00 [facility] Afluria Afluria 2020-02-21 Completed [facility] - 00:00:00 [facility] Afluria Afluria 2020-02-21 Completed [facility] - 00:00:00 [facility] Influenza Virus 2019-03-21 Completed Universit y of Vaccine Quad IM 3+ 00:00:00 [facility] Influenza Virus 2019-03-21 Completed Universit y of Vaccine Quad IM 3+ 00:00:00 [facility] Influenza Virus 2019-03-21 Completed Universit y of Vaccine Quad IM 3+ 00:00:00 [facility] Influenza Virus 2019-03-21 Completed Universit y of Vaccine Quad IM 3+ 00:00:00 [facility] Influenza Virus 2019-03-21 Completed Universit y of Vaccine Quad IM 3+ 00:00:00 [facility] Influenza Virus 2019-03-21 Completed Universit y of Vaccine Quad IM 3+ 00:00:00 [facility] Influenza Virus 2019-03-21 Completed Universit y of Vaccine Quad IM 3+ 00:00:00 [facility] Influenza Virus 2019-03-21 Completed Universit y of Vaccine Quad IM 3+ 00:00:00 [facility] Influenza Virus 2019-03-21 Completed Universit y of Vaccine Quad IM 3+ 00:00:00 [facility] Influenza Virus 2019-03-21 Completed Universit y of Vaccine Quad IM 3+ 00:00:00 [facility] Influenza Virus 2019-03-21 Completed [facility] Vaccine [facility] IM 3+ 00:00:00 [facility] Influenza Virus 2019-03-21 Completed [facility] Vaccine [facility] IM 3+ 00:00:00 [facility] Influenza Virus 2019-03-21 Completed [facility] Vaccine [facility] IM 3+ 00:00:00 [facility] Influenza Virus 2019-03-21 Completed [facility] Vaccine [facility] IM 3+ 00:00:00 [facility] Influenza Virus 2019-03-21 Completed [facility] Vaccine [facility] IM 3+ 00:00:00 [facility] Influenza Virus 2019-03-21 Completed [facility] Vaccine [facility] IM 3+ 00:00:00 [facility] Influenza Virus 2019-03-21 Completed [facility] Vaccine [facility] IM 3+ 00:00:00 [facility] Influenza Virus 2019-03-21 Completed [facility] Vaccine [facility] IM 3+ 00:00:00 [facility] Influenza Virus 2019-03-21 Completed [facility] Vaccine Quad IM 3+ 00:00:00 [facility] Influenza Virus 2019-03-21 Completed [facility] Vaccine [facility] IM 3+ 00:00:00 [facility] Influenza Virus 2019-03-21 Completed [facility] Vaccine [facility] IM 3+ 00:00:00 [facility] Influenza Virus 2019-03-21 Completed [facility] Vaccine Quad IM 3+ 00:00:00 [facility] Influenza Virus 2019-03-21 Completed [facility] Vaccine Quad IM 3+ 00:00:00 [facility] Influenza Virus 2019-03-21 Completed [facility] Vaccine [facility] IM 3+ 00:00:00 [facility] Influenza Virus 2019-03-21 Completed [facility] Vaccine [facility] IM 3+ 00:00:00 [facility] Influenza Virus 2019-03-21 Completed [facility] Vaccine Quad IM 3+ 00:00:00 [facility] Influenza Virus 2019-03-21 Completed [facility] Vaccine Quad IM 3+ 00:00:00 [facility] Influenza Virus 2018-04-21 Completed [facility]it [facility] of Vaccine 00:00:00 [facility] Influenza Virus 2018-04-21 Completed Universit y of Vaccine 00:00:00 [facility] Influenza Virus 2018-04-21 Completed [facility]it y of Vaccine 00:00:00 [facility] Influenza Virus 2018-04-21 Completed [facility]it y of Vaccine 00:00:00 [facility] Influenza Virus 2018-04-21 Completed [facility]it y of Vaccine 00:00:00 [facility] Influenza Virus 2018-04-21 Completed [facility]it y of Vaccine 00:00:00 [facility] Influenza Virus 2018-04-21 Completed [facility]it y of Vaccine 00:00:00 [facility] Influenza Virus 2018-04-21 Completed [facility]it y of Vaccine 00:00:00 [facility] Influenza Virus 2018-04-21 Completed [facility]it y of Vaccine 00:00:00 [facility] Influenza Virus 2018-04-21 Completed [facility]it y of Vaccine 00:00:00 [facility] Influenza Virus 2018-04-21 Completed [facility]it y of Vaccine 00:00:00 [facility] Influenza Virus 2018-04-21 Completed [facility] y of Vaccine 00:00:00 [facility] Influenza Virus 2018-04-21 Completed [facility]it y of Vaccine 00:00:00 [facility] Influenza Virus 2018-04-21 Completed [facility]it y of Vaccine 00:00:00 [facility] Influenza Virus 2018-04-21 Completed [facility]it y of Vaccine 00:00:00 [facility] Influenza Virus 2018-04-21 Completed [facility] of Vaccine 00:00:00 [facility] Influenza Virus 2018-04-21 Completed [facility] y of Vaccine 00:00:00 [facility] Influenza Virus 2018-04-21 Completed [facility] y of Vaccine 00:00:00 [facility] Influenza Virus 2018-04-21 Completed [facility] y of Vaccine 00:00:00 [facility] Influenza Virus 2018-04-21 Completed [facility] y of Vaccine 00:00:00 [facility] Influenza Virus 2018-04-21 Completed [facility]it y of Vaccine 00:00:00 [facility] Influenza Virus 2018-04-21 Completed [facility]it y of Vaccine 00:00:00 [facility] Influenza Virus 2018-04-21 Completed [facility]it y of Vaccine 00:00:00 [facility] Influenza Virus 2018-04-21 Completed [facility]it y of Vaccine 00:00:00 [facility] Influenza Virus 2018-04-21 Completed [facility]it y of Vaccine 00:00:00 [facility] Influenza Virus 2018-04-21 Completed [facility]it y of Vaccine 00:00:00 [facility] Influenza Virus 2018-04-21 Completed [facility]it y of Vaccine 00:00:00 [facility] Vital Signs Vital Name Observation Time Observation Value Comments Source HEIGHT 2022-07-27 13:10:00 160 cm WEIGHT 2022-07-27 13:10:00 91.717 kg HEIGHT 2022-07-27 13:10:00 160 cm WEIGHT 2022-07-27 13:10:00 91.717 kg height 2022-03-05 10:00:00 63 [in_i] [facility] weight 2022-03-05 10:00:00 200 [lb_av] [facility] bmi 2022-03-05 10:00:00 35.42 kg/m2 [facility] HEIGHT 2022-02-16 10:49:00 160 cm WEIGHT 2022-02-16 10:49:00 92.08 kg HEIGHT 2022-02-16 10:49:00 160 cm WEIGHT 2022-02-16 10:49:00 92.08 kg height 2021-12-26 13:00:00 63 [in_i] [facility] weight 2021-12-26 13:00:00 207 [lb_av] Common [facility] temperature 2021-12-26 13:00:00 97.8 [degF] Common [facility] bmi 2021-12-26 13:00:00 36.66 kg/m2 [facility] oximetry 2021-12-26 13:00:00 99 % [facility] respiratory rate 2021-12-26 13:00:00 16 /min Comm on [facility] blood pressure 2021-12-26 13:00:00 142 mm[Hg] Common [facility] systolic [facility] blood pressure 2021-12-26 13:00:00 73 mm[Hg] Common [facility] diastolic [facility] HEIGHT 2021-12-17 12:07:00 160 cm WEIGHT 2021-12-17 12:07:00 92.534 kg HEIGHT 2021-12-17 12:07:00 160 cm WEIGHT 2021-12-17 12:07:00 92.534 kg height 2021-08-27 15:50:00 63 [in_i] [facility] weight 2021-08-27 15:50:00 224.5 [lb_av] [facility] temperature 2021-08-27 15:50:00 97.0 [degF] [facility] bmi 2021-08-27 15:50:00 39.76 kg/m2 [facility] oximetry 2021-08-27 15:50:00 98 % [facility] respiratory rate 2021-08-27 15:50:00 18 /min Comm on [facility] blood pressure 2021-08-27 15:50:00 125 mm[Hg] Common [facility] systolic [facility] blood pressure 2021-08-27 15:50:00 77 mm[Hg] Common [facility] diastolic [facility] HEIGHT 2021-07-30 09:20:00 160 cm WEIGHT [...] 16:10:00 120 mm[Hg] Univer sity of pressure [facility] Diastolic blood 2019-11-16 16:10:00 83 mm[Hg] Unive rsity of pressure [facility] Heart rate 2019-11-16 16:10:00 59 /min Universi [facility] Body temperature 2019-11-16 16:10:00 36.5 Lorene [facility] Oxygen saturation in 2019-11-16 16:10:00 96 /min University of Arterial blood by [employer] [facility]son Pulse oximetry Branch Respiratory rate 2019-11-16 10:03:00 17 /min [facility] Body weight 2019-11-16 05:32:00 120.838 kg [facility] BMI 2019-11-16 05:32:00 47.19 kg/m2 [facility] Body height 2019-11-16 01:51:00 160 cm [facility] BMI 2019-08-17 16:26:00 46.69 kg/m2 [facility] Systolic blood 2019-08-17 16:26:00 139 mm[Hg] Univer [facility]ity [facility] Diastolic blood 2019-08-17 16:26:00 88 mm[Hg] Unive rsity [facility] pressure [facility] Heart rate 2019-08-17 16:26:00 64 /min [facility] Body temperature 2019-08-17 16:26:00 36.56 [place] [facility] Respiratory rate 2019-08-17 16:26:00 16 /min [facility] Body height 2019-08-17 16:26:00 160 cm [facility] Body weight 2019-08-17 16:26:00 119.568 kg [facility] Systolic blood 2019-07-12 16:37:00 122 mm[Hg] [facility]iver [facility]ity [facility] Diastolic blood 2019-07-12 16:37:00 85 mm[Hg] Unive [facility]ity [facility] Heart rate 2019-07-12 16:37:00 59 /min [facility] Respiratory rate 2019-07-12 16:37:00 19 /min [facility] Body height 2019-07-12 16:37:00 160 cm [facility] Body weight 2019-07-12 16:37:00 118.434 kg [facility] BMI 2019-07-12 16:37:00 46.25 kg/m2 [facility] Oxygen saturation in 2019-07-12 16:37:00 97 /min University of Arterial blood by [facility] Pulse oximetry Branch BP Diastolic 2019-04-25 00:00:00 82 mm[Hg] [facility] Height 2019-04-25 00:00:00 63 [in_i] [facility] BMI (Body Mass 2019-04-25 00:00:00 36.2 kg/m2 [facility] Medical Index) Group BP Systolic 2019-04-25 00:00:00 123 mm[Hg] [facility] Body Weight 2019-04-25 00:00:00 204.6 [lb_av] [facility] BP Systolic 2019-04-21 00:00:00 136 mm[Hg] [facility] Body Weight 2019-04-21 00:00:00 261.6 [lb_av] [facility] BP Diastolic 2019-04-21 00:00:00 85 mm[Hg] [facility] Height 2019-04-21 00:00:00 63 [in_i] [facility] BMI (Body Mass 2019-04-21 00:00:00 46.3 kg/m2 [facility] Medical Index) Group Systolic blood 2019-03-08 15:16:00 110 mm[Hg] manual Univer sity of pressure [facility] Diastolic blood 2019-03-08 15:16:00 70 mm[Hg] manual Unive rsity of pressure [facility] Heart rate 2019-03-08 15:16:00 62 /min [facility] Respiratory rate 2019-03-08 15:16:00 20 /min [facility] Body height 2019-03-08 15:16:00 160 cm [facility] Body weight 2019-03-08 15:16:00 117.073 kg [facility] BMI 2019-03-08 15:16:00 45.72 kg/m2 [facility] Oxygen saturation in 2019-03-08 15:16:00 98 /min [facility] Arterial blood by [facility] Pulse oximetry Branch Systolic blood 2022-07-27 13:10:00 119 mm[Hg] [facility] Diastolic blood 2022-07-27 13:10:00 82 mm[Hg] [facility] Heart rate 2022-07-27 13:10:00 60 /min [facility] Body temperature 2022-07-27 13:10:00 36.72 Lorene [facility] Body height 2022-07-27 13:10:00 160 cm [facility] Body weight 2022-07-27 13:10:00 91.717 kg [facility] BMI 2022-07-27 13:10:00 35.82 kg/m2 [facility] Systolic blood 2022-07-25 01:08:32 113 mm[Hg] [facility] pressure Diastolic blood 2022-07-25 01:08:32 66 mm[Hg] [facility] pressure Heart rate 2022-07-25 01:08:32 57 /min [facility] Body temperature 2022-07-25 01:08:32 36.22 Lorene [facility] Respiratory rate 2022-07-25 01:08:32 18 /min [facility] Oxygen saturation in 2022-07-25 01:08:32 100 /min [facility] Arterial blood by Pulse oximetry Body height 2022-07-24 03:19:15 160 cm [facility] Body weight 2022-07-24 03:19:15 91.536 kg [facility] BMI 2022-07-24 03:19:15 35.75 kg/m2 [facility] Body height 2022-02-16 10:49:00 160 cm [facility] Body weight 2022-02-16 10:49:00 92.08 kg [facility] BMI 2022-02-16 10:49:00 35.96 kg/m2 [facility] Systolic blood 2021-07-30 09:20:00 136 mm[Hg] [facility] Diastolic blood 2021-07-30 09:20:00 79 mm[Hg] [facility] Heart rate 2021-07-30 09:20:00 60 /min [facility] Body temperature 2021-07-30 09:20:00 36.22 Lorene [facility] Procedures Procedure Date / Time Performing Clinician Source Performed FL UPPER GI 2022-08-04 11:23:00 Suzy Miguel [facility] LIPID PANEL 2022-07-30 18:59:00 Patrick Rosenthal spireynaldo BASIC METABOLIC PANEL 2022-07-30 18:59:00 Patrick Rosenthal [facility] ESTIMATED GFR 2022-07-30 18:59:00 Patrick Rosenthal HEPATIC FUNCTION PANEL 2022-07-30 18:59:[address] [facility] US CAROTID DUPLEX 2022-07-24 14:24:00 [place] [facility] BILATERAL CT HEAD WO CONTRAST 2022-07-24 13:53:09 [facility] TTE COMPLETE, WO 2022-07-24 12:30:00 [facility] CONTRAST, W DOPPLER ([id number]) CBC WITH PLATELET AND 2022-07-24 11:16:00 [facility] DIFFERENTIAL BASIC METABOLIC PANEL 2022-07-24 11:16:00 [facility] MAGNESIUM LEVEL 2022-07-24 11:16:00 [facility] PHOSPHORUS LEVEL 2022-07-24 11:16:00 [facility] IONIZED CALCIUM 2022-07-24 11:16:00 [facility] TROPONIN T 2022-07-24 11:16:00 Todd Brandon [facility]ital THYROID STIMULATING 2022-07-24 11:16:[address] [facility] HORMONE T4, FREE 2022-07-24 11:16:00 Todd Brandon ospital ESTIMATED GFR 2022-07-24 11:16:00 [facility] COVID-19 QUALITATIVE 2022-07-24 01:35:[address] [facility] RT-PCR ROsmel TROPONIN T 2022-07-24 01:35:00 Sandra Olivarez MAGNESIUM LEVEL 2022-07-24 01:35:00 Sandra Olivarez ROsmel XR CHEST 2 VW 2022-07-23 23:22:00 [facility] ED PRELIMINARY 2022-07-23 23:07:20 [facility] INTERPRETATION R. CBC WITH PLATELET AND 2022-07-23 22:46:[address] [facility] DIFFERENTIAL ROsmel COMPREHENSIVE METABOLIC 2022-07-23 22:46:00 [facility] PANEL R. TROPONIN T 2022-07-23 22:46:00 [facility] B NATRIURETIC PEPTIDE 2022-07-23 22:46:[address] [facility] ROsmel HCG QUALITATIVE, SERUM 2022-07-23 22:46:00 [facility] SCREEN R. ESTIMATED GFR 2022-07-23 22:46:00 Juanis [facility] albertal R. ECG 12-LEAD 2022-07-23 22:24:24 [facility] spital R. MAGNESIUM 2019-11-16 01:16:00 Aime [facility] BASIC METABOLIC PANEL 2019-11-16 01:16:00 Shahana Salomon [facility] (NA, K, CL, CO2, GLUCOSE, Medica l Branch BUN, CREATININE, CA) CBC WITH DIFFERENTIAL 2019-11-16 01:16:00 Aime, [facility] EKG-12 LEAD 2019-11-15 12:56:01 [facility] COVID-19 (PCR MOLECULAR 2019-11-14 19:34:00 [facility] TESTING) Medical Branch ASSIGNMENT OF BENEFITS 2019-11-03 17:47:45 Doctor Unassigned, [facility] Name Medical Branch DME/SUPPLY JUSTIFICATION 2019-07-05 06:01:00 Doctor Unassigned, [facility] Name Medical Branch TYMPANOMETRY 2019-04-25 00:00:00 [facility] TYMPANOMETRY 2019-04-21 00:00:00 [facility] AUTHORIZATION TO RELEASE 2019-03-08 05:01:00 Doctor Unassigned, [facility] PHI TO [facility] [place] [facility] Elbow Arthroscopy/surgery [facility] Colonoscopy with Biopsy [facility] Removal of Gallbladder [facility] Plan of Care Planned Activity Planned Date Details Comments Source Future Scheduled Test 2025-07-[address] [facility] 00:00:00 (procedure) [code = [facility] [id number]] Future Scheduled Test 2023-09-[address] [facility] 00:00:00 (procedure) [code = [facility] [id number]] Future Scheduled Test 2023-07-[address] [facility] 00:00:00 [facility] r Screening (12+) [code = Tobacco Cessation Counseling and Screening (12+)] Future Scheduled Test 2023-02-[address] [facility] 00:00:00 (Season Ended) [code Medical Center = INFLUENZA VACCINE (Season Ended)] Future Scheduled Test 2023-02-[address] [facility] 00:00:00 [facility] r Screening (12+) [code = Tobacco Cessation Counseling and Screening (12+)] Future Scheduled Test 2022-10-06 HEPATITIS B VACCINES [facility] 10:38:50 (1 of 3 - 3-dose series) [code = HEPATITIS B VACCINES (1 of 3 - 3-dose series)] Future Scheduled Test 2022-10-06 Pneumococcal Vaccine: [facility] 10:38:50 Pediatrics (0 to 5 Years) and At-Risk Patients (6 to 64 Years) (1 - PCV) [code = Pneumococcal Vaccine: Pediatrics (0 to 5 Years) and At-Risk Patients (6 to 64 Years) (1 - PCV)] Future Scheduled Test 2022-10-06 Hepatitis C screening [facility] 10:38:50 (procedure) [code = 184942467] Future Scheduled Test 2022-10-[address] [facility] 10:38:50 malignant neoplasm of cervix (procedure) [code = 134604089] Future Scheduled Test 2022-10-[address] [facility] 10:38:50 SCREENING [code = BREAST CANCER SCREENING] Future Scheduled Test 2022-10-06 COVID-19 VACCINE (3 - [facility] 10:38:50 Booster for Pfizer series) [code = COVID-19 VACCINE (3 - Booster for Pfizer series)] Future Scheduled Test 2022-10-06 INFLUENZA VACCINE [facility] 10:38:50 [code = INFLUENZA VACCINE] Future Scheduled Test 2022-06-29 Hepatitis C screening [facility] 07:58:16 (procedure) [code = 623644414] Future Scheduled Test 2022-06-[address] [facility] 07:58:16 malignant neoplasm of cervix (procedure) [code = 126853190] Future Scheduled Test 2022-06-[address] [facility] 07:58:16 SCREENING [code = BREAST CANCER SCREENING] Future Scheduled Test 2022-06-29 COVID-19 VACCINE (2 - [facility] 07:58:16 Pfizer series) [code = COVID-19 VACCINE (2 - Pfizer series)] Future Scheduled Test 2022-06-29 INFLUENZA VACCINE [facility] 07:58:16 [code = INFLUENZA VACCINE] Future Scheduled Test 2022-06-[address] [facility] 00:00:00 (12+) [code = [facility] DEPRESSION SCREENING (12+)] Future Scheduled Test 2022-06-[address] [facility] 00:00:00 (12+) [code = [facility] DEPRESSION SCREENING (12+)] Future Scheduled Test 2022-02-[address] [facility] 00:00:00 (#1) [code = [facility] INFLUENZA VACCINE (#1)] Future Scheduled Test 2021-02-13 COVID-19 VACCINE (3 - [facility] 00:00:00 Booster for Pfizer Medical C enter series) [code = COVID-19 VACCINE (3 - Booster for Pfizer series)] Future Scheduled Test 2020-11-08 COVID-19 VACCINE (3 - [facility] 00:00:00 Booster for Pfizer Medical C enter series) [code = COVID-19 VACCINE (3 - Booster for Pfizer series)] Future Scheduled Test 2001 [facility] malignant neoplasm of Medica l Center cervix (procedure) [code = 785518119] Future Scheduled Test 2001 [facility] malignant neoplasm of Medica l Center cervix (procedure) [code = 990929084] Future Scheduled Test 1999 DTAP/TDAP/TD VACCINES [facility] 00:00:00 (1 - Tdap) [code = Medical C enter DTAP/TDAP/TD VACCINES (1 - Tdap)] Future Scheduled Test 1999 DTAP/TDAP/TD VACCINES [facility] 00:00:00 (1 - Tdap) [code = Medical C enter DTAP/TDAP/TD VACCINES (1 - Tdap)] Future Scheduled Test 1998 HEPATITIS C SCREENING [facility] 00:00:00 [code = HEPATITIS C Medical Center SCREENING] Future Scheduled Test 1998 HEPATITIS C [facility]CRE[facility]ING [facility] 00:00:00 [code = HEPATITIS C Medical Center SCREENING] Instructions [facility] Encounters Start End Encounter Admission Attending Care Care Encounter Source Date/Time Date/Time Type Type Clinicians Facility Department ID 2022-04-28 [facility] [id number] Common 13:51:01 [place] [facility] 2022-01-01 Outpatient Pierre, [facility] [id number] Common 11:31:01 [place] [facility] 2021-12-31 Outpatient Pierre, [facility] [id number] Common 16:29:01 [place] [facility] 2021-12-26 Out[facility] [id number] Common 11:59:00 [place] [facility] 2021-08-06 Outpatient Pierre, [facility] [id number] Common 15:42:01 [place] [facility] 2021-07-16 Out[facility], [facility] [id number] Common 12:47:04 [place] [id number] [facility] 2021-07-16 Outpatient Pierre, [facility] [id number] Common 12:38:22 [place] [id number] [facility] 2021-07-16 Outpatient Pierre, [facility] [id number] Common 11:54:57 [place] [id number] [facility] 2021-07-16 Outpatient Pierre, [facility] [id number] Common 11:42:41 [facility] [address] [facility] 2021-07-16 [facility] [id number] Common 11:04:35 [id number] [facility] 2022-12-09 2022-12-09 Outpatient CORINNE MIGUEL, [facility] [id number] 00:00:00 00:00:00 [facility] 2022-08-04 2022-08-04 Outpatient CORINNE MGIUEL, [facility] [id number] [facility] 10:39:59 23:59:00 MARTIN 2022-08-04 2022-08-04 [facility] [id number] 09:00:00 23:59:00 Encounter [facility] 2022-07-31 2022-07-31 Telephone Paola, [facility] [id number] 00:00[facility]00 00:00:00 [facility] 2022-07-30 2022-07-30 Lab Patrick Rosenthal 1.2.840.1 [id number] Methodi 12:45:00 12:50:[address] 3.430.2.7 Hospit a .3.125127 l .8 2022-07-30 2022-07-30 Outpatient PATRICK ROSENTHAL [facility] [id number] [place] 00:00:00 00:00:[address] 2022-07-30 2022-07-30 Travel 1.2.840.1 [id number] [id number] Methodi 00:00:00 00:00:[address] 3.430.2.7 0.2.7.3.698 Ho spita .3.699375 084.8 l .8 2022-07-27 2022-07-27 Office [facility] [id number] 13:00:00 14:41:47 Visit [facility] 2022-07-27 2022-07-27 Outpatient CORINNE MIGUEL [facility] [id number] 12:59:28 14:41:47 [facility] 2022-07-24 2022-07-24 Hospital Patrick Rosenthal 1.2.840.1 [id number] Methodi 13:00:00 23:59:00 Encounter Lauro 47167.1.[address] 3.430.2.7 Hospit a .3.902571 l .8 2022-07-23 2022-07-24 Emergency Prasanth Olivarez 1.2.8 40.1 [id number] Methodi 16:37:00 21:50:00 Todd Brandon 52004.1.1 050 Jessica Steiner Osm[facility] 3.430.2.7 Hospita .3.774827 l .8 2022-07-24 2022-07-24 Outpatient ROSENTHALCHAVAPI [facility] [id number] [place] 00:00:00 00:00:[address] 2022-07-23 2022-07-24 Outpatient JESSICA STEINER [facility] [id number] [place] 00:00:00 00:00:[address] 2022-04-28 2022-04-28 (TEL) [facility] [id number] Co mmon 00:00:00 00:00:00 [facility] 2022-03-05 2022-03-05 (TEL) [facility] [id number] Co mmon 00:00:00 00:00:00 [facility] 2022-03-05 2022-03-05 OFFICE [facility] [id number] Co mmon 00:00:00 00:00:00 VISIT EST Spir it PT LEVEL 3 - [facility] 2022-02-16 2022-02-16 Audio - CORINNE Miguel [facility] [id number] 10:45:00 11:25:10 Telemedici [facility] 2022-02-16 2022-02-16 Audio - Caminer, [facility] [id number] 10:45:00 11:25:10 Telemedici Suzy giordano [facility] 2022-01-15 2022-01-15 [facility] [id number] Co mmon 00:00:00 00:00:00 [facility] 2022-01-12 2022-01-12 (TEL) STLMLC STLC [id number] Co mmon 00:00:00 00:00:00 [facility] 2022-01-05 2022-01-05 (TEL) STLMLC STLC [id number] Co mmon 00:00:00 00:00:00 [facility] 2021-12-26 2021-12-[address] [facility] [id number] Co mmon 00:00:00 00:00:00 VISIT [facility] PT LEVEL 2 - [facility] 2021-12-17 2021-12-17 Audio - EL Myriam, [facility] [id number] 11:00:00 12:23:31 Telemedici Suzy [facility] 2021-12-17 2021-12-17 Audio - Myriam, [facility] [id number] 11:00:00 12:23:31 Telemedici Suzy giordano [facility] 2021-12-16 2021-12-16 Telephone Paola, [facility] [id number] 00:00[facility]00 00:00:00 [facility] 2021-12-16 2021-12-16 Telephone Paola, [facility] [id number] 00:00[facility]00 00:00:00 [facility] 2021-10-29 2021-10-29 Outpatient MYRIAM [facility] [id number] 00:00:00 00:00:00 [facility] 2021-08-30 2021-08-[address] [facility] [id number] 00:00:00 00:00:00 [facility] 2021-08-27 2021-08-27 PREV [facility]IT [facility] [id number] Common 00:00:00 00:00:00 EST AGE [facility] 40-64 - [facility] 2021-08-27 2021-08-27 [facility]TEL[facility] [id number] Co mmon 00:00:00 00:00:00 [facility] 2021-07-30 2021-07-30 Office Myriam, [facility] [id number] 09:00:00 10:05:05 Visit [facility] 2021-07-30 2021-07-30 [facility]EL[facility] [id number] Co mmon 00:00:00 00:00:00 [facility] 2021-07-23 2021-07-23 Audio - Myriam [facility] [id number] 11:45:00 11:45:00 Telemedici [facility] 2021-07-03 2021-07-04 Outpatient ER MYRIAM, [facility] Emergency [id number] [facility] 18:56:00 14:20:00 MARTIN 2021-06-27 2021-06-27 [facility]EL) [facility] [id number] Co mmon 00:00:00 00:00:00 [facility] 2021-06-25 2021-06-25 (TEL) [facility] [id number] Co mmon 00:00:00 00:00:00 [facility] 2021-06-25 2021-06-[address] [facility] [id number] Co mmon 00:00:00 00:00:[address] [facility] LEVEL 1 [facility] 2021-06-18 2021-06-18 Outpatient MYRIAM [facility] [id number] 00:00:00 00:00:00 [facility] 2021-06-16 2021-06-16 [id number] 09:39:31 09:50:37 [facility] 2021-06-10 2021-06-12 Inpatient EL FADNER, [facility] [id number] [facility] 06:27:00 10:18:00 MARTIN 2021-06-04 2021-06-04 Outpatient EL [facility] [id number] [facility] 08:54:00 23:59:00 2021-06-04 2021-06-04 [id number] 08:08:35 10:24:36 [facility] 2021-05-26 2021-05-26 [facility] [id number] 11:56:43 13:55:54 [facility] 2021-05-23 2021-05-23 Outpatient EL FADNER, [facility] [id number] [facility] 07:43:00 12:34:00 MARTIN 2021-03-26 2021-03-26 (TEL) STLC STLC [id number] Co mmon 00:00:00 00:00:00 [facility] 2021-01-22 2021-01-22 Outpatient CAMINER, [facility] [id number] 00:00:00 00:00:00 [facility] 2020-09-13 2020-09-13 Outpatient R [facility] [id number] Univers 13:20:00 13:20:00 [facility] 2020-09-10 2020-09-10 Outpatient STLC STLC [id number] Common 00:00:00 00:00:00 [facility] 2020-09-08 2020-09-08 Outpatient R [facility] [id number] Univers 13:20:00 13:20:00 [facility] 2020-09-04 2020-09-04 Outpatient R GREG [facility] [id number] Univers 09:40:00 09:40:00 NOLBERTO [facility] 2020-09-04 2020-09-04 Outpatient PATRICK ROSENTHALH [facility] [id number] [place] 00:00:00 00:00:[address] 2020-08-28 2020-08-28 Outpatient STLMLC STLMLC [id number] Common 00:00:00 00:00:00 [facility] 2020-08-28 2020-08-28 Outpatient STLMLC STLMLC [id number] Common 00:00:00 00:00:00 [facility] 2020-08-14 2020-08-14 Outpatient R GREG [facility] [id number] Univers 09:20:00 09:20:00 NOLBERTO [facility] 2020-07-17 2020-07-17 Outpatient PATRICK ROSENTHAL [facility] [id number] [place] 00:00:00 00:00:[address] 2020-05-08 2020-05-08 Outpatient Raju_P [facility] [id number] [place] 02:20:00 02:20:00 [facility] 2020-02-21 2020-02-21 Out[facility] [id number] Common 15:24:00 15:24:[address] [facility] 2020-02-21 2020-02-21 Outpatient [facility] [id number] Common 10:00:00 10:00:[address] [facility] 2020-02-21 2020-02-21 Outpatient [facility] [id number] Common 08:37:00 08:37:[address] [facility] 2019-12-11 2019-12-11 Outpatient R [facility] [id number] Univers 08:00:00 08:00:00 [facility] 2019-11-30 2019-12-01 Outpatient HARPREET [facility] [id number] [place] 00:00:00 00:00:[address]AMITA [address] 2019-11-30 2019-11-30 [facility] [id number] 00:00:00 00:00:00 [facility] 350.1.13.10 Clear 4.2.7.2.686 [place] [phone] Medical [facility] Office [facility] 2019-11-30 2019-11-30 Telephone Missy [facility] [id number] Univers 00:00:00 00:00:00 [facility] 350.1.13.10 it [place] [phone] [address] [facility] 2019-11-20 2019-11-21 Outpatient X LISSETTE HAGER [facility] [id number] Univers 13:14:58 18:39:00 ity of [facility] 2019-11-15 2019-11-16 [facility] Satish Navarro 1.2.840.114 [id number] Univers 13:25:00 14:09:00 Encounter Anesthesia-Heydi, Ep Lab [place] 350.1 .13.10 ity of Outpt-Heydi, Ep Lab [facility] 4.2.7.2.686 [place] [phone] [address] 2019-11-15 2019-11-15 Outpatient R MISSY [facility] [id number] Univers 08:00:00 08:00:00 LANRE ity of [facility] 2019-11-14 2019-11-14 Laboratory Only, Adc Test [facility] 1.2.840. 114 [id number] Univers 14:31:36 14:46:36 Only MissyLanre [place] 350.1.13.10 ity of [place] Profess[place] [phone] In dical nal [address] [place] [address] 2019-11-14 2019-11-14 Outpatient R MISSY [facility] [id number] Univers 14:45:00 14:45:00 LANRE ity of [facility] 2019-11-14 2019-11-14 Chantelle Palacios [facility] 1.2.840.114 [id number] Univers 00:00:00 00:00:00 Kostas Adrian 350.1.13.10 ity [place] [phone] In dical nal 059 [facility] 2019-11-10 2019-11-10 Telephone Perla Louis 1.2.404.450 [id number] Univers 00:00:00 00:00:00 [place] 350.1.13.10 it y of [facility] 4.2.7.2.686 [place] as [phone] [facility] [address] [place] 2019-11-09 2019-11-09 Telephone Missy [facility] [id number] Univers 00:00:00 00:00:00 Lanre HEALTH 350.1.13.10 it y of [place] 4[place]2.7.2.686 [place] [phone] [facility] Primary & [address] [place] [address] Specialty Care 2019-11-03 2019-11-03 Outpatient R MISSY [facility] [id number] Univers 13:15:00 13:15:00 LANRE ity of [facility] 2019-11-03 2019-11-03 Change Of Address Clerk Emre, Hanna Lab Main [facility] 1.2.8 40.114 [id number] Univers 12:49:54 13:04:54 Visit Missy Lanre Adrian 350.1.13.10 ity of [place] [phone] [facility] 353 [facility] 2019-11-03 2019-11-03 Orders Doctor SIMA 1.2.840.114 [id number] Univers 00:00:00 00:00:00 Only Unassigned, EVANGELISTA 350.1.13.10 ity of [place] [facility] 4.2.7.2.686 Ben as [phone] [facility] [address] [place] 2019-11-01 2019-11-01 Refill Philip [facility] 1.2.840.114 [id number] Univers 00:00:00 00:00:00 Kostas Adrian 350.1.13.10 ity [place] [phone] [facility] 059 [facility] 2019-09-13 2019-09-27 Telemedici Chris [facility] 1.2.840.114 [id number] Univers 08:18:10 14:56:59 ne Visit [facility] 350.1.13.10 ity of [place]2.7.2.[place] [phone] In dicin nal 085 [facility] 2019-09-15 2019-09-15 [facility] 1.2.840.114 [id number] Univers 00:00:00 00:00:00 Qiangjun [place] 350.1.13.10 ity [place].2.[place] [phone] [facility] 059 [facility] 2019-09-13 2019-09-13 Outpatient R SLIM PEREZ [facility] [id number] Univers 09:30:00 09:30:00 [facility] 2019-09-01 2019-09-01 Patient JACKI Louis [id number] Univers 00:00:00 00:00:00 Secure Msg Lanre Y [facility] 350.1.13.10 ity of [facility] 4.2.7.2.[place] [phone] [facility] [address] [place] 2019-08-29 2019-08-29 Telephone SIMA Louis 1.2.844.526 [id number] Univers 00:00:00 00:00:00 Lanre EVANGELISTA 350.1.13.10 it y of HOSPITAL 4.2.7.2.686 Ben as [phone] [facility] [address] [place] 2019-08-29 2019-08-29 Telephone Perla Louis 1.2.723.071 [id number] Univers 00:00:00 00:00:00 Lanre Evangelista 350.1.13.10 it y of Hospital 4.2.7.2.686 Ben as [phone] [facility] [address] [place] 2019-08-21 2019-08-21 [facility] 1.2.840.114 [id number] Univers 00:00:00 00:00:00 Qiangjun [place] 350.1.13.10 [place]2.[place] [phone] In dical nal 059 [facility] 2019-08-21 2019-08-21 Telephone Missy, JACKIIT 1.2.840.114 [id number] Univers 00:00:00 00:00:00 Lanre Y HEALTH 350.1.13.10 i ty of CLINICS [place] [phone] [address] 2019-08-17 2019-08-17 Office JACKI Louis 1.2.282.817 [id number] Univers 09:39:10 11:57:35 Visit Lanre Y HEALTH 350.1.13.10 i ty of CLINICS 4[place].2.[place] [phone] [address] 2019-08-17 2019-08-17 Outpatient R MISSY [facility] [id number] Univers 10:00:00 10:00:00 LANRE ity of [facility] 2019-08-16 2019-08-16 Telephone JACKI Louis 1.2.840.114 [id number] Univers 00:00:00 00:00:00 Lanre Y HEALTH 350.1.13.10 i ty of CLINICS 4[place].2.[place] [phone] [address] 2019-07-25 2019-07-25 [facility] 1.2.823.381 [id number] Univers 00:00:00 00:00:00 Kostas [place] 350.1.13.10 ity [facility] 4.2.7.2.[place] [phone] In dical [address] 2019-07-20 2019-07-20 Outpatient [facility] [id number] Common 16:13:00 16:13:00 [facility] 2019-07-20 2019-07-20 Outpatient [facility] [id number] Common 14:50:00 14:50:00 t [facility] 2019-07-15 2019-07-15 Outpatient Raju_P MMG [facility] [id number] [place] 10:34:00 10:34:00 0125 [facility] 2019-07-12 2019-07-12 Office Philip, [facility] 1.2.840.114 [id number] 49 [facility] 10:21:41 11:40:58 Visit Kostas Adrian 350.1.13.10 it[place] [phone] In dical nal 059 [facility] 2019-07-05 2019-07-05 Orders Doctor SIMA 1.2.840.114 [id number] Univers 00:00:00 00:00:00 Only Unassigned, EVANGELISTA 350.1.13.10 ity of [place] [facility] 4.2.7.2.686 Ben as [phone] [address] 2019-04-25 2019-04-25 [facility] [place] - [id number] [place] 00:00:00 00:00:00 MD Connie: [address] [address] , Ph. 2019-04-21 2019-04-21 [facility] [place] - [id number] [place] 00:00:00 00:00:00 MD Connie: [address] 201[facility] [address] , Ph. 2019-03-08 2019-03-08 Office [facility] 1.2.840.114 [id number] [facility] 09:49:22 10:49:31 Visit Kostas Adrian 350.1.13.10 ity of [place]2.[place] [phone] In dical nal 9 [facility] 2019-03-08 2019-03-08 Orders Doctor SIMA 1.2.840.114 [id number] Univers 00:00:00 00:00:00 Only Unassigned, EVANGELISTA 350.1.13.10 ity of [place] [facility] 4.2.7.2.686 Ben as [phone] [facility] [address] 2019-02-24 2019-02-24 Telephone Philip [facility] 1.2.124.455 [id number] Univers 00:00:00 00:00:00 Kostas Adrian 350.1.13.10 ity jacinta [place] 4.2.7.2.686 Sheryl Ferrari [phone] In dical [facility] [address] [facility] Results Test Description Test Time Test Comments Results Result Sourc e Comments FL, UGI, WITHOUT 2022-08-04 Reason for KUB 15:50:00 Exam:->[facility] 1980 Sex: F *FINAL REPORT FL, UGI, WITHOUT KUB CLINICAL HISTORY: Reflux COMPARISON: Upper GI 07/04/2021. TECHNIQUE: A business unit leader abdominal radiograph is acquired. The esophagus, stomach, and proximal small bowel are evaluated with double contrast technique after oral ingestion of Gastrografin and thin barium using real-time fluoroscopy and acquisition of multiple spot digital radiographs, followed by AP abdominal radiographs. Fluoroscopy time: 1.3 minutesDose: 47.4 mGyNumber of images: 24 FINDINGS: Refrigerator Room Clerk radiograph findings: Normal bowel gas pattern. Esophageal caliber: Normal with no focal narrowing.Esophageal motility: Normal.Hiatal hernia: None.Gastroesophagea l reflux: None observed. Stomach: Small in size due to gastric sleeve seizure. Otherwise normal filling and flow into the small bowel..Duodenal bulb: Normally distended. No ulceration.Visualize d proximal small bowel: Normally distended with normal fold pattern. IMPRESSION: Status post gastric sleeve. Otherwise, normal upper GI series. Signed: Angelina Osheaeport Verified Date/Time: 08/04/2022 15:50:03 Reading Location: [facility] Radiology Reading Room 12 lead 2022-07-24 04:07:06 Test Item Value Reference Range Interpretation Comme nts Ventricular rate (test code = 253) 66 Atrial rate (test code = 255) 66 DC interval (test code = 266) 96 QRSD interval (test code = 260) 82 QT interval (test code = 264) 398 QTC interval (test code = 265) 417 P axis 1 (test code = 267) 22 QRS axis 1 (test code = 268) 106 T wave axis (test code = 270) 85 EKG impression (test code = 273) Sinus rhythm with short DC-Rightwa rd axis-Borderline ECG-- Mu-Ism TxpjahbmHSJJ-IcU-5 (COVID-19) RNA [Presence] in Respiratory specimen by HAJA with probe [id number] 01:57:15 Test Item Value Reference Range Interpretation Comments SARS-CoV-2 (COVID-19) RNA Not detected [Presence] in Respiratory specimen by HAJA with probe detection (test code = 68562-0) Whether patient is employed in a Unknown healthcare setting (test code = 50485-7) Whether the patient has symptoms Unknown related to condition of interest (test code = 50494-3) Whether the patient was Unknown hospitalized for condition of interest (test code = 56668-4) Whether the patient was admitted Unknown to intensive care unit (ICU) for condition of interest (test code = 40416-5) Whether patient resides in a Unknown congregate care setting (test code = 95976-6) status (test code = Unknown 45327-5) Date and time of symptom onset Unknown (test code = 14593-4) DARRIUS RIVERA, WITHOUT [id number] 10:43:00Reason for exam:- >vomiting s/p gastric sleeve surgery [facility] : 1980 Sex: FFINAL REPORT Water-soluble upper GI series History provided: Recent gastric sleeveprocedure. Vomiting. The patient could only tolerate 20 cc of water-soluble contrast. This passed inan unobstructed fashion through normal caliber esophagus into postop stomach and then into nondilated duodenum. No signs of leak or obstruction. IMPRESSION: Satisfactory postop appearance. Fluoroscopy time: 0.6 minutes Number of exposures performed: 5 Radiation dose (Ka,r): 40 mGy Signed: Valentin JohnsonMDReport Verified Date/Time: 07/04/2021 10:43:23 Reading Location: [facility] Radiology Reading Room SARS-COV2/INFLUENZA/RSV RT-PCR 2021-07-03 21:05:37 Test Item Value Reference Range Interpretation Comments SARS-COV2/RT-PCR Positive Negative AA The SARS-Co V-2 target (test code = nucleic acids a re 3485116) detected in thi s specimen. The p resence SARS-CoV-2 nucl eic acids cannot rule out co-infections o r disease caused by other viral or bacterial patho gens. As with any molecu lar test, mutations withi n the target regions of the Xpert Xpress SA RS-CoV-2 test could affe ct primer and/or probe bi nding resulting in fa ilure to detect the pres ence of virus or the vi beatriz being detected less predictably. Fa lse negative result s may occur if virus is present at levels below the analytical limi t of detection. This SARS CoV-2 test is a rapid, real-time RT-PC R test intended for th e qualitative det ection of nucleic acid fr om SARS-CoV-2 in a nasopharyngeal swab specimen collec ester from individuals rigoberto pected of COVID-19 by the [facility]. Results from th e Xpert Xpress SARS-CoV -2 test should be corre lated with the clinical hi story, epidemiological data, and other data jacob chaidez to the clinician e valuating the patient. Vi ral nucleic acid ma y persist in vivo, indepe ndent of virus viability . Detection of an alyte target(s) does not imply that the corres ponding virus(es) are i nfectious or are the caus ative agents for clin ical symptoms. INFLUENZA A RT-PCR Negative Negative The Flu A target nucleic (test code = acids are not d etected in 19100725) this specimen. INFLUENZA B RT-PCR Negative Negative The Flu B target nucleic (test code = acids are not d etected in 19100726) this specimen. RSV RT-PCR (test Negative Negative The RSV tar get nucleic code = 8990409) acids are no t detected in this specimen. The presence of SARS-CoV-2/FLU/RSV [...] Xpress SARS-CoV-2/Flu/RSV by their healthcareprovider. Results from [facility] Xpert Xpress SARS-CoV-2/Flu/RSV test should be correlated [...] of the Act.Fact Sheet for Healthcare Providers:https ://www.[employer]/Documents/Xpert%20Xpress%20SARS%20CoV-2/Fact%20Sheets/302-390 2%66ZYRT-QIQ-0%20HEALTHCARE%20PROVIDERS%20FACT%20SHEET.pdfFact Sheet for Healthcare Patients:https://www.[employer]/Docum ents/Xpert%20Xpress%20SARS%20Cov-2/Fact%20Sheets/302-3801%67ICRN-WQK-3%20PATIENT %20FACT%20SHEET.pdfCOMPREHENSIVE METABOLIC [id number] 20:46:58 Test Item Value Reference Range Interpretation [...] S NOT APPLICABLE FOR DIALYSIS PATIEN TS. Rn Infusion ID - [id number] ID - [id number] ID - [id number] ID - [id number] ID - [id number] ID - [id number] ID - [id number] ID - [id number] ID - [id number] ID - [id number] ID - [id number] ID - [id number] ID - [id number] ID - [id number] ID - [id number] ID - [id number] 2021-07-03 20:46:52 Test Item Value Reference Range Interpretation Comments LIPASE (BEAKER) (test code = 749) 12 U/L 6-51 Rn Infusion ID - [id number] ID - [id number] ID - [id number] ID - [id number], SERUM, [id number] 20:46:52 Test Item Value Reference Range Interpretation Comments TEST SERUM (BEAKER) (test Negative code = 584) CBC W/PLT COUNT & AUTO [id number] 20:26:45 Test Item Value Reference Range Interpretation [...] PERCENT (BEAKER) (test code = 2801) TISSUE [id number] 09:27:40Surgical Pathology Report Case: [id number] Authorizing Provider: Suzy Miguel MD Collected: 06/10/2021 10:17 AM Ordering Location: [facility] PERIOPERATIVE Received: 06/10/2021 11:01 AM SERVICES Pathologist: Mark Sawyer MD Specimen: Stomach, PARTIAL GASTRECTOMY. STOMACH, PARTIAL GASTRECTOMY: - MULTIPLE GASTRIC HYPERPLASTIC POLYPS. - BACKGROUND OF CHRONIC INACTIVE GASTRITIS. - NO HELICOBACTER PYLORI ORGANISMS IDENTIFIED. - SURGICAL MARGIN IS VIABLE. Signing Pathologist Direct Phone Line: [phone] signed by Mark Sawyer MD on 06/11/2021 at 9:27 AMJK/[id number] obesity Stomach The specimen received in formalin [...] present. No other mass lesions are identified. Storage Receipt Poster sections are submitted in cassettes A1-A3. A1 is rep resentative sections of the mucosa. A2 is the mucosal polyps. A3 is customer development representative sections of the resection margin. VANESSA/evie Performed The interpretation of this case included the use of immunohistochemistry or special stains.Control Slides Examined: In-house known positive controls were evaluated alongwith the test tissue. These control slides run alongside of the patients sample show appropriate staining. Internal positive and negative controls when available are evaluated Immunohistochemistry technical testing was performed at [facility], Pathology Laboratory where it was developed and its performance characteristics were determined. It has not been cleared or approved by the U.S. Food and Drug Administration. The FDA has determined that such clearance or approval is not necessary. The test is used for clinical purposes. It should not be regarded as investigational or forresearch. This laboratory is certified under the Clinical Laboratory Improvement Amendments of 1988 (CLIA-88) as qualified to perform high complexity clinical laboratory testing.A1. Cristela Kan: Negative for Helicobacter pylori organisms. [facility], Department of Pathology, [address] [place] [address] 38310, [place] [facility], Depart ent of Pathology, [address] [place] [address], [facility], [address] [place] [address], WPKXB METABOLIC [id number] 05:51:33 Test Item Value Reference Range Interpretation [...] S NOT APPLICABLE FOR DIALYSIS PATIEN TS. Rn Infusion ID - DSENSONOperator ID - DSENSONOperator ID - DSENSONOperator ID - DSENSONOperator ID - DSENSONOperator ID - DSENSONOperator ID - DSENSONOperator ID - DSENSONOperator ID - DSENSONOperator ID - DSENSONOperator ID - DSENSONOperator ID - DSENSONOperator ID - DSENSONCBC W/PLT COUNT & AUTO [id number] 05:30:54 Test Item Value Reference Range Interpretation [...] PERCENT (BEAKER) (test code = 2801) POCT-GLUCOSE [id number] 05:17:50 Test Item Value Reference Range Interpretation Comments POC-GLUCOSE METER 88 mg/dL 70-110 : TESTED A T [facility] 1317 (BEAKER) (test code = [address]) [facility] 77 478: Rn Infusion/Techni tobin ID = [id number] for Susan Feldman SCREEN, [id number] 07:09:43 Test Item Value Reference Range Interpretation Comments TEST URINE (BEAKER) (test Negative code = 583) VITAMIN [id number] 10:34:08 Test Item Value Reference Range Interpretation Comments VITAMIN B12 (BEAKER) (test code = 326 pg/mL 211-071 774) Rn Infusion ID - DIONICIOALYSONROYAOMPREHENSIVE METABOLIC [id number] 09:39:25 Test Item Value Reference Range Interpretation [...] S NOT APPLICABLE FOR DIALYSIS PATIEN TS. Rn Infusion ID - [id number] ID - OIFG72Aihlifdq ID - EERP55Ssurclys ID - TCUA65Hovhcuze ID - MPCL24Ogoxtbfm ID - JNSZ30Xlumfvfh ID - RJFU99Zoheejab ID - VDCJ13Dlgkvmwq ID - MTCB25Ggjmhjtt ID - AOAG04Cwnkhfhw ID - MVZK43Kxutvojr ID - MKVB53Hqfzkjaq ID - MEWU93Chggyava ID - TRHWO419Jdvidqtw ID - TOCUR874Tclkfuls ID - SUTQT410Qnbsuope ID - YEYER325Aouinikh ID - RJJMT008Bznqbvxt ID - [id number] HEMOGLOBIN [id number] 09:38:26 Test Item Value Reference Range Interpretation Comments HEMOGLOBIN A1C (BEAKER) (test code = 5.1 % 4.3-6.1 368) Rn Infusion ID - [id number] W/PLT COUNT & AUTO [id number] 09:13:56 Test Item Value Reference Range Interpretation [...] PERCENT (BEAKER) (test code = 2801) TISSUE [id number] 11:38:34Surgical Pathology Report Case: [id number] Authorizing Provider: Suzy Miguel MD Collected: 05/23/2021 11:41 AM Ordering Location: [facility] Received: 05/23/2021 12:01 PM Patho logist: Sade Muhammad MD Specimen: Polyp, Gastric, cold snare STOMACH, POLYP, BIOPSY: - FUNDIC GLAND POLYP - NO INTESTINAL METAPLASIA, DYSPLASIA OR MALIGNANCY SEEN - NEGATIVE FOR H. PYLORI ORGANISMS Signing Pathologist Direct Phone Line: [phone] signed by Sade Muhammad MD on 05/27/2021 at 11:38 [id number]; [id number], [id number] reflux diseaseGastric polypThe specimen received in formalin [...] evaluated Immunohistochemistry technical testing was performed at [facility], Pathology Laboratory where it was developed [...] Amendments of 1988 (CLIA- 88) as qualified to perform high complexity clinical laboratory testing.[facility], Department of Pathology, [address] [place] [address], Mdqfav [facility], Department of Pathology, [address] [place] [address], [facility], [facility], [address] [place] [address], RAJZW METABOLIC PANEL 2021-05-23 09:49:36 Test Item Value [...] S NOT APPLICABLE FOR DIALYSIS PATIEN TS. Rn Infusion ID - [id number] ID - [id number] ID - [id number] ID - [id number] ID - [id number] ID - [id number] ID - HBPIR173Enjebflt ID - GIJYG267Uybcsmbv ID - SESLH870Njoppwbi ID - [id number] ID - [id number] ID - [id number] W/PLT COUNT & AUTO [id number] 09:33:40 Test Item Value Reference Range Interpretation [...] PERCENT (BEAKER) (test code = 2801) SCREEN, [id number] 09:19:26 Test Item Value Reference Range Interpretation Comments TEST URINE (BEUSAMA) (test Negative code = 583) SARS coronavirus 2 RNA [Presence] in Respiratory specimen by HAJA with probe [id number] 21:49:49 Test Item Value Reference Range Interpretation Comments SARS coronavirus 2 RNA Not detected Not-Detected [Presence] in Respiratory specimen by HAJA with probe detection (test code = 13590-3) [facility] METABOLIC PANEL (NA, K, CL, CO2, GLUCOSE, BUN, CREATININE, CA)2019-11-16 01:41:00 Test Item Value Reference Range Interpretation Comments NA (test code = 140 mmol/L 135-145 2260930984) K (test code = 3.8 mmol/L 3.5-5 3877869211) CL (test code = 108 mmol/L 98-108 0947930242) CO2 TOTAL (test code = 28 mmol/L 23-31 3316321841) AGAP (test code = 2-16 3473734182) BUN (test code = 13 mg/dL 7-23 2285590659) GLUCOSE (test code = 92 mg/dL 70-110 0561524309) CREATININE (test code = 0.59 mg/dL 0.5-1.04 4139623351) CALCIUM (test code = 8.5 mg/dL 8.6-10.6 L 9165578531) eGFR Calculation mL/min/1.73m2 (Non-) (test code = 6422334042) eGFR Calculation mL/min/1.73m2 () (test code = 0538642659) MATTIE (test code = MATTIE) Association of [...] tests). Lab Interpretation Abnormal (test code = 44826-1) [facility] Test Item Value Reference Range Interpretation Comments MAGNESIUM (test code = 8518589118) 1.9 mg/dL 1.7-2.4 Lab Interpretation (test code = Normal 10538-8) [facility] WITH [id number] 01:32:00 Test Item Value Reference Range Interpretation Comments WBC (test code = See_Comment [Automated 1263-2) message] The sy stem which generated this result transmitted reference range : 4.30 - 11.10 10*3/?L. The reference range was not used to interpret this result as normal/abnormal . RBC (test code = See_Comment [Automated 169-8) message] The sy stem which generated this [...] RDW-SD (test code = 39.9 fL 39-49.9 90299-3) RDW-CV (test code = 12.7 % 12-15.5 788-0) PLT (test code = See_Comment [Automated 777-3) message] The sy stem which generated this result transmitted reference range : 166 - 358 10*3/ ?L. The reference r gladis was not used to interpret this result as normal/abnormal . MPV (test code = 10.1 fL 9.5-12.9 39170-9) NRBC/100 WBC (test See_Comment [Automat ed code = 5842638682) message] The system which generated this result transmitted reference range : 0.0 - 10.0 /100 WBCs. The refer ence range was not u sed to interpret th is result as normal/abnormal . NRBC x10^3 (test code <0.01 See_Comment [Auto mated = 2020917056) message] The s ystem which generated this result transmitted reference range : 10*3/?L. The reference range was not used to interpret this result as normal/abnormal . GRAN MAT (NEUT) % 62.3 % (test code = 770-8) IMM GRAN % (test code 0.30 % = 6925143537) LYMPH % (test code = 30.9 % 736-9) MONO % (test code = 5.4 % 5905-5) EOS % (test code = 0.9 % 713-8) BASO % (test code = 0.2 % 706-2) GRAN MAT x10^3(ANC) 6.40 10*3/uL 1.88-7.09 (test code = 1913986630) IMM GRAN x10^3 (test 0.03 10*3/uL 0-0.06 code = 6992490371) LYMPH x10^3 (test code 3.18 10*3/uL 1.32-3.29 = 731-0) MONO x10^3 (test code 0.56 10*3/uL 0.33-0.92 = 742-7) EOS x10^3 (test code = 0.09 10*3/uL 0.03-0.39 711-2) BASO x10^3 (test code <0.03 0.01-0.07 = 704-7) Lab Interpretation Abnormal (test code = 15148-1) [facility]2019-11-14 21:13:00 Test Item Value Reference Range Interpretation Comments SARS-CoV-2 Rapid ID NOW Not Detected Not Detected (test code = 98233-0) MATTIE (test code = MATTIE) ID NOW COVID-19 Assay is an isothermal nucleic acid amplification test intended for the qualitative detection of nucleic acid from SARS-CoV-2 viral RNA in nasopharyngeal (AGILE PROJECT MANAGER) specimens. It is used under Emergency Use [...] indicated. Lab Interpretation Normal (test code = 80329-9) [facility]2019-11-05 15:27:54 Test Item Value Reference Range Interpretation Comments Right (test code = Type B Curve Flat Right) Left (test code = Left) Type C Peak is on Left [facility]2019-11-01 10:43:07 Test Item Value Reference Range Interpretation Comments Right (test code = Type C Peak is on Left Right) [facility]2019-11-01 10:43:07 Test Item Value Reference Range Interpretation Comments Right (test code = Type C Peak is on Left Right) [facility]
[2022-10-27] MEDS ORDERED: ONDANSETRON 4 MG/2 ML VIAL ONE (08:08)
[2022-10-27] MEDS ORDERED: KETOROLAC 30 MG/ML INJ ONE (08:08)
[2022-10-27 08:19] LABS: Absolute Lymphocytes (CBC) 2.4 K/uL (0.7-4.9); Hematocrit 37.6 % (36.0-45.0); Lymphocytes % 40.3 % (15.3-44.8); MCV 86.9 fL (80-100); MPV 8.3 fL (7.6-11.3); RBC Red Blood Cell Count 4.32 M/uL (3.86-4.86)
--- NOTE | 2022-10-27 08:21 | RAD REPORT ---
EXAM DESCRIPTION: CT - Abdomen Pelvis Wo Contrast - 10/27/2022 8:11 am CLINICAL HISTORY: Abdominal pain. ABD PAIN COMPARISON: Abdomen Pelvis Wo Contrast dated 01/14/2022 TECHNIQUE: CT imaging of the abdomen and pelvis was performed without contrast. Solid organ, bowel a nd vascular assessment is limited due to lack of IV and oral contrast. All CT scans are performed using dose optimization technique as appropriate and may include automated exposure control or mA/KV adjustment according to patient size. FINDINGS: The lower lung chandra are clear.Postsurgical changes about the stomach. Cholecystectomy cl ips. The liver, spleen, pancreas, adrenal glands and left kidney are within normal limits for a limited no n-contrast examination. Mild right hydronephrosis and hydroureter is present caused by 2 mm calculus at the right UVJ. No bowel obstruction, free air, free fluid or abscess. The appendix is normal. Cervix appears bulky. The osseous structures are within normal limits. IMPRESSION: 2 mm calculus right UVJ resulting in mild right hydronephrosis. Bulky appearance to the cervix. Suggest correlate with Pap smear if not recently performed. A limited non-contrast examination was performed as detailed.
[2022-10-27 08:27] LABS: Specific Gravity 1.026 (1.005-1.030); Urine Bacteria 20-50 /HPF (<20); Urine Bilirubin NEGATIVE (Negative); Urine Blood Negative (Negative); Urine Clarity Clear (Clear); Urine Color Light-Yellow (Yellow); Urine Glucose NEGATIVE (Negative); Urine Mucus 1+ /HPF (None Seen); Urine Protein NEGATIVE (Negative); Urine RBC <5 /HPF (None Seen); Urine Urobilinogen Normal (Normal); Urine pH 5.5 (5.0-7.0)
[2022-10-27 08:36] LABS: Albumin 3.5 g/dL (3.4-5.0); Bilirubin Total 0.3 mg/dL (0.2-1.0); Potassium 3.7 mEq/L (3.5-5.1); Protein, Total 6.8 g/dL (6.4-8.2)
--- NOTE | 2022-10-27 08:46 | EDPHYS ---
Physician Documentation [facility] Name: Edwina Vasquez Age: 42 yrs Sex: Female : 1980 Arrival Date: 10/27/2022 Time: 07:26 Bed 7 Private MD: Ignacio [facility] ED Physician Shaka Barry HPI: 10/27 10:46 This 42 yrs old Female presents to ER via Ambulatory with complaints of Flank Pain. ms3 10:46 42-year-old female with frequent PVCs, mitral valve prolapse, ulcerative colitis ms3 presents for right flank pain that began 30 minutes prior to arrival. Patient states pain is an 8/10 and sharp. Patient states pain is worse when sitting or coughing.. 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 - Social history:: Smoking status: Patient denies any tobacco usage or history of. ROS: 10:46 Constitutional: Negative for fever, and chills. Neck: Negative for injury, pain, and ms3 swelling, Cardiovascular: Negative for chest pain, and palpitations. Respiratory: Negative for shortness of breath, cough, wheezing, and pleuritic chest pain, Abdomen/GI: Negative for abdominal pain, nausea, vomiting, diarrhea, and constipation, MS/Extremity: Negative for injury and deformity, Skin: Negative for injury, rash, and discoloration. 10:46 Back: Positive for flank pain, on the right. Exam: 10:46 Constitutional: This is a well developed, well nourished patient who is awake, alert, ms3 and in no acute distress. Head/Face: Normocephalic, atraumatic. Neck: Trachea midline, no cervical lymphadenopathy. Supple, full range of motion without nuchal rigidity, or vertebral point tenderness. No Meningismus. Chest/axilla: Normal chest wall appearance and motion. Nontender with no deformity. Cardiovascular: Regular rate and rhythm with a normal S1 and S2. No gallops, murmurs, or rubs. Normal PMI, no JVD. No pulse deficits. Respiratory: Lungs have equal breath sounds bilaterally, clear to auscultation and percussion. No rales, rhonchi or wheezes noted. No increased work of breathing, no retractions or nasal flaring. Abdomen/GI: Soft, non-tender, with normal bowel sounds. No distension or tympany. No guarding or rebound. No evidence of tenderness throughout. 10:46 Skin: Warm, dry with normal turgor. Normal color with no rashes, no lesions, and no evidence of cellulitis. MS/ Extremity: Pulses equal, no cyanosis. Neurovascular intact. Full, normal range of motion. 10:46 Back: pain, that is moderate, CVA tenderness, that is moderate, is noted on the right. Vital Signs: 07:32 BP 120 / 87; Pulse 71; Resp 16; Temp 97.4; Pulse Ox 100% on R/A; Weight 92.08 kg; iw Height 5 ft. 3 in. ; Pain 8/10; 08:44 BP 132 / 82; Pulse 57; Resp 16; Pulse Ox 97% on R/A; Pain 6/10; ss 07:32 Body Mass Index 35.96 (92.08 kg, 160.02 cm) iw 07:32 Pain Scale: Adult iw 08:44 Pain Scale: Adult ss MDM: 07:41 Patient medically screened. ms3 10:46 Differential diagnosis: nephrolithiasis, pyelonephritis, UTI. Data reviewed: vital ms3 signs, nurses notes, lab test result(s), radiologic studies, and as a result, I will discharge patient. I considered the following discharge prescriptions or medication management in the emergency department Medications were administered in the Emergency Department. See MAR. Counseling: I had a detailed discussion with the patient and/or guardian regarding: the historical points, exam findings, and any diagnostic results supporting the discharge/admit diagnosis, lab results, radiology results, the need for outpatient follow up, to return to the emergency department if symptoms worsen or persist or if there are any questions or concerns that arise at home. Response to treatment: the patient's symptoms have markedly improved after treatment, and as a result, I will discharge patient. Special discussion: I discussed with the patient/guardian in detail that at this point there is no indication for admission to the hospital. It is understood, however, that if the symptoms persist or worsen the patient needs to return immediately for re-evaluation. 10/27 07:42 Order name: CBC with Diff; Complete Time: 08:33 ms3 10/27 07:42 Order name: CMP; Complete Time: 08:37 ms3 10/27 07:42 Order name: Urinalysis w/ reflexes; Complete Time: 08:33 ms3 10/27 07:42 Order name: CT Abd/Pelvis - Without Contrast; Complete Time: 08:33 ms3 10/27 07:42 Order name: IV Saline Lock; Complete Time: 07:59 ms3 10/27 07:42 Order name: Labs collected and sent; Complete Time: 07:59 ms3 Administered Medications: 08:05 Drug: TORadol - Ketorolac IVP 15 mg Route: IVP; Site: right antecubital; ss 08:46 Follow up: Response: No adverse reaction; Pain is decreased ss 08:05 Drug: Ondansetron IVP 4 mg Route: IVP; Site: right antecubital; ss 08:46 Follow up: Response: No adverse reaction; Nausea is decreased ss 08:50 Drug: Flomax PO 0.4 mg Route: PO; ss 08:59 Follow up: Response: Medication administered at discharge. ss Disposition Summary: 10/27/22 08:45 Discharge Ordered Location: Home ms3 Condition: Stable ms3 Diagnosis - Kidney stone ms3 Followup: ms3 - With: Kolton Pierre DO - When: 2 - 3 days - Reason: Recheck today's complaints Followup: ms3 - With: Geraldo Parnell MD - When: 2 - 3 days - Reason: Recheck today's complaints Discharge Instructions: - Discharge Summary Sheet ms3 - Kidney Stones ms3 Forms: - Medication Reconciliation Form ms3 - Thank You Letter ms3 - Antibiotic Education ms3 - Prescription Opioid Use ms3 Prescriptions: - tamsulosin 0.4 mg Oral capsule - take 1 capsule by ORAL route every 24 hours; 14 capsule; Refills: 0, Product ms3 Selection Permitted - Hydrocodone-Acetaminophen 5-325 mg Oral Tablet - take 1 tablet by ORAL route every 6 hours As needed; 12 tablet; Refills: 0, ms3 Product Selection Permitted - cefpodoxime 100 mg Oral Tablet - take 1 tablet by ORAL route every 12 hours for 10 days take with food; 20 ms3 tablet; Refills: 0, Product Selection Permitted Signatures: Dispatcher [employer] Nicolette Pina RN RN iw Smirch, Shelby, RN RN ss Sims, Marcus, DO ms3
--- NOTE | 2022-10-27 08:46 | ER ---
Nurse's Notes [facility] Name: Edwina Vasquez Age: 42 yrs Sex: Female : 1980 Arrival Date: 10/27/2022 Time: 07:26 Bed 7 Private MD: Kolton Pierre Diagnosis: Kidney stone Presentation: 10/27 07:31 Chief complaint: Patient states: right flank pain, stabbing pain, hx of kidney stones. iw Coronavirus screen: At this time, the client does not indicate any symptoms associated with coronavirus-19. Ebola Screen: Patient negative for fever greater than or equal to 101.5 degrees Fahrenheit, and additional compatible Ebola Virus Disease symptoms Patient denies exposure to infectious person. Patient denies travel to an Ebola-affected area in the 21 days before illness onset. No symptoms or risks identified at this time. Risk Assessment: Do you want to hurt yourself or someone else? Patient reports no desire to harm self or others. Onset of symptoms was October 27, 2022. 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 - Social history:: Smoking status: Patient denies any tobacco usage or history of. Screenin:06 [facility] ED Fall Risk Assessment (Adult) History of falling in the last 3 months, ss including since admission No falls in past 3 months (0 pts). Abuse screen: Denies threats or abuse. Denies injuries from another. Nutritional screening: No deficits noted. Tuberculosis screening: Never had TB. Assessment: 08:06 General: Appears uncomfortable, Behavior is calm, appropriate for age. Pain: Complains ss of pain in R flank Pain currently is 8 out of 10 on a pain scale. Quality of pain is described as sharp, stabbing, Pain began 1 hour ago. Is continuous. Neuro: Level of Consciousness is awake, alert, obeys commands, Oriented to person, place, time, situation. Respiratory: Airway is patent Respiratory effort is even, unlabored, Respiratory pattern is regular, symmetrical. GI: Reports nausea. : No signs and/or symptoms were reported regarding the genitourinary system. Denies burning with urination, inability to void, urinary frequency. Derm: Skin is intact, is healthy with good turgor, Skin is dry, Skin is pink, warm \T\ dry. normal. 08:07 Reassessment: Pt to CT now. ss 08:14 Reassessment: Pt back from CT now, awaiting results. ss 08:45 Reassessment: Patient and/or family updated on plan of care and expected duration. Pain ss level reassessed. Dr. Barry at bedside discussing follow up/ discharge instructions. Vital Signs: 07:32 BP 120 / 87; Pulse 71; Resp 16; Temp 97.4; Pulse Ox 100% on R/A; Weight 92.08 kg; iw Height 5 ft. 3 in. ; Pain 8/10; 08:44 BP 132 / 82; Pulse 57; Resp 16; Pulse Ox 97% on R/A; Pain 6/10; ss 07:32 Body Mass Index 35.96 (92.08 kg, 160.02 cm) iw 07:32 Pain Scale: Adult iw 08:44 Pain Scale: Adult ss ED Course: 07:27 Patient arrived in ED. am2 07:27 Kolton Pierre DO is Private Physician. am2 07:31 Triage completed. iw 07:37 Shaka Barry DO is Attending Physician. ms3 07:50 Urinalysis w/ reflexes Sent. iw 07:59 Georgina Arora, RN is Primary Nurse. ss 07:59 CBC with Diff Sent. ss 07:59 CMP Sent. ss 08:00 Inserted saline lock: 20 gauge in right antecubital area, using aseptic technique. ss Blood collected. 08:06 Patient has correct armband on for positive identification. Bed in low position. ss 08:12 CT Abd/Pelvis - Without Contrast In Process Unspecified. EDMS 08:44 Kolton Pierre DO is Referral Physician. ms3 08:45 Geraldo Parnell MD is Referral Physician. ms3 08:45 No provider procedures requiring assistance completed. IV discontinued, intact, ss bleeding controlled, No redness/swelling at site. Pressure dressing applied. Administered Medications: 08:05 Drug: TORadol - Ketorolac IVP 15 mg Route: IVP; Site: right antecubital; ss 08:46 Follow up: Response: No adverse reaction; Pain is decreased ss 08:05 Drug: Ondansetron IVP 4 mg Route: IVP; Site: right antecubital; ss 08:46 Follow up: Response: No adverse reaction; Nausea is decreased ss 08:50 Drug: Flomax PO 0.4 mg Route: PO; ss 08:59 Follow up: Response: Medication administered at discharge. ss Medication: 08:06 VIS not applicable for this client. ss Outcome: 08:45 Discharge ordered by . ms3 08:56 Discharged to home ambulatory, with friend. ss 08:56 Condition: good 08:56 Discharge instructions given to patient, friend, Instructed on discharge instructions, follow up and referral plans. medication usage, Demonstrated understanding of instructions, follow-up care, medications, Prescriptions given X 4. 08:59 Patient left the ED. ss Signatures: Dispatcher [employer] EDMS Nicolette Martinez RN RN Georgina Arora RN RN ss Aurora Boo Marcus, DO DO ms3 Corrections: (The following items were deleted from the chart) 08:14 08:14 Reassessment: Pt back from CT now ss ss
[2022-10-27] MEDS ORDERED: TAMSULOSIN 0.4 MG SR CAP ONE (08:55)
[2022-10-27 09:03] VITALS: TEMP 97.4
[2022-10-27 09:05] VITALS: BP 132/82; O2SAT 97
== END 2022-10-27 08:59 | disposition home or self-care (01) ==
LOC: ER 07:26
DX: N20.0 Calculus of kidney (principal)
CPT/HCPCS: 85025; 81001; 36415; 80053; 74176; 96375; 96374; 99284; J2405

== ENCOUNTER 2023-11-16 12:25 | Emergency (ER) | payer BC, OTHER ==
[2023-11-16 13:23] LABS: Specific Gravity 1.028 (1.005-1.030); Urine Bacteria <20 /HPF (<20); Urine Bilirubin NEGATIVE (Negative); Urine Blood Negative (Negative); Urine Clarity Extremely Turbid (Clear); Urine Color Yellow (Yellow); Urine Culture Reflex Order NOT NEEDED; Urine Glucose NEGATIVE (Negative); Urine Ketones NEGATIVE (Negative); Urine Microscopic Reflex YN ORDER UMIC; Urine Mucus 4+ /HPF (None Seen); Urine Nitrite NEGATIVE (Negative); Urine Protein TRACE (Negative); Urine RBC <5 /HPF (None Seen); Urine Urobilinogen Normal (Normal); Urine WBC <5 /HPF (<5); Urine Yeast (Budding) Trace /HPF (None Seen); Urine pH 5.5 (5.0-7.0)
[2023-11-16] MEDS ORDERED: NA CHLORIDE 0.9% 1,000 ML ONE (13:33)
[2023-11-16 13:51] LABS: Albumin 3.1 g/dL (3.4-5.0); Anion Gap 5.5 mEq/L (5.0-15.0); Bilirubin Total 0.5 mg/dL (0.2-1.0); Globulin 3.2 g/dL (2.3-3.5); Potassium 3.5 mEq/L (3.5-5.1); Protein, Total 6.3 g/dL (6.4-8.2)
--- NOTE | 2023-11-16 14:42 | RAD REPORT ---
EXAM DESCRIPTION: CT - Abdomen Pelvis W Contrast - 11/16/2023 2:03 pm CLINICAL HISTORY: Abdominal pain/diarrhea COMPARISON: 2022 TECHNIQUE: Computed axial tomography of the abdomen pelvis was obtained. 100 cc Isovue-300 was admin istered intravenously. Oral contrast was not requested which limits evaluation of bowel and appendix All CT scans are performed using dose optimization technique as appropriate and may include automated exposure control or mA/KV adjustment according to patient size. FINDINGS: Cholecystectomy. Postsurgical changes involve stomach. The liver, spleen, pancreas and adrenals are unremarkable. Mild right renal cortical thinning perhaps secondary to prior inflammation. No hydronephrosis. Moderate dilatation left renal pelvis unchanged. UPJ calculus is not seen. Normal appendix. No evidence diverticulitis. No adnexal mass. IUD within uterus. Prominence of the endometrium IMPRESSION: Moderate dilatation left renal pelvis unchanged may be secondary to a UPJ stricture. Prominence of the endometrium may be normal if the patient is premenopausal. If the patient is postme nopausal this may be pathologic.
--- NOTE | 2023-11-16 14:54 | EDPHYS ---
Physician Documentation [facility] Name: Edwina Vasquez Age: 43 yrs Sex: Female : 1980 Arrival Date: 11/16/2023 Time: 12:25 Bed 9 Private MD: ED Physician Waldo Posey HPI: 11/15 14:49 This 43 yrs old Female presents to ER via Ambulatory with complaints of Abdominal Pain, rn Diarrhea. 14:49 The patient presents to the emergency department with nausea, diarrhea, abdominal pain. rn Onset: The symptoms/episode began/occurred 1 week(s) ago. Possible causes: unknown. The symptoms are aggravated by nothing. The symptoms are alleviated by nothing. Associated signs and symptoms: Pertinent positives: abdominal pain, diarrhea, nausea, vomiting, Pertinent negatives: fever, GI bleeding. Severity of symptoms: At their worst the symptoms were moderate in the emergency department the symptoms have improved. The patient has not experienced similar symptoms in the past. Patient reports 1 week of nausea and diarrhea with abdominal pain. Seen in outside hospital 1 week ago when it began, diagnosed with enterocolitis, placed on antibiotics and given steroids. States still having diarrhea although symptoms have generally improved. No fever. No blood in stool. Confused as to why she still has diarrhea a week after the illness began.. Historical: - Allergies: 12:41 Morphine; ll1 - PMHx: 12:41 frequent PVCs; mitral valve prolapse; IBS (ulcerative colitis); ll1 - PSHx: 12:41 gastric sleeve; Cholecystectomy; ablation; Ligation of fallopian tube; gastric bypass ll1 for GERD (Ligation of fallopian tube); - Immunization history:: Adult Immunizations up to date. - Infectious Disease History:: Denies. - Social history:: Smoking status: Patient denies any tobacco usage or history of. - Family history:: not pertinent. - Hospitalizations: : No recent hospitalization is reported. ROS: 14:49 Constitutional: Negative for fever, chills, and weight loss, Cardiovascular: Negative rn for chest pain, palpitations, and edema, Respiratory: Negative for shortness of breath, cough, wheezing, and pleuritic chest pain, Abdomen/GI: Positive for abdominal pain with nausea and diarrhea Back: Negative for injury and pain, : Negative for injury, bleeding, discharge, and swelling, MS/Extremity: Negative for injury and deformity, Neuro: Positive for generalized weakness and malaise Exam: 14:49 Constitutional: This is a well developed, well nourished patient who is awake, alert, rn and in no acute distress. Cardiovascular: Regular rate and rhythm. No pulse deficits. Respiratory: No increased work of breathing, no retractions or nasal flaring. Abdomen/GI: Soft, nontender, no distention Neuro: Awake and alert, GCS 15 Vital Signs: 12:42 BP 110 / 80; Pulse 85; Resp 16; Temp 98.3; Pulse Ox 100% ; Weight 85.73 kg; Height 5 ll1 ft. 3 in. ; Pain 7/10; 12:42 Body Mass Index 33.48 (85.73 kg, 160.02 cm) ll1 12:42 Pain Scale: Adult ll1 MDM: 12:37 Patient medically screened. rn 14:52 Differential diagnosis: Nonspecific abd pain, appendicitis, diverticulitis, viral rn gastroenteritis, gastroenteritis. Data reviewed: vital signs, nurses notes, lab test result(s), radiologic studies, CT scan, and as a result, I will discharge patient. Counseling: I had a detailed discussion with the patient and/or guardian regarding the historical points, exam findings, and any diagnostic results supporting the discharge/admit diagnosis, radiology results, the need for outpatient follow up, to return to the emergency department if symptoms worsen or persist or if there are any questions or concerns that arise at home. Special discussion: I discussed with the patient/guardian in detail that at this point there is no indication for admission to the hospital. It is understood, however, that if the symptoms persist or worsen the patient needs to return immediately for re-evaluation. ED course: CT without acute findings today. Compared to results from other hospital on patient's MyChart, shows improvement as last CT showed enterocolitis and today it does not. Labs consistent with fatty liver disease, has already had cholecystectomy in the past. I have personally reviewed all of the results, including but not limited to blood tests and imaging deemed necessary to safely discharge this patient at this time. All results given to and printed out for patient. I personally went over all the results with the patient and answered all questions. Patient will follow-up with PCP and or specialist as discussed. Return precautions given and understood.. 11/15 12:53 Order name: CBC with Diff ll1 11/15 12:53 Order name: CMP; Complete Time: 14:44 [facility] 11/15 12:53 Order name: Lipase; Complete Time: 14:44 [facility] 11/15 12:53 Order name: Urinalysis w/ reflexes; Complete Time: 14:44 [facility] 11/15 12:53 Order name: CT Abd/Pelvis - IV Contrast Only; Complete Time: 14:44 [facility] 11/15 12:53 Order name: IV Saline Lock; Complete Time: 13:31 11/15 12:53 Order name: Labs collected and sent; Complete Time: 13:31 Administered Medications: 13:37 Drug: NS 0.9% IV 1000 ml IV at 1 bolus Per protocol; 1000 mL bolus Route: IV; Rate: 1 ap3 bolus; Site: left antecubital; 14:30 Follow up: IV Status: Completed infusion iw Disposition Summary: 11/16/23 14:53 Discharge Ordered Notes: Location: Home rn Problem: new rn Symptoms: have improved rn Condition: Stable rn Diagnosis - Diarrhea, unspecified rn Followup: rn - With: Private Physician - When: As needed - Reason: Recheck today's complaints, Re-evaluation by your physician Discharge Instructions: - Discharge Summary Sheet rn - Diarrhea, Adult rn Forms: - Medication Reconciliation Form rn - Antibiotic internship - Prescription Opioid Use rn - Patient Portal Instructions rn - Leadership Thank You Letter rn Signatures: Dispatcher [employer] EDMS Waldo Posey MD MD rn Prokisch, Amanda, RN RN [email or web address] Papito Faulkner RN RN [email or web address] Nicolette Martinez RN iw Corrections: (The following items were deleted from the chart) 12:42 12:41 PMHx: ulcerative colitis; ll1 1 12:53 12:53 CBC+H.LAB.BRZ ordered. EDMS EDMS 12:53 12:53 COMPREHENSIVE METABOLIC PANEL+C.LAB.BRZ ordered. EDMS EDMS 12:53 12:53 LIPASE+C.LAB.BRZ ordered. EDMS EDMS 12:53 12:53 Urinalysis+U.LAB.BRZ ordered. EDMS EDMS
--- NOTE | 2023-11-16 14:54 | ER ---
Nurse's Notes [facility] Name: Edwina Vasquez Age: 43 yrs Sex: Female : 1980 Arrival Date: 11/16/2023 Time: 12:25 Bed 9 Private MD: Diagnosis: Diarrhea, unspecified Presentation: 11/15 12:42 Chief complaint: Patient states: Abdominal pain with diarrhea since Wednesday. ll1 Diagnosed with colon infection on Keflex and Flagyl, not getting better yet. Coronavirus screen: Client denies travel out of the [place] in the last 14 days. At this time, the client does not indicate any symptoms associated with coronavirus-19. Ebola Screen: Patient denies travel to an Ebola-affected area in the 21 days before illness onset. Initial Sepsis Screen: Does the patient meet any 2 criteria? No. Patient's initial sepsis screen is negative. Does the patient have a suspected source of infection? No. Patient's initial sepsis screen is negative. Risk Assessment: Do you want to hurt yourself or someone else? Patient reports no desire to harm self or others. Onset of symptoms was November 10, 2023. 12:42 Method Of Arrival: Ambulatory ll1 12:42 Acuity: EDWIN 3 ll1 Historical: - Allergies: 12:41 Morphine; ll1 - PMHx: 12:41 frequent PVCs; mitral valve prolapse; IBS (ulcerative colitis); ll1 - PSHx: 12:41 gastric sleeve; Cholecystectomy; ablation; Ligation of fallopian tube; gastric bypass ll1 for GERD (Ligation of fallopian tube); - Immunization history:: Adult Immunizations up to date. - Infectious Disease History:: Denies. - Social history:: Smoking status: Patient denies any tobacco usage or history of. - Family history:: not pertinent. - Hospitalizations: : No recent hospitalization is reported. Screenin:31 [facility] ED Fall Risk Assessment (Adult) History of falling in the last 3 months, ap3 including since admission No falls in past 3 months (0 pts) Confusion or Disorientation No (0 pts) Intoxicated or Sedated No (0 pts) Impaired Gait No (0 pts) Mobility Assist Device Used No (0 pt) Altered Elimination No (0 pt) Score/Fall Risk Level 0 - 2 = Low Risk Oriented to surroundings, Maintained a safe environment, Educated pt \T\ family on fall prevention, incl call for assistance when getting out of bed, Assessed \T\ reinforced patient's understanding of fall precautions, Provided non-skid footwear, Hourly rounding (assess needs \T\ fall precautionary measures) done, Used ambulatory aids as needed (educated on \T\ assisted with), Used gait belt as appropriate. Abuse screen: Denies threats or abuse. Nutritional screening: No deficits noted. Tuberculosis screening: No symptoms or risk factors identified. Assessment: 15:16 Reassessment: Patient appears in no apparent distress at this time. Patient and/or iw family updated on plan of care and expected duration. Pain level reassessed. Patient is alert, oriented x 3, equal unlabored respirations, skin warm/dry/pink. Vital Signs: 12:42 BP 110 / 80; Pulse 85; Resp 16; Temp 98.3; Pulse Ox 100% ; Weight 85.73 kg; Height 5 ll1 ft. 3 in. ; Pain 7/10; 12:42 Body Mass Index 33.48 (85.73 kg, 160.02 cm) ll1 12:42 Pain Scale: Adult ll1 ED Course: 12:29 Patient arrived in ED. im 12:37 Waldo Posey MD is Attending Physician. rn 12:45 Triage completed. ll1 12:45 Arm band placed on. ll1 13:06 Urine collected: clean catch specimen, ind[place] colored. ap3 13:31 Initial lab(s) drawn, by nm, sent to lab. Inserted saline lock: 20 gauge in left ap3 antecubital area, using aseptic technique. Blood collected. 13:31 CBC with Diff Sent. ap3 13:31 CMP Sent. ap3 13:31 Lipase Sent. ap3 13:44 Patient placed in an exam room, on a stretcher. ap3 14:05 CT Abd/Pelvis - IV Contrast Only In Process Unspecified. EDMS 14:34 Nicolette Martinez, RN is Primary Nurse. iw Administered Medications: 13:37 Drug: NS 0.9% IV 1000 ml IV at 1 bolus Per protocol; 1000 mL bolus Route: IV; Rate: 1 ap3 bolus; Site: left antecubital; 14:30 Follow up: IV Status: Completed infusion iw Outcome: 14:53 Discharge ordered by . rn 15:26 Patient left the ED. iw Signatures: Dispatcher [employer] EDMS Juan, Nicolette, RN RN Waldo Johnson MD MD rn Prokisch, Amanda, RN RN ap3 Papito Faulkner RN RN ll1 Carleen Christianson Corrections: (The following items were deleted from the chart) 12:42 12:41 PMHx: ulcerative colitis; ll1 ll1
[2023-11-16 15:44] VITALS: BP 110/80; TEMP 98.3; O2SAT 100
[2023-11-16 15:51] LABS: Absolute Eosinophils 0.1 K/uL (0-0.5); Absolute Lymphocytes (CBC) 3.6 K/uL (0.7-4.9); Absolute Monocytes 0.4 K/uL (0.1-1.3); Absolute Neutrophil 1.7 K/uL (1.8-8.0); Basophils % 0.3 % (0-1.3); Hematocrit 39.9 % (36.0-45.0); Lymphocytes % 62.6 % (15.3-44.8); MCH 27.6 pg (27.0-35.0); MCHC 32.6 g/dL (32.0-36.0); MCV 84.9 fL (80-100); MPV 8.6 fL (7.6-11.3); Monocytes % 6.1 % (3.3-12.3); Nucleated Red Blood Cells % 0.2 % (0-0); Platelets 184 thou/uL (152-406); Red Cell Distribution Width 14.2 % (12.1-15.2)
[2023-11-16 16:50] LABS: Atypical Lymphocytes 33 %; Differential Total Cells Count 100; Eosinophils 1 % (0-3); Lymphocytes 28 % (15-42); Monocytes 4 % (0-10); Segmented Neutrophils 34 % (40-80)
[2023-11-16 16:54] LABS: Blood Morphology Comment NOT SEEN (NOT SEEN); Platelet Estimate ADEQ
== END 2023-11-16 15:26 | disposition home or self-care (01) ==
LOC: ER 12:25
DX: R19.7 Diarrhea, unspecified (principal); Z98.84 Bariatric surgery status; Z88.5 Allergy status to narcotic agent
CPT/HCPCS: 85025; 81001; 36415; 83690; 80053; 74177; 96360; 99284; Q9967; J7030

== ENCOUNTER 2023-12-14 07:45 | Day surgery (SDC) | payer BC ==
[2023-12-10 13:07] LABS: Absolute Eosinophils 0.2 K/uL (0-0.5); Absolute Lymphocytes (CBC) 2.9 K/uL (0.7-4.9); Absolute Monocytes 0.4 K/uL (0.1-1.3); Absolute Neutrophil 2.2 K/uL (1.8-8.0); Basophils % 0.3 % (0-1.3); Eosinophils % 3.4 % (0-4.4); Hematocrit 35.4 % (36.0-45.0); Hemoglobin 11.6 g/dL (12.0-15.0); MCH 28.1 pg (27.0-35.0); MCHC 32.7 g/dL (32.0-36.0); Monocytes % 6.1 % (3.3-12.3); Neutrophils % 39.2 % (41.7-73.7); Nucleated Red Blood Cells % 0.4 % (0-0); Platelets 170 thou/uL (152-406); RBC Red Blood Cell Count 4.11 M/uL (3.86-4.86); Red Cell Distribution Width 15.1 % (12.1-15.2)
[2023-12-10 13:13] LABS: PT Prothrombin Time 11.9 SECONDS (9.4-12.5); Protime INR 1.08
[2023-12-10 13:20] LABS: Anion Gap 5.6 mEq/L (5.0-15.0); Potassium 3.6 mEq/L (3.5-5.1)
--- NOTE | 2023-12-12 13:32 | EKG ---
Test Date: 2023-12-10 Test Time: 12:38:24 Getterer: MEASUREMENT RESULTS: Intervals: Rate: 51 MD: 116 QRSD: 80 QT: 428 QTc: 394 Alexander: P: 42 MD: 116 QRS: 98 T: 74 INTERPRETIVE STATEMENTS: Sinus bradycardia Rightward axis Low voltage QRS Borderline ECG Compared to ECG 07/23/2022 14:09:53 Right-axis deviation now present Sinus rhythm no longer present Electronically Signed On 12-12-23 13:28:01 CDT by Mor Dyson
[2023-12-14] MEDS: Ringers Lactate 1,000 ML IV ONE (08:15)
[2023-12-14] MEDS ORDERED: MIDAZOLAM HCL 2 MG/2 ML INJ ONE (08:49)
[2023-12-14] MEDS ORDERED: FENTANYL CITR 100 MCG/2 ML ONE ×2 (08:49→09:43)
[2023-12-14] MEDS ORDERED: propofoL 200 MG/20 ML VIAL IV ONE (08:49)
[2023-12-14] MEDS ORDERED: LIDOCAINE 1% MPF 5 ML VIAL ONE (08:49)
[2023-12-14] MEDS ORDERED: CEFAZOLIN SODIUM 2 GM/VIAL ONE (09:24)
[2023-12-14] MEDS ORDERED: GLYCOPYRROLATE 0.2 MG/ML SYR ONE (09:42)
[2023-12-14] MEDS: CEFAZOLIN SODIUM 2 GM/VIAL IVPB ONE (09:42)
[2023-12-14] MEDS ORDERED: dexAMETHasone 10 MG/ML VIAL ONE (09:44)
[2023-12-14] MEDS ORDERED: ONDANSETRON 4 MG/2 ML VIAL ONE ×2 (09:44→10:50)
[2023-12-14] MEDS ORDERED: TRAMADOL 37.5mg/APAP 325mg PER TAB PO ONE (11:01)
[2023-12-14] MEDS ORDERED: PHENAZOPYRIDINE 100MG TAB PO ONE (11:14)
[2023-12-14] MEDS: PHENAZOPYRIDINE 100MG TAB PO ONE (11:15)
[2023-12-14] MEDS ORDERED: HYDROCODONE/APAP 5/325 MG TAB ONE (11:35)
[2023-12-14] MEDS: HYDROCODONE/APAP 5/325 MG TAB PO PRN (11:37)
[2023-12-14 12:09] VITALS: BP 125/71; TEMP 97.4; O2SAT 98
--- NOTE | 2023-12-14 13:40 | RAD REPORT ---
EXAM DESCRIPTION: RAD - Urethrocystogrphy Retrograde - 12/14/2023 12:05 pm CLINICAL HISTORY: LEFT STENT REPLACMENT COMPARISON: None available. FINDINGS: Twenty-seven Images were sent to PACS, documenting fluoroscopy use during an image guided left ureteral stent replacement procedure. No radiologist was available for the procedure, nor will a ny image interpretation he provided. Please refer to the procedural report for additional details. Fluoroscopy time: 0.53 Minutes. IMPRESSION: Documentation of fluoroscopy utilization as above.
--- NOTE | 2023-12-14 19:58 | OP ---
Surgeon: ROSHAN JERONIMO Preoperative Diagnoses: 1.Left ureteropelvic junction obstruction. 2.Status post left ureteral stent placement. 3.Recurrent nephrolithiasis. Postoperative Diagnoses: 1.Left ureteropelvic junction obstruction. 2.Dilated ureteropelvic junction stricture disease. 3.Recurrent nephrolithiasis. 4.Status post left ureteral stent placement. Principal Procedures: 1.Cystoscopy. 2.Left retrograde pyelography. 3.Left ureteral dilatation to 14-C[place] Rican. 4.Left ureteral stent exchange with 7-C[place]ican stent. Indication For Procedure: Ms. Vasquez presented to the Urology Clinic with flank pain that was persis tent and had been evaluated on multiple occasions at different emergency department before. It was n oted that she had a degree of hydronephrosis with some transition point observed at the left UPJ. Roseann corey underwent placement of a left ureteral stent and had a difficult time with that initially with sign ificant pain despite absence of infection demonstrated on cultures, but the pain seemed to resolve wi th aggressive antimicrobial therapy with cefpodoxime. She presents today in followup for investigati on of the source of the obstruction. Procedure In Detail: The patient was consented in the preoperative holding area before being transfe rred to the operative suite where general anesthesia was induced. She was given Ancef 2 g IV antimic robial prophylaxis, and pneumo boots were provided for DVT prophylaxis. She was placed in lithotomy position, padded and secured to the table appropriately, and her genitalia was prepped with Hibiclens before being draped in standard fashion. The case was begun using a 22-[place]ican rigid cystoscope to t raverse the urethra and into the bladder with ease. The bladder was decompressed of fluid and urine and refilled with sterile saline. The stent was emanating from the left ureteral orifice and was mil o-fl-exatduugwi calcified. Despite the short time frame, it has been in place. Thus, I utilized an alligator grasper and grasped the tip of the coil of the stent and delivered the tip of the stent to the meatus leaving the proximal end of the stent within the renal pelvis putatively. I then passed a Sensor wire via the stent coiling it within the collecting system as evidenced fluoroscopically. I then reinserted the cystoscope alongside the safety wire, which was left in place after removing the stent, and I placed a 5-[place]ican ureteral access catheter and injected contrast. Left retrograde pyelography: Using a 70:30 mixture of Omnipaque and saline, contrast was injected vi a the lumen of the 5-C[place]ican ureteral access catheter and did propagate up the distal into the mid and proximal ureter before entering the renal pelvis without any observed region of stenosis or obstruct ion. The wire was in appropriate position coiled within the renal pelvis. As a result, I initially performed direct vision semi-rigid ureteroscopy using pressurized saline. I advanced the semi-rigid ureteroscope up the distal ureter beyond a point of spasm/narrowing at the level of the iliac vessels before entering the mid and ultimately up to the proximal ureter. I was not able to visualize all t he way to the ureteropelvic junction; so I placed a Bentson guidewire via the ureteroscope under dire ct vision up the proximal ureter and coiling it within the renal pelvis as observed fluoroscopically. I removed the semi-rigid ureteroscope, leaving the wire in place and then back-loaded the flexible ureteroscope over that Bentson wire into the collecting system. I surveyed [facility] in detail confirming fluoroscopically. I had seen each of the calices present. Only nadine e stent calcification dust was present, but no significant calculi. As a result, I surveyed through the renal pelvis down into the proximal ureter and the UPJ. I observed at that location an area of t he proximal ureter at the UPJ that did appear to be slightly irregular relative to the appearance of the mucosa, potentially consistent with stricture disease that had been dilated with the presence of the previously placed 6-C[place]ican ureteral stent. I surveyed down into the mid ureter and ultimately in to the distal ureter for any additional signs of stricture disease or obstruction, and with none note d, I removed the flexible ureteroscope. I then placed the cystoscope back into her bladder and used a 5-[place] ureteral access catheter to pl jet the Bentson guidewire back into the collecting system via the 5-[place] ureteral access catheter. Over that Bentson guidewire, I then utilized a 12 x 14-C[place]ican ureteral access sheath placed into the renal pelvis in order to dilate the totality of the ureter and across the point of obstruction at th e UPJ. I allowed it to remain in place and dilate for several minutes, approximately 4 to 5 minutes in total, before removing the ureteral access sheath. I then back-loaded the cystoscope over the ind welling safety Sensor wire and passed a 7-[place]ican x 26 cm double-J ureteral stent with a coil observed fluoroscopically in the renal pelvis and 1 cystoscopically formed in her bladder. I then decompress ed her bladder of fluid and urine and removed the cystoscope. The patient was then taken out of the lithotomy position before being awakened from general anesthesia, transferred to a stretcher, and the n transferred to the recovery room in good condition. Complications: None. Discharge Disposition: Since an area of dilated stricture disease was observed at the left UPJ, she would likely benefit from keeping the 7-[place]ican stent for approximately 2 weeks minimum, up to 4 to 6 weeks, depending on how well she tolerates the stent. Given her propensity for UTI, at least 1 week prior to the planned stent extraction, a culture should be obtained in the clinic to avoid delay in b eing able to perform cystoscopy and left ureteral stent extraction in the office. Thereafter, she wi ll benefit from metabolic stone profile assessment via Litholink x2, which would be obtained about 1 month after the stent is removed given her recurrent stone forming potential. Subsequent evaluation with a renal ultrasound to assess for recurrence of hydronephrosis may be performed at approximately 2 to 3 months after the stent is removed WR/MODL Voice ID: [id number] Report ID: [id number]
== END 2023-12-14 11:58 | disposition home or self-care (01) ==
LOC: OR 07:45
PROVIDERS: ATTEND Urology
PROC: 0T778DZ Dilation of Left Ureter with Intraluminal Device, Via Natural or Artificial Opening Endoscopic (ICD-10-PCS; principal; 2023-12-14 09:15)
DX: N13.5 Crossing vessel and stricture of ureter without hydronephrosis (principal); R10.9 Unspecified abdominal pain; N20.0 Calculus of kidney
CPT/HCPCS: 52341; 52332; 93005; 87088; 85025; 87086; 80048; 36415; 85610; 74450; 51610; J2704; J2001; J2250; J3010 ×2; J1100; J2405 ×2; J7120

== ENCOUNTER 2023-12-16 07:32 | Observation (INO) | payer BC ==
[2023-12-16] MEDS ORDERED: ONDANSETRON 4 MG/2 ML VIAL ONE ×2 (07:53→11:10)
[2023-12-16] MEDS ORDERED: NA CHLORIDE 0.9% 1,000 ML ONE (07:54)
[2023-12-16 08:22] LABS: Absolute Eosinophils 0.1 K/uL (0-0.5); Absolute Lymphocytes (CBC) 2.7 K/uL (0.7-4.9); Absolute Monocytes 0.4 K/uL (0.1-1.3); Absolute Neutrophil 3.6 K/uL (1.8-8.0); Basophils % 0.3 % (0-1.3); Eosinophils % 1.8 % (0-4.4); Hematocrit 36.6 % (36.0-45.0); Lymphocytes % 39.4 % (15.3-44.8); MCH 28.2 pg (27.0-35.0); MCHC 32.7 g/dL (32.0-36.0); MCV 86.3 fL (80-100); MPV 8.2 fL (7.6-11.3); Neutrophils % 52.5 % (41.7-73.7); Nucleated Red Blood Cells % 0.2 % (0-0); Platelets 183 thou/uL (152-406); RBC Red Blood Cell Count 4.25 M/uL (3.86-4.86); Red Cell Distribution Width 15.3 % (12.1-15.2)
[2023-12-16 08:24] LABS: Specific Gravity 1.025 (1.005-1.030)
[2023-12-16 08:30] LABS: PT Prothrombin Time 11.8 SECONDS (9.4-12.5); PTT, Activated Partial Thromb 36.5 SECONDS (24.3-36.9); Protime INR 1.07
[2023-12-16 08:38] LABS: Specific Gravity 1.025 (1.005-1.030); Sqamous Epithelial <5 /HPF (None Seen); Urine Bacteria 20-50 /HPF (<20); Urine Bilirubin NEGATIVE (Negative); Urine Blood 3+ (OVER) (Negative); Urine Clarity Extremely Turbid (Clear); Urine Color Light-Orange (Yellow); Urine Culture Reflex Order REFLEXED; Urine Glucose NEGATIVE (Negative); Urine Ketones NEGATIVE (Negative); Urine Microscopic Reflex YN ORDER UMIC; Urine Mucus 4+ /HPF (None Seen); Urine Nitrite NEGATIVE (Negative); Urine Protein 3+ (Negative); Urine RBC >50 /HPF (None Seen); Urine Urobilinogen Normal (Normal); Urine WBC 20-50 /HPF (<5); Urine Yeast (Budding) Trace /HPF (None Seen)
[2023-12-16] MEDS ORDERED: KETOROLAC 30 MG/ML INJ ONE (09:05)
[2023-12-16] MEDS ORDERED: HYDROCODONE/APAP 5/325 MG TAB ONE (09:05)
[2023-12-16] MEDS ORDERED: CEFTRIAXONE 1000 MG/VIAL ONE (09:05)
[2023-12-16] MEDS ORDERED: NA CHLORIDE 0.9% 100 ML ONE (09:06)
--- NOTE | 2023-12-16 09:11 | RAD REPORT ---
EXAM DESCRIPTION: CT - Abdomen Pelvis W/Wo Contrast - 12/16/2023 8:43 am CLINICAL HISTORY: HYDRONEPHROSIS Flank pain COMPARISON: Abdomen Pelvis Wo Contrast dated 11/24/2023 TECHNIQUE: Axial non-contrast CT imaging was performed. Following this, multiphasic contrast enhance d imaging through the abdomen and pelvis was performed with coronal and sagittal reformatted images. All CT scans are performed using dose optimization technique as appropriate and may include automated exposure control or mA/KV adjustment according to patient size. FINDINGS: The lower lung chandra are clear. Postsurgical changes are noted of gastric sleeve. Cholecy stectomy clips. Mild fatty liver pattern is seen. The spleen, pancreas, adrenal glands are normal. A left double-J stent is in place. The proximal and distal aspects of the stent are in expected posit ioning and alignment. Vnpm-[id number]-[id number] left-sided hydronephrosis is present. There is a small amount of air seen in the superior calyx left kidney. The post-contrast portion of the examination fails to show a concerning renal mass or perinephric abn ormality. Symmetric excretion contrast by both kidneys noted on the delayed sequence. Urinary bladder is grossly unremarkable. No bowel obstruction, free fluid or abscess. IUD is present in the uterus. No fracture or aggressive marrow process is seen. IMPRESSION: A left double-J stent is noted in expected positioning. There is [id number] left-s ided hydronephrosis present. The degree of hydronephrosis does not appear significantly changed since 11/24/2023. There is a small amount of air seen in the superior calyx of the left kidney on today's study which c ould indicate urinary tract infection. Correlation with urinalysis may be helpful. Mild fatty liver.
[2023-12-16 13:23] LABS: Albumin 2.6 g/dL (3.4-5.0); Anion Gap 3.3 mEq/L (5.0-15.0); Bilirubin Total 0.2 mg/dL (0.2-1.0); Globulin 2.7 g/dL (2.3-3.5); Potassium 3.3 mEq/L (3.5-5.1); Protein, Total 5.3 g/dL (6.4-8.2)
--- NOTE | 2023-12-16 14:54 | EDPHYS ---
Physician Documentation [facility] Name: Edwina Vasquez Age: 43 yrs Sex: Female : 1980 Arrival Date: 12/16/2023 Time: 07:32 Bed 13 Private MD: ED Physician Natalya Cadena HPI: 12/15 14:53 This 43 yrs old Female presents to ER via Ambulatory with complaints of Sent By Dr shari Parnell, Post Surgical Pain. 14:53 43-year-old female with history of a recent ureteral stent placed by Dr. Parnell on gb1 Wednesday fevers but she states that she has had chills at home. She is nauseated with no vomiting, patient presents with left flank pain. She has been taking Keflex as well. . 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 - Infectious Disease History:: Denies. - Social history:: Smoking status: Patient denies any tobacco usage or history of. Exam: 14:53 Constitutional: This is a well developed, well nourished patient who is awake, alert, gb1 and in no acute distress. Head/Face: Normocephalic, atraumatic. Eyes: Pupils equal round and reactive to light, extra-ocular motions intact. Lids and lashes normal. Conjunctiva and sclera are non-icteric and not injected. Cornea within normal limits. Periorbital areas with no swelling, redness, or edema. ENT: Nares patent. No nasal discharge, no septal abnormalities noted. Tympanic membranes are normal and external auditory canals are clear. Oropharynx with no redness, swelling, or masses, exudates, or evidence of obstruction, uvula midline. Mucous membranes moist. Neck: Trachea midline, no thyromegaly or masses palpated, and no cervical lymphadenopathy. Supple, full range of motion without nuchal rigidity, or vertebral point tenderness. No Meningismus. Chest/axilla: Normal chest wall appearance and motion. Nontender with no deformity. No lesions are appreciated. Cardiovascular: Regular rate and rhythm with a normal S1 and S2. No gallops, murmurs, or rubs. Normal PMI, no JVD. No pulse deficits. Respiratory: Lungs have equal breath sounds bilaterally, clear to auscultation and percussion. No rales, rhonchi or wheezes noted. No increased work of breathing, no retractions or nasal flaring. Back: No spinal tenderness. Left costovertebral tenderness. Full range of motion. Vital Signs: 07:37 BP 120 / 82; Pulse 58; Resp 16 S; Pulse Ox 99% on R/A; Weight 85.73 kg (R); Height 5 aa5 ft. 3 in. (R); 10:17 BP 132 / 78; Pulse 57; Resp 16; Temp 98.2(O); Pulse Ox 100% on R/A; mb9 12:17 BP 122 / 75; Pulse 59; Resp 18; Pulse Ox 100% ; mb9 13:43 BP 120 / 80; Pulse 59; Resp 16; Pulse Ox 100% on R/A; aa5 07:37 Body Mass Index 33.48 (85.73 kg, 160.02 cm) aa5 MDM: 07:37 Patient medically screened. gb1 14:53 Data reviewed: vital signs, nurses notes. ED course: 40-year-old female status post gb1 left ureteral stent placement on Wednesday, here with a UTI and subjective chills at home. Patient is afebrile otherwise well-appearing the stent does not appear that is migrated on CT scan of the abdomen pelvis. Patient does have residual hydronephrosis however that is unchanged. Patient is been seen in the ER by Dr. Parnell and I started IV Rocephin with urine culture pending. Patient admitted by Dr. Jeff to the hospitalist service and Dr. Parnell will follow closely. Concern for early acute pyelonephritis versus questionable stone sediment infection.. 12/15 07:50 Order name: Blood Culture Adult (2) gb1 27 07:50 Order name: CBC with Diff; Complete Time: 09:03 12/15 07:50 Order name: CMP; Complete Time: 13:27 12/15 07:50 Order name: Lactate w/ 2H reflex if indic.; Complete Time: 09:03 12/15 07:50 Order name: Protime (+inr); Complete Time: 09:03 12/15 07:50 Order name: Ptt, Activated; Complete Time: 09:03 12/15 07:50 Order name: Test, Urine; Complete Time: 09:03 12/15 07:50 Order name: Urinalysis w/ reflexes; Complete Time: 09:03 12/15 07:50 Order name: Urine Culture 12/15 07:50 Order name: CT Abd/Pelvis- W/WO Contrast; Complete Time: 09:15 12/15 07:50 Order name: EKG; Complete Time: 07:51 12/15 07:50 Order name: Accucheck; Complete Time: 07:50 12/15 07:50 Order name: Cardiac monitoring; Complete Time: 07:50 12/15 07:50 Order name: EKG - Nurse/Tech; Complete Time: 08:16 12/15 07:50 Order name: IV Saline Lock - Large Bore; Complete Time: 08:16 12/15 07:50 Order name: Labs collected and sent; Complete Time: 08:16 12/15 07:50 Order name: O2 Per Protocol; Complete Time: 07:50 12/15 07:50 Order name: O2 Sat Monitoring; Complete Time: 07:51 12/15 07:50 Order name: Vital Signs; Complete Time: 07:51 12/15 12:45 Order name: Labs - recollect needed: Chemistry; Complete Time: 12:48 cm10 Administered Medications: 08:15 Drug: Ondansetron IVP 4 mg IVP once; over 2 minutes Route: IVP; Site: right antecubital;mb9 09:37 Follow up: Response: No adverse reaction 9 08:15 Drug: NS 0.9% IV 1000 ml IV at 1000 ml once Route: IV; Rate: 1000 ml; Site: right mb9 antecubital; 09:37 Follow up: IV Status: Completed infusion mb9 09:37 Follow up: Response: No adverse reaction; IV Status: Completed infusion mb9 09:13 Drug: Ketorolac IVP 30 mg IVP once Route: IVP; Site: right antecubital; mb9 09:37 Follow up: Response: No adverse reaction mb9 09:13 Drug: HYDROcodone-acetaminophen PO 5 mg-325 mg 1 tabs PO once Route: PO; mb9 09:37 Follow up: Response: No adverse reaction mb9 09:13 Drug: Rocephin IV 2 grams IV at calculated rate once; Given slow IV push per pharmarcy mb9 instructions Route: IV; Rate: calculated rate; Site: right antecubital; 09:37 Follow up: Response: No adverse reaction; IV Status: Completed infusion mb9 11:19 Drug: Ondansetron IVP 4 mg IVP once; over 2 minutes Route: IVP; Site: right antecubital;mb9 13:27 Follow up: Response: No adverse reaction mb9 Disposition: 14:53 Co-signature as Attending Physician, Natalya Cadena MD. 1 Disposition Summary: 12/16/23 14:53 Hospitalization Ordered Notes: Hospitalization Status: Inpatient Admission gb1 Provider: Agus Nunez [facility] gb1 Condition: Stable gb1 Problem: new gb1 Symptoms: have worsened gb1 Bed/Room Type: [place] [id number] Room Assignment: 405(12/16/23 15:40) jr12 Diagnosis - Other hydronephrosis gb1 - UTI/ Urinary tract infection, site not specified gb1 Forms: - Medication Reconciliation Form gb1 - SBAR form gb1 - Leadership Thank You Letter gb1 Signatures: Dispatcher [employer] EDMS Beronica Villarreal RN RN aa5 Lolis Arroyo RN RN mb9 Joaquina Cruz RN RN cm10 Natalya Cadena MD MD gb1 Heather Echols jr12 Corrections: (The following items were deleted from the chart) 07:50 07:50 Abdomen Pelvis W/Wo Con+CT.RAD.BRZ ordered. EDMS EDMS 07:51 07:50 BLOOD CULTURE*+BA.LAB.BRZ ordered. EDMS EDMS 07:51 07:50 CBC+H.LAB.BRZ ordered. EDMS EDMS 07:51 07:50 COMPREHENSIVE METABOLIC PANEL+C.LAB.BRZ ordered. EDMS EDMS 07:51 07:50 LACTATE+C.LAB.BRZ ordered. EDMS EDMS 07:51 07:50 PROTIME (+INR)+COAG.LAB.BRZ ordered. EDMS EDMS 07:51 07:50 PTT, ACTIVATED+COAG.LAB.BRZ ordered. EDMS EDMS 07:51 07:50 Test, Urine+UC.LAB.BRZ ordered. EDMS EDMS 07:51 07:50 Urinalysis+U.LAB.BRZ ordered. EDMS EDMS 07:51 07:50 Urine Culture+BA.LAB.BRZ ordered. EDMS EDMS 15:14 14:53 gb1 aa5 15:40 15:14 415 aa5 jr12
--- NOTE | 2023-12-16 14:54 | ER ---
Nurse's Notes [facility] Name: Edwina Vasquez Age: 43 yrs Sex: Female : 1980 Arrival Date: 12/16/2023 Time: 07:32 Bed 13 Private MD: Diagnosis: Other hydronephrosis;UTI/ Urinary tract infection, site not specified Presentation: 12/15 07:37 Chief complaint: Patient states: had left kidney stent placed by Dr. Parnell aa5 (urologist) and today woke up with fever and vomiting. Pt also reports pain to left flank. 07:37 Coronavirus screen: vomiting. Ebola Screen: Patient denies travel to an Ebola-affected [facility] area in the 21 days before illness onset. Initial Sepsis Screen: Does the patient meet any 2 criteria? No. Patient's initial sepsis screen is negative. Does the patient have a suspected source of infection? No. Patient's initial sepsis screen is negative. Risk Assessment: Do you want to hurt yourself or someone else? Patient reports no desire to harm self or others. Onset of symptoms was December 16, 2023. 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 - Infectious Disease History:: Denies. - Social history:: Smoking status: Patient denies any tobacco usage or history of. Screenin:41 [facility] ED Fall Risk Assessment (Adult) History of falling in the last 3 months, mb9 including since admission No falls in past 3 months (0 pts) Confusion or Disorientation No (0 pts) Intoxicated or Sedated No (0 pts) Impaired Gait No (0 pts) Mobility Assist Device Used No (0 pt) Altered Elimination No (0 pt) Score/Fall Risk Level 0 - 2 = Low Risk Oriented to surroundings, Maintained a safe environment, Educated pt \T\ family on fall prevention, incl call for assistance when getting out of bed. Abuse screen: Denies threats or abuse. Nutritional screening: No deficits noted. Tuberculosis screening: No symptoms or risk factors identified. Assessment: 07:46 General: Appears in no apparent distress. Behavior is calm, cooperative. Pain: mb9 Complains of pain in abdomen Pain radiates to LLQ Quality of pain is described as throbbing, Pain began suddenly. Neuro: Skinner Agitation-Sedation Scale (RASS): 0 - Alert and Calm Level of Consciousness is awake, alert, obeys commands, Oriented to person, place, time, situation, Appropriate for age. Cardiovascular: Heart tones S1 S2 present Patient's skin is warm and dry. Respiratory: Airway is patent Respiratory effort is even, unlabored, Respiratory pattern is regular, symmetrical. GI: Abdomen is flat, non-distended, Bowel sounds present X 4 quads. Abd is soft Abdomen is tender to palpation in left lower quadrant Reports nausea, vomiting. : No signs and/or symptoms were reported regarding the genitourinary system. EENT: No signs and/or symptoms were reported regarding the EENT system. Derm: Skin is pink, warm \T\ dry. Musculoskeletal: Range of motion: intact in all extremities. 09:45 Reassessment: No changes from previously documented assessment. Patient and/or family mb9 updated on plan of care and expected duration. Pain level reassessed. Patient is alert, oriented x 3, equal unlabored respirations, skin warm/dry/pink. 11:53 Reassessment: No changes from previously documented assessment. Patient and/or family mb9 updated on plan of care and expected duration. Pain level reassessed. Patient is alert, oriented x 3, equal unlabored respirations, skin warm/dry/pink. 12:54 Reassessment: Patient appears in no apparent distress at this time. No changes from mb9 previously documented assessment. Patient and/or family updated on plan of care and expected duration. Pain level reassessed. Patient is alert, oriented x 3, equal unlabored respirations, skin warm/dry/pink. Vital Signs: 07:37 BP 120 / 82; Pulse 58; Resp 16 S; Pulse Ox 99% on R/A; Weight 85.73 kg (R); Height 5 aa5 ft. 3 in. (R); 10:17 BP 132 / 78; Pulse 57; Resp 16; Temp 98.2(O); Pulse Ox 100% on R/A; mb9 12:17 BP 122 / 75; Pulse 59; Resp 18; Pulse Ox 100% ; mb9 13:43 BP 120 / 80; Pulse 59; Resp 16; Pulse Ox 100% on R/A; aa5 07:37 Body Mass Index 33.48 (85.73 kg, 160.02 cm) aa5 ED Course: 07:34 Patient arrived in ED. mg5 07:37 Lolis Arroyo, NATHALY is Primary Nurse. mb9 07:37 Natalya Cadena MD is Attending Physician. gb1 07:40 Arm band placed on. mb9 07:40 Placed in gown. Bed in low position. Call light in reach. Side rails up X 1. Provided mb9 Education on: press call light if needing anything. Client placed on continuous cardiac and pulse oximetry monitoring. NIBP monitoring applied. 07:44 Triage completed. aa5 07:47 No provider procedures requiring assistance completed. mb9 08:03 First set of blood cultures drawn by me. mb9 08:10 Second set of blood cultures drawn by me. mb9 08:16 Test, Urine Sent. mb9 08:16 Urinalysis w/ reflexes Sent. mb9 08:16 Urine Culture Sent. mb9 08:16 Initial lab(s) drawn, by me, sent to lab. Urine collected: clean catch specimen, [place] mb9 colored. Inserted saline lock: 20 gauge in right antecubital area, using aseptic technique. Blood collected. 08:16 EKG done, by ED staff, reviewed by Lolis Arroyo RN. mb9 08:44 CT Abd/Pelvis- W/WO Contrast In Process Unspecified. EDMS 12:54 Lab(s) recollected, Repeat lab(s) drawn. by me, sent to lab. mb9 14:50 Agus Nunez MD is Hospitalizing Provider. gb1 15:16 Patient admitted, IV remains in place. mb9 Administered Medications: 08:15 Drug: Ondansetron IVP 4 mg IVP once; over 2 minutes Route: IVP; Site: right antecubital;mb9 09:37 Follow up: Response: No adverse reaction mb9 08:15 Drug: NS 0.9% IV 1000 ml IV at 1000 ml once Route: IV; Rate: 1000 ml; Site: right mb9 antecubital; 09:37 Follow up: IV Status: Completed infusion mb9 09:37 Follow up: Response: No adverse reaction; IV Status: Completed infusion mb9 09:13 Drug: Ketorolac IVP 30 mg IVP once Route: IVP; Site: right antecubital; mb9 09:37 Follow up: Response: No adverse reaction mb9 09:13 Drug: HYDROcodone-acetaminophen PO 5 mg-325 mg 1 tabs PO once Route: PO; mb9 09:37 Follow up: Response: No adverse reaction mb9 09:13 Drug: Rocephin IV 2 grams IV at calculated rate once; Given slow IV push per pharmarcy mb9 instructions Route: IV; Rate: calculated rate; Site: right antecubital; 09:37 Follow up: Response: No adverse reaction; IV Status: Completed infusion mb9 11:19 Drug: Ondansetron IVP 4 mg IVP once; over 2 minutes Route: IVP; Site: right antecubital;mb9 13:27 Follow up: Response: No adverse reaction mb9 Medication: 07:41 VIS not applicable for this client. mb9 Outcome: 14:53 Decision to Hospitalize by Provider. gb1 15:18 Admitted to Tele mb9 15:18 Condition: stable 15:18 Instructed on the need for admit, 16:27 Patient left the ED. jr12 Signatures: Dispatcher [employer] EDMS Beronica Villarreal RN RN aa5 Lolis Arroyo RN RN [id number] Jessica [facility]tr mg5 Natalya Cadena MD MD gb1 Heather Echols jr12 Corrections: (The following items were deleted from the chart) 14:41 13:43 BP 120 / 30; Pulse 59bpm; Resp 16bpm; Pulse Ox 100% RA; mb9 aa5 15:16 10:17 BP 132 / 78; Pulse 57bpm; Resp 16bpm; Pulse Ox 100% RA; mb9 mb9
--- NOTE | 2023-12-16 15:02 | P.HP ---
Certification for Inpatient Patient admitted to: Observation Patient will require the following post-hospital care: None Practitioner: I am a practitioner with admitting privileges, knowledge of patient current condition, hospital course, and medical plan of care. Services: Services provided to patient in accordance with Admission requirements found in Title 42 Section 412.3 of the Code of Federal Regulations Patient History Date of Service: 12/16/23 Reason for admission: Hydronephrosis History of Present Illness: 43 with a past medical history frequent PVCs; ibs (ulcerative colitis); mitral valve prolapse presents to the emergency room for abdominal pain. She reports recent ureteral stent with Dr. Parnell within the last week. She reports left lower quadrant pain that radiates to her back, reports urinary frequency, dysuria. She reports being treated for UTI with Keflex, symptoms are progressively getting worse. She denies fever, nausea vomiting diarrhea,chest pain, shortness of breath, edema, dizziness. Plan to admit for. Hydronephrosis, intractable abdominal pain, acute cystitis. With Dr. Parnell to consult. Allergies morphine Allergy (Verified 12/10/23 12:21) Nausea/Vomiting CHEST PAIN Home Medications: Flecainide [Tambocor*] 100 mg PO BID 11/18/23 Oxybutynin Chloride [Ditropan Xl] 10 mg PO BID 12/10/23 levonorgestreL [Mirena] 1 kristi VAG CONT 12/10/23 Cephalexin [Keflex*] 500 mg PO Q8HR #15 cap 12/14/23 Tramadol HCl/Acetaminophen [Tramadol-Acetaminophn 37.5-325] 1 tab PO Q6H PRN #15 12/14/23 Review of Systems per HPI Physical Examination - Physical Exam General: Alert, Oriented x3, Mild distress Neck: Supple, 2+ carotid pulse no bruit Respiratory: Clear to auscultation bilaterally, Normal air movement Cardiovascular: No edema, Normal pulses Capillary refill: <2 Seconds Gastrointestinal: Normal bowel sounds, Tenderness (LLQ, radiates L) flank ) Musculoskeletal: No clubbing, No swelling Integumentary: No breakdown, No significant lesion Neurological: Normal speech, Normal strength at 5/5 x4 extr - Studies Laboratory Data (last 24 hrs) 12/16/23 12/16/23 12/16/23 12:51 08:10 08:10 WBC 6.90 Hgb 12.0 Hct 36.6 Plt Count 183 PT 11.8 INR 1.07 APTT 36.5 Sodium 143 Potassium 3.3 L BUN 8 Creatinine 0.63 Glucose 86 Total Bilirubin 0.2 AST 114 H ALT 330 H Alkaline Phosphatase 184 H Assessment and Plan - Plan Assessment plan Moderate left-sided hydronephrosis Intractable abdominal pain Left ureteral stent Acute cystitis cystitis With outpatient treatment of antibiotic Fatty liver Urology to consult, IV fluids, IV antibiotics, as needed analgesics, as needed antiemetics, urinary antispasmodic UA, urine culture CT ABD IMPRESSION: A left double-J stent is noted in expected positioning. There is [id number] left-sided hydronephrosis present. The degree of hydronephrosis does not appear significantly changed since 11/24/2023. There is a small amount of air seen in the superior calyx of the left kidney on today's study which could indicate urinary tract infection. Correlation with urinalysis may be helpful. Mild fatty liver. History of arrhythmia Resume home meds Full code DVT Lovenox Diet regular Disposition Home independent prior Discharge Plan: Home - Advance Directives Does patient have a Living Will: No Does patient have a Durable POA for Healthcare: No - Code Status/Comfort Care Code Status: Full Code Critical Care: No Time Spent Managing Pts Care (In Minutes): 55
[2023-12-16] MEDS ORDERED: HYDROCODONE/APAP 5/325 MG TAB PO PRN (16:11)
[2023-12-16] MEDS ORDERED: ZOLPIDEM TARTRATE 5 MG TABLET PO PRN (16:11)
--- NOTE | 2023-12-16 16:56 | P.CNS ---
Date of Consult: 12/16/23 Reason for Consult: Pain, fever, nausea vomiting Chief Complaint: Hydronephrosis History of Present Illness: 43-year-old woman with mitral valve prolapse and ulcerative colitis post gastric sleeve/bypass in the recent history with recurrent significant left upper quadrant abdominal pain, presented to multiple different emergency departments in [place] before eventually being seen at [facility], where a CT scan performed suggested the presence of some mild left hydronephrosis. In the absence of other signs or symptoms of complication from her gastric procedure, to attempt to manage her pain, operative evaluation was recommended. She underwent left ureteral stent placement in an uncomplicated fashion, but postoperatively, she had significant issues with pain despite negative cultures and attempts at analgesic pain management. Eventually, the patient was treated with IV ceftriaxone followed by cefpodoxime, and despite negative urine cultures, her pain seemed to improve. She then return for operative definitive investigation of the proximal ureter suspected to be contributing to her left- sided hydronephrosis on 12/14/2023 of this week, and she underwent ureteroscopy which revealed some proximal ureteral/UPJ narrowing without spec ific stricture disease or stenosis. This was dilated to 14 Chilean and a 7 Chilean ureteral stent was placed to keep it dilated. She was discharged same day and did well overnight and the following day until 4 AM this morning, when she developed severe pain along with some nausea and vomiting and a fever to 102. She says she took a dose of Tylenol, the fever broke, and has not returned. She contacted my clerk general office who notified me, and she came to the emergency department at [facility]. There, she expressed significant discomfort despite taking the tramadol previously prescribed for pain. Examination: Patient uncomfortable appearing in mild distress Alert, awake, oriented x 3 No dyspnea or sign of respiratory distress No cervical/supraclavicular adenopathy or thyromegaly Abdomen soft, nontender or minimally tender and nondistended Pulse 2+ radial and regular without tachycardia -I recommended in addition to lab work that the patient undergo a CT scan with delayed phase imaging after an IV contrast bolus as well as a noncontrast scan, a CT urogram, to establish no signs of collection, ureteral injury or extravasation, or other explanation for her pain. -I subsequently reviewed the images of the CT scan before the report was available, and it was clear the stent was in good position. Contrast did collect within both collecting systems and drain down the left ureter, which was appropriately positioned extending into the bladder, and there was no ureteral extravasation along the entirety of the course of the ureter. There was no significant perinephric stranding either. Assessment and recommendation: 43-year-old woman with mitral valve prolapse and ulcerative colitis post gastric sleeve/bypass in the recent history with recurrent significant left upper quadrant abdominal pain and mild left hydronephrosis with proximal ureteral narrowing without stricture disease, dilated 12/14/2023, now with fever, nausea/vomiting, and pain. -Urine culture -Ceftriaxone IV antimicrobial therapy -Pain management and antiemetics as necessary -Overnight observation if patient insufficiently comfortable for discharge or febrile Allergies morphine Allergy (Verified 12/10/23 12:21) Nausea/Vomiting CHEST PAIN Home medications list reviewed: Yes Home Medications: Flecainide [Tambocor*] 100 mg PO BID 11/18/23 Oxybutynin Chloride [Ditropan Xl] 10 mg PO BID 12/10/23 levonorgestreL [Mirena] 1 kristi VAG CONT 12/10/23 Cephalexin [Keflex*] 500 mg PO Q8HR #15 cap 12/14/23 Tramadol HCl/Acetaminophen [Tramadol-Acetaminophn 37.5-325] 1 tab PO Q6H PRN #15 12/14/23 - Past Medical/Surgical History Diabetic: No Physical Examination Temp Pulse Resp BP Pulse Ox 98.2 F 59 16 120/80 12/16/23 10:17 12/16/23 13:43 12/16/23 13:43 12/16/23 13:43 Laboratory Data (last 24 hrs) 12/16/23 12/16/23 12/16/23 12:51 08:10 08:10 WBC 6.90 Hgb 12.0 Hct 36.6 Plt Count 183 PT 11.8 INR 1.07 APTT 36.5 Sodium 143 Potassium 3.3 L BUN 8 Creatinine 0.63 Glucose 86 Total Bilirubin 0.2 AST 114 H ALT 330 H Alkaline Phosphatase 184 H - Problems (1) Renal colic on left side Current Visit: Yes Status: Acute (2) Febrile Current Visit: Yes Status: Acute Conclusions/Impression: see A&P in [facility] Critical Care: No Time Spent Managing Pts care (In Minutes): 45
[2023-12-16 17:53] VITALS: BMI 33.5
[2023-12-16] MEDS: NA CHLORIDE 0.9% 1,000 ML IV SCH (18:41)
[2023-12-16] MEDS: FLECAINIDE 100 MG TAB PO SCH (20:14)
[2023-12-16] MEDS: CIPROFLOXACIN 400mg IV 400 MG/200 ML BAG IV SCH (20:14)
[2023-12-16 21:22] VITALS: O2SAT 95
[2023-12-16] MEDS: ONDANSETRON 4 MG/2 ML VIAL IV PRN (21:22)
[2023-12-16] MEDS: KETOROLAC 30 MG/ML INJ IV PRN (21:22)
[2023-12-17 07:30] LABS: Absolute Eosinophils 0.2 K/uL (0-0.5); Absolute Lymphocytes (CBC) 2.3 K/uL (0.7-4.9); Absolute Monocytes 0.4 K/uL (0.1-1.3); Absolute Neutrophil 2.2 K/uL (1.8-8.0); Basophils % 0.2 % (0-1.3); Eosinophils % 3.5 % (0-4.4); Hematocrit 30.1 % (36.0-45.0); Lymphocytes % 45.4 % (15.3-44.8); MCH 28.4 pg (27.0-35.0); MCHC 33.2 g/dL (32.0-36.0); MCV 85.6 fL (80-100); MPV 8.1 fL (7.6-11.3); Neutrophils % 42.9 % (41.7-73.7); Nucleated Red Blood Cells % 0.1 % (0-0); Platelets 155 thou/uL (152-406); RBC Red Blood Cell Count 3.51 M/uL (3.86-4.86); Red Cell Distribution Width 15.3 % (12.1-15.2)
[2023-12-17 07:39] LABS: Anion Gap 5.4 mEq/L (5.0-15.0); Magnesium 1.8 mg/dL (1.6-2.4); Potassium 3.4 mEq/L (3.5-5.1)
[2023-12-17] MEDS: POTASSIUM CL SA 10 MEQ TAB PO ONE (08:11)
[2023-12-17] MEDS: OXYBUTYNIN ER 5 MG TAB PO SCH (08:11)
[2023-12-17] MEDS: MAGNESIUM SULFATE 1 gm IVPB 1 GM/100 ML BAG IV ONE (08:12)
[2023-12-17] MEDS: ENOXAPARIN 40 MG/0.4 ML SQ SCH (08:15)
[2023-12-17] MEDS: CEFTRIAXONE 1,000 MG in NA CHLORIDE 0.9% 50 ML IVPB SCH (09:09)
[2023-12-17 12:35] VITALS: BP 133/81; TEMP 97.5
--- NOTE | 2023-12-17 15:56 | P.PN ---
Date of Service: 12/17/23 Subjective admitted for abdominal pain, recent ureteral stent placement, Evaluated by Dr. Garcia Review of Systems per HPI Physical Examination - Physical Exam General: Alert, Oriented x3, Mild distress Neck: Supple, 2+ carotid pulse no bruit Respiratory: Clear to auscultation bilaterally, Normal air movement Cardiovascular: No edema, Normal pulses Capillary refill: <2 Seconds Gastrointestinal: Normal bowel sounds, Tenderness (LLQ, radiates L) flank ) Musculoskeletal: No clubbing, No swelling Integumentary: No breakdown, No significant lesion Neurological: Normal speech, Normal strength at 5/5 x4 extr Assessment and Plan - Plan Assessment plan Moderate left-sided hydronephrosis Intractable abdominal pain Left ureteral stent Acute cystitis cystitis With outpatient treatment of antibiotic Fatty liver Urology to consult, IV fluids, IV antibiotics, as needed analgesics, as needed antiemetics, urinary antispasmodic UA, urine culture CT ABD IMPRESSION: A left double-J stent is noted in expected positioning. There is [id number] left-sided hydronephrosis present. The degree of hydronephrosis does not appear significantly changed since 11/24/2023. There is a small amount of air seen in the superior calyx of the left kidney on today's study which could indicate urinary tract infection. Correlation with urinalysis may be helpful. Mild fatty liver. 12/[address] scan, reports triple phase done History of arrhythmia Resume home meds Full code DVT Lovenox Diet regular Disposition Home independent prior Discharge Plan: Home - Advance Directives Does patient have a Living Will: No Does patient have a Durable POA for Healthcare: No - Code Status/Comfort Care Code Status: Full Code Critical Care: No Time Spent Managing Pts Care (In Minutes): 35
--- NOTE | 2023-12-17 15:58 | P.PN ---
Date of Service: 12/17/23
--- NOTE | 2023-12-17 15:59 | P.PN ---
Date of Service: 12/17/23
--- NOTE | 2023-12-17 16:43 | P.DS ---
Admission Date: 12/16/23 Discharge Date: 12/17/23 Disposition: ROUTINE DISCHARGE Discharge Condition: GOOD Reason for Admission: Hydronephrosis Brief History of Present Illness: 43 with a past medical history frequent PVCs; ibs (ulcerative colitis); mitral valve prolapse presents to the emergency room for abdominal pain. She reports recent ureteral stent with Dr. Parnell within the last week. She reports left lower quadrant pain that radiates to her back, reports urinary frequency, dysuria. She reports being treated for UTI with Keflex, symptoms are progressively getting worse. She denies fever, nausea vomiting diarrhea,chest pain, shortness of breath, edema, dizziness. Plan to admit for. Hydronephrosis, intractable abdominal pain, acute cystitis. With Dr. Parnell to consult. - Physical Exam General: Alert, Oriented x3, Neck: Supple, 2+ carotid pulse no bruit Respiratory: Clear to auscultation bilaterally, Normal air movement Cardiovascular: No edema, Normal pulses Capillary refill: <2 Seconds Gastrointestinal: Normal bowel sounds, Tenderness Musculoskeletal: No clubbing, No swelling Integumentary: No breakdown, No significant lesion Neurological: Normal speech, Normal strength at 5/5 x4 extr Hospital Course: 43 with a past medical history frequent PVCs; ibs (ulcerative colitis); mitral valve prolapse presents to the emergency room for abdominal pain. She reports recent ureteral stent with Dr. Parnell within the last week. She reports left lower quadrant pain that radiates to her back, reports urinary frequency, dysuria. Was noted to have acute cystitis. She was eval by urology. Condition improved with antibiotics, as needed analgesics. Patient tolerating diet, stable for discharge to home with follow-up appointment with primary care physician. Follow-up with urology after discharge PROBLEM: Acute cystitis, plan to discharge home on p.o. antibiotic cefdinir Abdominal pain, recent ureteral stent, was evaluated by [id number] with urology after discharge Rad/Lab/Micro: UA positive for UTI Continue home medicines as previously prescribed GOAL: Clear understanding of disease process INSTRUCTIONS: Physician Discharge Instructions: -Follow-up with PCP in 1 to 2 weeks -Please call Dr. Nunez at [phone] if any questions regarding hospital stay -Please call nursing station at [phone] if any nursing or medication questions -Return to the emergency room if symptoms worsen Diet: ADA, low sodium Activity: Fall precautions Vital Signs/Physical Exam: Temp Pulse Resp BP Pulse Ox 97.5 F 50 16 133/81 98 12/17/23 12:00 12/17/23 12:00 12/17/23 12:00 12/17/23 12:00 12/17/23 12:00 Laboratory Data at Discharge: WBC 5.10 thou/uL (4.3-10.9) 12/17/23 06:44 Hgb 10.0 g/dL (12.0-15.0) L D 12/17/23 06:44 Hct 30.1 % (36.0-45.0) L 12/17/23 06:44 Plt Count 155 thou/uL (152-406) 12/17/23 06:44 PT 11.8 SECONDS (9.4-12.5) 12/16/23 08:10 INR 1.07 12/16/23 08:10 APTT 36.5 SECONDS (24.3-36.9) 12/16/23 08:10 Sodium 142 mEq/L (136-145) 12/17/23 06:44 Potassium Cancelled 12/17/23 15:00 BUN 8 mg/dL (7-18) 12/17/23 06:44 Creatinine 0.57 mg/dL (0.55-1.02) 12/17/23 06:44 Glucose 81 mg/dL (74-106) 12/17/23 06:44 Magnesium 1.8 mg/dL (1.6-2.4) 12/17/23 06:44 Total Bilirubin 0.2 mg/dL (0.2-1.0) 12/16/23 12:51 AST 114 U/L (15-37) H 12/16/23 12:51 ALT 330 U/L (13-56) H 12/16/23 12:51 Alkaline Phosphatase 184 U/L (45-117) H 12/16/23 12:51 Home Medications: Flecainide [Tambocor*] 100 mg PO BID 11/18/23 Oxybutynin Chloride [Ditropan Xl] 10 mg PO BID 12/10/23 levonorgestreL [Mirena] 1 kristi VAG CONT 12/10/23 Tramadol HCl/Acetaminophen [Tramadol-Acetaminophn 37.5-325] 1 tab PO Q6H PRN #15 12/14/23 Cefdinir [Cefdinir*] 300 mg PO BID #20 cap 12/17/23 New Medications: Cefdinir [Cefdinir*] 300 mg PO BID #20 cap Physician Discharge Instructions: -DC IV and DC home -Follow-up with PCP in 1 to 2 weeks -Follow-up with Urology in 1 to 2 weeks -Please call Dr. Nunez at [phone] if any questions regarding hospital stay -Please call nursing station at [phone] if any nursing or medication questions -Return to the emergency room if symptoms worsen Diet: AHA Activity: Fall precautions Followup: Kolton Pierre, [Primary Care Provider] - 1-2 Weeks (call to schedule an appointment.) Geraldo Parnell [ACTIVE - CAN ADMIT] - 1-2 Weeks (call to schedule an appointmen t) Time spent managing pt's care (in minutes): 55
--- NOTE | 2023-12-18 14:12 | EKG ---
Test Date: 2023-12-16 Test Time: 08:03:04 Rn Cardiovascular Icu: BILLY MEASUREMENT RESULTS: Intervals: Rate: 52 SD: 132 QRSD: 78 QT: 424 QTc: 394 [place]: P: 55 SD: 132 QRS: 39 T: 40 INTERPRETIVE STATEMENTS: Sinus bradycardia Nonspecific T wave abnormality Abnormal ECG Compared to ECG 12/10/2023 12:38:24 T-wave abnormality now present Right-axis deviation no longer present Electronically Signed On 12-18-23 14:07:58 CDT by Leroy Partida
== END 2023-12-17 16:34 | disposition home or self-care (01) ==
LOC: ER 07:32 → 4TH 14:44
PROVIDERS: ADMIT Hospitalist; ATTEND Hospitalist
DX: N13.30 Unspecified hydronephrosis (principal); N30.00 Acute cystitis without hematuria; N23 Unspecified renal colic; R10.32 Left lower quadrant pain; K76.0 Fatty (change of) liver, not elsewhere classified; I49.9 Cardiac arrhythmia, unspecified; R50.9 Fever, unspecified; R11.2 Nausea with vomiting, unspecified; K51.90 Ulcerative colitis, unspecified, without complications; I34.1 Nonrheumatic mitral (valve) prolapse; Z98.84 Bariatric surgery status
CPT/HCPCS: 96365; 96361; 93005; 87040 ×2; 87088; 85025 ×2; 81001; 87086; 80048; 36415; 83735; 81025; 85610; 83605; 85730; 80053; 74178; 96375; 99285; Q9967; J3475; J2405 ×3; J0744; J7030 ×2; J0696 ×2; G0378 ×3; J1650

== ENCOUNTER 2024-02-26 17:37 | Emergency (ER) | payer BC, OTHER ==
[2024-02-26 18:21] LABS: Absolute Eosinophils 0.1 K/uL (0-0.5); Absolute Lymphocytes (CBC) 2.8 K/uL (0.7-4.9); Absolute Monocytes 0.4 K/uL (0.1-1.3); Absolute Neutrophil 2.1 K/uL (1.8-8.0); Basophils % 0.3 % (0-1.3); Eosinophils % 1.7 % (0-4.4); Hematocrit 38.1 % (36.0-45.0); Hemoglobin 12.3 g/dL (12.0-15.0); Lymphocytes % 51.9 % (15.3-44.8); MCH 28.1 pg (27.0-35.0); MCHC 32.2 g/dL (32.0-36.0); MCV 87.5 fL (80-100); MPV 8.3 fL (7.6-11.3); Monocytes % 6.7 % (3.3-12.3); Neutrophils % 39.4 % (41.7-73.7); Platelets 176 thou/uL (152-406); RBC Red Blood Cell Count 4.36 M/uL (3.86-4.86); Red Cell Distribution Width 13.5 % (12.1-15.2)
[2024-02-26 18:35] LABS: Albumin 3.4 g/dL (3.4-5.0); Albumin/Globulin Ratio 1.1 (1.1-1.8); Anion Gap 9.7 mEq/L (5.0-15.0); Bilirubin Total 0.3 mg/dL (0.2-1.0); Potassium 3.7 mEq/L (3.5-5.1); Protein, Total 6.4 g/dL (6.4-8.2)
[2024-02-26] MEDS ORDERED: ONDANSETRON 4 MG/2 ML VIAL ONE (18:47)
[2024-02-26] MEDS ORDERED: NA CHLORIDE 0.9% 2,000 ML ONE (18:47)
[2024-02-26] MEDS ORDERED: FAMOTIDINE 20 MG/2 ML VIAL IV ONE (18:47)
[2024-02-26 18:51] LABS: Specific Gravity 1.015 (1.005-1.030)
[2024-02-26 18:56] LABS: Calcium Oxalate Crystals- Ur Few /HPF (None Seen); Specific Gravity 1.015 (1.005-1.030); Sqamous Epithelial <5 /HPF (None Seen); Urine Bacteria <20 /HPF (<20); Urine Bilirubin NEGATIVE (Negative); Urine Blood Negative (Negative); Urine Clarity Turbid (Clear); Urine Color Light-Yellow (Yellow); Urine Culture Reflex Order NOT NEEDED; Urine Glucose NEGATIVE (Negative); Urine Ketones NEGATIVE (Negative); Urine Microscopic Reflex YN ORDER UMIC; Urine Mucus Slight /HPF (None Seen); Urine Nitrite NEGATIVE (Negative); Urine Protein NEGATIVE (Negative); Urine RBC <5 /HPF (None Seen); Urine Urobilinogen Normal (Normal); Urine WBC <5 /HPF (<5); Urine pH 5.5 (5.0-7.0)
--- NOTE | 2024-02-26 19:25 | EDPHYS ---
Physician Documentation [facility] Name: Edwina Vasquez Age: 43 yrs Sex: Female : 1980 Arrival Date: 02/26/2024 Time: 17:37 Bed 8 Private MD: DURAN Physician Stefano Thurston HPI: 02/25 18:57 This 43 yrs old Female presents to ER via Ambulatory with complaints of jesus CDIFF, Diarrhea, Abdominal Cramping. 18:57 The patient presents to the emergency department with diarrhea, abdominal pain, of the jesus right upper quadrant, left upper quadrant, right lower quadrant and left lower quadrant. Onset: The symptoms/episode began/occurred 6 day(s) ago. Historical: - Allergies: 18:00 Morphine; db - PMHx: 18:00 frequent PVCs; ibs (ulcerative colitis); mitral valve prolapse; db - PSHx: 18:00 Cholecystectomy; gastric bypass for GERD; gastric sleeve; Left kidney stent; Ligation db of fallopian tube; ablation; - Immunization history:: Adult Immunizations unknown. - Infectious Disease History:: Denies. - Social history:: Smoking status: Patient denies any tobacco usage or history of. ROS: 19:02 Constitutional: Negative for fever, chills, and weight loss, Eyes: Negative for injury, jesus pain, redness, and discharge, ENT: Negative for injury, pain, and discharge, Neck: Negative for injury, pain, and swelling, Cardiovascular: Negative for chest pain, palpitations, and edema, Respiratory: Negative for shortness of breath, cough, wheezing, and pleuritic chest pain, Back: Negative for injury and pain, : Negative for injury, bleeding, discharge, and swelling, MS/Extremity: Negative for injury and deformity, Skin: Negative for injury, rash, and discoloration, Neuro: Negative for headache, weakness, numbness, tingling, and seizure, Psych: Negative for depression, anxiety, suicide ideation, homicidal ideation, and hallucinations, Allergy/Immunology: Negative for hives, rash, and allergies, Endocrine: Negative for neck swelling, polydipsia, polyuria, polyphagia, and marked weight changes, 19:02 Abdomen/GI: Positive for abdominal pain, diarrhea, abdominal cramps, Exam: 19:02 Constitutional: This is a well developed, well nourished patient who is awake, alert, jesus and in no acute distress. Head/Face: Normocephalic, atraumatic. Eyes: Pupils equal round and reactive to light, extra-ocular motions intact. Lids and lashes normal. Conjunctiva and sclera are non-icteric and not injected. Cornea within normal limits. Periorbital areas with no swelling, redness, or edema. ENT: Nares patent. No nasal discharge, no septal abnormalities noted. Tympanic membranes are normal and external auditory canals are clear. Oropharynx with no redness, swelling, or masses, exudates, or evidence of obstruction, uvula midline. Mucous membranes moist. Neck: Trachea midline, no thyromegaly or masses palpated, and no cervical lymphadenopathy. Supple, full range of motion without nuchal rigidity, or vertebral point tenderness. No Meningismus. Chest/axilla: Normal chest wall appearance and motion. Nontender with no deformity. No lesions are appreciated. Cardiovascular: Regular rate and rhythm with a normal S1 and S2. No gallops, murmurs, or rubs. Normal PMI, no JVD. No pulse deficits. Respiratory: Lungs have equal breath sounds bilaterally, clear to auscultation and percussion. No rales, rhonchi or wheezes noted. No increased work of breathing, no retractions or nasal flaring. Back: No spinal tenderness. No costovertebral tenderness. Full range of motion. Female : Normal external genitalia. Skin: Warm, dry with normal turgor. Normal color with no rashes, no lesions, and no evidence of cellulitis. MS/ Extremity: Pulses equal, no cyanosis. Neurovascular intact. Full, normal range of motion. Neuro: Awake and alert, GCS 15, oriented to person, place, time, and situation. Cranial nerves II-XII grossly intact. Motor strength 5/5 in all extremities. Sensory grossly intact. Cerebellar exam normal. Normal gait. 19:02 Abdomen/GI: Inspection: abdomen appears normal, Bowel sounds: normal, Palpation: mild abdominal tenderness, in all quadrants, Liver: no appreciated palpable abnormalities, Hernia: not appreciated, Vital Signs: 17:58 BP 121 / 91; Pulse 81; Resp 18; Temp 98.2; Pulse Ox 99% ; Weight 82.1 kg; Height 5 ft. db 3 in. ; Pain 6/10; 19:31 BP 119 / 80; Pulse 59; Resp 19; Pulse Ox 100% ; Pain 0/10; jj7 20:39 BP 124 / 94; Pulse 55; Resp 17; Temp 98.3; Pulse Ox 100% ; Pain 0/10; jj7 17:58 Body Mass Index 32.06 (82.10 kg, 160.02 cm) db 17:58 Pain Scale: Adult db 19:31 Pain Scale: Adult jj7 20:39 Pain Scale: Adult jj7 MDM: 17:54 Patient medically screened. [facility] 19:04 Differential diagnosis: Nonspecific abd pain, pancreatitis, diverticulitis, viral jesus gastroenteritis, gastroenteritis. Data reviewed: vital signs, nurses notes, lab test result(s), EKG, radiologic studies, CT scan. Consideration of Admission/Observation Escalation of care including admission/observation considered. I considered the following discharge prescriptions or medication management in the emergency department Medications were administered in the Emergency Department. See MAR. Independent interpretation of the following test(s) in the Emergency Department CT Scan: My interpretation is ct ab/pel. Test considered but Not performed: Ultrasound no abd usg. Historians other than the Patient: pt well informed. Care significantly affected by the following chronic conditions: Obesity, ibs, uc, mvp. Counseling: I had a detailed discussion with the patient and/or guardian regarding the historical points, exam findings, and any diagnostic results supporting the discharge/admit diagnosis, lab results, radiology results, the need for outpatient follow up, for definitive care, a family practitioner, a business continuity coordinator. 02/25 17:54 Order name: CBC with Diff; Complete Time: 18:58 [facility] 02/25 17:54 Order name: CMP; Complete Time: 18:58 [facility] 02/25 17:54 Order name: Lipase; Complete Time: 18:58 [facility] 02/25 17:54 Order name: Test, Urine; Complete Time: 18:58 [facility] 02/25 17:54 Order name: Urinalysis w/ reflexes; Complete Time: 18:58 [facility] 02/25 17:54 Order name: IV Saline Lock; Complete Time: 19:03 [facility] 02/25 17:54 Order name: Labs collected and sent; Complete Time: 19:03 [facility] 02/25 19:19 Order name: PO challenge; Complete Time: 19:31 [facility] 02/25 19:24 Order name: Misc. Order: finish 2 liter bolus; Complete Time: 19:31 jesus Administered Medications: 18:55 Drug: NS 0.9% IV 1000 ml IV at 1 bolus Per protocol; 1000 mL bolus Route: IV; Rate: 1 ar6 bolus; Site: left antecubital; 20:39 Follow up: IV Status: Completed infusion jj7 18:55 Drug: Famotidine IVP 20 mg IVP once; dilute with 10 mL 0.9% NaCl; give over 2 minutes ar6 Route: IVP; Site: left antecubital; 19:42 Follow up: Response: Marked relief of symptoms jj7 18:55 Drug: Ondansetron IVP 4 mg IVP once; over 2 minutes Route: IVP; Site: left antecubital; ar6 19:43 Follow up: Response: Nausea is decreased jj7 18:55 Drug: NS 0.9% IV 1000 ml IV at 1 bolus Per protocol; 1000 mL bolus Route: IV; Rate: 1 ar6 bolus; Site: left antecubital; 20:38 Follow up: IV Status: Completed infusion jj7 19:42 Drug: vancoMYCIN PO 125 mg PO once Route: PO; jj7 20:39 Follow up: Response: No adverse reaction jj7 Disposition Summary: 02/26/24 19:25 Discharge Ordered Notes: Location: Home [facility] Problem: new jesus Symptoms: have improved jesus Condition: Stable jesus Diagnosis - Dehydration jesus - Enterocolitis due to Clostridium difficile jesus - Abdominal pain, unspecified jesus - Diarrhea, unspecified jesus Followup: jesus - With: Private Physician - When: 2 - 3 days - Reason: Recheck today's complaints, Continuance of care, Re-evaluation by your physician Followup: jesus - With: Kevin Valdez MD - When: 2 - 3 days - Reason: Recheck today's complaints, Continuance of care, Re-evaluation by your physician Discharge Instructions: - Discharge Summary Sheet jesus - Abdominal Pain, Adult jesus - Food Choices to Help Relieve Diarrhea, Adult jesus - Dehydration, Adult jesus - Diarrhea, Adult jesus - Clostridioides Difficile Infection jesus - Rehydration, Adult jesus Forms: - Medication Reconciliation Form jesus - Antibiotic Education jesus - Prescription Opioid Use jesus - Patient Portal Instructions [facility] - Leadership Thank You Letter [facility] Prescriptions: - Questran 4 gram Oral powder in packet - take 1 packet ORAL route before meals and at bedtime no meds 1 hr before/4-6 hr jesus after dose; 14 packet; Refills: 0, Product Selection Permitted - Vancocin 125 mg Oral capsule - take 1 capsule ORAL route 4 times per day; 40 capsule; Refills: 0, Product jesus Selection Permitted - ondansetron 4 mg Oral Tablet,disintegrating - take 1 tablet ORAL route every 6-8 hours for 5 days; 20 tablet; Refills: 0, jesus Product Selection Permitted - dicyclomine 20 mg Oral tablet - take 1 tablet ORAL route 4 times per day; 28 tablet; Refills: 0, Product jesus Selection Permitted Signatures: Dispatcher [employer] Stefano Mullen MD MD cha Johnson, Juwairiyah, RN RN jj7 Charlee Vitale RN RN db Virginia Parnell RN RN ar6
--- NOTE | 2024-02-26 19:25 | ER ---
Nurse's Notes [facility] Name: Edwina Vasquez Age: 43 yrs Sex: Female : 1980 Arrival Date: 02/26/2024 Time: 17:37 Bed 8 Private MD: Diagnosis: Dehydration;Enterocolitis due to Clostridium difficile;Abdominal pain, unspecified;Diarrhea, unspecified Presentation: 02/25 17:58 Chief complaint: Patient states: GASTRIC BYPASS 6 MONTHS AGO DIARRHEA SINCE THEN. AND db DIARRHEA WORSE X 2 WEEKS. TOLD TODAY HAS CDIFF. WAS TOLD TO COME TODAY FOR IV ANTIBIOTICS. Coronavirus screen: Client denies travel out of the [place] in the last 14 days. At this time, the client does not indicate any symptoms associated with coronavirus-19. Ebola Screen: Patient negative for fever greater than or equal to 101.5 degrees Fahrenheit, and additional compatible Ebola Virus Disease symptoms Patient denies exposure to infectious person. Patient denies travel to an Ebola-affected area in the 21 days before illness onset. No symptoms or risks identified at this time. Initial Sepsis Screen: Does the patient meet any 2 criteria? No. Patient's initial sepsis screen is negative. Does the patient have a suspected source of infection? No. Patient's initial sepsis screen is negative. Risk Assessment: Do you want to hurt yourself or someone else? Patient reports no desire to harm self or others. Onset of symptoms was February 26, 2024. 17:58 Method Of Arrival: Ambulatory db 17:58 Acuity: EDWIN 3 db Triage Assessment: 18:00 General: Appears in no apparent distress. comfortable, Behavior is calm, cooperative. db Pain: Complains of pain in abdomen. Neuro: Level of Consciousness is awake, alert, obeys commands, Oriented to person, place, time, situation. GI: Abdomen is non-distended, Reports lower abdominal pain, upper abdominal pain, diarrhea. Historical: - Allergies: 18:00 Morphine; db - PMHx: 18:00 frequent PVCs; ibs (ulcerative colitis); mitral valve prolapse; db - PSHx: 18:00 Cholecystectomy; gastric bypass for GERD; gastric sleeve; Left kidney stent; Ligation db of fallopian tube; ablation; - Immunization history:: Adult Immunizations unknown. - Infectious Disease History:: Denies. - Social history:: Smoking status: Patient denies any tobacco usage or history of. Screenin:31 [facility] [place] ED Fall Risk Assessment (Adult) History of falling in the last 3 months, jj7 including since admission No falls in past 3 months (0 pts) Confusion or Disorientation No (0 pts) Intoxicated or Sedated No (0 pts) Impaired Gait No (0 pts) Mobility Assist Device Used No (0 pt) Altered Elimination No (0 pt) Score/Fall Risk Level 0 - 2 = Low Risk Oriented to surroundings, Maintained a safe environment, Educated pt \T\ family on fall prevention, incl call for assistance when getting out of bed, Assessed \T\ reinforced patient's understanding of fall precautions. Abuse screen: Denies threats or abuse. Nutritional screening: No deficits noted. Tuberculosis screening: No symptoms or risk factors identified. Assessment: 19:31 Reassessment: ASSUMED CARE OF PT. PT SITTING IN BED. NO PAIN OR DISTRESS NOTED. IV jj7 FLUIDS STILL INFUSING. TOLERATING PO FLUIDS WELL. WAITING FOR PO VAN FROM 2ND FLOOR. General: Appears in no apparent distress. comfortable, Behavior is calm, cooperative, appropriate for age. Pain: Denies pain. GI: Reports diarrhea. Vital Signs: 17:58 BP 121 / 91; Pulse 81; Resp 18; Temp 98.2; Pulse Ox 99% ; Weight 82.1 kg; Height 5 ft. db 3 in. ; Pain 6/10; 19:31 BP 119 / 80; Pulse 59; Resp 19; Pulse Ox 100% ; Pain 0/10; jj7 20:39 BP 124 / 94; Pulse 55; Resp 17; Temp 98.3; Pulse Ox 100% ; Pain 0/10; jj7 17:58 Body Mass Index 32.06 (82.10 kg, 160.02 cm) db 17:58 Pain Scale: Adult db 19:31 Pain Scale: Adult jj7 20:39 Pain Scale: Adult jj7 ED Course: 17:46 Patient arrived in ED. mr 17:54 Stefano Thurston MD is Attending Physician. [facility] 18:00 Triage completed. db 18:01 Arm band placed on Patient placed in waiting room. db 18:10 Initial lab(s) drawn, by me, sent to lab. Inserted saline lock: 20 gauge in left db antecubital area, using aseptic technique. Blood collected. Flushed with 10 mL NS. 18:43 Urine collected: clean catch specimen, clear. oh1 18:44 Warm blanket given. oh1 19:24 Kevin Valdez MD is Referral Physician. [facility] 19:31 Patient has correct armband on for positive identification. Bed in low position. Call jj7 light in reach. Provided Education on: USE OF CALL WILEY. 19:31 No provider procedures requiring assistance completed. jj7 20:39 IV discontinued, intact, bleeding controlled, No redness/swelling at site. Pressure jj7 dressing applied. Administered Medications: 18:55 Drug: NS 0.9% IV 1000 ml IV at 1 bolus Per protocol; 1000 mL bolus Route: IV; Rate: 1 ar6 bolus; Site: left antecubital; 20:39 Follow up: IV Status: Completed infusion jj7 18:55 Drug: Famotidine IVP 20 mg IVP once; dilute with 10 mL 0.9% NaCl; give over 2 minutes ar6 Route: IVP; Site: left antecubital; 19:42 Follow up: Response: Marked relief of symptoms jj7 18:55 Drug: Ondansetron IVP 4 mg IVP once; over 2 minutes Route: IVP; Site: left antecubital; ar6 19:43 Follow up: Response: Nausea is decreased jj7 18:55 Drug: NS 0.9% IV 1000 ml IV at 1 bolus Per protocol; 1000 mL bolus Route: IV; Rate: 1 ar6 bolus; Site: left antecubital; 20:38 Follow up: IV Status: Completed infusion jj7 19:42 Drug: vancoMYCIN PO 125 mg PO once Route: PO; jj7 20:39 Follow up: Response: No adverse reaction jj7 Medication: 19:31 VIS not applicable for this client. jj7 Outcome: 19:25 Discharge ordered by . [facility] 20:39 Discharged to home ambulatory, jj7 20:39 Condition: improved 20:39 Discharge instructions given to patient, Instructed on discharge instructions, medication usage, Demonstrated understanding of instructions, medications, Prescriptions given X 4, 20:41 Patient left the ED. jj7 Signatures: Stefano Thurston MD MD cha Rivera, Mary, Reg Reg mr Cristina Marie RN RN jj7 Charlee Vitale RN RN db Virginia Parnell RN RN ar6 Liya Ramirez oh1
[2024-02-26] MEDS ORDERED: VANCOMYCIN HCL 125 MG CAPSULE ONE (19:30)
[2024-02-26 21:03] VITALS: O2SAT 100
[2024-02-26 21:05] VITALS: BP 124/94; TEMP 98.3
== END 2024-02-26 20:41 | disposition home or self-care (01) ==
LOC: ER 17:37
DX: A04.72 Enterocolitis due to Clostridium difficile, not specified as recurrent (principal); E86.0 Dehydration
CPT/HCPCS: 96361; 85025; 81001; 36415; 81025; 83690; 80053; 96375; 96374; 99284; J2405; J7030